=== PATIENT | male | born 1945 | race Caucasian/White ===

== ENCOUNTER 2019-11-09 08:42 | Outpatient (CLI) | payer MEDICARE, MEDICAID, SELFPAY ==
--- NOTE | ~2019-11-09 | CT_ITS ---
EXAMINATION: CT abdomen pelvis wo con EXAM DATE: 11/09/2019 09:45 INDICATION: Peritoneal cancer. TECHNIQUE: Spiral CT of the abdomen and pelvis was performed without contrast. Axial, coronal and s agittal images were reviewed. The dose-length product (DLP) for this examination was 1393.99 mGy-cm. The exposure was tailored according to patient size (auto mA exposure control), and iterative recon struction (ASIR) was used as additional dose reduction technique. Comparison is made to prior examina tion from 07/02/2019. FINDINGS: No mesenteric or retroperitoneal masses identified. The liver, spleen, adrenal glands and pancreas are unremarkable. Gallbladder is unremarkable. No biliary obstruction. There is no nephro lithiasis or hydronephrosis. There are bilateral renal cysts, largest in the left kidney measuring 7 cm. Small prostate versus prostatectomy. The bladder is unremarkable. There is no retroperitoneal or pelvic lymphadenopathy. There is moderate scattered arteriosclerotic disease. The appendix is normal. The stomach and small bowel are unremarkable. There is expected amount of c olonic stool. There is extensive scattered colonic diverticulosis. There is no adjacent inflammatory change to suggest diverticulitis. No free intraperitoneal gas. There is cardiomegaly. The main, c entral pulmonary arteries are dilated which can indicate elevated pulmonary arterial pressure, pulmon josh arterial hypertension. Pulmonary vascular congestion. Basilar lung parenchymal granulomas. Ther e are no osteoblastic or osteolytic lesions identified. IMPRESSION: 1. Stable exam. No evidence of metastatic disease. 2. Extensive colonic diverticulosis. 3. Cardiomegaly, dilated pulmonary arteries. Reviewed, dictated and finalized at location A. 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
== END 2019-11-09 08:43 | disposition home or self-care (01) ==
LOC: ANHIMG 08:43
PROVIDERS: PCP Internal Medicine; Visit Provider Internal Medicine Hematology & Oncology
DX: C48.2 Malignant neoplasm of peritoneum, unspecified (principal); K57.90 Diverticulosis of intestine, part unspecified, without perforation or abscess without bleeding; I51.7 Cardiomegaly
CPT/HCPCS: 74176

== ENCOUNTER 2020-02-08 09:07 | Outpatient (CLI) | payer MEDICARE, MEDICAID, SELFPAY ==
--- NOTE | ~2020-02-08 | MR_ITS ---
EXAMINATION: MR thoracic spine wo con DATE: 02/08/2020 10:22 INDICATION: Thoracic radiculopathy. TECHNIQUE: Magnetic resonance imaging (MRI) of the thoracic spine was performed without intravenous c ontrast. Sagittal localizer T1-weighted FSE of the cervical spine was obtained. Thoracic spine sequen viji included sagittal T2-weighted FSE, sagittal T1-weighted FSE, sagittal STIR FSE, and axial T2-weig hted FSE. COMPARISON: Lumbar spine MRI 10/09/2019, CT abdomen and pelvis 11/09/2019 FINDINGS: There is 7 degrees levocurvature of upper thoracic spine. There are Schmorl's nodes at many levels. There is moderately decreased disc height at C6-C7 and severely decreased disc height at C7- T1. At C6-C7 and C7-T1, the discs are bulging with mild central canal stenosis. At T7-T8, there is a central extrusion. At T8-T9, there is a central protrusion with mild central canal stenosis. At T9-T1 0, there is a right central extrusion with mild central canal stenosis. At T11-T12, the disc is bulgi ng. There is multilevel mild facet joint osteoarthritis bilaterally. There is mild right neural abdirashid inal stenosis at C6-C7, C7-T1, and T1-T2. There is mild left neural foraminal stenosis at C6-C7, T1-T 2, and T11-T12. There is moderate left neural foraminal stenosis at C7-T1 and T9-T10. The spinal cord signal intensity is normal. IMPRESSION: 1. Mild thoracic spondylosis and moderate cervical spondylosis. Reviewed, dictated and finalized at location E.
== END 2020-02-08 09:08 | disposition home or self-care (01) ==
PROVIDERS: PCP Internal Medicine; Visit Provider Nurse Practitioner Family
DX: M47.24 Other spondylosis with radiculopathy, thoracic region (principal); M47.892 Other spondylosis, cervical region
CPT/HCPCS: 72146

== ENCOUNTER 2020-04-19 15:33 | Emergency (ER) | payer MEDICARE, MEDICAID, SELFPAY ==
[2020-04-19] VITALS (14 sets, daily range): BP systolic 99–116; BP diastolic 41–70; PULSE 40–83; RESP 14–30; TEMP 37.4–38.8; O2SAT 74–98
--- NOTE | ~2020-04-19 | XR_ITS ---
EXAMINATION: XR chest 1V portable DATE: 04/19/2020 16:37 INDICATION: Fever. TECHNIQUE: A single frontal view of the chest was obtained. COMPARISON: Chest single view 07/04/2018 FINDINGS: There is chronic elevation of right hemidiaphragm. There is mild atelectasis in right lower lung zone. Calcified right lung nodules and calcified right hilar lymph nodes are consistent with ol d granulomatous disease. No pleural effusion or pneumothorax. Cardiomegaly is noted. There is a right internal jugular port with tip in superior vena cava. IMPRESSION: 1. Chronic elevation of right hemidiaphragm with mild atelectasis in right lower lung zone. 2. Cardiomegaly. Reviewed, dictated and finalized at location A. IMPRESSION: 1. Chronic elevation of right hemidiaphragm with mild atelectasis in right lowe r lung zone. 2. Cardiomegaly.
--- NOTE | ~2020-04-19 | XR_ITS ---
EXAMINATION: XR shoulder LT min 2V DATE: 04/19/2020 16:36 INDICATION: Left shoulder pain and swelling. TECHNIQUE: 4 views of left shoulder were obtained. COMPARISON: None. FINDINGS: There is superior subluxation of humeral head with respect to glenoid with narrowing of the subacromial space and remodeling of the acromion and superior humeral head, consistent with chronic rotator cuff tear with cuff arthropathy. No fracture. There is moderate osteoarthritis of glenohumera l joint and severe osteoarthritis of acromioclavicular joint. There is a catheter tip in superior mirna a cava. IMPRESSION: 1. Chronic left rotator cuff tear with cuff arthropathy. 2. Polyarticular osteoarthritis. Reviewed, dictated and finalized at location A.
--- NOTE | ~2020-04-19 | XR_ITS ---
EXAMINATION: XR wrist LT 2V DATE: 04/19/2020 16:36 INDICATION: Left wrist swelling and pain. Gout. TECHNIQUE: 3 views of left wrist were obtained. COMPARISON: Left wrist radiographs 02/08/2014 FINDINGS: There is chronic dorsal lunate dislocation. Scapholunate dissociation is noted. There is se monserrat osteoarthritis of radioscaphoid joint, mild osteoarthritis of triscaphe joint, and severe osteoa rthritis of first carpometacarpal joint. There are loose bodies in the radiocarpal compartment. IMPRESSION: 1. 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 2. Polyarticular osteoarthritis. 3. Loose bodies in the radiocarpal compartment. Reviewed, dictated and finalized at location A. IMPRESSION: 1. 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 2. Polyarticular osteoarthritis. 3. Loose bodies in the radiocarpal compartment.
--- NOTE | ~2020-04-19 | CT_ITS ---
EXAMINATION: CT chest abdomen pelvis w con DATE: 04/19/2020 17:30 CDT INDICATION: History of lymphoma failure. Fever. TECHNIQUE: Computed tomography (CT) of the chest, abdomen, and pelvis was performed with 100 cc Omnip aque 350 intravenous contrast. The dose-length product was 1576.49 mGy-cm. Automated exposure control and iterative reconstruction technique were employed. COMPARISON: CT dated 11/09/2019 FINDINGS: CHEST CT: There are calcified mediastinal lymph nodes, consistent with chronic granulomatous disease. Cardiomeg bradford. Enlarged pulmonary arteries consistent with pulmonary hypertension. There is evidence for chroni c granulomatous disease in the lung parenchyma. There is gynecomastia. No thoracic lymphadenopathy. N o significant pleural or pericardial effusion. Elevation of the right diaphragm. No focal airspace co nsolidation. No endobronchial lesions. No pneumothorax. ABDOMEN/PELVIS CT: There is a small amount of ascites of the abdomen and pelvis. Small subcentimeter hypodensities of th e liver are likely benign. The spleen, pancreas, adrenal glands are unremarkable. There are bilateral renal cysts. There is renal atrophy. No hydronephrosis. There is atherosclerosis of the aorta withou t aneurysm or dissection. No lymphadenopathy. The bladder wall is mildly prominent, although not well distended. Colonic diverticulosis without evidence for diverticulitis. There is generalized deminera lization. Moderate lumbar spondylosis. Moderate osteoarthritis of the hips. IMPRESSION: 1. No evidence for metastatic disease. 2: Mild bladder wall thickening which may be attributable to lack of distention or cystitis. Correlat e with urinalysis. 3: Dilated pulmonary arteries consistent with pulmonary arterial hypertension. Cardiomegaly. Reviewed, dictated and finalized at location A. IMPRESSION: 1. No evidence for metastatic disease. 2: Mild bladder wall thickening which may be attributable to lack of distention or cystitis. Correlate with urinalysis. 3: Dilated pulmonary arteries consistent with pulmonary arterial hypertension. Cardiomegaly.
--- NOTE | 2020-04-19 16:11 | ED.FEVER ---
HPI - Fever General Chief Complaint: Fever Stated Complaint: Fever and multiple complaints Time Seen by Provider: 04/19/20 16:02 History of Present Illness HPI Narrative: Patient presents with his caregiver of 3 years for fever. He is very evasive with his answers, and difficult to redirect. The caregiver said that he did not have a fever yesterday when she arrived today at 1030 he had fever. His left shoulder has been hurting him for 3 days without injury. His left wrist has been hurting him for 2 days without recent injury. He had a fracture on that left wrist in the past. His appetite is good. When asked if he had a cough, he coughed in my direction without a mask. When asked if he had a sore throat, he answered do you have a sore throat? Caregiver reports that he does not smoke cigarettes, drink alcohol, or do drugs. He has some memory problems, but manages his own money. He is retired. He has a history of lymphoma and is scheduled to have an abdomen CAT scan later this week. MD elicited complaint: fever Onset (ago): hour(s) Exacerbating factors: nothing Relieving factors: nothing Associated symptoms: chills and extremity pain Treatments prior to arrival fever: none Related Data Home Medications Medication Instructions Recorded Confirmed acetaminophen 650 mg PO Q4H PRN 07/14/19 04/14/20 cholecalciferol (vitamin D3) 1,000 unit PO DAILY 07/14/19 04/14/20 cyanocobalamin (vitamin B-12) 1,000 mcg PO DAILY 07/14/19 04/14/20 ferrous sulfate 325 mg (65 mg 325 mg PO DAILY tablet 08/03/19 04/14/20 iron) tablet furosemide 20 mg tablet 20 mg PO QID tablet 08/03/19 04/14/20 magnesium oxide 400 mg (241.3 mg 400 mg PO DAILY 08/03/19 04/14/20 magnesium) tablet spironolactone 25 mg tablet 12.5 mg PO HS tablet 10/30/19 04/14/20 allopurinol 100 mg PO DAILY 04/14/20 04/14/20 Allergies Allergy/AdvReac Type Severity Reaction Status Date / Time Penicillins Allergy Unknown Unknown Verified 04/19/20 15:45 Review of Systems Review of Systems: Narrative: Review of systems was difficult to obtain since he was not straightforward with his answers. All systems reviewed & are unremarkable except as noted in HPI and below PMFSH Past Medical History Medical History Angina pectoris, unspecified Anxiety Arthritis Atrial fibrillation CAD (coronary artery disease) Cellulitis CHF (congestive heart failure) CKD (chronic kidney disease) COPD (chronic obstructive pulmonary disease) Depression Diabetes Emphysema of lung Fluid retention 05/26/18 Hyperlipidemia Hypertension Hypoxia Obesity Olecranon bursitis of right elbow Peripheral sensory neuropathy Sleep apnea Tracheostomy care Surgical History Surgical History H/O hernia repair Social History Social History Smoking status: Former smoker Tobacco type: cigars Smoking end date: 09/23/99 Alcohol intake: current Substance use: never Exam Narrative: Exam Narrative: GENERAL: Well-appearing, well-nourished, and in no acute distress. He feels warm. Some audible wheezing after he tried to cough. Left shoulder with decreased range of motion and pain with motion. Left wrist swollen and painful with any motion. HEAD: Normocephalic, atraumatic. EYES: PERRLA and EOMI. ENT: Nares clear, no rhinorrhea or epistaxis. Mucous membranes moist. NECK: Supple. CHEST: Clear to auscultation. No respiratory distress. HEART: Regular rate and rhythm. No murmur heard. Normal peripheral pulses. ABDOMEN: Soft, nontender, nondistended, normal active bowel sounds. EXTREMITIES: Normal range of motion. No edema. SKIN: Warm, dry, no rash. NEURO: No focal deficits. Alert and oriented x3. PSYCH: Evasive with self satisfying humor. Course Reevaluation(s) Reevaluation #1: Went back into talk to the patient about all of his results. He
[2020-04-19 16:13] LABS: Hemoglobin 8.3 g/dL (14.0-18.0); Mean Corpuscular HGB Conc 31.9 g/dl (32-36); Mean Corpuscular Hemoglobin 27.3 pg (26-34); Mean Corpuscular Volume 85.5 fl (80-100); Mean Platelet Volume 12.5 fl (7.4-10.4); Platelet Count Result 146 k/mm3 (150-375); Red Blood Count 3.04 M/mm3 (4.6-6.20); Red Cell Distribution Width 18.2 % (11.5-14.5); White Blood Count 3.3 K/mm3 (4.5-10.0)
[2020-04-19 16:27] LABS: Lactic Acid Reflex 0.9 mmol/L (0.7-2.1)
[2020-04-19 16:30] LABS: Alanine Aminotransferase 14 U/L (4-50); Albumin Level 3.9 g/dL (3.5-5.1); Alkaline Phosphatase 239 U/L (38-126); Aspartate Amino Transferase 24 U/L (17-59); Bilirubin,Total 2.2 mg/dL (0.2-1.3); Blood Urea Nitrogen 76 mg/dL (9-20); Calcium 8.6 mg/dL (8.4-10.2); Carbon Dioxide 29 mmol/L (22-30); Chloride 90 mmol/L (98-107); Estimated CRCL calculation 37 ml/min; Estimated Glomerular Filt Rate 35; Glucose 126 mg/dL (75-110); Sodium 131 mmol/L (137-145)
[2020-04-19 16:33] LABS: Band Neutrophils Percent 1 % (0-6); Eosinophils Absolute Manual 0.06 K/mm3 (0.02-0.5); Eosinophils Percent Manual 2 % (0-4); Lymphocytes Absolute Manual 0.19 K/mm3 (1.1-4.5); Metamyelocytes Percent 6 %; Monocytes Absolute Manual 0.33 K/mm3 (0.1-0.90); Monocytes Percent Manual 10 % (3-9); Neutrophils Percent Manual 75 % (46-73); Platelet Estimate Adequate (Adequate); Total Cells Counted 100
[2020-04-19] MEDS: ACETAMINOPHEN 500 MG TABLET 1000 MG PO (16:33)
[2020-04-19 16:34] LABS: Acanthocytes 1+ (NORMAL); Crenated RBC 1+ (NORMAL); Ovalocytes 1+ (NORMAL); Tear Drop Cells 1+ (NORMAL)
[2020-04-19 16:35] LABS: Poikilocytosis 1+ (NORMAL)
[2020-04-19 16:40] LABS: Partial Thromboplastin Time > 200.0 SECONDS (22.3-36.8)
--- NOTE | 2020-04-19 16:42 | ECG_ITS ---
Measurements Intervals [place] Rate: 57 P: MI: 0 QRS: -12 QRSD: 120 T: 89 QT: 388 QTc: 379 Interpretive Statements ATRIAL FIBRILLATION VENTRICULAR BIGEMINY AND VENTRICULAR PREMATURE COMPLEX INTRAVENTRICULAR CONDUCTION DELAY NONSPECIFIC T-WAVE ABNORMALITY- HIGH LATERAL LEADS BASELINE ARTIFACT- AVR, AVL, AVF ABNORMAL ECG Electronically Signed On 04-19-2020 17:56:57 CDT by Jacob Manning D.O.
[2020-04-19 16:44] LABS: CRP 25.1 mg/dL (<1.0)
[2020-04-19 16:45] LABS: Ethanol < 10 mg/dL (<10)
[2020-04-19 17:05] LABS: Add Urine Microscopic? NO; Appearance Urine Clear (Clear); Bilirubin Urine Negative (Negative); Blood Urine Negative (Negative); Color Urine Yellow (Yellow); Glucose Urine UA Negative (Negative); Ketones Urine Negative (Negative); Leukocyte Esterase Ur Negative LEU/UL (Negative); Mucus Urine Rare /lpf; Nitrate Urine Negative (Negative); Protein Urine Negative (Negative); RBC Urine 0-2 /hpf (0-2); Specific Grav Ur 1.012 (1.001-1.035); Urobilinogen Urine Negative mg/dL (<2.0); WBC Urine 0-3 /hpf
[2020-04-20 14:40] LABS: SARS-CoV-2 RNA PCR Negative
== END 2020-04-19 18:54 | disposition home or self-care (01) ==
PROVIDERS: Emergency Provider Emergency Medicine; PCP Internal Medicine
DX: D61.818 Other pancytopenia (principal); N18.9 Chronic kidney disease, unspecified; R50.9 Fever, unspecified; Z20.828 Contact with and (suspected) exposure to other viral communicable diseases; E11.22 Type 2 diabetes mellitus with diabetic chronic kidney disease; I13.0 Hypertensive heart and chronic kidney disease with heart failure and stage 1 through stage 4 chronic kidney disease, or unspecified chronic kidney disease; I50.9 Heart failure, unspecified; F41.9 Anxiety disorder, unspecified; M19.90 Unspecified osteoarthritis, unspecified site; Z85.72 Personal history of non-Hodgkin lymphomas; I48.91 Unspecified atrial fibrillation; I25.10 Atherosclerotic heart disease of native coronary artery without angina pectoris; Z79.899 Other long term (current) drug therapy; Z87.891 Personal history of nicotine dependence; R00.8 Other abnormalities of heart beat; I49.3 Ventricular premature depolarization; I45.9 Conduction disorder, unspecified; M19.012 Primary osteoarthritis, left shoulder; M75.102 Unspecified rotator cuff tear or rupture of left shoulder, not specified as traumatic; M19.032 Primary osteoarthritis, left wrist; I51.7 Cardiomegaly; R93.41 Abnormal radiologic findings on diagnostic imaging of renal pelvis, ureter, or bladder; R91.8 Other nonspecific abnormal finding of lung field
CPT/HCPCS: 36415; 71045; 71260; 73030; 73100; 74177; 80053; 80307; 81003; 83605; 85025; 85610; 85730; 86140; 87040; 87635; 93005; 99284; A9270; C9803; Q9967; U0003

== ENCOUNTER 2020-04-20 12:33 | Inpatient (IN) | payer MEDICARE, MEDICAID, SELFPAY ==
[2020-04-20] VITALS (28 sets, daily range): BP systolic 94–117; BP diastolic 54–82; PULSE 57–88; RESP 15–24; TEMP 36.3–37.1; O2SAT 91–100; BMI 32.8
--- NOTE | ~2020-04-20 | US_ITS ---
EXAMINATION: US venous doppler UE LT DATE: 04/22/2020 15:03 INDICATION: Left upper limb swelling. TECHNIQUE: Grayscale ultrasound images without and with compression and Doppler ultrasound images of the left upper extremity veins were obtained. COMPARISON: None. FINDINGS: The visualized portions of the left internal jugular vein, subclavian vein, axillary vein, brachial v eins, basilic vein, cephalic vein, radial vein, and ulnar vein are patent. There is tenosynovitis of the dorsum of the hand. IMPRESSION: 1. No deep venous thrombosis. 2. Tenosynovitis of the dorsum of the hand. Reviewed, dictated and finalized at location A.
--- NOTE | 2020-04-20 12:41 | ECG_ITS ---
Measurements Intervals [place] Rate: 71 P: PA: 0 QRS: 5 QRSD: 126 T: 89 QT: 418 QTc: 457 Interpretive Statements ATRIAL FIBRILLATION VENTRICULAR COUPLET AND VENTRICULAR PREMATURE COMPLEXES INTRAVENTRICULAR CONDUCTION DELAY BORDERLINE T WAVE ABNORMALITY- HIGH LATERAL LEADS ABNORMAL ECG Electronically Signed On 04-20-2020 12:55:15 CDT by Jacob Manning D.O.
[2020-04-20 13:08] LABS: Hemoglobin 7.6 g/dL (14.0-18.0); Mean Corpuscular HGB Conc 31.7 g/dl (32-36); Mean Corpuscular Hemoglobin 27.2 pg (26-34); Mean Platelet Volume 11.7 fl (7.4-10.4); Platelet Count Result 141 k/mm3 (150-375); Red Blood Count 2.79 M/mm3 (4.6-6.20); Red Cell Distribution Width 18.3 % (11.5-14.5); White Blood Count 3.4 K/mm3 (4.5-10.0)
[2020-04-20 13:20] LABS: Alanine Aminotransferase 15 U/L (4-50); Albumin Level 3.5 g/dL (3.5-5.1); Alkaline Phosphatase 267 U/L (38-126); Aspartate Amino Transferase 29 U/L (17-59); Bilirubin,Total 2.2 mg/dL (0.2-1.3); Blood Urea Nitrogen 79 mg/dL (9-20); Calcium 8.4 mg/dL (8.4-10.2); Carbon Dioxide 27 mmol/L (22-30); Chloride 91 mmol/L (98-107); Estimated CRCL calculation 34 ml/min; Estimated Glomerular Filt Rate 31; Glucose 100 mg/dL (75-110); Sodium 131 mmol/L (137-145)
[2020-04-20 13:29] LABS: Lymphocytes Absolute Manual 0.23 K/mm3 (1.1-4.5); Monocytes Absolute Manual 0.54 K/mm3 (0.1-0.90); Monocytes Percent Manual 16 % (3-9); Neutrophils Percent Manual 77 % (46-73); Total Cells Counted 100
[2020-04-20 13:30] LABS: Anisocytosis 2+ (NORMAL); Hypochromasia 1+ (NORMAL); Ovalocytes 1+ (NORMAL); Schistocytes 1+ (NORMAL)
[2020-04-20 14:32] LABS: Alveolar/Arterial O2 Gradient 41.1 mmHg; Base Excess ABG 2.2 mEq/l (+/-2.0); Device ROOM AIR; Fractional Inspired Oxygen 21 %; Modified Allen's Test Pass; Oxygen Content ABG 11.4 %vol (16.0-22.0); Oxygen Saturation ABG 93.9 % (95.0-100.0); Oxyhemoglobin 90.3 % THb (90.0-100.0); PCO2 ABG 36.8 mmHg (35.0-45.0); PO2 ABG 64.6 mmHg (80.0-100.0); PO2 FiO2 Ratio Arterial Blood 3.08 %; Site Drawn RIGHT RADIAL; Total Hemoglobin 8.9 g/dL (12.0-18.0); pH ABG 7.467 (7.350-7.450)
--- NOTE | 2020-04-20 14:35 | ED.GENADULT ---
HPI - General Adult General Chief complaint: Weakness Stated complaint: WEAKNESS Source: patient and family History of Present Illness HPI narrative: 74 years old white male brought to the emergency by his daughter because of progressive weakness over the last few days. Patient was discharged yesterday from our emergency room with a diagnosis of pancytopenia and renal insufficiency. Patient declined to be admitted yesterday. The daughter told me that patient had fever up to 101 yesterday. COVID-19 was done, waiting for results. Patient denies any sore throat, coughing, shortness of breath, body aches, nasal congestion or diarrhea. Patient have a caregiver was taking care of him 4 hours a day. She reports that unable to take care of the patient because the general weakness and inability to stand up without at least 2 social media assistant. Related Data Home Medications Medication Instructions Recorded Confirmed acetaminophen 650 mg PO Q4H PRN 07/14/19 04/14/20 cholecalciferol (vitamin D3) 1,000 unit PO DAILY 07/14/19 04/14/20 cyanocobalamin (vitamin B-12) 1,000 mcg PO DAILY 07/14/19 04/14/20 ferrous sulfate 325 mg (65 mg 325 mg PO DAILY tablet 08/03/19 04/14/20 iron) tablet furosemide 20 mg tablet 20 mg PO QID tablet 08/03/19 04/14/20 magnesium oxide 400 mg (241.3 mg 400 mg PO DAILY 08/03/19 04/14/20 magnesium) tablet spironolactone 25 mg tablet 12.5 mg PO HS tablet 10/30/19 04/14/20 allopurinol 100 mg PO DAILY 04/14/20 04/14/20 Allergies Allergy/AdvReac Type Severity Reaction Status Date / Time Penicillins Allergy Unknown Unknown Verified 04/19/20 15:45 [facility] Past Medical History Medical History Angina pectoris, unspecified Anxiety Arthritis Atrial fibrillation CAD (coronary artery disease) Cellulitis CHF (congestive heart failure) CKD (chronic kidney disease) COPD (chronic obstructive pulmonary disease) Depression Diabetes Emphysema of lung Fluid retention 05/26/18 Hyperlipidemia Hypertension Hypoxia Obesity Olecranon bursitis of right elbow Peripheral sensory neuropathy Sleep apnea Tracheostomy care Surgical History Surgical History H/O hernia repair Family History Family History Father Family history of emphysema Family history of chronic obstructive pulmonary disease Sibling Family history of diabetes mellitus in first degree relative Family history of congestive heart failure Mother Family history of heart disease in male family member before age 55 Patient's mother is in good health Acute myocardial infarction Other Diabetes mellitus Hypertension Social History Social History Smoking status: Former smoker Tobacco type: cigars Smoking end date: 09/23/99 Alcohol intake: current Substance use: never Exam Narrative: Exam Narrative: General appearance: Well-developed, well-nourished Skin: Normal color Head: Normocephalic, nontraumatic Eyes: Clear conjunctiva ENT: Oropharynx normal, ears normal, nose normal Neck: Supple, nontender Chest and respiratory: Airway patent, no respiratory distress, no accessory muscle use Heart: Regular rate/rhythm Abdomen: Soft, nontender, no organomegaly, quiet bowel sounds. Rectal exam showed yellow stool, guaiac negative Vascular: Normal peripheral pulses, normal capillary refill. 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
[2020-04-20] MEDS: POTASSIUM CHLORIDE 20 MEQ TABLET 40 MEQ PO (15:29)
[2020-04-20] MEDS: LACTATED RINGERS 1,000 ML 125 ML IV CONT (15:37)
--- NOTE | 2020-04-20 17:57 | ADMGEN ---
This patient, Harvey Sorenson, was admitted to [facility] Surg Room 323-02 @ 1757. Patient/family oriented to hospital policies and general routines including ID bracelet, bed and alarms, visiting hours, pain management, procedures, bathroom and other care routines, personal items, smoking policy, room service/diet, and visiting hours. Valuables list has been completed. Information on how to activate the Rapid Response Team has been discussed. Patient/Family are encouraged to report perceived risks to care and to ask questions if they do not understand what they are told or what they should do.
[2020-04-20] MEDS: POTASSIUM CHLORIDE 20 MEQ TABLET.ER 40 MEQ PO (18:52)
[2020-04-21] VITALS (9 sets, daily range): BP systolic 102–122; BP diastolic 56–72; PULSE 64–88; RESP 18–20; TEMP 36.4–37.7; O2SAT 93–100
[2020-04-21] MEDS: LACTATED RINGERS 1,000 ML 125 ML IV CONT (00:11)
[2020-04-21 05:25] LABS: Basophils Percent Auto 0.3 % (0.2-1.2); Eosinophils Absolute Auto 0.1 K/mm3 (0-0.3); Eosinophils Percent Auto 2.3 % (0-4.4); Hematocrit 22.8 % (42.0-52.0); Hemoglobin 7.2 g/dL (14.0-18.0); Immature Granulocyte Absolute 0.46 K/mm3 (0.00-0.031); Immature Granulocyte Percent A 15.1 % (0-0.5); Lymphocytes Percent Auto 3.3 % (18.3-44.2); Mean Corpuscular HGB Conc 31.6 g/dl (32-36); Mean Corpuscular Hemoglobin 27.3 pg (26-34); Mean Corpuscular Volume 86.4 fl (80-100); Mean Platelet Volume 11.2 fl (7.4-10.4); Monocytes Absolute Auto 0.6 K/mm3 (0.1-0.6); Monocytes Percent Auto 20.7 % (2.6-8.5); Neutrophils Absolute Auto 1.8 K/mm3 (1.3-6.7); Neutrophils Percent Auto 58.3 % (45.5-73.1); Platelet Count Result 132 k/mm3 (150-375); Red Blood Count 2.64 M/mm3 (4.6-6.20); Red Cell Distribution Width 18.3 % (11.5-14.5); White Blood Count 3.1 K/mm3 (4.5-10.0)
[2020-04-21 05:39] LABS: Anion Gap 14.9 mmol/L (7-16); Blood Urea Nitrogen 76 mg/dL (9-20); Carbon Dioxide 25 mmol/L (22-30); Chloride 93 mmol/L (98-107); Estimated CRCL calculation 33 ml/min; Estimated Glomerular Filt Rate 31; Glucose 92 mg/dL (75-110); Potassium 3.9 mmol/L (3.4-5.0); Sodium 129 mmol/L (137-145)
[2020-04-21 06:18] LABS: Hypochromasia 1+ (NORMAL); Schistocytes 1+ (NORMAL)
[2020-04-21 06:19] LABS: Acanthocytes 1+ (NORMAL); Anisocytosis 1+ (NORMAL); Ovalocytes 1+ (NORMAL); Poikilocytosis 2+ (NORMAL)
--- NOTE | 2020-04-21 07:45 | PM.IMHP ---
H&P: HPI History of Present Illness Chief complaint: fever, body aches Narrative: Date and time of patient contact: 04/21/2020 at 6:30 a.m. Harvey Sorenson is a 74 year old male with a past medical history of gout, peripheral neuropathy, chronic back pain and non-Hodgkin's lymphoma who presented to the ER via private vehicle due to progressive weakness And body aches. The patient states that his symptoms 1st started about 5 days ago when he tried to open a pickle jar. since that time he has had difficulty moving his hand at all. He has severe pain with any motion of his wrist. He has noticed significant swelling in his wrist. If he moves his arm from the elbow causes radiating pain again down to his wrist. He has not noticed any rash or erythema of his hand or wrist. I did point out to him some erythema on his left index finger. He reports that this is the area that is been there for years but he has noticed a small amount of serous drainage from it for the last few days. He admits the area may be a little bit more red than usual. He initially presented to the ER on 04/19/2020 and had a fever of 101.9. he was tested for COVID-19 at that time and refused admission. The patient has been taking Tylenol at home somewhat frequently to try to treat the pain is arm. The pain in his arm is a 10/10 in intensity specially with movement. He denies any nausea or vomiting. He has not had any cough or congestion. He denies any chest pain or shortness of breath. He has noticed worsening of his neuropathic pain in his legs. He reports he has become so weak that he cannot get up and walk. The the patient has been going to the grocery store himself and doing his usual day-to-day activities. he denies any known exposures to individuals with COVID-19. He denies any dysuria or hematuria. he has not had any nausea, vomiting or diarrhea. He also complains of pain in his upper back and neck that is been worse than his usual. He has not had any upper respiratory symptoms is no or sore throat. Review of Systems Review of Systems: Narrative: 12 systems were reviewed with pertinent positives and negatives per HPI. Except as documented in the HPI, all other systems were reviewed and are negative. [facility] Past Medical History Medical History (Updated 04/21/20 @ 08:48 by Janessa Shoemaker DO) Angina pectoris, unspecified Anxiety Arthritis Atrial fibrillation CAD (coronary artery disease) CHF (congestive heart failure) CKD (chronic kidney disease) COPD (chronic obstructive pulmonary disease) Depression Diabetes Emphysema of lung Fluid retention 05/26/18 Hyperlipidemia Hypertension Hyponatremia chronic Hypoxia Non Hodgkin's lymphoma Obesity Obstructive sleep apnea Olecranon bursitis of right elbow Peripheral sensory neuropathy Pulmonary hypertension Respiratory failure January 2016 resulting in tracheostomy and subsequent closure Sleep apnea Surgical History Surgical History (Updated 04/21/20 @ 08:01 by Janessa Shoemaker DO) H/O hernia repair incarcerated ventral hernia November 2016 History of cardiac catheterization March 2008 demonstrating mild coronary artery disease History of carpal tunnel release History of nasal septoplasty Hx of tonsillectomy Status post cataract extraction of both eyes with insertion of intraocular lens Status post rotator cuff repair bilateral Family History Family History (Updated 04/21/20 @ 08:07 by Janessa Shoemaker DO) Father Patient's father is COPD with emphysema Sibling Patient's sister is CHF (congestive heart failure) Diabetes mellitus Mother Valvular heart disease Social History Social History (Updated 04/21/20 @ 08:10 by Janessa Shoemaker DO) Social History: Primary care physician: Dr. Armen Beasley code status: Full code Smoking status: Former smoker Tobacco type: cigars Smoking end date: 09/23/99 Alcohol intake: ne
[2020-04-21 07:59] LABS: Uric Acid 9.5 mg/dL (3.5-8.5)
[2020-04-21] MEDS: ISOSORBIDE MONONITRATE 60 MG TAB.ER.24H PO (10:18)
[2020-04-21] MEDS: POTASSIUM CHLORIDE 10 MEQ TABLET.ER 20 MEQ PO ×2 (10:18→17:16)
[2020-04-21] MEDS: rOPINIRole HCL 0.25 MG TABLET PO ×3 (10:18→17:15)
[2020-04-21] MEDS: ATORVASTATIN 40 MG TABLET PO (10:18)
[2020-04-21] MEDS: PANTOPRAZOLE 40 MG TABLET PO (10:18)
[2020-04-21] MEDS: FINASTERIDE 5 MG TABLET PO (10:19)
[2020-04-21] MEDS: APIXABAN 5 MG TABLET PO ×2 (10:19→17:16)
[2020-04-21] MEDS: predniSONE 20 MG TABLET PO (10:19)
[2020-04-21] MEDS: allopurinoL 100 MG TABLET PO (10:19)
[2020-04-21] MEDS: MAGNESIUM OXIDE 400 MG TABLET PO (10:19)
[2020-04-21] MEDS: CYANOCOBALAMIN 1,000 MCG TABLET 1000 MCG PO (10:20)
[2020-04-21] MEDS: FERROUS SULFATE 324 MG TABLET PO (10:20)
[2020-04-21] MEDS: CHOLECALCIFEROL 1,000 UNIT TABLET 1000 UNITS PO (10:20)
[2020-04-21] MEDS: PREGABALIN 75 MG CAPSULE PO ×3 (10:30→17:20)
[2020-04-21] MEDS: ACETAMINOPHEN 325 MG TABLET 650 MG PO (13:31)
--- NOTE | 2020-04-21 14:01 | PM.IMPN ---
Progress Note: A&P Assessment and Plan (1) Gouty tophi of hand: Code(s): M1A.9XX1 - Chronic gout, unspecified, with tophus (tophi) Status: Acute Assessment and Plan: Uric acid level elevated. Will continue prednisone therapy 20 mg daily for 5 days as given the tenderness the patient's hand this could in part be due to a gouty flare. Patient is not a candidate for colchicine as this can cause myelosuppression and pancytopenia. He has recently been taking colchicine over the last few months. 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 Ordered left wrist splint. Although these findings appear chronic it seems he may have injured it a few days ago - noted he had difficulty opening a jar at home and the pain/swelling started the following day. Ordered left wrist brace. He may benefit from following up with a pediatric speech therapist outpatient. (2) Cellulitis: Code(s): L03.90 - Cellulitis, unspecified Status: Acute Assessment and Plan: Possible cellulitis of the left index finger and hand. Will continue antibiotic therapy with IV ancef and monitor for clinical improvement. Blood cultures are pending. (3) Hypokalemia: Code(s): E87.6 - Hypokalemia Status: Resolved Assessment and Plan: Resolved after replacement in the ED. Will monitor. (4) Pancytopenia: Code(s): D61.818 - Other pancytopenia Status: Acute Assessment and Plan: The patient has mild pancytopenia, may be related to recent use of colchicine. The patient also has a history of non-Hodgkin's lymphoma, follows with Dr Davis. He could have developed some mild bone marrow suppression. The patient states that he is on ruxolitinib. Dr. Dvais has been consulted. (5) Anemia: Qualifiers: Anemia type: unspecified type Qualified Code(s): D64.9 - Anemia, unspecified Code(s): D64.9 - Anemia, unspecified Status: Chronic Assessment and Plan: Follows with Dr Davis and was recently seen in the office. Dr Davis has ordered Procit, appreciate his input. No evidence of acute bleeding. Monitor H&H. Subjective Date/time seen: 04/21/20 1300 Interval history: Mr. Sorenson is a pleasant 74yo M admitted due to left hand cellulitis and suspected gout flare. He is still in pretty significant pain with swelling to left hand, not able to move it much. He denies chest pain or shortness of breath. Tolerating some lunch at time of my encounter and denies nausea or vomiting. Review of Systems Review of Systems: Narrative: Twelve systems were reviewed with pertinent positives and negatives as per HPI. Exam Narrative: Exam Narrative: General: Male resting in bedside chair in no acute distress. HEENT: Normocephalic, EOMI, oral mucosa moist. Cardiovascular: Rate and rhythm are regular. Respiratory: Lungs clear to auscultation all obando. Non-labored breathing. Abdomen: Soft, non-tender, non-distended, bowel sounds present. Extremities: Peripheral pulses intact. Erythema and gouty tophi to DIP of left 1st finger; left wrist and hand are edematous, erythematous and warm to touch, range of motion at left wrist and left elbow are limited due to pain. Neuro: No focal neurological deficits. Speech is clear. Objective Data Vital Signs Vital Signs: Last Vital Signs Temp 97.7 F 04/21/20 14:00 Pulse 77 04/21/20 16:00 Resp 18 04/21/20 14:00 BP 106/62 04/21/20 14:00 Pulse Ox 100 04/21/20 14:00 Intake/Output Intake/Output: Intake & Output 04/18/20 04/19/20 04/20/20 04/21/20 23:59 23:59 23:59 23:59 Intake Total 1340 1670 Output Total 250 Balance 1340 1420 Meds/Results Medications: Active Medications
--- NOTE | 2020-04-21 17:56 | PDONCCN ---
HPI - Date of Consult Date/Time: 04/21/20 17:56 Requesting Physician: ANGI Perez Primary Care Provider: Armen Beasley, DO - Consult Narrative Reason for consult: Non-Hodgkin lymphoma and pancytopenia Narrative: Harvey Sorenson is a 74 year old male This is the 74-year-old obese male with history of non-Hodgkin lymphoma and currently on maintenance Rituxan treatment. He has been in remission for close to 2 years duration. He was seen in the office on April 14 and found to be anemic. Labs were done for anemia and CT scan were also ordered to check remission. He denies any new lung sounds are lymphadenopathy. He came into the hospital with generalized weakness as well as swelling in the left hand does level while he was trying to open the fecal GI are and applied excessive force on the wrist. He denies any other new complaint. He denies a hematochezia and melena. Denies diarrhea and constipation. No fevers and chills. Review of Systems - Review of Systems All systems reviewed & are unremarkable except as noted in HPI and [facility] Medical History: Medical History (Last Reviewed 04/21/20 @ 17:59 by Leandro Davis MD) Angina pectoris, unspecified Anxiety Arthritis Atrial fibrillation CAD (coronary artery disease) CHF (congestive heart failure) CKD (chronic kidney disease) COPD (chronic obstructive pulmonary disease) Depression Diabetes Emphysema of lung Fluid retention 05/26/18 Hyperlipidemia Hypertension Hyponatremia chronic Hypoxia Non Hodgkin's lymphoma Obesity Obstructive sleep apnea Olecranon bursitis of right elbow Peripheral sensory neuropathy Pulmonary hypertension Respiratory failure January 2016 resulting in tracheostomy and subsequent closure Sleep apnea Surgical History: Surgical History (Last Reviewed 04/21/20 @ 17:59 by Leandro Davis MD) H/O hernia repair incarcerated ventral hernia November 2016 History of cardiac catheterization March 2008 demonstrating mild coronary artery disease History of carpal tunnel release History of nasal septoplasty Hx of tonsillectomy Status post cataract extraction of both eyes with insertion of intraocular lens Status post rotator cuff repair bilateral Family History: Family History (Last Reviewed 04/21/20 @ 17:59 by Leandro Davis MD) Father Patient's father is COPD with emphysema Sibling Patient's sister is CHF (congestive heart failure) Diabetes mellitus Mother Valvular heart disease - Social History Social History: Social History (Last Reviewed 04/21/20 @ 17:59 by Leandro Davis MD) Gender Identity: Gender identity (if verbalized by the patient): Male Alcohol Use: Alcohol intake: never Substance Use: Substance use: never Others: Spiritual care concerns: No Smoking Status: Smoking status: Former smoker Tobacco type: cigars Smoking end date: 09/23/99 Meds Home Medications Medication Instructions Recorded Confirmed Type acetaminophen 650 mg PO Q4H PRN 07/14/19 04/20/20 History cholecalciferol (vitamin D3) 1,000 unit PO DAILY 07/14/19 04/20/20 History cyanocobalamin (vitamin B-12) 1,000 mcg PO DAILY 07/14/19 04/20/20 History ferrous sulfate 325 mg (65 mg 325 mg PO DAILY tablet 08/03/19 04/20/20 History iron) tablet furosemide 20 mg tablet 20 mg PO QID tablet 08/03/19 04/20/20 History magnesium oxide 400 mg (241.3 mg 400 mg PO DAILY 08/03/19 04/20/20 History magnesium) tablet apixaban 5 mg tablet 5 mg PO BID #180 tablet 09/14/19 04/20/20 Rx metolazone 5 mg tablet 5 mg PO DAILY #90 tablet 09/17/19 04/20/20 Rx spironolactone 25 mg tablet 12.5 mg PO HS tablet 10/30/19 04/20/20 History atorvastatin 40 mg tablet 40 mg PO DAILY #90 tablet 11/19/19 04/20/20 Rx ropinirole 0.5 mg tablet 0.25 mg PO TID #136 tablet 12/14/19 04/20/20 Rx omeprazole 20 mg capsule,delayed 20 mg PO DAILY #90 cap 12/24/19
[2020-04-21] MEDS: EPOETIN ALFA-EPBX 10,000 UNITS/ML VIAL 20000 UNITS SUB-Q (18:35)
[2020-04-21] MEDS: SPIRONOLACTONE 12.5 MG TABLET PO (20:59)
[2020-04-21] MEDS: TERAZOSIN HCL 1 MG CAPSULE PO (20:59)
[2020-04-22] VITALS (9 sets, daily range): BP systolic 98–110; BP diastolic 53–84; PULSE 52–73; RESP 18–20; TEMP 36.3–36.5; O2SAT 97–100
[2020-04-22 06:15] LABS: Hematocrit 22.5 % (42.0-52.0); Hemoglobin 7.1 g/dL (14.0-18.0); Mean Corpuscular HGB Conc 31.6 g/dl (32-36); Mean Corpuscular Hemoglobin 27.2 pg (26-34); Mean Corpuscular Volume 86.2 fl (80-100); Mean Platelet Volume 11.9 fl (7.4-10.4); Platelet Count Result 143 k/mm3 (150-375); Red Blood Count 2.61 M/mm3 (4.6-6.20); Red Cell Distribution Width 17.9 % (11.5-14.5); White Blood Count 2.5 K/mm3 (4.5-10.0)
[2020-04-22 06:37] LABS: Anion Gap 16.2 mmol/L (7-16); Blood Urea Nitrogen 88 mg/dL (9-20); Calcium 8.2 mg/dL (8.4-10.2); Carbon Dioxide 24 mmol/L (22-30); Chloride 92 mmol/L (98-107); Estimated CRCL calculation 28 ml/min; Estimated Glomerular Filt Rate 25; Glucose 125 mg/dL (75-110); Magnesium 2.1 mg/dL (1.6-2.3); Potassium 4.2 mmol/L (3.4-5.0); Sodium 128 mmol/L (137-145)
[2020-04-22 06:46] LABS: Acanthocytes 2+ (NORMAL); Basophils Absolute Manual 0.02 K/mm3 (0.0-0.1); Basophils Percent Manual 1 % (0-1); Eosinophils Absolute Manual 0.02 K/mm3 (0.02-0.5); Eosinophils Percent Manual 1 % (0-4); Large Platelets Present; Monocytes Absolute Manual 0.35 K/mm3 (0.1-0.90); Monocytes Percent Manual 14 % (3-9); Neutrophils Percent Manual 76 % (46-73); Ovalocytes 2+ (NORMAL); Total Cells Counted 100
[2020-04-22 06:47] LABS: Helmet Cells 2+ (NORMAL); Hypochromasia 3+ (NORMAL); Schistocytes 2+ (NORMAL)
[2020-04-22] MEDS: SODIUM CHLORIDE 0.9% IV 1,000 ML 80 ML IV CONT (08:49)
[2020-04-22] MEDS: rOPINIRole HCL 0.25 MG TABLET PO ×3 (08:49→17:52)
[2020-04-22] MEDS: ATORVASTATIN 40 MG TABLET PO (08:49)
[2020-04-22] MEDS: CYANOCOBALAMIN 1,000 MCG TABLET 1000 MCG PO (08:49)
[2020-04-22] MEDS: predniSONE 20 MG TABLET PO (08:50)
[2020-04-22] MEDS: FERROUS SULFATE 324 MG TABLET PO (08:50)
[2020-04-22] MEDS: ISOSORBIDE MONONITRATE 60 MG TAB.ER.24H PO (08:50)
[2020-04-22] MEDS: POTASSIUM CHLORIDE 10 MEQ TABLET.ER 20 MEQ PO ×2 (08:50→17:52)
[2020-04-22] MEDS: CHOLECALCIFEROL 1,000 UNIT TABLET 1000 UNITS PO (08:51)
[2020-04-22] MEDS: PANTOPRAZOLE 40 MG TABLET PO (08:51)
[2020-04-22] MEDS: allopurinoL 100 MG TABLET PO (08:51)
[2020-04-22] MEDS: FINASTERIDE 5 MG TABLET PO (08:51)
[2020-04-22] MEDS: MAGNESIUM OXIDE 400 MG TABLET PO (08:52)
[2020-04-22] MEDS: APIXABAN 5 MG TABLET PO ×2 (08:52→17:53)
[2020-04-22] MEDS: PREGABALIN 75 MG CAPSULE PO ×3 (08:53→17:56)
--- NOTE | 2020-04-22 13:08 | PM.IMPN ---
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 Ordered left wrist splint which nursing reports does not fit - will try ANANDA wrap instead to immobilize. Although these findings appear chronic it seems he may have injured it a few days ago - noted he had difficulty opening a jar at home and the pain/swelling started the following day. He may benefit from following up with a him director outpatient. Discussed case with ortho and agree with outpatient follow up. Immobilize and apply ice. US venous doppler shows no DVT in left upper extremity. (2) Gouty tophi of hand: Code(s): M1A.9XX1 - Chronic gout, unspecified, with tophus (tophi) Status: Acute Assessment and Plan: Uric acid level elevated. Will continue prednisone therapy 20 mg daily for 5 days as given the tenderness the patient's hand this could in part be due to a gouty flare. Patient is not a candidate for colchicine as this can cause myelosuppression and pancytopenia. He has recently been taking colchicine over the last few months. (3) Cellulitis: Qualifiers: Laterality: left Site of cellulitis: extremity Site of cellulitis of extremity: upper extremity Qualified Code(s): L03.114 - Cellulitis of left upper limb Code(s): L03.90 - Cellulitis, unspecified Status: Suspected Assessment and Plan: Possible cellulitis of the left index finger and hand. Will continue antibiotic therapy with IV ancef and monitor for clinical improvement. Blood cultures are pending with no growth to date. (4) Pancytopenia: Code(s): D61.818 - Other pancytopenia Status: Acute Assessment and Plan: The patient has mild pancytopenia, may be related to recent use of colchicine. The patient also has a history of non-Hodgkin's lymphoma, follows with Dr Davis. He could have developed some mild bone marrow suppression. The patient states that he is on ruxolitinib. Dr. Davis has been consulted. (5) Anemia: Qualifiers: Anemia type: unspecified type Qualified Code(s): D64.9 - Anemia, unspecified Code(s): D64.9 - Anemia, unspecified Status: Chronic Assessment and Plan: Follows with Dr Davis and was recently seen in the office. Dr Davis has ordered Procit, appreciate his input. No evidence of acute bleeding. Monitor H&H. Subjective Date/time seen: 04/22/20 1245 Interval history: Mr. Sorenson is a pleasant 74yo M admitted due to left hand pain and swelling, suspected gout flare and possible cellulitis. He is still in pretty significant pain with swelling to left hand, not able to move it much. Swelling is a bit improved compared to yesterday. He denies chest pain or shortness of breath. Tolerating some lunch at time of my encounter and denies nausea or vomiting. Review of Systems Review of Systems: Narrative: Twelve systems were reviewed with pertinent positives and negatives as per HPI. Exam Narrative: Exam Narrative: General: Male resting in bedside chair in no acute distress. HEENT: Normocephalic, EOMI, oral mucosa moist. Cardiovascular: Rate and rhythm are regular. Respiratory: Lungs clear to auscultation all obando. Non-labored breathing. Abdomen: Soft, non-tender, non-distended, bowel sounds present. Extremities: Peripheral pulses intact. Erythema and gouty tophi to DIP of left 1st finger; left wrist and hand are edematous but some skin wrinkling and improving edema, erythematous and warm to touch, range of motion at left wrist and left elbow are limit
[2020-04-22] MEDS: TERAZOSIN HCL 1 MG CAPSULE PO (21:06)
[2020-04-22] MEDS: SPIRONOLACTONE 12.5 MG TABLET PO (21:06)
[2020-04-22] MEDS: ACETAMINOPHEN 325 MG TABLET 650 MG PO (23:41)
[2020-04-23] VITALS (9 sets, daily range): BP systolic 103–124; BP diastolic 60–70; PULSE 48–72; RESP 16–18; TEMP 36.2–36.3; O2SAT 99–100
[2020-04-23 06:24] LABS: Basophils Percent Auto 0.5 % (0.2-1.2); Eosinophils Absolute Auto 0.1 K/mm3 (0-0.3); Eosinophils Percent Auto 3.7 % (0-4.4); Hematocrit 23.6 % (42.0-52.0); Hemoglobin 7.4 g/dL (14.0-18.0); Immature Granulocyte Absolute 0.16 K/mm3 (0.00-0.031); Immature Granulocyte Percent A 7.4 % (0-0.5); Lymphocytes Percent Auto 4.6 % (18.3-44.2); Mean Corpuscular HGB Conc 31.4 g/dl (32-36); Mean Corpuscular Hemoglobin 27.2 pg (26-34); Mean Corpuscular Volume 86.8 fl (80-100); Mean Platelet Volume 11.7 fl (7.4-10.4); Monocytes Absolute Auto 0.5 K/mm3 (0.1-0.6); Monocytes Percent Auto 20.7 % (2.6-8.5); Neutrophils Absolute Auto 1.4 K/mm3 (1.3-6.7); Neutrophils Percent Auto 63.1 % (45.5-73.1); Platelet Count Result 152 k/mm3 (150-375); Red Blood Count 2.72 M/mm3 (4.6-6.20); Red Cell Distribution Width 17.8 % (11.5-14.5); White Blood Count 2.2 K/mm3 (4.5-10.0)
[2020-04-23 06:38] LABS: Anion Gap 13.5 mmol/L (7-16); Blood Urea Nitrogen 90 mg/dL (9-20); Calcium 8.5 mg/dL (8.4-10.2); Carbon Dioxide 26 mmol/L (22-30); Chloride 91 mmol/L (98-107); Estimated CRCL calculation 33 ml/min; Estimated Glomerular Filt Rate 31; Glucose 115 mg/dL (75-110); Potassium 4.5 mmol/L (3.4-5.0); Sodium 126 mmol/L (137-145)
[2020-04-23 07:55] LABS: Platelet Estimate Adequate (Adequate)
[2020-04-23 07:56] LABS: Hypochromasia 1+ (NORMAL); Ovalocytes 2+ (NORMAL); Poikilocytosis 3+ (NORMAL)
[2020-04-23 07:57] LABS: Acanthocytes 3+ (NORMAL)
[2020-04-23] MEDS: POTASSIUM CHLORIDE 10 MEQ TABLET.ER 20 MEQ PO ×2 (09:06→16:02)
[2020-04-23] MEDS: ATORVASTATIN 40 MG TABLET PO (09:06)
[2020-04-23] MEDS: ISOSORBIDE MONONITRATE 60 MG TAB.ER.24H PO (09:06)
[2020-04-23] MEDS: FERROUS SULFATE 324 MG TABLET PO (09:06)
[2020-04-23] MEDS: CHOLECALCIFEROL 1,000 UNIT TABLET 1000 UNITS PO (09:06)
[2020-04-23] MEDS: APIXABAN 5 MG TABLET PO ×2 (09:06→16:02)
[2020-04-23] MEDS: allopurinoL 100 MG TABLET PO (09:06)
[2020-04-23] MEDS: CYANOCOBALAMIN 1,000 MCG TABLET 1000 MCG PO (09:06)
[2020-04-23] MEDS: predniSONE 20 MG TABLET PO (09:07)
[2020-04-23] MEDS: PANTOPRAZOLE 40 MG TABLET PO (09:07)
[2020-04-23] MEDS: FINASTERIDE 5 MG TABLET PO (09:07)
[2020-04-23] MEDS: MAGNESIUM OXIDE 400 MG TABLET PO (09:07)
[2020-04-23] MEDS: SODIUM CHLORIDE 0.9% IV 1,000 ML 80 ML IV CONT ×2 (09:14→20:38)
[2020-04-23] MEDS: PREGABALIN 75 MG CAPSULE PO ×3 (09:14→16:02)
[2020-04-23] MEDS: ACETAMINOPHEN 325 MG TABLET 650 MG PO (11:10)
--- NOTE | 2020-04-23 13:44 | PM.IMPN ---
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 Ordered left wrist splint which nursing reports does not fit - will try ANANDA wrap instead to immobilize. Although these findings appear chronic it seems he may have injured it a few days ago - noted he had difficulty opening a jar at home and the pain/swelling started the following day. He may benefit from following up with a prize fighter outpatient. Discussed case with ortho and agree with outpatient follow up. Immobilize and apply ice. Not a great candidate for NSAID therapy given his chronic anticoagulation and renal failure. US venous doppler shows no DVT in left upper extremity. Anticipate possible discharge home with home health tomorrow if sodium level improves. (2) Gouty tophi of hand: Code(s): M1A.9XX1 - Chronic gout, unspecified, with tophus (tophi) Status: Acute Assessment and Plan: Uric acid level elevated. Will continue prednisone therapy 20 mg daily for 5 days as given the tenderness the patient's hand this could in part be due to a gouty flare. Patient is not a candidate for colchicine as this can cause myelosuppression and pancytopenia. He has recently been taking colchicine over the last few months. (3) Cellulitis: Qualifiers: Laterality: left Site of cellulitis: extremity Site of cellulitis of extremity: upper extremity Qualified Code(s): L03.114 - Cellulitis of left upper limb Code(s): L03.90 - Cellulitis, unspecified Status: Suspected Assessment and Plan: Possible cellulitis of the left index finger and hand. Will continue antibiotic therapy with IV ancef for now and monitor for clinical improvement. Blood cultures are pending with no growth to date. (4) Pancytopenia: Code(s): D61.818 - Other pancytopenia Status: Acute Assessment and Plan: The patient has mild pancytopenia, may be related to recent use of colchicine. The patient also has a history of non-Hodgkin's lymphoma, follows with Dr Davis. He could have developed some mild bone marrow suppression. The patient states that he is on ruxolitinib. Dr. Davis has been consulted. (5) Anemia: Qualifiers: Anemia type: unspecified type Qualified Code(s): D64.9 - Anemia, unspecified Code(s): D64.9 - Anemia, unspecified Status: Chronic Assessment and Plan: Follows with Dr Davis and was recently seen in the office. Dr Davis has ordered Procit, appreciate his input. No evidence of acute bleeding. Monitor H&H. (6) Hyponatremia: Code(s): E87.1 - Hypo-osmolality and hyponatremia Status: Acute Assessment and Plan: Acute on chronic. Na down to 126 today. Will try holding his spironolactone and adding IV NS for today and recheck in AM. (7) Depression: Code(s): F32.9 - Major depressive disorder, single episode, unspecified Status: Chronic Assessment and Plan: Patient becomes tearful today describing his depression, states he used to be on Zoloft but not anymore. He wants to start back on Zoloft. Subjective Date/time seen: 04/23/20 13:00 Interval history: Mr. Sorenson is a pleasant 74yo M admitted due to left hand pain and swelling, suspected gout flare and possible cellulitis. His pain and swelling are slowly improving. Was able to keep his hand ANANDA wrapped last night. He denies chest pain or shortness of breath. No abdominal pain, nausea or vomiting. Discussed plan with his daug
--- NOTE | 2020-04-23 13:53 | PC.NURSE ---
Left arm wraped with ramu wrap from mid -fingers to mid -forearm. Good sensation , and pulse assessed. Left arm elevated on pillow on bedside table. Ice pack on forearm. Patient tolerated well.
[2020-04-23] MEDS: SERTRALINE HCL 50 MG TABLET 100 MG PO (16:02)
[2020-04-23 18:30] LABS: SARS-CoV-2 RNA PCR Negative
[2020-04-23] MEDS: TERAZOSIN HCL 1 MG CAPSULE PO (20:37)
[2020-04-24] VITALS (8 sets, daily range): BP systolic 106–111; BP diastolic 65–77; PULSE 46–92; RESP 18–20; TEMP 36.3–36.6; O2SAT 96–100
[2020-04-24] MEDS: ACETAMINOPHEN 325 MG TABLET 650 MG PO ×2 (01:33→10:18)
[2020-04-24 05:50] LABS: Eosinophils Percent Auto 1.3 % (0-4.4); Hemoglobin 7.9 g/dL (14.0-18.0); Immature Granulocyte Absolute 0.26 K/mm3 (0.00-0.031); Lymphocytes Absolute Auto 0.11 K/mm3 (0.9-3.2); Lymphocytes Percent Auto 4.6 % (18.3-44.2); Mean Corpuscular HGB Conc 31.6 g/dl (32-36); Mean Corpuscular Hemoglobin 27.3 pg (26-34); Mean Corpuscular Volume 86.5 fl (80-100); Mean Platelet Volume 11.3 fl (7.4-10.4); Monocytes Absolute Auto 0.5 K/mm3 (0.1-0.6); Monocytes Percent Auto 19.8 % (2.6-8.5); Neutrophils Absolute Auto 1.5 K/mm3 (1.3-6.7); Neutrophils Percent Auto 63.3 % (45.5-73.1); Platelet Count Result 158 k/mm3 (150-375); Red Blood Count 2.89 M/mm3 (4.6-6.20); Red Cell Distribution Width 17.4 % (11.5-14.5); White Blood Count 2.4 K/mm3 (4.5-10.0)
[2020-04-24 06:12] LABS: Anion Gap 13.2 mmol/L (7-16); Blood Urea Nitrogen 76 mg/dL (9-20); Calcium 8.4 mg/dL (8.4-10.2); Carbon Dioxide 24 mmol/L (22-30); Chloride 95 mmol/L (98-107); Estimated CRCL calculation 41 ml/min; Estimated Glomerular Filt Rate 40; Glucose 111 mg/dL (75-110); Magnesium 2.3 mg/dL (1.6-2.3); Potassium 4.2 mmol/L (3.4-5.0); Sodium 128 mmol/L (137-145)
[2020-04-24 06:55] LABS: Platelet Estimate Adequate (Adequate)
[2020-04-24 06:56] LABS: Acanthocytes 3+ (NORMAL); Hypochromasia 1+ (NORMAL); Ovalocytes 2+ (NORMAL); Poikilocytosis 3+ (NORMAL); Schistocytes 1+ (NORMAL)
[2020-04-24] MEDS: SERTRALINE HCL 50 MG TABLET 100 MG PO (08:26)
[2020-04-24] MEDS: CHOLECALCIFEROL 1,000 UNIT TABLET 1000 UNITS PO (08:26)
[2020-04-24] MEDS: MAGNESIUM OXIDE 400 MG TABLET PO (08:27)
[2020-04-24] MEDS: POTASSIUM CHLORIDE 10 MEQ TABLET.ER 20 MEQ PO (08:27)
[2020-04-24] MEDS: ISOSORBIDE MONONITRATE 60 MG TAB.ER.24H PO (08:27)
[2020-04-24] MEDS: FERROUS SULFATE 324 MG TABLET PO (08:27)
[2020-04-24] MEDS: FINASTERIDE 5 MG TABLET PO (08:27)
[2020-04-24] MEDS: PANTOPRAZOLE 40 MG TABLET PO (08:27)
[2020-04-24] MEDS: predniSONE 20 MG TABLET PO (08:27)
[2020-04-24] MEDS: ATORVASTATIN 40 MG TABLET PO (08:27)
[2020-04-24] MEDS: APIXABAN 5 MG TABLET PO (08:28)
[2020-04-24] MEDS: allopurinoL 100 MG TABLET PO (08:28)
[2020-04-24] MEDS: CYANOCOBALAMIN 1,000 MCG TABLET 1000 MCG PO (08:28)
[2020-04-24] MEDS: PREGABALIN 75 MG CAPSULE PO ×2 (08:30→13:55)
[2020-04-24] MEDS: SODIUM CHLORIDE 0.9% IV 1,000 ML 80 ML IV CONT (10:19)
--- NOTE | 2020-04-24 14:53 | PM.DS ---
DS: Admitting Diagnosis Admitting Diagnosis Admitting Diagnosis: Chronic gout, unspecified, with tophus (tophi) DS: Discharge Diagnosis Discharge Diagnosis (1) Tenosynovitis of left hand: Code(s): M65.9 - Synovitis and tenosynovitis, unspecified Status: Acute Assessment and Plan: Date of Service 04/24/20 Mr. Sorenson is a pleasant 74yo M with history of multiple comorbidities to include type 2 DM, atrial fibrillation, HTN, CKD, and gout who presented to the ED for evaluation of left hand pain, swelling, and redness. He noted symptoms began about 5 days prior to arrival after he had used force to try and open a pickle jar. He is also noted to have gouty tophi on DIP left 1st finger and PIP right first finger. It appeared he had been taking colchicine regularly over the last few months, so he was treated with a short burst of oral prednisone. XR demonstrated chronic changes of the small bones of left hand detailed below. Venous doppler left UE demonstrated tenosynovitis of left hand with no evidence of DVT. He was treated supportively with immobilization and ice. Swelling and pain did improve but still present. He recently saw Dr Zamora in the office for right olecranon bursitis, and we discussed he can follow with Dr Zamora's office regarding his left hand tenosynovitis if it does not heal with conservative therapy. He may also benefit from establishing with a logistics technician regarding his gout. Unfortunately he does have some compliance issues even here in the hospital keeping the ANANDA wrap on. Advised no NSAIDs given his chronic anticoagulation with Elquis and his renal failure. Initially it was questioned whether he had cellulitis to this left index finger but antibiotics were discontinued at discharge. Noted to have pancytopenia. Follows with Dr Davis and Dr Davis was able to see him here. He received a procrit injection and is advised to see Dr Davis in the office, procrit injections q 2 weeks. He becomes tearful describing feeling depressed and lonely at home. On review of old records, he has taken Zoloft in the past. He was interested in restarting Zoloft and I recommend he follow up with PCP SENG Torres. He was hemodynamically stable for discharge 04/24/20 home with home health, placement was unavailable due to his oral chemotherapy. 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 Ordered left wrist splint which nursing reports does not fit - will try ANANDA wrap instead to immobilize. Although these findings appear chronic it seems he may have injured it a few days ago - noted he had difficulty opening a jar at home and the pain/swelling started the following day. He may benefit from following up with a logistics technician outpatient. Discussed case with ortho and agree with outpatient follow up. Immobilize and apply ice. Not a great candidate for NSAID therapy given his chronic anticoagulation and renal failure. US venous doppler shows no DVT in left upper extremity, no soft tissues abscess or drainable pocket is identified on exam or imaging. (2) Gouty tophi of hand: Code(s): M1A.9XX1 - Chronic gout, unspecified, with tophus (tophi) Status: Acute Assessment and Plan: Uric acid level elevated. Will continue prednisone therapy 20 mg daily for 5 days as given the tenderness the patient's hand this could in part be due to a gouty flare. Patient is not a candidate for colchicine as this can cause myelosuppression and pancytopenia. He has recently been taking colchicine over the last few months. (3) Cellulitis: Qualifiers: Site of cellulitis: extremity Site of cellulitis of extremity: upper extremity Laterality: left Qualified Code(s): L03.114 - Cellulitis of left upper limb Code(s): L03.90 - Cellulitis, unspeci
[2020-04-24] MEDS: HEPARIN SOD FLUSH 500 UNITS/5 ML SYRINGE IV PUSH (16:00)
== END 2020-04-24 17:59 | disposition home health service (06) | DRG 558 ==
LOC: ANHED 15:33 → ANH3MEDSUR 16:13
PROVIDERS: Internal Medicine; Physician Assistant; Admitting Provider Internal Medicine; Emergency Provider Emergency Medicine; PCP Internal Medicine; Visit Provider Internal Medicine
DX: M65.842 Other synovitis and tenosynovitis, left hand (principal); E87.1 Hypo-osmolality and hyponatremia; N17.9 Acute kidney failure, unspecified; C85.90 Non-Hodgkin lymphoma, unspecified, unspecified site; I13.0 Hypertensive heart and chronic kidney disease with heart failure and stage 1 through stage 4 chronic kidney disease, or unspecified chronic kidney disease; D61.818 Other pancytopenia; G60.8 Other hereditary and idiopathic neuropathies; E11.22 Type 2 diabetes mellitus with diabetic chronic kidney disease; N18.9 Chronic kidney disease, unspecified; I50.9 Heart failure, unspecified; I27.20 Pulmonary hypertension, unspecified; I48.91 Unspecified atrial fibrillation; M1A.9XX1 Chronic gout, unspecified, with tophus (tophi); F32.9 Major depressive disorder, single episode, unspecified; Z11.59 Encounter for screening for other viral diseases; D64.9 Anemia, unspecified; E87.6 Hypokalemia; R53.1 Weakness; I25.10 Atherosclerotic heart disease of native coronary artery without angina pectoris; J43.9 Emphysema, unspecified; G47.33 Obstructive sleep apnea (adult) (pediatric); E66.9 Obesity, unspecified; Z68.32 Body mass index [BMI] 32.0-32.9, adult; Z98.42 Cataract extraction status, left eye; Z98.41 Cataract extraction status, right eye; Z96.1 Presence of intraocular lens; Z79.01 Long term (current) use of anticoagulants; Z79.899 Other long term (current) drug therapy; Z87.891 Personal history of nicotine dependence; Z88.0 Allergy status to penicillin
CPT/HCPCS: 36415; 36600; 80048; 80053; 82805; 83735; 84550; 85025; 87635; 93005; 93971; 96360; 96361; 97110; 97116; 97161; 97165; 99285; A9270; C9803; J0131; J0690; J0696; J7030; J7120; J7512; Q5106; U0003

== ENCOUNTER 2020-05-06 10:32 | Inpatient (IN) | payer MEDICARE, MEDICAID, SELFPAY ==
[2020-05-06] VITALS (12 sets, daily range): BP systolic 87–121; BP diastolic 37–75; PULSE 62–84; RESP 18–22; TEMP 36–37.5; O2SAT 93–100; BMI 33.7
--- NOTE | ~2020-05-06 | XR_ITS ---
EXAMINATION: XR wrist RT min 3V DATE: 05/06/2020 13:38 INDICATION: Right wrist pain and swelling. TECHNIQUE: Posteroanterior, oblique, and lateral views of the right wrist were obtained. COMPARISON: 02/08/2014 FINDINGS: No fracture. Chondrocalcinosis in the region of the triangular fibrocartilage complex. Chronic wideni ng of the scapholunate joint consistent with tear of the scapholunate ligament. Interval progression of slack wrist with now advanced osteoarthritis at the radial scaphoid articulation of the right wris t with remodeling of the distal articular surface of the radius. There is also been progression of os teoarthritis at the midcarpal joint with moderate joint space narrowing at the articulation of the sc aphoid and hamate. Unchanged moderate osteoarthritis at the first carpometacarpal joint. Mild osteoar thritis at the triscaphe and several of the metacarpophalangeal and interphalangeal joints. There are juxta articular erosions with overhanging edges about the radial and ulnar sides of the neck of the right second middle phalanx which is disproportionate to the mild nonuniform joint space narrowing an d suspicious for crystalline arthropathy such as gout or calcium pyrophosphate deposition (CPPD) dise ase. Prominent soft tissue swelling about the carpus and second proximal interphalangeal joint. IMPRESSION: 1. No acute osseous abnormality. 2. Chronic scapholunate ligament tear with widening of the scapholunate interval and interval progres demetria of now advanced scapholunate advanced collapse (SLAC) wrist. 3. Additional mild to moderate polyarticular osteoarthritis at the right hand and wrist. 4. Juxta articular erosions at the radial and ulnar sides of the neck of the right second middle phal anx with location and appearance suggesting a crystalline arthropathy such as gout or calcium pyropho sphate deposition (CPPD) disease. Reviewed, dictated and finalized at location A. IMPRESSION: 1. No acute osseous abnormality. 2. Chronic scapholunate ligament tear with widening of the scapholunate interva l and interval progression of now advanced scapholunate advanced collapse (SLAC ) wrist. 3. Additional mild to moderate polyarticular osteoarthritis at the right hand a nd wrist. 4. Juxta articular erosions at the radial and ulnar sides of the neck of the ri ght second middle phalanx with location and appearance suggesting a crystalline arthropathy such as gout or calcium pyrophosphate deposition (CPPD) disease.
--- NOTE | ~2020-05-06 | XR_ITS ---
EXAMINATION: XR md joint inject/asp w image DATE: 05/06/2020 18:19 INDICATION: Right wrist swelling. TECHNIQUE: The skin overlying the right radiocarpal joint was prepped and draped in usual sterile fas hion. Anesthetic was administered with 1% lidocaine subcutaneously. An 18 G needle was advanced und er fluoroscopic guidance into the joint. Fluid was aspirated. The needle was removed and the entry si te was cleaned and dressed. There were no immediate complications. Fluoroscopy exposure time was 0.1 minutes. The total number of images was 1. FINDINGS: Real-time fluoroscopy demonstrates the needle in the right radiocarpal joint. IMPRESSION: 1. Radiocarpal joint aspiration yielding 1 mL of bloody fluid. Reviewed, dictated and finalized at location E.
--- NOTE | ~2020-05-06 | XR_ITS ---
EXAMINATION: XR chest 2V DATE: 05/06/2020 12:38 INDICATION: Shortness of breath. TECHNIQUE: Frontal and lateral views of the chest were obtained. COMPARISON: Chest single view 04/19/2020, chest CT 04/19/2020 FINDINGS: There is chronic elevation of anterior right hemidiaphragm. Calcified right lung nodules an d calcified right hilar lymph nodes are consistent with old granulomatous disease. No pleural effusio n or pneumothorax. Cardiomegaly is noted. There is a right internal jugular port with tip in superior vena cava. IMPRESSION: 1. Chronic elevation of anterior right hemidiaphragm. 2. Cardiomegaly. Reviewed, dictated and finalized at location B.
--- NOTE | 2020-05-06 11:39 | ECG_ITS ---
Measurements Intervals [place] Rate: 66 P: GA: 0 QRS: -16 QRSD: 117 T: 92 QT: 435 QTc: 456 Interpretive Statements ATRIAL FIBRILLATION FREQUENT VENTRICULAR PREMATURE COMPLEXES INTRAVENTRICULAR CONDUCTION DELAY BORDERLINE T WAVE ABNORMALITY- HIGH LATERAL LEADS ABNORMAL ECG Electronically Signed On 05-06-2020 13:06:57 CDT by Jacob Manning D.O.
--- NOTE | 2020-05-06 12:02 | ED.GENADULT ---
HPI - General Adult General Chief complaint: Extremity Injury, Upper <Castillo Watson PA-C - Last Filed: 05/06/20 14:39> Stated complaint: Sent from [facility] <DILLON Mckinnon Last Filed: 05/06/20 14:39> Time Seen by Provider: 05/06/20 11:32 <Castillo Watson PA-C - Last Filed: 05/06/20 14:39> Source: patient and family <Castillo Watson PA-C - Last Filed: 05/06/20 14:39> Mode of arrival: ambulatory <DILLON Mckinnon Last Filed: 05/06/20 14:39> Limitations: no limitations <DILLON Mckinnon Last Filed: 05/06/20 14:39> History of Present Illness HPI narrative: Patient is a 74-year-old gentleman who presents with 2 days duration of generalized myalgias and arthralgias patient was seen by his heme-onc doctor today who he sees for non-Hodgkin's lymphoma was referred to the emergency department for his bilateral wrist pain pelvic pain and rib pain patient took hydrocodone with minimal improvement. Patient also notes he is felt more fatigued over the last 2 days. Patient denies injury or trauma. Patient does note history of rheumatoid arthritis as well. Patient on arrival to emergency department is in the bed no distress. Patient notes he was recently in the hospital. Patient saw his primary care doctor and his oncologist this week. Patient denies any fall or other illness or complaints <Castillo Watson PA-C - Last Filed: 05/06/20 14:39> Related Data Home medications: Home Medications Medication Instructions Recorded Confirmed acetaminophen 650 mg PO Q4H PRN 07/14/19 04/20/20 cholecalciferol (vitamin D3) 1,000 unit PO DAILY 07/14/19 04/20/20 cyanocobalamin (vitamin B-12) 1,000 mcg PO DAILY 07/14/19 04/20/20 ferrous sulfate 325 mg (65 mg 325 mg PO DAILY tablet 08/03/19 04/20/20 iron) tablet furosemide 20 mg tablet 20 mg PO QID tablet 08/03/19 04/20/20 magnesium oxide 400 mg (241.3 mg 400 mg PO DAILY 08/03/19 04/20/20 magnesium) tablet spironolactone 25 mg tablet 12.5 mg PO HS tablet 10/30/19 04/20/20 allopurinol 100 mg PO DAILY 04/14/20 04/20/20 clotrimazole-betamethasone 1 applic TOPICAL BID PRN 04/20/20 04/20/20 [Lotrisone] <Castillo Watson PA-C - Last Filed: 05/06/20 14:39> Allergies/adverse reactions: Allergies Allergy/AdvReac Type Severity Reaction Status Date / Time Penicillins Allergy Unknown Unknown Verified 04/19/20 15:45 <Castillo Watson PA-C - Last Filed: 05/06/20 14:39> Review of Systems Review of Systems: All systems reviewed & are unremarkable except as noted in HPI and below <Castillo Watson PA-C - Last Filed: 05/06/20 14:39> [facility] Past Medical History Medical History: Medical History Angina pectoris, unspecified Anxiety Arthritis Atrial fibrillation CAD (coronary artery disease) CHF (congestive heart failure) CKD (chronic kidney disease) COPD (chronic obstructive pulmonary disease) Depression Diabetes Emphysema of lung Fluid retention 05/26/18 Hyperlipidemia Hypertension Hyponatremia chronic Hypoxia Non Hodgkin's lymphoma Obesity Obstructive sleep apnea Olecranon bursitis of right elbow Peripheral sensory neuropathy Pulmonary hypertension Respiratory failure January 2016 resulting in tracheostomy and subsequent closure Sleep apnea <Castillo Watson PA-C - Last Filed: 05/06/20 14:39> Surgical History Surgical History: Surgical History H/O hernia repair incarcerated ventral hernia November 2016 History of cardiac catheterization March 2008 demonstrating mild coronary artery disease History of carpal tunnel release History of nasal septoplasty Hx of tonsillectomy Status post cataract extraction of both eyes with insertion of intraocular lens Status post rotator cuff repair bilateral <Castillo Watson PA-C - Last Filed: 05/06/20 14:39> Family Histo
[2020-05-06] MEDS: SODIUM CHLORIDE 0.9% IV 500 ML 999 ML IV CONT (12:05)
[2020-05-06] MEDS: MORPHINE SULFATE 2 MG/ML INJ IV PUSH (12:06)
[2020-05-06 12:18] LABS: Hematocrit 23.7 % (42.0-52.0); Hemoglobin 7.4 g/dL (14.0-18.0); Mean Corpuscular HGB Conc 31.2 g/dl (32-36); Mean Corpuscular Hemoglobin 27.1 pg (26-34); Mean Corpuscular Volume 86.8 fl (80-100); Mean Platelet Volume 11.4 fl (7.4-10.4); Platelet Count Result 164 k/mm3 (150-375); Red Blood Count 2.73 M/mm3 (4.6-6.20); Red Cell Distribution Width 19.2 % (11.5-14.5); White Blood Count 3.3 K/mm3 (4.5-10.0)
[2020-05-06 12:27] LABS: INR 2.5; Prothrombin Time 26.5 Seconds (11.1-14.7)
[2020-05-06 12:28] LABS: Partial Thromboplastin Time 60.5 SECONDS (22.3-36.8)
[2020-05-06 12:46] LABS: Anisocytosis 1+ (NORMAL); Band Neutrophils Percent 2 % (0-6); Eosinophils Absolute Manual 0.03 K/mm3 (0.02-0.5); Eosinophils Percent Manual 1 % (0-4); Lymphocytes Absolute Manual 0.66 K/mm3 (1.1-4.5); Monocytes Absolute Manual 0.69 K/mm3 (0.1-0.90); Monocytes Percent Manual 21 % (3-9); Neutrophils Absolute Manual 1.91 K/mm3 (1.3-6.7); Neutrophils Percent Manual 56 % (46-73); Platelet Estimate Adequate (Adequate); Total Cells Counted 100
[2020-05-06 12:47] LABS: Alanine Aminotransferase 12 U/L (4-50); Albumin Level 3.7 g/dL (3.5-5.1); Alkaline Phosphatase 281 U/L (38-126); Anion Gap 12 mmol/L (8-16); Aspartate Amino Transferase 25 U/L (17-59); Bilirubin,Total 2.3 mg/dL (0.2-1.3); Blood Urea Nitrogen 70 mg/dL (9-20); CRP > 27.0 mg/dL (<1.0); Calcium 8.7 mg/dL (8.4-10.2); Carbon Dioxide 29 mmol/L (22-30); Chloride 91 mmol/L (98-107); Estimated CRCL calculation 37 ml/min; Estimated Glomerular Filt Rate 35; Glucose 97 mg/dL (75-110); Hypochromasia 1+ (NORMAL); Lipase 49 U/L (23-300); Poikilocytosis 1+ (NORMAL); Potassium 3.7 mmol/L (3.4-5.0); Sodium 132 mmol/L (137-145)
[2020-05-06 12:50] LABS: Erythrocyte Sedimentation Rate > 140 mm/hr (0-20)
[2020-05-06 15:02] LABS: Add Urine Microscopic? NO; Appearance Urine Clear (Clear); Bilirubin Urine Negative (Negative); Blood Urine Negative (Negative); Color Urine Yellow (Yellow); Glucose Urine UA Negative (Negative); Ketones Urine Negative (Negative); Leukocyte Esterase Ur Negative LEU/UL (Negative); Nitrate Urine Negative (Negative); Protein Urine Negative (Negative); Specific Grav Ur 1.012 (1.001-1.035); Urobilinogen Urine Negative mg/dL (<2.0)
[2020-05-06] MEDS: oxyCODONE/ACETAMINOPHEN 5-325 MG TABLET 1 TABLET PO (15:09)
[2020-05-06] MEDS: SODIUM CHLORIDE 0.9% IV 1,000 ML 999 ML IV CONT (15:20)
--- NOTE | 2020-05-06 15:49 | PDONCCN ---
HPI - Date of Consult Date/Time: 05/06/20 15:49 Requesting Physician: Deepti Lancaster MD Primary Care Provider: Armen Beasley, DO - Consult Narrative Reason for consult: Possible sepsis with history of non-Hodgkin lymphoma Narrative: Harvey Sorenson is a 74 year old male This is a pleasant 74-year-old male who has a history of non-Hodgkin follicular lymphoma status post chemotherapy in the past and currently on maintenance Rituxan treatment. His last Rituxan treatment was in March and he is due to have another treatment next month. Patient came into the office for follow-up visit after being discharged from the hospital where he was previously treated for her right hand cellulitis and weakness. In my office today he was quite weak and having chills and shivers. He denies any fever. He denies any cough and shortness of breath. He is extremely weak. He was sent to the ER for further workup for sepsis and possible septic arthritis. Patient was also found to be anemic. He denies any bleeding including melena hematochezia. He has been eating poorly and lost some recent weight. Review of Systems - Review of Systems All systems reviewed & are unremarkable except as noted in HPI and [facility] Medical History: Medical History (Last Reviewed 05/06/20 @ 15:52 by Leandro Davis MD) Angina pectoris, unspecified Anxiety Arthritis Atrial fibrillation CAD (coronary artery disease) CHF (congestive heart failure) CKD (chronic kidney disease) COPD (chronic obstructive pulmonary disease) Depression Diabetes Emphysema of lung Fluid retention 05/26/18 Hyperlipidemia Hypertension Hyponatremia chronic Hypoxia Non Hodgkin's lymphoma Obesity Obstructive sleep apnea Olecranon bursitis of right elbow Peripheral sensory neuropathy Pulmonary hypertension Respiratory failure January 2016 resulting in tracheostomy and subsequent closure Sleep apnea Surgical History: Surgical History (Last Reviewed 05/06/20 @ 15:52 by Leandro Davis MD) H/O hernia repair incarcerated ventral hernia November 2016 History of cardiac catheterization March 2008 demonstrating mild coronary artery disease History of carpal tunnel release History of nasal septoplasty Hx of tonsillectomy Status post cataract extraction of both eyes with insertion of intraocular lens Status post rotator cuff repair bilateral Family History: Family History (Last Reviewed 05/06/20 @ 15:52 by Leandro Davis MD) Father Patient's father is COPD with emphysema Sibling Patient's sister is CHF (congestive heart failure) Diabetes mellitus Mother Valvular heart disease - Social History Social History: Social History (Last Reviewed 05/06/20 @ 15:52 by Leandro Davis MD) Gender Identity: Gender identity (if verbalized by the patient): Male Alcohol Use: Alcohol intake: never Substance Use: Substance use: never Others: Spiritual care concerns: No Smoking Status: Smoking status: Former smoker Tobacco type: cigars Smoking end date: 09/23/99 Meds Home Medications Medication Instructions Recorded Confirmed Type acetaminophen 650 mg PO Q4H PRN 07/14/19 04/20/20 History cholecalciferol (vitamin D3) 1,000 unit PO DAILY 07/14/19 04/20/20 History cyanocobalamin (vitamin B-12) 1,000 mcg PO DAILY 07/14/19 04/20/20 History ferrous sulfate 325 mg (65 mg 325 mg PO DAILY tablet 08/03/19 04/20/20 History iron) tablet furosemide 20 mg tablet 20 mg PO QID tablet 08/03/19 04/20/20 History magnesium oxide 400 mg (241.3 mg 400 mg PO DAILY 08/03/19 04/20/20 History magnesium) tablet apixaban 5 mg tablet 5 mg PO BID #180 tablet 09/14/19 04/20/20 Rx metolazone 5 mg tablet 5 mg PO DAILY #90 tablet 09/17/19 04/20/20 Rx spironolactone 25 mg tablet 12.5 mg PO HS tablet 10/30/19 04/20/20 History atorvastatin 40 mg tablet 40 mg PO DAILY #90 tablet 11/19/19
--- NOTE | 2020-05-06 16:00 | PC.NURSE ---
This patient, Harvey Sorenson, was admitted to IMU Room 209-. Patient/family oriented to hospital policies and general routines including ID bracelet, bed and alarms, visiting hours, pain management, procedures, bathroom and other care routines, personal items, smoking policy, room service/diet, and visiting hours. Valuables list has been completed. Information on how to activate the Rapid Response Team has been discussed. Patient/Family are encouraged to report perceived risks to care and to ask questions if they do not understand what they are told or what they should do.
[2020-05-06 16:23] LABS: Uric Acid 9.6 mg/dL (3.5-8.5)
--- NOTE | 2020-05-06 17:22 | PM.CNOR ---
History of Present Illness HPI Consult date: 05/06/20 Chief complaint: generalized weakness,hypotension,arthralgias,dehyd PMFSH Past Medical History Medical History Angina pectoris, unspecified Anxiety Arthritis Atrial fibrillation CAD (coronary artery disease) CHF (congestive heart failure) CKD (chronic kidney disease) COPD (chronic obstructive pulmonary disease) Depression Diabetes Emphysema of lung Fluid retention 05/26/18 Hyperlipidemia Hypertension Hyponatremia chronic Hypoxia Non Hodgkin's lymphoma Obesity Obstructive sleep apnea Olecranon bursitis of right elbow Peripheral sensory neuropathy Pulmonary hypertension Respiratory failure January 2016 resulting in tracheostomy and subsequent closure Sleep apnea Surgical History Surgical History H/O hernia repair incarcerated ventral hernia November 2016 History of cardiac catheterization March 2008 demonstrating mild coronary artery disease History of carpal tunnel release History of nasal septoplasty Hx of tonsillectomy Status post cataract extraction of both eyes with insertion of intraocular lens Status post rotator cuff repair bilateral Family History Family History Father Patient's father is COPD with emphysema Sibling Patient's sister is CHF (congestive heart failure) Diabetes mellitus Mother Valvular heart disease Social History Social History Social History: Primary care physician: Dr. Armen Beasley code status: Full code Smoking status: Former smoker Tobacco type: cigars Smoking end date: 09/23/99 Alcohol intake: never Substance use: never Additional living arrangements comments: The patient is and lives alone. he is independent in his activities of daily living. He has 3 daughters 1 of which lives locally. 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 Gender identity (if verbalized by the patient): Male Spiritual care concerns: No Meds Home Medications and Allergies Home Medications Medication Instructions Recorded Confirmed Type acetaminophen 650 mg PO Q4H PRN 07/14/19 04/20/20 History cholecalciferol (vitamin D3) 1,000 unit PO DAILY 07/14/19 04/20/20 History cyanocobalamin (vitamin B-12) 1,000 mcg PO DAILY 07/14/19 04/20/20 History ferrous sulfate 325 mg (65 mg 325 mg PO DAILY tablet 08/03/19 04/20/20 History iron) tablet furosemide 20 mg tablet 20 mg PO QID tablet 08/03/19 04/20/20 History magnesium oxide 400 mg (241.3 mg 400 mg PO DAILY 08/03/19 04/20/20 History magnesium) tablet apixaban 5 mg tablet 5 mg PO BID #180 tablet 09/14/19 04/20/20 Rx metolazone 5 mg tablet 5 mg PO DAILY #90 tablet 09/17/19 04/20/20 Rx spironolactone 25 mg tablet 12.5 mg PO HS tablet 10/30/19 04/20/20 History atorvastatin 40 mg tablet 40 mg PO DAILY #90 tablet 11/19/19 04/20/20 Rx ropinirole 0.5 mg tablet 0.25 mg PO TID #136 tablet 12/14/19 04/20/20 Rx omeprazole 20 mg capsule,delayed 20 mg PO DAILY #90 cap 12/24/19 04/20/20 Rx release isosorbide mononitrate 60 mg 60 mg PO DAILY #90 tablet 01/12/20 04/20/20 Rx tablet,extended release 24 hr terazosin 1 mg capsule 1 mg PO HS #90 cap 01/19/20 04/20/20 Rx pregabalin 75 mg capsule 75 mg PO TID #270 cap 02/05/20 04/20/20 Rx diltiazem HCl 120 mg 120 mg PO DAILY #90 cap 03/01/20 04/20/20 Rx capsule,extended release 24 hr allopurinol 100 mg PO DAILY 04/14/20 04/20/20 History clotrimazole-betamethasone 1 applic TOPICAL BID PRN 04/20/20 04/20/20 History [Lotrisone] acetaminophen 500 mg PO Q6H PRN #100 tablet 04/24/20 Rx potassium chloride 10 mEq 20 meq PO BID #60 tablet 04/26/20 Rx tablet,extended release hydrocodone 5 mg-acetaminophen
--- NOTE | 2020-05-06 17:25 | PM.CNOR ---
Assessment and Plan Additional Plan Patient is a 74-year-old gentleman who was admitted with possible septic arthritis right wrist. He had x-rays yesterday which demonstrated a chronic perilunate dislocation with the radiocarpal joint reduced but the lunate dislocated anteriorly into the carpal tunnel. He has had problems with this wrist for over 40 years from a football injury. He has undergone 2 prior carpal tunnel release surgeries without relief and he continues to have significant numbness in the median nerve distribution of his right hand. The reason he was admitted was because of development of severe pain in the right wrist that started 2 days ago and this has been associated with recurrent fevers and chills and swelling and tenderness and pain with movement of the right wrist. He does have a long history of gout. His uric acid is elevated at 9.6. He was in the hospital admitted April 21 and he apparently had a gout attack in the opposite left wrist at that time. The concern is that he may have a septic arthritis this time. He has had no recent known infections otherwise. His urinalysis was negative. His other laboratory studies showed a white count is low at 3.3 hemoglobin that is low at 7.4 sedimentation rate greater than 140 C reactive protein greater than 27. He has chronic renal failure creatinine 1.9 creatinine clearance 37. He is on Eliquis for atrial fibrillation. His INR was 2.5. He has a history of coronary artery disease and takes isosorbide. History of congestive heart failure COPD borderline diabetes. On exam today he is a very pleasant gentleman the is in no distress. He is obese BMI of 33.7. He has limited flexion extension of the right wrist. There is circumferential bulging swelling about the wrist which is soft. He has gouty tophi and multiple DIP joints in both hands as well as the right olecranon. He reported numbness to light touch testing in the thumb through ring fingers in the has better sensation in the pinky finger of the right hand this is chronic for him. He has a 2+ radial artery pulse palpable on the right. There is no significant erythema and no streaking going up the arm and there is no edema except the focal swelling at the wrist itself. He has a history of dryness of the nose as a teenager taking penicillin. Impression rule out septic arthritis right wrist. He was sent to Radiology and Dr. Rodrigues is going to attempt to aspirate the wrist under imaging guidance. We will send the fluid for cell count with differential crystals aerobic anaerobic and Gram stain. Following the aspiration we will place him on ceftriaxone 1 g Q 24 hours and vancomycin pharmacy to dose while we await for the aspiration and culture results. I am also going to start him on a Medrol Dosepak which should help the inflammation associated with his gout. I think it is extremely likely that he has gout in the right wrist the question will is whether he has a superimposed septic arthritis as well which is worrisome given his fevers that he is had for the last 24 hours the coincided with his onset of severe pain in the right wrist. History of Present Illness HPI Consult date: 05/06/20 Chief complaint: generalized weakness,hypotension,arthralgias,dehyd PMFSH Past Medical History Medical History Angina pectoris, unspecified Anxiety Arthritis Atrial fibrillation CAD (coronary artery disease) CHF (congestive heart failure) CKD (chronic kidney disease) COPD (chronic obstructive pulmonary disease) Depression Diabetes Emphysema of lung Fluid retention 05/26/18 Hyperlipidemia Hypertension Hyponatremia chronic Hypoxia Non Hodgkin's lymphoma Obesity Obstructive sleep apnea Olecranon bursitis of right elbow Peripheral sensory neuropathy Pulmonary hypertension Respiratory failure January 2016 resulting in tracheostomy and subsequent closure Sleep apnea Surgical History Surgical His
--- NOTE | 2020-05-06 18:58 | PM.IMHP ---
H&P: HPI History of Present Illness Date/Time: 05/06/20 18:58 Chief complaint: generalized weakness,hypotension,arthralgias,dehyd Narrative: Harvey Sorenson is a 74 year old male who was admitted here on 04/21/2020 he had gouty tophi of the hand he had some swelling of his left hand at that time. He was on the prednisone taper and his uric acid level was elevated at that time. Patient is not a candidate for colchicine he was recently taking Koul cyst seen over few months. He has chronic renal failure. 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 He had a left wrist splint. However the left hand has improved. Today he is having some swelling of his right wrist. He is no longer on any steroids or colchicine. Ortho has been consulted and has already seen the patient. No acute osseous abnormality. Chronic scapholunate ligament tear with widening of the scapholunate interval an interval progression of now advanced schedule an 8 advanced collapse wrist juxta articular erosion of the radial and ulnar sides of the neck of the right 2nd middle phalanx with location and appearance suggesting a crystalline arthropathy such as gout or calcium phosphate deposit disease. Patient is scheduled to have aspiration of that joint on the right side. Patient was started on antibiotics to cover for a possible septic joint. Chest x-ray was read as chronic elevation of anterior right hemo diaphragm. Cardiomegaly. The patient has a history of non-Hodgkin follicular lymphoma status post chemotherapy. The patient was not able to go to rehab upon discharge because of the chemotherapy. The patient denies any fever but he has been weak and having chills and shivers. He was seen by Dr. abraham in his office and was sent to the emergency room for further workup for sepsis and possible septic arthritis. Patient was found to be anemic. He denies any blood in his stool. He has been eating poorly . The patient has not had any recent falls. He has been receiving home health. His H&H is 7.4 and 23.7. Which appears to be his baseline. It looks like he was ordered to get a packed red blood cell 1 unit. I have spent approximately 1 hour with the patient. Date of service 05/06/2020 Review of Systems Review of Systems: All systems reviewed & are unremarkable except as noted in HPI and below Constitutional: Constitutional: Reports as per HPI and Reports no additional constitutional complaints Eyes: Eyes: Reports as per HPI and Reports no additional eye complaints ENT: Reports system reviewed and no additional complaints, except as documented and Reports Normal hearing present Cardiovascular: Cardiovascular: Reports no additional cardiovascular complaints Respiratory: Respiratory: Reports no additional respiratory complaints and Reports no additional respiratory complaints Gastrointestinal: Gastrointestinal: Reports as per HPI and Reports no additional gastrointestinal complaints Musculoskeletal: Musculoskeletal: Reports no additional musculoskeletal complaints Integumentary/Breasts: Skin/Breast: Reports system reviewed and no additional complaints, except as docu and Reports as per HPI Neurologic: Reports system reviewed and no additional complaints, except as documented, Reports as per HPI and Reports Normal hearing present Psychiatric: Psychiatric: Reports no additional psychiatric complaints and Reports as per HPI Endocrine: Endocrine: Reports no additional endocrine complaints Hematologic/Lymphatic: Hematologic/Lymphatic: Reports no additional hematologic/lymphatic complaints Allergic/Immunologic: Allergic/Immunologic: Reports no additional allergic/immunologic complaints [facility] Past Medical History Medical History (Updated 05/06/20 @ 19:27 by Cele Stark NP) Angina pectoris, unspecified previous cardiac catheterization with minima
[2020-05-06] MEDS: COLCHICINE 0.6 MG TABLET 1.2 MG PO (18:59)
[2020-05-06] MEDS: EPOETIN ALFA-EPBX 10,000 UNITS/ML VIAL 20000 UNITS SUB-Q (19:00)
[2020-05-06] MEDS: LACTATED RINGERS 1,000 ML 75 ML IV CONT (19:00)
[2020-05-06 21:46] LABS: Glucose Point of Care 127 (65-105)
[2020-05-06] MEDS: TERAZOSIN HCL 1 MG CAPSULE PO (23:03)
[2020-05-06] MEDS: FAMOTIDINE 20 MG/2 ML VIAL IV PUSH (23:03)
[2020-05-06] MEDS: FUROSEMIDE 20 MG TABLET PO (23:03)
[2020-05-07] VITALS (19 sets, daily range): BP systolic 94–150; BP diastolic 44–103; PULSE 62–87; RESP 18–24; TEMP 36.2–39.3; O2SAT 88–100
[2020-05-07] MEDS: SPIRONOLACTONE 12.5 MG TABLET PO ×2 (00:12→21:10)
--- NOTE | 2020-05-07 03:42 | PC.NURSE ---
Prior to transfusing PRBC, patient spiked a temp of 102.[address] Davila notified. Will give Ofirmev and follow temp. Will hold blood transfusion for now. PRBC returned to blood bank prior to 30 minutes from leaving the blood bank.
[2020-05-07 04:59] LABS: Hemoglobin 7.2 g/dL (14.0-18.0); Mean Corpuscular HGB Conc 31.3 g/dl (32-36); Mean Corpuscular Hemoglobin 27.2 pg (26-34); Mean Corpuscular Volume 86.8 fl (80-100); Mean Platelet Volume 11.4 fl (7.4-10.4); Platelet Count Result 147 k/mm3 (150-375); Red Blood Count 2.65 M/mm3 (4.6-6.20); Red Cell Distribution Width 19.1 % (11.5-14.5); White Blood Count 2.9 K/mm3 (4.5-10.0)
[2020-05-07 05:35] LABS: Alanine Aminotransferase 13 U/L (4-50); Albumin Level 3.3 g/dL (3.5-5.1); Alkaline Phosphatase 257 U/L (38-126); Anion Gap 12 mmol/L (8-16); Aspartate Amino Transferase 31 U/L (17-59); Blood Urea Nitrogen 68 mg/dL (9-20); Calcium 8.4 mg/dL (8.4-10.2); Carbon Dioxide 27 mmol/L (22-30); Chloride 92 mmol/L (98-107); Estimated CRCL calculation 36 ml/min; Estimated Glomerular Filt Rate 33; Glucose 98 mg/dL (75-110); Magnesium 2.1 mg/dL (1.6-2.3); Potassium 3.3 mmol/L (3.4-5.0); Sodium 131 mmol/L (137-145)
[2020-05-07 06:09] LABS: Basophils Absolute Manual 0.02 K/mm3 (0.0-0.1); Basophils Percent Manual 1 % (0-1); Eosinophils Absolute Manual 0.14 K/mm3 (0.02-0.5); Eosinophils Percent Manual 5 % (0-4); Lymphocytes Absolute Manual 0.08 K/mm3 (1.1-4.5); Monocytes Absolute Manual 0.78 K/mm3 (0.1-0.90); Monocytes Percent Manual 27 % (3-9); Neutrophils Percent Manual 64 % (46-73); Platelet Estimate Adequate (Adequate); Total Cells Counted 100
[2020-05-07 06:10] LABS: Large Platelets Present
[2020-05-07 06:12] LABS: Hypochromasia 1+ (NORMAL); Ovalocytes 2+ (NORMAL)
[2020-05-07] MEDS: methylPREDNISolone (MEDROL) DOSEPACK 4 MG TABLETS PO ×4 (06:13→21:10)
[2020-05-07 08:53] LABS: Glucose Point of Care 101 (65-105)
[2020-05-07] MEDS: CYANOCOBALAMIN 1,000 MCG TABLET 1000 MCG PO (09:08)
[2020-05-07] MEDS: ATORVASTATIN 40 MG TABLET PO (09:08)
[2020-05-07] MEDS: rOPINIRole HCL 0.25 MG TABLET PO ×3 (09:08→16:44)
[2020-05-07] MEDS: metOLazone 5 MG TABLET PO (09:08)
[2020-05-07] MEDS: allopurinoL 100 MG TABLET PO (09:08)
[2020-05-07] MEDS: MAGNESIUM OXIDE 400 MG TABLET PO (09:08)
[2020-05-07] MEDS: PANTOPRAZOLE 40 MG TABLET PO (09:09)
[2020-05-07] MEDS: FUROSEMIDE 20 MG TABLET PO ×4 (09:09→21:10)
[2020-05-07] MEDS: POTASSIUM CHLORIDE 10 MEQ TABLET.ER 20 MEQ PO ×2 (09:09→16:44)
[2020-05-07] MEDS: FERROUS SULFATE 324 MG TABLET PO (09:09)
[2020-05-07] MEDS: APIXABAN 5 MG TABLET PO ×2 (09:09→16:45)
[2020-05-07] MEDS: FINASTERIDE 5 MG TABLET PO (09:09)
[2020-05-07] MEDS: SERTRALINE HCL 50 MG TABLET 100 MG PO (09:10)
[2020-05-07] MEDS: FAMOTIDINE 20 MG/2 ML VIAL IV PUSH ×2 (09:10→21:11)
[2020-05-07] MEDS: CHOLECALCIFEROL 1,000 UNITS TABLET 1000 UNITS PO (09:10)
[2020-05-07] MEDS: PREGABALIN 75 MG CAPSULE PO ×3 (09:16→16:52)
[2020-05-07 12:12] LABS: Glucose Point of Care 125 (65-105)
--- NOTE | 2020-05-07 14:08 | PM.PNORT ---
Progress Note: A&P Additional Plan Right wrist asp.-1ml of bloody fluid sent for cx. pt states wrist is doing better,less pain-able to move easier. Strong likelihood this will be gout, pt is on prednisone which will help. Will cont to follow while here, should have initial cx report tomorrow <NIKUNJ Mittal - Last Filed: 05/07/20 14:11> Subjective Subjective Date/Time Seen: 05/07/20 14:08 <NIKUNJ Mittal - Last Filed: 05/07/20 14:11> Objective Data Vital Signs Vital Signs: Vital Signs - 24 hr 05/06/20 14:50 05/06/20 15:46 05/06/20 16:00 Temperature 36.6 C Pulse Rate 64 62 76 Respiratory Rate 18 18 22 H Blood Pressure 91/45 L 96/52 L 98/37 L Pulse Oximetry 97 96 100 05/06/20 18:00 05/06/20 18:10 05/06/20 19:52 Temperature 37.0 C 36.1 C L Pulse Rate 78 72 68 Respiratory Rate 20 18 Blood Pressure 119/71 108/75 Pulse Oximetry 100 98 05/06/20 20:00 05/06/20 22:00 05/06/20 23:45 Temperature 36.0 C L Pulse Rate 65 79 84 Respiratory Rate 20 Blood Pressure 121/70 Pulse Oximetry 98 05/07/20 00:00 05/07/20 01:26 05/07/20 01:35 Temperature 39.3 C H Pulse Rate 80 Respiratory Rate Blood Pressure Pulse Oximetry 88 L 05/07/20 01:56 05/07/20 02:00 05/07/20 02:11 Temperature 38.7 C H 38.7 C H Pulse Rate 87 87 Respiratory Rate 20 Blood Pressure 95/50 L Pulse Oximetry 95 05/07/20 03:00 05/07/20 04:00 05/07/20 06:00 Temperature 38.0 C H 36.2 C L Pulse Rate 82 77 77 Respiratory Rate 20 20 Blood Pressure 99/62 L 102/56 L Pulse Oximetry 96 99 05/07/20 06:35 05/07/20 06:54 05/07/20 07:54 Temperature 36.8 C 36.9 C 36.6 C Pulse Rate 77 72 73 Respiratory Rate 24 H 20 18 Blood Pressure 102/53 L 94/70 L 100/64 Pulse Oximetry 97 96 96 05/07/20 08:00 05/07/20 08:54 05/07/20 10:00 Temperature 36.8 C Pulse Rate 73 76 69 Respiratory Rate 18 Blood Pressure 150/103 H Pulse Oximetry 96 05/07/20 12:00 Temperature 36.9 C Pulse Rate 68 Respiratory Rate 20 Blood Pressure 95/59 L Pulse Oximetry 100 <NIKUNJ Mittal - Last Filed: 05/07/20 14:11> Intake/Output Intake/Output: Intake & Output 05/04/20 05/05/20 05/06/20 05/07/20 23:59 23:59 23:59 23:59 Intake Total 1670 1805 Output Total 1000 Balance 1670 805 <NIKUNJ Mittal - Last Filed: 05/07/20 14:11> Meds/Results Medications: Active Medications Generic Name Dose Route Start Last Admin Trade Name Freq PRN Reason Stop Dose Admin Hydrocodone Bitart/Acetaminophen 1 tab 05/06/20 19:21 05/07/20 09:06 Merriman 5-325 Mg PO 1 tab Q6H PRN Administration pain 4-6 Allopurinol 100 mg 05/07/20 09:00 05/07/20 09:08 Zyloprim PO 100 mg DAILY ATUL Administration Apixaban 5 mg 05/07/20 09:00 05/07/20 09:09 Eliquis PO 5 mg BID ATUL Administration Atorvastatin Calcium 40 mg 05/07/20 09:00 05/07/20 09:08 Lipitor PO 40 mg DAILY ATUL Administration Clotrimazole 1 applic 05/06/20 19:21 Lotrisone Cream TOPICAL BID PRN rash Cyanocobalamin 1,000 mcg 05/07/20 09:00 05/07/20 09:08 Vitamin B-12 Tab PO 1,000 mcg DAILY ATUL Administration Dextrose 12.5 gm 05/06/20 19:21 Dextrose 50% Syringe IV PUSH PRN PRN Hypoglycemia Protocol Diltiazem HCl 120 mg 05/07/20 09:00 05/07/20 09:09 Cardizem Cd PO 120 mg DAILY ATUL Administration Famotidine 20 mg 05/06/20 21:00 05/07/20 09:10 Pepcid Iv IV PUSH 20 mg Q12HR ATUL Administration Ferrous Sulfate 324 mg 05/07/20 09:00 05/07/20 09:09 Ferrous Sulfate PO 324 mg DAILY ATUL Administration Finasteride 5 mg 05/07/20 09:00 05/07/20 09:09 Proscar PO 5 mg DAILY ATUL Administration Furosemide 20 mg 05/06/20 21:00 05/07/20 12:32 Lasix Tablet PO 20 mg QID ATUL Administration Glucagon 1 mg 05/06/20 19:21 Glucagon For Inj IM PRN PRN Hypoglycemia Protocol Glucose
[2020-05-07] MEDS: POTASSIUM CHLORIDE 20 MEQ TABLET 40 MEQ PO (15:12)
[2020-05-07 15:29] LABS: Hematocrit 25.3 % (42.0-52.0); Hemoglobin 8.1 g/dL (14.0-18.0); Mean Corpuscular Hemoglobin 27.4 pg (26-34); Mean Corpuscular Volume 85.5 fl (80-100); Mean Platelet Volume 11.7 fl (7.4-10.4); Platelet Count Result 140 k/mm3 (150-375); Red Blood Count 2.96 M/mm3 (4.6-6.20); Red Cell Distribution Width 18.9 % (11.5-14.5); White Blood Count 2.7 K/mm3 (4.5-10.0)
--- NOTE | 2020-05-07 15:44 | PM.IMPN ---
Progress Note: A&P Assessment and Plan (1) Septic joint: Code(s): M00.9 - Pyogenic arthritis, unspecified Status: Acute Assessment and Plan: patient does have a history of gout which this could be gout. Ortho has seen the patient and the fluid was aspirated by Interventional Radiology with no WBC seen and culture pending The patient was started on antibiotics per Ortho. Rocephin and Vanco. Which can be renally dosed. Most likely this is gout. Patient will be referred to a hand specialist outpatient when he recovers from this episode. Patient is not able to go to rehab facility because of his chemotherapy for non-Hodgkin's.. 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 The patient was placed on a Medrol dose pack per Ortho. and is slight improvement today (3) Anemia: Qualifiers: Anemia type: unspecified type Qualified Code(s): D64.9 - Anemia, unspecified Code(s): D64.9 - Anemia, unspecified Status: Chronic Assessment and Plan: Patient appears to be at his baseline but was given a unit of packed red blood cells. and hemoglobin came up to 8 (4) CKD (chronic kidney disease): Qualifiers: Chronic kidney disease stage: unspecified stage Qualified Code(s): N18.9 - Chronic kidney disease, unspecified Code(s): N18.9 - Chronic kidney disease, unspecified Status: Acute Assessment and Plan: Patient appears to be at his baseline. creatinine 2.0 today (5) Diabetes: Qualifiers: Diabetes mellitus type: type 2 Diabetes mellitus terminal manager insulin use: without terminal manager use Diabetes mellitus complication status: with other specified complication Qualified Code(s): E11.69 - Type 2 diabetes mellitus with other specified complication Code(s): E11.9 - Type 2 diabetes mellitus without complications Status: Acute Assessment and Plan: Accu-Cheks AC and HS since the patient will be on steroids. He does not typically take any medicine for his diabetes. (6) Hypertension: Qualifiers: Hypertension type: essential hypertension Qualified Code(s): I10 - Essential (primary) hypertension Code(s): I10 - Essential (primary) hypertension Status: Acute Assessment and Plan: Patient's blood pressures been low and is chronically low. However he is at his baseline. He is on spironolactone, diltiazem, metolazone, Imdur and lasix (7) Depression: Code(s): F32.9 - Major depressive disorder, single episode, unspecified Status: Chronic Assessment and Plan: Continue with patient's Zoloft. (8) Atrial fibrillation: Code(s): I48.91 - Unspecified atrial fibrillation Status: Acute Assessment and Plan: He is chronically in AFib. Continue with the Eliquis and oral diltiazem. (9) BPH (benign prostatic hyperplasia): Code(s): N40.0 - Benign prostatic hyperplasia without lower urinary tract symptoms Status: Acute Assessment and Plan: Continue with finasteride.and terazosin (10) Hyponatremia: Code(s): E87.1 - Hypo-osmolality and hyponatremia Status: Acute Assessment and Plan: Chronically low. He is on spironolactone. He is at his baseline. He is also on Lasix. (11) Non Hodgkin's lymphoma: Code(s): C85.90 - Non-Hodgkin lymphoma, unspecified, unspecified site Status: Chronic Assessment and Plan: Dr. abraham saw the patient and ordered unit packed red blood cells. The patient has treatment with every 2 months of Rituxan. Next treatment is in May. He is in remission. According to the notes the patient will get a dose of Epogen while in the hospital. (12) Hyperlipidemia: Qualifiers: Hyperlipidemia type: unspecified Qualified Code(s): E78.5 - Hyperlip
[2020-05-07 16:23] LABS: Glucose Point of Care 180 (65-105)
--- NOTE | 2020-05-07 18:06 | PC.NURSE ---
Patient transferred to [facility], Report to Edelmira DANIELS. All belongings sent with patient
[2020-05-07] MEDS: TERAZOSIN HCL 1 MG CAPSULE PO (21:10)
[2020-05-07 21:46] LABS: Glucose Point of Care 148 (65-105)
[2020-05-08 00:46] VITALS: BP 116/69; PULSE 57; RESP 18; TEMP 36.7; O2SAT 96
[2020-05-08 04:00] VITALS: BP 111/52; PULSE 52; RESP 18; TEMP 36.4; O2SAT 97
[2020-05-08] MEDS: methylPREDNISolone (MEDROL) DOSEPACK 4 MG TABLETS PO ×4 (05:52→20:18)
[2020-05-08 06:06] LABS: Basophils Percent Auto 0.4 % (0.2-1.2); Eosinophils Percent Auto 0.4 % (0-4.4); Hematocrit 26.3 % (42.0-52.0); Hemoglobin 8.3 g/dL (14.0-18.0); Immature Granulocyte Absolute 0.16 K/mm3 (0.00-0.031); Immature Granulocyte Percent A 6.8 % (0-0.5); Lymphocytes Absolute Auto 0.14 K/mm3 (0.9-3.2); Mean Corpuscular HGB Conc 31.6 g/dl (32-36); Mean Corpuscular Volume 85.7 fl (80-100); Mean Platelet Volume 11.7 fl (7.4-10.4); Monocytes Absolute Auto 0.5 K/mm3 (0.1-0.6); Monocytes Percent Auto 20.9 % (2.6-8.5); Neutrophils Absolute Auto 1.5 K/mm3 (1.3-6.7); Neutrophils Percent Auto 65.5 % (45.5-73.1); Platelet Count Result 150 k/mm3 (150-375); Red Blood Count 3.07 M/mm3 (4.6-6.20); Red Cell Distribution Width 18.8 % (11.5-14.5); White Blood Count 2.4 K/mm3 (4.5-10.0)
[2020-05-08 06:18] LABS: Anion Gap 11 mmol/L (8-16); Blood Urea Nitrogen 70 mg/dL (9-20); Calcium 8.4 mg/dL (8.4-10.2); Carbon Dioxide 26 mmol/L (22-30); Chloride 90 mmol/L (98-107); Estimated CRCL calculation 39 ml/min; Estimated Glomerular Filt Rate 37; Glucose 134 mg/dL (75-110); Potassium 3.8 mmol/L (3.4-5.0); Sodium 127 mmol/L (137-145)
[2020-05-08 07:42] LABS: Acanthocytes 1+ (NORMAL); Ovalocytes 2+ (NORMAL); Platelet Estimate Adequate (Adequate)
[2020-05-08 07:56] LABS: Glucose Point of Care 188 (65-105)
[2020-05-08 08:00] VITALS: BP 115/62; PULSE 68; RESP 18; TEMP 36.8; O2SAT 97
[2020-05-08] MEDS: POTASSIUM CHLORIDE 10 MEQ TABLET.ER 20 MEQ PO ×2 (08:23→17:18)
[2020-05-08] MEDS: rOPINIRole HCL 0.25 MG TABLET PO ×3 (08:23→17:18)
[2020-05-08] MEDS: SERTRALINE HCL 50 MG TABLET 100 MG PO (08:24)
[2020-05-08] MEDS: MAGNESIUM OXIDE 400 MG TABLET PO (08:24)
[2020-05-08] MEDS: allopurinoL 100 MG TABLET PO (08:24)
[2020-05-08] MEDS: APIXABAN 5 MG TABLET PO ×2 (08:24→17:18)
[2020-05-08] MEDS: FUROSEMIDE 20 MG TABLET PO ×4 (08:24→20:20)
[2020-05-08] MEDS: PANTOPRAZOLE 40 MG TABLET PO (08:24)
[2020-05-08] MEDS: FINASTERIDE 5 MG TABLET PO (08:25)
[2020-05-08] MEDS: FERROUS SULFATE 324 MG TABLET PO (08:25)
[2020-05-08] MEDS: FAMOTIDINE 20 MG/2 ML VIAL IV PUSH ×2 (08:26→20:18)
[2020-05-08] MEDS: CYANOCOBALAMIN 1,000 MCG TABLET 1000 MCG PO (08:26)
[2020-05-08] MEDS: CHOLECALCIFEROL 1,000 UNITS TABLET 1000 UNITS PO (08:35)
[2020-05-08] MEDS: metOLazone 5 MG TABLET PO (08:36)
[2020-05-08] MEDS: PREGABALIN 75 MG CAPSULE PO ×3 (08:45→17:16)
[2020-05-08] MEDS: ATORVASTATIN 40 MG TABLET PO (09:04)
--- NOTE | 2020-05-08 10:17 | PM.PNORT ---
Progress Note: A&P Additional Plan Right wrist doing better . Still same swelling byt no sig tender. Asp right wrist NGSF. Impression - likely gouty flare right wrist. Rec stop Abx if cultures negative tomorrow., Subjective Subjective Date/Time Seen: 05/08/20 10:17 Objective Data Vital Signs Vital Signs: Vital Signs - 24 hr 05/07/20 12:00 05/07/20 14:00 05/07/20 15:35 Temperature 36.9 C 36.9 C Pulse Rate 68 62 66 Respiratory Rate 20 18 Blood Pressure 95/59 L 99/47 L Pulse Oximetry 100 98 05/07/20 21:23 05/08/20 00:46 05/08/20 04:00 Temperature 36.5 C 36.7 C 36.4 C L Pulse Rate 71 57 L 52 L Respiratory Rate 20 18 18 Blood Pressure 106/44 L 116/69 111/52 L Pulse Oximetry 95 96 97 05/08/20 08:00 Temperature 36.8 C Pulse Rate 68 Respiratory Rate 18 Blood Pressure 115/62 Pulse Oximetry 97 Intake/Output Intake/Output: Intake & Output 05/05/20 05/06/20 05/07/20 05/08/20 23:59 23:59 23:59 23:59 Intake Total 1670 4100 1770 Output Total 1400 1075 Balance 1670 2700 695 Meds/Results Medications: Active Medications Generic Name Dose Route Start Last Admin Trade Name Freq PRN Reason Stop Dose Admin Hydrocodone Bitart/Acetaminophen 1 tab 05/06/20 19:21 05/07/20 09:06 Mcandrews 5-325 Mg PO 1 tab Q6H PRN Administration pain 4-6 Allopurinol 100 mg 05/07/20 09:00 05/08/20 08:24 Zyloprim PO 100 mg DAILY ATUL Administration Apixaban 5 mg 05/07/20 09:00 05/08/20 08:24 Eliquis PO 5 mg BID ATUL Administration Atorvastatin Calcium 40 mg 05/07/20 09:00 05/08/20 09:04 Lipitor PO 40 mg DAILY ATUL Administration Clotrimazole 1 applic 05/06/20 19:21 Lotrisone Cream TOPICAL BID PRN rash Cyanocobalamin 1,000 mcg 05/07/20 09:00 05/08/20 08:26 Vitamin B-12 Tab PO 1,000 mcg DAILY ATUL Administration Dextrose 12.5 gm 05/06/20 19:21 Dextrose 50% Syringe IV PUSH PRN PRN Hypoglycemia Protocol Diltiazem HCl 120 mg 05/07/20 09:00 05/08/20 08:25 Cardizem Cd PO 120 mg DAILY ATUL Administration Famotidine 20 mg 05/06/20 21:00 05/08/20 08:26 Pepcid Iv IV PUSH 20 mg Q12HR ATUL Administration Ferrous Sulfate 324 mg 05/07/20 09:00 05/08/20 08:25 Ferrous Sulfate PO 324 mg DAILY ATUL Administration Finasteride 5 mg 05/07/20 09:00 05/08/20 08:25 Proscar PO 5 mg DAILY ATUL Administration Furosemide 20 mg 05/06/20 21:00 05/08/20 08:24 Lasix Tablet PO 20 mg QID ATUL Administration Glucagon 1 mg 05/06/20 19:21 Glucagon For Inj IM PRN PRN Hypoglycemia Protocol Glucose 15 gm 05/06/20 19:21 Glutose 15 PO PRN PRN Hypoglycemia Protocol Ceftriaxone Sodium/Dextrose 1 gm in 50 mls @ 100 mls/hr 05/06/20 20:00 05/07/20 19:00 Rocephin 1 Gm/D5w 50 Ml IVPB Infused QPM ATUL Infusion Vancomycin HCl 1,500 mg in 500 mls @ 333.333 mls/hr 05/06/20 18:00 05/08/20 05:59 Vancomycin 1,500 Mg/D5w 500 Ml IVPB 250 mls/hr Q36H ATUL Administration Dextrose 1,000 mls @ 100 mls/hr 05/06/20 19:21 Dextrose 5% 1,000 Ml IVPB PRN PRN Hypoglycemia Protocol Insulin Aspart 2 - 5 units 05/07/20 08:00 05/08/20 07:53 Novolog SUB-Q Not Given [facility] Protocol Magnesium Oxide 400 mg 05/07/20 09:00 05/08/20 08:24 Mag-Ox PO 400 mg DAILY ATUL Administration Methylprednisolone 4 mg 05/07/20 06:30 05/08/20 05:52 Medrol Dosepak PO 05/12/20 07:29 4 mg 0630,1200,1700 ATUL Administration Taper Metolazone 5 mg 05/07/20 09:00 05/08/20 08:36 Zaroxolyn PO 5 mg DAILY ATUL Administration Pantoprazole Sodium 40 mg 05/07/20 09:00 05/08/20 08:24 Protonix PO 06/06/20 09:01 40 mg DAILY ATUL Administration Potassium Chloride 20 meq 05/07/20 09:00 05/08/20 08:23 Kcl Tablet PO 20 meq BID ATUL Administration Pregabalin 75 mg 05/07/20 09:00 05/08/20 08:45 Lyrica PO 75 mg
[2020-05-08 12:06] LABS: Glucose Point of Care 136 (65-105)
--- NOTE | 2020-05-08 14:47 | PM.IMPN ---
Progress Note: A&P Assessment and Plan (1) Septic joint: Code(s): M00.9 - Pyogenic arthritis, unspecified Status: Acute Assessment and Plan: patient does have a history of gout which this is most likely gout. Ortho has seen the patient and the fluid was aspirated by Interventional Radiology with no WBC seen and culture so far neg. The patient was started on antibiotics per Ortho. Rocephin and Vanco. Patient will be referred to a hand specialist outpatient when he recovers from this episode. Patient is not able to go to rehab facility because of his chemotherapy for non-Hodgkin's.. 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 The patient was placed on a Medrol dose pack per Ortho. and improvement again today (3) Anemia: Qualifiers: Anemia type: unspecified type Qualified Code(s): D64.9 - Anemia, unspecified Code(s): D64.9 - Anemia, unspecified Status: Chronic Assessment and Plan: Patient appears to be at his baseline but was given a unit of packed red blood cells. and hemoglobin came up to 8 (4) CKD (chronic kidney disease): Qualifiers: Chronic kidney disease stage: unspecified stage Qualified Code(s): N18.9 - Chronic kidney disease, unspecified Code(s): N18.9 - Chronic kidney disease, unspecified Status: Acute Assessment and Plan: Patient appears to be at his baseline. creatinine 1.8 today (5) Diabetes: Qualifiers: Diabetes mellitus type: type 2 Diabetes mellitus intermediate manager insulin use: without alf use Diabetes mellitus complication status: with other specified complication Qualified Code(s): E11.69 - Type 2 diabetes mellitus with other specified complication Code(s): E11.9 - Type 2 diabetes mellitus without complications Status: Acute Assessment and Plan: Accu-Cheks AC and HS since the patient will be on steroids. He does not typically take any medicine for his diabetes. (6) Hypertension: Qualifiers: Hypertension type: essential hypertension Qualified Code(s): I10 - Essential (primary) hypertension Code(s): I10 - Essential (primary) hypertension Status: Acute Assessment and Plan: Patient's blood pressures been low and is chronically low. However he is at his baseline. He is on spironolactone, diltiazem, metolazone, Imdur and lasix (7) Depression: Code(s): F32.9 - Major depressive disorder, single episode, unspecified Status: Chronic Assessment and Plan: Continue with patient's Zoloft. (8) Atrial fibrillation: Code(s): I48.91 - Unspecified atrial fibrillation Status: Acute Assessment and Plan: He is chronically in AFib. Continue with the Eliquis and oral diltiazem. (9) BPH (benign prostatic hyperplasia): Code(s): N40.0 - Benign prostatic hyperplasia without lower urinary tract symptoms Status: Acute Assessment and Plan: Continue with finasteride.and terazosin (10) Hyponatremia: Code(s): E87.1 - Hypo-osmolality and hyponatremia Status: Acute Assessment and Plan: Chronically low. He is on spironolactone. He is at his baseline. He is also on Lasix. (11) Non Hodgkin's lymphoma: Code(s): C85.90 - Non-Hodgkin lymphoma, unspecified, unspecified site Status: Chronic Assessment and Plan: Dr. abraham saw the patient and ordered unit packed red blood cells. The patient has treatment with every 2 months of Rituxan. Next treatment is in May. He is in remission. According to the notes the patient will get a dose of Epogen while in the hospital. (12) Hyperlipidemia: Qualifiers: Hyperlipidemia type: unspecified Qualified Code(s): E78.5 - Hyperlipidemia, unspecified Code(s): E78.5 - Hype
[2020-05-08 16:00] VITALS: BP 124/58; PULSE 64; RESP 16; TEMP 36.2; O2SAT 98
[2020-05-08 16:18] LABS: Glucose Point of Care 154 (65-105)
[2020-05-08 20:01] LABS: Glucose Point of Care 238 (65-105)
[2020-05-08] MEDS: SPIRONOLACTONE 12.5 MG TABLET PO (20:18)
[2020-05-08] MEDS: TERAZOSIN HCL 1 MG CAPSULE PO (20:18)
[2020-05-08 21:07] VITALS: BP 108/81; PULSE 52; RESP 16; TEMP 36.4; O2SAT 97
[2020-05-08 22:17] LABS: Glucose Point of Care 224 (65-105)
[2020-05-09 05:48] VITALS: BP 122/82; PULSE 53; RESP 18; TEMP 36.4; O2SAT 99
[2020-05-09] MEDS: methylPREDNISolone (MEDROL) DOSEPACK 4 MG TABLETS PO ×4 (06:01→20:15)
[2020-05-09 06:09] LABS: Hemoglobin 8.3 g/dL (14.0-18.0); Immature Granulocyte Percent A 9.4 % (0-0.5); Lymphocytes Percent Auto 4.7 % (18.3-44.2); Mean Corpuscular HGB Conc 31.9 g/dl (32-36); Mean Corpuscular Volume 84.7 fl (80-100); Mean Platelet Volume 11.6 fl (7.4-10.4); Monocytes Absolute Auto 0.3 K/mm3 (0.1-0.6); Monocytes Percent Auto 13.2 % (2.6-8.5); Neutrophils Absolute Auto 1.5 K/mm3 (1.3-6.7); Neutrophils Percent Auto 72.7 % (45.5-73.1); Platelet Count Result 158 k/mm3 (150-375); Red Blood Count 3.07 M/mm3 (4.6-6.20); Red Cell Distribution Width 18.2 % (11.5-14.5); White Blood Count 2.1 K/mm3 (4.5-10.0)
[2020-05-09 06:22] LABS: Anion Gap 12 mmol/L (8-16); Blood Urea Nitrogen 77 mg/dL (9-20); Calcium 8.4 mg/dL (8.4-10.2); Carbon Dioxide 25 mmol/L (22-30); Chloride 89 mmol/L (98-107); Estimated CRCL calculation 43 ml/min; Estimated Glomerular Filt Rate 40; Glucose 185 mg/dL (75-110); Potassium 3.7 mmol/L (3.4-5.0); Sodium 126 mmol/L (137-145)
[2020-05-09 06:49] LABS: Acanthocytes 2+ (NORMAL); Ovalocytes 1+ (NORMAL); Schistocytes 1+ (NORMAL)
[2020-05-09] MEDS: FAMOTIDINE 20 MG/2 ML VIAL IV PUSH ×2 (08:38→20:15)
[2020-05-09] MEDS: CYANOCOBALAMIN 1,000 MCG TABLET 1000 MCG PO (08:39)
[2020-05-09] MEDS: ATORVASTATIN 40 MG TABLET PO (08:39)
[2020-05-09] MEDS: APIXABAN 5 MG TABLET PO ×2 (08:39→17:19)
[2020-05-09] MEDS: CHOLECALCIFEROL 1,000 UNITS TABLET 1000 UNITS PO (08:39)
[2020-05-09] MEDS: PANTOPRAZOLE 40 MG TABLET PO (08:40)
[2020-05-09] MEDS: FERROUS SULFATE 324 MG TABLET PO (08:40)
[2020-05-09] MEDS: rOPINIRole HCL 0.25 MG TABLET PO ×3 (08:40→17:19)
[2020-05-09] MEDS: FINASTERIDE 5 MG TABLET PO (08:40)
[2020-05-09] MEDS: metOLazone 5 MG TABLET PO (08:40)
[2020-05-09] MEDS: POTASSIUM CHLORIDE 10 MEQ TABLET.ER 20 MEQ PO ×2 (08:40→17:19)
[2020-05-09] MEDS: allopurinoL 100 MG TABLET PO (08:40)
[2020-05-09] MEDS: MAGNESIUM OXIDE 400 MG TABLET PO (08:40)
[2020-05-09] MEDS: FUROSEMIDE 20 MG TABLET PO ×4 (08:40→20:15)
[2020-05-09] MEDS: SERTRALINE HCL 50 MG TABLET 100 MG PO (08:41)
[2020-05-09] MEDS: PREGABALIN 75 MG CAPSULE PO ×3 (08:45→17:19)
[2020-05-09 09:27] LABS: Glucose Point of Care 169 (65-105)
--- NOTE | 2020-05-09 11:26 | PM.PNORT ---
Progress Note: A&P Additional Plan Cx's neg today will plan to stop abx. again most likely gout flare to wrist. pain over in better, no redness to wrist. Will sign off on pt ,if symptoms worsen will re-eval Subjective Subjective Date/Time Seen: 05/09/20 11:26 Objective Data Vital Signs Vital Signs: Vital Signs - 24 hr 05/08/20 16:00 05/08/20 21:07 05/09/20 05:48 Temperature 36.2 C L 36.4 C L 36.4 C L Pulse Rate 64 52 L 53 L Respiratory Rate 16 18 Blood Pressure 124/58 L 108/81 122/82 Pulse Oximetry 98 97 99 Intake/Output Intake/Output: Intake & Output 05/06/20 05/07/20 05/08/20 05/09/20 23:59 23:59 23:59 23:59 Intake Total 1670 4100 3040 1280 Output Total 1400 2425 1125 Balance 1670 2700 615 155 Meds/Results Medications: Active Medications Generic Name Dose Route Start Last Admin Trade Name Freq PRN Reason Stop Dose Admin Hydrocodone Bitart/Acetaminophen 1 tab 05/06/20 19:21 05/07/20 09:06 Shidler 5-325 Mg PO 1 tab Q6H PRN Administration pain 4-6 Allopurinol 100 mg 05/07/20 09:00 05/09/20 08:40 Zyloprim PO 100 mg DAILY ATUL Administration Apixaban 5 mg 05/07/20 09:00 05/09/20 08:39 Eliquis PO 5 mg BID ATUL Administration Atorvastatin Calcium 40 mg 05/07/20 09:00 05/09/20 08:39 Lipitor PO 40 mg DAILY ATUL Administration Clotrimazole 1 applic 05/06/20 19:21 Lotrisone Cream TOPICAL BID PRN rash Cyanocobalamin 1,000 mcg 05/07/20 09:00 05/09/20 08:39 Vitamin B-12 Tab PO 1,000 mcg DAILY ATUL Administration Dextrose 12.5 gm 05/06/20 19:21 Dextrose 50% Syringe IV PUSH PRN PRN Hypoglycemia Protocol Diltiazem HCl 120 mg 05/07/20 09:00 05/09/20 08:45 Cardizem Cd PO 120 mg DAILY ATUL Administration Famotidine 20 mg 05/06/20 21:00 05/09/20 08:38 Pepcid Iv IV PUSH 20 mg Q12HR ATUL Administration Ferrous Sulfate 324 mg 05/07/20 09:00 05/09/20 08:40 Ferrous Sulfate PO 324 mg DAILY ATUL Administration Finasteride 5 mg 05/07/20 09:00 05/09/20 08:40 Proscar PO 5 mg DAILY ATUL Administration Furosemide 20 mg 05/06/20 21:00 05/09/20 08:40 Lasix Tablet PO 20 mg QID ATUL Administration Glucagon 1 mg 05/06/20 19:21 Glucagon For Inj IM PRN PRN Hypoglycemia Protocol Glucose 15 gm 05/06/20 19:21 Glutose 15 PO PRN PRN Hypoglycemia Protocol Ceftriaxone Sodium/Dextrose 1 gm in 50 mls @ 100 mls/hr 05/06/20 20:00 05/08/20 18:09 Rocephin 1 Gm/D5w 50 Ml IVPB 100 mls/hr QPM ATUL Administration Vancomycin HCl 1,500 mg in 500 mls @ 333.333 mls/hr 05/06/20 18:00 05/08/20 05:59 Vancomycin 1,500 Mg/D5w 500 Ml IVPB 250 mls/hr Q36H ATUL Administration Dextrose 1,000 mls @ 100 mls/hr 05/06/20 19:21 Dextrose 5% 1,000 Ml IVPB PRN PRN Hypoglycemia Protocol Insulin Aspart 2 - 5 units 05/09/20 12:00 Novolog SUB-Q TIDWM ATUL Protocol Magnesium Oxide 400 mg 05/07/20 09:00 05/09/20 08:40 Mag-Ox PO 400 mg DAILY ATUL Administration Methylprednisolone 4 mg 05/07/20 06:30 05/09/20 06:01 Medrol Dosepak PO 05/12/20 07:29 4 mg 0630,1200,1700,2100 ATUL Administration Taper Metolazone 5 mg 05/07/20 09:00 05/09/20 08:40 Zaroxolyn PO 5 mg DAILY ATUL Administration Pantoprazole Sodium 40 mg 05/07/20 09:00 05/09/20 08:40 Protonix PO 06/06/20 09:01 40 mg DAILY ATUL Administration Potassium Chloride 20 meq 05/07/20 09:00 05/09/20 08:40 Kcl Tablet PO 20 meq BID ATUL Administration Pregabalin 75 mg 05/07/20 09:00 05/09/20 08:45 Lyrica PO 75 mg TID ATUL Administration Ropinirole HCl 0.25 mg 05/07/20 09:00 05/09/20 08:40 Requip PO 0.25 mg TID ATLU Administration Sertraline HCl 100 mg 05/07/20 09:00 05/09/20 08:41 Zoloft PO 100 mg DAILY ATUL Administration Spironolactone 12.5 mg 05/07/20 00:10 05/08/20 20:18
[2020-05-09 11:41] LABS: Glucose Point of Care 206 (65-105)
[2020-05-09] MEDS: INSULIN ASPART (*BKC) 100 UNITS/ML SUB-Q (12:17)
[2020-05-09 15:09] VITALS: BP 117/62; PULSE 69; RESP 18; TEMP 36.3; O2SAT 98
--- NOTE | 2020-05-09 15:42 | PM.IMPN ---
Progress Note: A&P Assessment and Plan (1) Septic joint: Code(s): M00.9 - Pyogenic arthritis, unspecified Status: Acute Assessment and Plan: patient does have a history of gout. Ortho has seen the patient and the fluid was aspirated by Interventional Radiology with no WBC seen and culture so far neg. The patient was started on antibiotics per Ortho. Rocephin and Vanco and d/cathleen today with continued neg cultures. Patient may need referred to a hand specialist outpatient when he recovers from this episode. Patient is not able to go to rehab facility because of his chemotherapy for non-Hodgkin's.. plan will be return home with 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 The patient was placed on a Medrol dose pack per Ortho. and improvement again today 3 days left of taper (3) Anemia: Qualifiers: Anemia type: unspecified type Qualified Code(s): D64.9 - Anemia, unspecified Code(s): D64.9 - Anemia, unspecified Status: Chronic Assessment and Plan: Patient appears to be at his baseline but was given a unit of packed red blood cells after admission . and hemoglobin came up to 8 and still 8.3 today (4) CKD (chronic kidney disease): Qualifiers: Chronic kidney disease stage: unspecified stage Qualified Code(s): N18.9 - Chronic kidney disease, unspecified Code(s): N18.9 - Chronic kidney disease, unspecified Status: Acute Assessment and Plan: Patient appears to be at his baseline. creatinine 1.7 today (5) Diabetes: Qualifiers: Diabetes mellitus type: type 2 Diabetes mellitus group home insulin use: without group home use Diabetes mellitus complication status: with other specified complication Qualified Code(s): E11.69 - Type 2 diabetes mellitus with other specified complication Code(s): E11.9 - Type 2 diabetes mellitus without complications Status: Acute Assessment and Plan: Accu-Cheks AC and HS with patient on steroids. He does not typically take any medicine for his diabetes. (6) Hypertension: Qualifiers: Hypertension type: essential hypertension Qualified Code(s): I10 - Essential (primary) hypertension Code(s): I10 - Essential (primary) hypertension Status: Acute Assessment and Plan: Patient's blood pressures been low and is chronically low. However he is at his baseline. He is on spironolactone, diltiazem, metolazone, Imdur and lasix (7) Depression: Code(s): F32.9 - Major depressive disorder, single episode, unspecified Status: Chronic Assessment and Plan: Continue with patient's Zoloft. (8) Atrial fibrillation: Code(s): I48.91 - Unspecified atrial fibrillation Status: Acute Assessment and Plan: He is chronically in AFib. Continue with the Eliquis and oral low dose diltiazem. (9) BPH (benign prostatic hyperplasia): Code(s): N40.0 - Benign prostatic hyperplasia without lower urinary tract symptoms Status: Acute Assessment and Plan: Continue with finasteride.and terazosin (10) Hyponatremia: Code(s): E87.1 - Hypo-osmolality and hyponatremia Status: Acute Assessment and Plan: Chronically low. He is on 3 diuretics, SSRI, and narcotic He is at his baseline. (11) Non Hodgkin's lymphoma: Code(s): C85.90 - Non-Hodgkin lymphoma, unspecified, unspecified site Status: Chronic Assessment and Plan: Dr. abraham saw the patient and ordered unit packed red blood cells. The patient has treatment with every 2 months of Rituxan. Next treatment is in May. He is in remission. (12) Hyperlipidemia: Qualifiers: Hyperlipidemia type: unspecified Qualified Code(s): E78.5 - H
[2020-05-09 16:40] LABS: Glucose Point of Care 139 (65-105)
--- NOTE | 2020-05-09 17:59 | WPDONCPN ---
Progress Note: A/P - Additional Plan Bilateral hand swelling and arthritis. Ortho input is noted. Fluid was aspirated but showed no infection. Patient was treated with antibiotics this has been discontinued. There is some clinical improvement. 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 He is on maintenance Rituxan treatment. Pancytopenia. Unclear etiology. Anemia. Secondary to anemia of chronic kidney disease. Patient has received Epogen treatment in the hospital that he will continue in our office on every 2 weeks basis. Labs stable. - Time Spent With Patient Total time spent is greater than 50% in coordination of care (as documented) at patient's floor/unit and/or counseling patient: 15 - 25 minutes Subjective Interval history: Non-Hodgkin lymphoma Gout arthritis involving bilateral hands Review of Systems - Review of Systems Patient looks much more comfortable today. He denies any more chills and shivering. No fevers and chills. Hand pain has improved with improvement in the swelling. - Neurologic Reports system reviewed and no additional complaints, except as documented, Reports hearing normal Exam Vital signs: Temp Pulse Resp BP Pulse Ox 36.3 C L 69 18 117/62 98 05/09/20 15:09 05/09/20 15:09 05/09/20 15:09 05/09/20 15:09 05/09/20 15:09 Lungs are clear to auscultation bilaterally Cardiovascular regular rate rhythm no murmurs Abdomen soft nontender nondistended bowel sounds are positive no other splenomegaly Extremities bilateral wrist swelling PN: Objective Data - Labs CBC & Chem 7: 05/09/20 05:55 05/09/20 05:55 Labs: Laboratory Results - last 24 hr 05/08/20 05/08/20 05/09/20 19:58 22:14 05:55 WBC 2.1 L RBC 3.07 L Hgb 8.3 L Hct 26.0 L MCV 84.7 MCH 27.0 MCHC 31.9 L RDW 18.2 H Plt Count 158 MPV 11.6 H Immature Gran % (Auto) 9.4 H Neut % (Auto) 72.7 Lymph % (Auto) 4.7 L Dixon % (Auto) 13.2 H Eos % (Auto) 0.0 Baso % (Auto) 0.0 L Lymph # (Auto) 0.10 L Dixon # (Auto) 0.3 Eos # (Auto) 0.0 Baso # (Auto) 0.0 Abs Immat Gran (auto) 0.20 H Absolute Neuts (auto) 1.5 Absolute Nucleated RBC 0.0 Nucleated RBC % 0.0 Platelet Estimate Slightly decreased Ovalocytes 1+ Acanthocytes (Spur) 2+ Schistocytes 1+ Sodium Potassium Chloride Carbon Dioxide Anion Gap BUN Creatinine Estim Creat Clear Calc Estimated GFR Glucose POC Capillary Glucose 238 H 224 H Calcium 05/09/20 05/09/20 05/09/20 05:55 08:38 11:30 WBC RBC Hgb Hct MCV MCH MCHC RDW Plt Count MPV Immature Gran % (Auto) Neut % (Auto) Lymph % (Auto) Dixon % (Auto) Eos % (Auto) Baso % (Auto) Lymph # (Auto) Dixon # (Auto) Eos # (Auto) Baso # (Auto) Abs Immat Gran (auto) Absolute Neuts (auto) Absolute Nucleated RBC Nucleated RBC % Platelet Estimate Ovalocytes Acanthocytes (Spur) Schistocytes Sodium 126 L Potassium 3.7 Chloride 89 L Carbon Dioxide 25 Anion Gap 12 BUN 77 H Creatinine 1.70 H Estim Creat Clear Calc 43 Estimated GFR 40 L Glucose 185 H POC Capillary Glucose 169 H 206 H Calcium 8.4 05/09/20 16:23 WBC RBC Hgb Hct MCV MCH MCHC RDW Plt Count MPV Immature Gran % (Auto) Neut % (Auto) Lymph % (Auto) Dixon % (Auto) Eos % (Auto) Baso % (Auto) Lymph # (Auto) Dixon # (Auto) Eos # (Auto) Baso # (Auto) Abs Immat Gran (auto) Absolute Neuts (auto) Absolute Nucleated RBC Nucleated RBC % Platelet Estimate Ovalocytes Acanthocytes (Spur) Schistocytes Sodium Potassium Chloride Carbon Dioxide Anion Gap BUN Creatinine Estim Creat Clear Calc Estimated GFR Glucose POC Capillary Glucose 139 H Calcium
[2020-05-09] MEDS: TERAZOSIN HCL 1 MG CAPSULE PO (20:15)
[2020-05-09] MEDS: SPIRONOLACTONE 12.5 MG TABLET PO (20:17)
[2020-05-09 22:07] VITALS: BP 142/64; PULSE 111; RESP 16; TEMP 36.4; O2SAT 98
[2020-05-09 22:13] LABS: Glucose Point of Care 154 (65-105)
[2020-05-10] MEDS: methylPREDNISolone (MEDROL) DOSEPACK 4 MG TABLETS PO ×2 (05:57→12:13)
[2020-05-10 06:07] LABS: Hematocrit 27.5 % (42.0-52.0); Hemoglobin 8.7 g/dL (14.0-18.0); Mean Corpuscular HGB Conc 31.6 g/dl (32-36); Mean Corpuscular Volume 85.4 fl (80-100); Mean Platelet Volume 12.3 fl (7.4-10.4); Platelet Count Result 164 k/mm3 (150-375); Red Blood Count 3.22 M/mm3 (4.6-6.20); Red Cell Distribution Width 18.1 % (11.5-14.5); White Blood Count 2.6 K/mm3 (4.5-10.0)
[2020-05-10 06:19] LABS: Anion Gap 9 mmol/L (8-16); Blood Urea Nitrogen 81 mg/dL (9-20); Calcium 8.7 mg/dL (8.4-10.2); Carbon Dioxide 28 mmol/L (22-30); Chloride 91 mmol/L (98-107); Estimated CRCL calculation 48 ml/min; Estimated Glomerular Filt Rate 46; Glucose 116 mg/dL (75-110); Potassium 4.1 mmol/L (3.4-5.0); Sodium 128 mmol/L (137-145)
[2020-05-10 07:08] LABS: Band Neutrophils Percent 3 % (0-6); Lymphocytes Absolute Manual 0.15 K/mm3 (1.1-4.5); Metamyelocytes Percent 5 %; Monocytes Absolute Manual 0.18 K/mm3 (0.1-0.90); Monocytes Percent Manual 7 % (3-9); Neutrophils Absolute Manual 2.13 K/mm3 (1.3-6.7); Neutrophils Percent Manual 79 % (46-73); Total Cells Counted 100
[2020-05-10 07:09] LABS: Acanthocytes 2+ (NORMAL)
[2020-05-10 07:10] LABS: Ovalocytes 2+ (NORMAL); Poikilocytosis 2+ (NORMAL)
[2020-05-10 07:11] LABS: Anisocytosis 1+ (NORMAL); Hypochromasia 1+ (NORMAL); Platelet Estimate Adequate (Adequate)
[2020-05-10 07:51] LABS: Glucose Point of Care 109 (65-105)
[2020-05-10 08:00] VITALS: BP 110/67; PULSE 70; RESP 18; TEMP 36.2; O2SAT 99
[2020-05-10] MEDS: APIXABAN 5 MG TABLET PO ×2 (08:18→16:30)
[2020-05-10] MEDS: ATORVASTATIN 40 MG TABLET PO (08:18)
[2020-05-10] MEDS: allopurinoL 100 MG TABLET PO (08:18)
[2020-05-10] MEDS: CHOLECALCIFEROL 1,000 UNITS TABLET 1000 UNITS PO (08:18)
[2020-05-10] MEDS: POTASSIUM CHLORIDE 10 MEQ TABLET.ER 20 MEQ PO ×2 (08:19→16:30)
[2020-05-10] MEDS: PREGABALIN 75 MG CAPSULE PO ×3 (08:19→16:42)
[2020-05-10] MEDS: FERROUS SULFATE 324 MG TABLET PO (08:19)
[2020-05-10] MEDS: PANTOPRAZOLE 40 MG TABLET PO (08:19)
[2020-05-10] MEDS: FINASTERIDE 5 MG TABLET PO (08:19)
[2020-05-10] MEDS: metOLazone 5 MG TABLET PO (08:19)
[2020-05-10] MEDS: rOPINIRole HCL 0.25 MG TABLET PO ×3 (08:19→16:30)
[2020-05-10] MEDS: MAGNESIUM OXIDE 400 MG TABLET PO (08:19)
[2020-05-10] MEDS: FUROSEMIDE 20 MG TABLET PO ×3 (08:19→16:30)
[2020-05-10] MEDS: SERTRALINE HCL 50 MG TABLET 100 MG PO (08:19)
[2020-05-10] MEDS: CYANOCOBALAMIN 1,000 MCG TABLET 1000 MCG PO (08:19)
[2020-05-10 11:36] LABS: Glucose Point of Care 173 (65-105)
--- NOTE | 2020-05-10 14:33 | PM.DS ---
DS: Admitting Diagnosis Admitting Diagnosis Admitting Diagnosis: generalized weakness,hypotension,arthralgias,dehyd DS: Discharge Diagnosis Discharge Diagnosis (1) Arthralgia: Code(s): M25.50 - Pain in unspecified joint Status: Acute Assessment and Plan: Patient does have a history of gout. Ortho has seen the patient and the fluid was aspirated from right wrist by Interventional Radiology. The patient was started on antibiotics per Ortho. No WBC seen and culture negative. Abx stopped. Patient is not able to go to rehab facility because of his chemotherapy for non-Hodgkin's. Patient is doing well with therapy. Continue current treatment plan. Home with [facility] today. (2) Septic joint: Code(s): M00.9 - Pyogenic arthritis, unspecified Status: Acute Assessment and Plan: Septic arthritis ruled out. (3) Gouty tophi of hand: Code(s): [id number] - Chronic gout, unspecified, with tophus (tophi) Status: Acute Assessment and Plan: Patient has been on allopurinol. The patient was placed on a Medrol dose pack per Ortho with improvement. Continue tapering steroids. (4) Anemia: Qualifiers: Anemia type: unspecified type Qualified Code(s): D64.9 - Anemia, unspecified Code(s): D64.9 - Anemia, unspecified Status: Chronic Assessment and Plan: Patient appears to be at his baseline. Heis Hgb droped to 7.2 and he was given a unit of packed red blood cells after admission and hemoglobin came up to 8 range and has remained stable (5) CKD (chronic kidney disease): Qualifiers: Chronic kidney disease stage: unspecified stage Qualified Code(s): N18.9 - Chronic kidney disease, unspecified Code(s): N18.9 - Chronic kidney disease, unspecified Status: Acute Assessment and Plan: Patient appears to be at his baseline. Cr 1.5 at discharge. 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 Glucose was reasonable despite the steroids. We continued Accu-Cheks AC and HS with sliding scale insulin. (7) Hypertension: Qualifiers: Hypertension type: essential hypertension Qualified Code(s): I10 - Essential (primary) hypertension Code(s): I10 - Essential (primary) hypertension Status: Acute Assessment and Plan: Patient's blood pressures was low at times but mostly remained stable. He is on spironolactone, diltiazem, metolazone, Imdur and lasix (8) Depression: Code(s): F32.9 - Major depressive disorder, single episode, unspecified Status: Chronic Assessment and Plan: Mood stbale. We continued with patient's Zoloft. (9) Atrial fibrillation: Code(s): I48.91 - Unspecified atrial fibrillation Status: Acute Assessment and Plan: He is chronically in AFib. We continued with the Eliquis and oral low dose diltiazem. (10) BPH (benign prostatic hyperplasia): Code(s): N40.0 - Benign prostatic hyperplasia without lower urinary tract symptoms Status: Acute Assessment and Plan: Styable. We continued with finasteride.and terazosin. (11) Hyponatremia: Code(s): E87.1 - Hypo-osmolality and hyponatremia Status: Acute Assessment and Plan: Chronically low. He is on 3 diuretics, SSRI, and narcotic He is at his baseline. Sodium 128 at discharge. (12) Non Hodgkin's lymphoma: Code(s): C85.90 - Non-Hodgkin lymphoma, unspecified, unspecified site Status: Chronic Asses
[2020-05-10 14:37] VITALS: BP 111/87; PULSE 68; RESP 18; TEMP 36.1; O2SAT 100
--- NOTE | 2020-05-25 06:41 | PC.NURSE ---
Right wrist cx is negative.
== END 2020-05-10 17:00 | disposition home health service (06) | DRG 554 ==
LOC: ANHED 14:38 → ANHIMU 14:59 → ANH3MED 05-08 16:45 → ANHIMU 05-11 14:31
PROVIDERS: Emergency Medicine Emergency Medical Services; Internal Medicine; Nurse Practitioner; Admitting Provider Family Medicine; Emergency Provider Emergency Medicine; PCP Internal Medicine; Visit Provider Internal Medicine
DX: M1A.9XX1 Chronic gout, unspecified, with tophus (tophi) (principal); I48.20 Chronic atrial fibrillation, unspecified; C85.90 Non-Hodgkin lymphoma, unspecified, unspecified site; E87.1 Hypo-osmolality and hyponatremia; D61.818 Other pancytopenia; M19.031 Primary osteoarthritis, right wrist; E11.22 Type 2 diabetes mellitus with diabetic chronic kidney disease; I12.9 Hypertensive chronic kidney disease with stage 1 through stage 4 chronic kidney disease, or unspecified chronic kidney disease; F32.9 Major depressive disorder, single episode, unspecified; E86.0 Dehydration; N40.0 Benign prostatic hyperplasia without lower urinary tract symptoms; N18.9 Chronic kidney disease, unspecified; I95.9 Hypotension, unspecified; E78.5 Hyperlipidemia, unspecified; M06.9 Rheumatoid arthritis, unspecified; D63.1 Anemia in chronic kidney disease; I25.10 Atherosclerotic heart disease of native coronary artery without angina pectoris; E66.9 Obesity, unspecified; Z68.35 Body mass index [BMI] 35.0-35.9, adult; G47.33 Obstructive sleep apnea (adult) (pediatric); E11.42 Type 2 diabetes mellitus with diabetic polyneuropathy; J43.9 Emphysema, unspecified; F41.9 Anxiety disorder, unspecified; Z98.42 Cataract extraction status, left eye; Z98.41 Cataract extraction status, right eye; Z87.891 Personal history of nicotine dependence
CPT/HCPCS: 20605; 36415; 36430; 71046; 73110; 77002; 80048; 80053; 81003; 83605; 83615; 83690; 83735; 84550; 85025; 85027; 85610; 85652; 85730; 86140; 86850; 86900; 86901; 86923; 87040; 87070; 87075; 87205; 93005; 96361; 96365; 96366; 96367; 96372; 96375; 96376; 97110; 97116; 97162; 97166; 97530; 97535; 99285; A9270; G0378; J0131; J0696; J1815; J2270; J3370; J7030; J7040; J7050; J7120; P9016; Q5106; Q9966

== ENCOUNTER 2020-05-22 04:57 | Observation (INO) | payer MEDICARE, MEDICAID, SELFPAY ==
--- NOTE | ~2020-05-22 | XR_ITS ---
EXAMINATION: XR knee LT min 4V DATE: 05/23/2020 16:53 INDICATION: Gouty arthritis with left knee swelling TECHNIQUE: Anteroposterior, 2 oblique and crosstable lateral views of the left knee were obtained COMPARISON: 03/11/2018 FINDINGS: Alignment is normal. No fracture. Tricompartmental osteoarthritis with marginal osteophytes in all 3 compartments, at least mild to moderate joint space narrowing in the medial compartment which could be underestimated on nonweightbearing imaging and with prominent subarticular cystic changes at the l ateral aspect of the patellofemoral compartment. Severe joint space narrowing was evident at the late ral side of the patellofemoral compartment on the prior sunrise projection. Moderate-sized left knee joint effusion without layering lipohemarthrosis. Soft tissue swelling with diffuse subcutaneous neri a about the left knee. IMPRESSION: 1. 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 Reviewed, dictated and finalized at location B. IMPRESSION: 1. Severe patellofemoral compartment predominant tricompartmental osteoarthriti s of the left knee with moderate-sized left knee joint effusion.
--- NOTE | ~2020-05-22 | XR_ITS ---
EXAMINATION: XR hand RT min 3V DATE: 05/22/2020 06:35 INDICATION: Right hand pain and swelling TECHNIQUE: Posteroanterior, oblique and lateral views of the right hand were obtained. COMPARISON: None. FINDINGS: No acute fracture. Again seen is advanced scapholunate advanced collapse (SLAC) wrist with widening o f the scapholunate interval, proximal migration of the capitate and advanced osteoarthritis at the ra diocarpal articulation with remodeling of the bones on both sides of the joint space. Chronic palmar subluxation of the lunate which is perched along the palmar/ulnar margin of the radius with secondary remodeling of the lunate. Prominent soft tissue swelling about the wrist. Loose osteochondral bodies versus calcific debris at the dorsal and volar recess of the wrist joint space. Additional prominent soft tissue swelling overlying the ECU groove suggesting tenosynovitis along the extensor carpi ulna ris tendon. Additional advanced osteoarthritis at the first carpometacarpal joint. Severe osteoarthri tis at the second and third distal interphalangeal joints. There are erosions at both the radial and ulnar margins of the necks of the second and third metacarpals, both with overhanging cortical margin s which can be seen in the setting of gout. Additional mild osteoarthritis at the remaining joints in the right hand and wrist. IMPRESSION: 1. No acute osseous abnormality. 2. 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 3. Chronic erosions at the necks of the second and third middle phalanges with overhanging cortical m argins suggestive of a crystalline arthropathy including gout or calcium pyrophosphate deposition (CP PD) disease. Reviewed, dictated and finalized at location A. IMPRESSION: 1. No acute osseous abnormality. 2. Chronic scapholunate ligament tear with secondary scapholunate advanced jessica apse (SLAC) wrist including advanced osteoarthritis at the radiocarpal articula tion and with chronic palmar subluxation of the lunate. 3. Chronic erosions at the necks of the second and third middle phalanges with overhanging cortical margins suggestive of a crystalline arthropathy including gout or calcium pyrophosphate deposition (CPPD) disease.
[2020-05-22 04:55] VITALS: BP 101/79; PULSE 103; RESP 17; TEMP 36.8; O2SAT 97
--- NOTE | 2020-05-22 05:51 | PC.NURSE ---
pt c/o of pain, asking for pain medication explained to the pt that the RN can not order pain medications, pt was asked to please be patient and that provider will be in to evaluate him shortly
[2020-05-22 06:28] LABS: Hematocrit 25.3 % (42.0-52.0); Hemoglobin 8.1 g/dL (14.0-18.0); Mean Corpuscular Hemoglobin 27.2 pg (26-34); Mean Corpuscular Volume 84.9 fl (80-100); Mean Platelet Volume 11.6 fl (7.4-10.4); Platelet Count Result 171 k/mm3 (150-375); Red Blood Count 2.98 M/mm3 (4.6-6.20); Red Cell Distribution Width 19.3 % (11.5-14.5)
[2020-05-22 06:36] LABS: Alanine Aminotransferase 20 U/L (4-50); Albumin Level 3.8 g/dL (3.5-5.1); Alkaline Phosphatase 281 U/L (38-126); Anion Gap 12 mmol/L (8-16); Aspartate Amino Transferase 33 U/L (17-59); Blood Urea Nitrogen 75 mg/dL (9-20); Calcium 8.9 mg/dL (8.4-10.2); Carbon Dioxide 27 mmol/L (22-30); Chloride 90 mmol/L (98-107); Estimated CRCL calculation 37 ml/min; Estimated Glomerular Filt Rate 35; Glucose 119 mg/dL (75-110); Potassium 4.3 mmol/L (3.4-5.0); Sodium 129 mmol/L (137-145)
[2020-05-22 06:38] LABS: Band Neutrophils Percent 1 % (0-6); Crenated RBC 2+ (NORMAL); Eosinophils Absolute Manual 0.09 K/mm3 (0.02-0.5); Eosinophils Percent Manual 3 % (0-4); Metamyelocytes Percent 1 %; Monocytes Percent Manual 20 % (3-9); Neutrophils Absolute Manual 1.98 K/mm3 (1.3-6.7); Neutrophils Percent Manual 65 % (46-73); Ovalocytes 3+ (NORMAL); Platelet Estimate Adequate (Adequate); Total Cells Counted 100
[2020-05-22 06:39] LABS: Tear Drop Cells 2+ (NORMAL)
[2020-05-22 06:40] LABS: Acanthocytes 3+ (NORMAL)
--- NOTE | 2020-05-22 06:40 | ED.GENADULT ---
HPI - General Adult General Chief complaint: Unspecified Stated complaint: leg and hand pain Time Seen by Provider: 05/22/20 05:24 Source: patient Mode of arrival: EMS Limitations: no limitations History of Present Illness HPI narrative: This patient is a 74 year old male with multiple medical problems who presents with complaint of pain to hands and legs due to gout. PAtient was hospitalized this morning with polyarthritis and he has an evaluation to rule out septic arthritis. He was told that he had gout. He was discharged home with pain medication and steroids. He states initially his pain improved but his pain has worsened again. He has hydrocodone at home but he has not taken in 12 hours. He states he could not walk to the kitchen to get his pain medication so he called 911. He denies fever, chills, nausea or vomiting. He has pain worse in bilateral knee and right hand. Related Data Home Medications Medication Instructions Recorded Confirmed acetaminophen 650 mg PO Q4H PRN 07/14/19 05/06/20 cholecalciferol (vitamin D3) 1,000 unit PO DAILY 07/14/19 05/06/20 cyanocobalamin (vitamin B-12) 1,000 mcg PO DAILY 07/14/19 05/06/20 ferrous sulfate 325 mg (65 mg 325 mg PO DAILY tablet 08/03/19 05/06/20 iron) tablet furosemide 20 mg tablet 20 mg PO QID tablet 08/03/19 05/06/20 magnesium oxide 400 mg (241.3 mg 400 mg PO DAILY 08/03/19 05/06/20 magnesium) tablet spironolactone 25 mg tablet 12.5 mg PO HS tablet 10/30/19 05/06/20 allopurinol 100 mg PO DAILY 04/14/20 05/06/20 clotrimazole-betamethasone 1 applic TOPICAL BID PRN 04/20/20 05/06/20 [Lotrisone] Allergies Allergy/AdvReac Type Severity Reaction Status Date / Time Penicillins AdvReac Unknown Unknown Verified 05/22/20 05:03 Review of Systems Review of Systems: All systems reviewed & are unremarkable except as noted in HPI and below PMFSH Past Medical History Medical History Angina pectoris, unspecified previous cardiac catheterization with minimal blockage no intervention Anxiety Arthritis Atrial fibrillation BPH (benign prostatic hyperplasia) CAD (coronary artery disease) CHF (congestive heart failure) CKD (chronic kidney disease) COPD (chronic obstructive pulmonary disease) Depression Diabetes Emphysema of lung Fluid retention 05/26/18 History of gastrostomy tube placement Hyperlipidemia Hypertension Hyponatremia chronic Hypoxia Non Hodgkin's lymphoma Obesity Obstructive sleep apnea Olecranon bursitis of right elbow Peripheral sensory neuropathy Pulmonary hypertension Respiratory failure January 2016 resulting in tracheostomy and subsequent closure Sleep apnea Surgical History Surgical History H/O hernia repair incarcerated ventral hernia November 2016 H/O uvulectomy History of cardiac catheterization March 2008 demonstrating mild coronary artery disease History of carpal tunnel release History of colostomy History of nasal septoplasty Hx of tonsillectomy Status post cataract extraction of both eyes with insertion of intraocular lens Status post rotator cuff repair bilateral Silvis teeth extracted Social History Social History (Updated 05/06/20 @ 19:17 by Cele Stark NP) Social History: 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 He also played sports in the past. He is . Patient desires to be a full code. Primary care physician: Dr. Armen Beasley code status: Full code Smoking status: Never smoker Tobacco type: cigars Smoking end date: 09/23/99 Alcohol intake: never Substance use: never Additional living arrangements comments: The patient is and lives alone. he is independent in his activities of daily living. He has 3 daughters 1 of which lives locally. 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
[2020-05-22 06:42] LABS: Anisocytosis 2+ (NORMAL)
[2020-05-22 06:43] LABS: Poikilocytosis 2+ (NORMAL); Polychromasia 2+ (NORMAL)
[2020-05-22 07:00] VITALS: BP 101/79; PULSE 69; RESP 18; O2SAT 99
[2020-05-22] MEDS: predniSONE 20 MG TABLET 60 MG PO (07:02)
[2020-05-22 08:50] VITALS: BP 121/61; PULSE 70; RESP 18; O2SAT 99
[2020-05-22 10:05] VITALS: BP 104/67; PULSE 101; RESP 15; O2SAT 95
[2020-05-22 10:20] VITALS: BP 109/53; PULSE 82; RESP 18; TEMP 36.4; O2SAT 94
--- NOTE | 2020-05-22 10:22 | PC.NURSE ---
This patient, Harvey Sorenson, was admitted to [facility] Surg Room 327-01. Patient/family oriented to hospital policies and general routines including ID bracelet, bed and alarms, visiting hours, pain management, procedures, bathroom and other care routines, personal items, smoking policy, room service/diet, and visiting hours. Valuables list has been completed. Information on how to activate the Rapid Response Team has been discussed. Patient/Family are encouraged to report perceived risks to care and to ask questions if they do not understand what they are told or what they should do.
[2020-05-22 10:28] VITALS: BMI 33.5
--- NOTE | 2020-05-22 13:14 | PM.IMHP ---
H&P: HPI History of Present Illness Date/Time: 05/22/20 13:14 Chief complaint: polyarthralgia, difficulty walking Narrative: Harvey Sorenson is a 74 year old male Who has been admitted multiple times for gout exacerbation. His last admission [facility] saw the patient he had fluids aspirated from his wrist to rule out septic arthritis. The patient had been on antibiotics but was stopped because it was felt that this was due to gout. The patient had been sent home on [place] at prednisone. The patient has chronic renal failure as well. Each time the patient is discharged is recommended that the patient go to a rehab facility however that they were unable to find a rehab facility that will pay for his chemotherapy for his non-Hodgkin's. The patient has home health for 4 hours a day 5 days a week. The patient has been taking his [place] at home and it is no longer helping him. He came in today to complain of his right finger hurting in his knees due to gout. Patient called 911 and was brought to the hospital. Patient stated that he could not walk to the kitchen to get his pain medication that is why he called 911. the patient was given [place] here in oral prednisone. Date of service is 05/22/20 Review of Systems Review of Systems: All systems reviewed & are unremarkable except as noted in HPI and below Constitutional: Constitutional: Reports as per HPI and Reports no additional constitutional complaints Eyes: Eyes: Reports as per HPI and Reports no additional eye complaints ENT: Reports system reviewed and no additional complaints, except as documented and Reports Normal hearing present Cardiovascular: Cardiovascular: Reports no additional cardiovascular complaints Respiratory: Respiratory: Reports no additional respiratory complaints and Reports no additional respiratory complaints Gastrointestinal: Gastrointestinal: Reports as per HPI and Reports no additional gastrointestinal complaints Musculoskeletal: Musculoskeletal: Reports no additional musculoskeletal complaints Integumentary/Breasts: Skin/Breast: Reports system reviewed and no additional complaints, except as docu and Reports as per HPI Neurologic: Reports system reviewed and no additional complaints, except as documented, Reports as per HPI and Reports Normal hearing present Psychiatric: Psychiatric: Reports no additional psychiatric complaints and Reports as per HPI Endocrine: Endocrine: Reports no additional endocrine complaints Hematologic/Lymphatic: Hematologic/Lymphatic: Reports no additional hematologic/lymphatic complaints Allergic/Immunologic: Allergic/Immunologic: Reports no additional allergic/immunologic complaints [facility] Past Medical History Medical History (Updated 05/22/20 @ 13:51 by Cele Stark NP) Angina pectoris, unspecified previous cardiac catheterization with minimal blockage no intervention Anxiety Arthritis Atrial fibrillation BPH (benign prostatic hyperplasia) CAD (coronary artery disease) CHF (congestive heart failure) CKD (chronic kidney disease) COPD (chronic obstructive pulmonary disease) Depression Diabetes Emphysema of lung Fluid retention 05/26/18 Gout History of gastrostomy tube placement Hyperlipidemia Hypertension Hyponatremia chronic Hypoxia Non Hodgkin's lymphoma Obesity Obstructive sleep apnea Olecranon bursitis of right elbow Peripheral sensory neuropathy Pulmonary hypertension Respiratory failure January 2016 resulting in tracheostomy and subsequent closure Sleep apnea Surgical History Surgical History H/O hernia repair incarcerated ventral hernia November 2016 H/O uvulectomy History of cardiac catheterization March 2008 demonstrating mild coronary artery disease History of carpal tunnel release History of colostomy History of nasal septoplasty Hx of tonsillectomy Status post cataract extraction of both eyes with insertion of intraocular lens Stat
--- NOTE | 2020-05-22 14:50 | PC.NURSE ---
Patient was angry and verbally abusive multiple occasions to both me, the nurse, and the nurse's aid. Upon trying to reason with patient, patient only responded with aggressive yelling and profanity.
[2020-05-22 17:31] LABS: Glucose Point of Care 285 (65-105)
[2020-05-22] MEDS: COLCHICINE 0.6 MG TABLET PO (17:31)
[2020-05-22] MEDS: APIXABAN 5 MG TABLET PO (17:31)
[2020-05-22] MEDS: POTASSIUM CHLORIDE 10 MEQ TABLET.ER 20 MEQ PO (17:32)
[2020-05-22] MEDS: INSULIN ASPART (*BKC) 100 UNITS/ML SUB-Q (17:33)
[2020-05-22] MEDS: rOPINIRole HCL 0.25 MG TABLET PO (17:35)
[2020-05-22] MEDS: PREGABALIN 75 MG CAPSULE PO (17:35)
[2020-05-22 18:39] VITALS: BP 103/60; PULSE 51; RESP 16; TEMP 36.4; O2SAT 100
[2020-05-22] MEDS: TERAZOSIN HCL 1 MG CAPSULE PO (20:52)
[2020-05-22 21:15] LABS: Glucose Point of Care 189 (65-105)
[2020-05-23] VITALS: BP 100/56; PULSE 51; RESP 16; TEMP 36.5; O2SAT 100
[2020-05-23 04:00] VITALS: BP 110/66; PULSE 64; RESP 18; TEMP 36.5; O2SAT 100
[2020-05-23 05:25] LABS: Hematocrit 24.8 % (42.0-52.0); Hemoglobin 7.9 g/dL (14.0-18.0); Immature Granulocyte Absolute 0.09 K/mm3 (0.00-0.031); Immature Granulocyte Percent A 4.2 % (0-0.5); Lymphocytes Absolute Auto 0.14 K/mm3 (0.9-3.2); Lymphocytes Percent Auto 6.5 % (18.3-44.2); Mean Corpuscular HGB Conc 31.9 g/dl (32-36); Mean Corpuscular Hemoglobin 26.7 pg (26-34); Mean Corpuscular Volume 83.8 fl (80-100); Mean Platelet Volume 10.5 fl (7.4-10.4); Monocytes Absolute Auto 0.5 K/mm3 (0.1-0.6); Monocytes Percent Auto 24.8 % (2.6-8.5); Neutrophils Absolute Auto 1.4 K/mm3 (1.3-6.7); Neutrophils Percent Auto 64.5 % (45.5-73.1); Platelet Count Result 144 k/mm3 (150-375); Red Blood Count 2.96 M/mm3 (4.6-6.20); Red Cell Distribution Width 18.8 % (11.5-14.5); White Blood Count 2.1 K/mm3 (4.5-10.0)
[2020-05-23 05:38] LABS: Alanine Aminotransferase 30 U/L (4-50); Albumin Level 3.7 g/dL (3.5-5.1); Alkaline Phosphatase 290 U/L (38-126); Anion Gap 11 mmol/L (8-16); Aspartate Amino Transferase 50 U/L (17-59); Bilirubin,Total 1.2 mg/dL (0.2-1.3); Blood Urea Nitrogen 78 mg/dL (9-20); Carbon Dioxide 25 mmol/L (22-30); Chloride 89 mmol/L (98-107); Estimated CRCL calculation 47 ml/min; Estimated Glomerular Filt Rate 46; Glucose 151 mg/dL (75-110); Magnesium 2.5 mg/dL (1.6-2.3); Phosphorus 4.4 mg/dL (2.5-4.5); Potassium 3.8 mmol/L (3.4-5.0); Sodium 125 mmol/L (137-145)
[2020-05-23 06:31] LABS: Thyroid Stimulating Hormone Reflex 0.925 uIU/mL (0.465-4.68)
[2020-05-23 06:35] LABS: Platelet Estimate Adequate (Adequate)
[2020-05-23 06:36] LABS: Anisocytosis 1+ (NORMAL); Hypochromasia 1+ (NORMAL); Ovalocytes 3+ (NORMAL); Poikilocytosis 3+ (NORMAL)
[2020-05-23 06:37] LABS: Acanthocytes 3+ (NORMAL); Crenated RBC 1+ (NORMAL)
[2020-05-23 08:00] VITALS: BP 101/73; PULSE 52; RESP 20; TEMP 36.4; O2SAT 100; O2SAT 92
[2020-05-23] MEDS: SERTRALINE HCL 50 MG TABLET PO (08:52)
[2020-05-23] MEDS: CHOLECALCIFEROL 1,000 UNITS TABLET 1000 UNITS PO (08:52)
[2020-05-23] MEDS: FINASTERIDE 5 MG TABLET PO (08:52)
[2020-05-23] MEDS: ISOSORBIDE MONONITRATE 30 MG TAB.ER.24H PO (08:52)
[2020-05-23] MEDS: predniSONE 20 MG TABLET 60 MG PO (08:52)
[2020-05-23] MEDS: PANTOPRAZOLE 40 MG TABLET PO (08:52)
[2020-05-23] MEDS: FERROUS SULFATE 324 MG TABLET PO (08:53)
[2020-05-23] MEDS: POTASSIUM CHLORIDE 10 MEQ TABLET.ER 20 MEQ PO ×2 (08:53→16:47)
[2020-05-23] MEDS: MAGNESIUM OXIDE 400 MG TABLET PO (08:53)
[2020-05-23] MEDS: allopurinoL 100 MG TABLET PO (08:53)
[2020-05-23] MEDS: ATORVASTATIN 40 MG TABLET PO (08:53)
[2020-05-23] MEDS: CYANOCOBALAMIN 1,000 MCG TABLET 1000 MCG PO (08:53)
[2020-05-23] MEDS: APIXABAN 5 MG TABLET PO ×2 (08:53→16:47)
[2020-05-23] MEDS: rOPINIRole HCL 0.25 MG TABLET PO ×3 (08:53→16:47)
[2020-05-23] MEDS: PREGABALIN 75 MG CAPSULE PO ×3 (08:58→16:47)
[2020-05-23 09:56] LABS: Glucose Point of Care 121 (65-105)
[2020-05-23 13:07] LABS: SARS-CoV-2 RNA PCR Negative
[2020-05-23 13:50] LABS: Glucose Point of Care 143 (65-105)
--- NOTE | 2020-05-23 15:38 | PC.NURSE ---
Transfered to [id number] from [facility], a/o x3 resp even and unlabored. denies acute pain, swelling noted to both knees and index, middle finger right hand. states unable to bend fingers on right hand. pain to both knees when ambulating.
[2020-05-23 16:00] VITALS: BP 96/65; PULSE 69; RESP 18; TEMP 36.2; O2SAT 99
[2020-05-23] MEDS: FUROSEMIDE 40 MG TABLET PO (17:39)
[2020-05-23 17:42] LABS: Glucose Point of Care 176 (65-105)
[2020-05-23 19:56] LABS: Sodium Urine Random 6 meq/L
[2020-05-23] MEDS: SPIRONOLACTONE 25 MG TABLET PO (21:08)
[2020-05-23] MEDS: TERAZOSIN HCL 1 MG CAPSULE PO (21:08)
[2020-05-23 22:00] VITALS: BP 110/62; PULSE 56; RESP 18; TEMP 36.2; O2SAT 100
[2020-05-23 22:10] LABS: Glucose Point of Care 157 (65-105)
[2020-05-24 05:54] VITALS: BP 112/66; PULSE 53; RESP 18; TEMP 36.1; O2SAT 100
--- NOTE | 2020-05-24 06:23 | PM.IMPN ---
Progress Note: A&P Assessment and Plan (1) Gout: Code(s): M10.9 - Gout, unspecified Status: Chronic Assessment and Plan: Patient was seen by Ortho last admission and the joint was aspirated which was negative for septic joint.. 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 The right index is warm to touch and tender. The patient is also complaining of having difficulty walking. He is already on allopurinol. He is on prednisone at this time increased to 50 mg qd.. . The patient stated he does not drink alcohol. Will continue with his [place]. will xray knee and if worsens or persists can inject . (2) CKD (chronic kidney disease): Qualifiers: Chronic kidney disease stage: unspecified stage Qualified Code(s): N18.9 - Chronic kidney disease, unspecified Code(s): N18.9 - Chronic kidney disease, unspecified Status: Acute Assessment and Plan: Patient's creatinine is 1.9 today. His baseline is some are between 1.5 and 2.5. . (3) Hypertension: Qualifiers: Hypertension type: essential hypertension Qualified Code(s): I10 - Essential (primary) hypertension Code(s): I10 - Essential (primary) hypertension Status: Acute Assessment and Plan: Continue with isosorbide and Cardizem.and diuretics (4) Diabetes: Qualifiers: Diabetes mellitus type: type 2 Diabetes mellitus senior care insulin use: without senior care use Diabetes mellitus complication status: with other specified complication Qualified Code(s): E11.69 - Type 2 diabetes mellitus with other specified complication Code(s): E11.9 - Type 2 diabetes mellitus without complications Status: Acute Assessment and Plan: Accu-Cheks AC and HS. (5) Bursitis: Qualifiers: Bursitis location: elbow Elbow bursitis location: unspecified Laterality: right Qualified Code(s): M70.31 - Other bursitis of elbow, right elbow Code(s): M71.9 - Bursopathy, unspecified Status: Acute Assessment and Plan: Patient had fluid drained off of his right elbow in the past and that is doing well but now he has fluid on his left elbow but very small (6) Anemia: Qualifiers: Anemia type: unspecified type Qualified Code(s): D64.9 - Anemia, unspecified Code(s): D64.9 - Anemia, unspecified Status: Chronic Assessment and Plan: patient is at his baseline. Could be related to his chronic renal failure and lyphoma. (7) Depression: Code(s): F32.9 - Major depressive disorder, single episode, unspecified Status: Chronic Assessment and Plan: hold zoloft with his hyponatremia. (8) Difficulty in walking: Code(s): R26.2 - Difficulty in walking, not elsewhere classified Status: Acute Assessment and Plan: PT and OT evaluation. (9) Non Hodgkin's lymphoma: Code(s): C85.90 - Non-Hodgkin lymphoma, unspecified, unspecified site Status: Chronic Assessment and Plan: The patient typically sees Dr. abraham to. Occasionally has blood transfusions. The patient is been treated every 2 months with rituxin. the patient is unable to go to rehab it because not unable to find a rehab facility that would pay for his chemotherapy. Patient is in remission. Patient also occasionally gets Epogen as per Dr. abraham. (10) Atrial fibrillation: Code(s): I48.91 - Unspecified atrial fibrillation Status: Acute Assessment and Plan: Continue with diltiazem and Eliquis. chronic (11) BPH (benign prostatic hyperplasia): Code(s): N40.0 - Benign prostatic hyperplasia without lower urinary tract symptoms Status: Chronic Assessment and Plan: Continue with terazosin. Subjective Date/time seen: 05/24/20 06:23 Interval history: 74-year-old hypertensive male with chronic renal failure stage 3 and severe tophaceous gout presented to emergency
[2020-05-24 06:40] LABS: Anion Gap 11 mmol/L (8-16); Blood Urea Nitrogen 78 mg/dL (9-20); Calcium 8.8 mg/dL (8.4-10.2); Carbon Dioxide 27 mmol/L (22-30); Chloride 89 mmol/L (98-107); Estimated CRCL calculation 50 ml/min; Estimated Glomerular Filt Rate 50; Glucose 131 mg/dL (75-110); Potassium 3.9 mmol/L (3.4-5.0); Sodium 127 mmol/L (137-145)
[2020-05-24 07:55] LABS: Thyroid Stimulating Hormone Reflex 0.929 uIU/mL (0.465-4.68)
[2020-05-24] MEDS: FINASTERIDE 5 MG TABLET PO (08:07)
[2020-05-24] MEDS: rOPINIRole HCL 0.25 MG TABLET PO ×3 (08:07→16:58)
[2020-05-24] MEDS: POTASSIUM CHLORIDE 10 MEQ TABLET.ER 20 MEQ PO ×2 (08:08→16:58)
[2020-05-24] MEDS: CHOLECALCIFEROL 1,000 UNITS TABLET 1000 UNITS PO (08:08)
[2020-05-24] MEDS: metOLazone 5 MG TABLET PO (08:08)
[2020-05-24] MEDS: MAGNESIUM OXIDE 400 MG TABLET PO (08:09)
[2020-05-24] MEDS: ISOSORBIDE MONONITRATE 30 MG TAB.ER.24H PO (08:09)
[2020-05-24] MEDS: FERROUS SULFATE 324 MG TABLET PO (08:09)
[2020-05-24] MEDS: ATORVASTATIN 40 MG TABLET PO (08:09)
[2020-05-24] MEDS: predniSONE 20 MG TABLET 60 MG PO (08:09)
[2020-05-24] MEDS: BETAMETHASONE/CLOTRIMAZOLE CR 15 GM TUBE 1 APPLIC TOPICAL (08:10)
[2020-05-24] MEDS: APIXABAN 5 MG TABLET PO ×2 (08:10→16:58)
[2020-05-24] MEDS: PANTOPRAZOLE 40 MG TABLET PO (08:10)
[2020-05-24] MEDS: FUROSEMIDE 40 MG TABLET PO ×2 (08:10→16:58)
[2020-05-24] MEDS: allopurinoL 100 MG TABLET PO (08:10)
[2020-05-24] MEDS: CYANOCOBALAMIN 1,000 MCG TABLET 1000 MCG PO (08:10)
[2020-05-24] MEDS: PREGABALIN 75 MG CAPSULE PO ×3 (08:18→17:00)
[2020-05-24 09:23] LABS: Glucose Point of Care 126 (65-105)
[2020-05-24 12:17] LABS: Glucose Point of Care 176 (65-105)
[2020-05-24 14:00] VITALS: BP 105/53; PULSE 78; RESP 18; TEMP 36.7; O2SAT 96
[2020-05-24 17:00] LABS: Glucose Point of Care 147 (65-105)
--- NOTE | 2020-05-24 17:23 | PM.IMPN ---
Progress Note: A&P Assessment and Plan (1) Gout: Code(s): M10.9 - Gout, unspecified Status: Chronic Assessment and Plan: Patient was seen by Ortho last admission and the joint was aspirated which was negative for septic joint. 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 The patient is also complaining of having difficulty walking. He is already on allopurinol. He is on prednisone at this time increased to 50 mg qd. His symptoms appear to be better but he was uninterested in being discharged today to the SNF location that was arranged. He will talk it over with his dtr. Will need repeat COVID test now. Continue steroids. Uric acid 9.6 in April. Will need allupurinol to be advanced once he is out of this acute flare. (2) CKD (chronic kidney disease): Qualifiers: Chronic kidney disease stage: unspecified stage Qualified Code(s): N18.9 - Chronic kidney disease, unspecified Code(s): N18.9 - Chronic kidney disease, unspecified Status: Acute Assessment and Plan: Patient's creatinine is back down to 1.4 today. His baseline is some are between 1.5 and 2.5. Continue t o follow. (3) Hypertension: Qualifiers: Hypertension type: essential hypertension Qualified Code(s): I10 - Essential (primary) hypertension Code(s): I10 - Essential (primary) hypertension Status: Acute Assessment and Plan: Patient's blood pressure was reviewed on 05/24 Blood pressure remains well controlled. Will continue current medications. Continue with isosorbide and Cardizem and diuretics (4) Diabetes: Qualifiers: Diabetes mellitus complication status: with other specified complication Diabetes mellitus halfway insulin use: without buttermaker continuous churn use Diabetes mellitus type: type 2 Qualified Code(s): E11.69 - Type 2 diabetes mellitus with other specified complication Code(s): E11.9 - Type 2 diabetes mellitus without complications Status: Acute Assessment and Plan: The patient's blood glucose was reviewed on 05/24 Glucose remains well controlled. Continue AccuCheks covering with sliding scale. Hypoglycemia protocol available as needed. Continue current medications. (5) Bursitis: Qualifiers: Bursitis location: elbow Elbow bursitis location: unspecified Laterality: right Qualified Code(s): M70.31 - Other bursitis of elbow, right elbow Code(s): M71.9 - Bursopathy, unspecified Status: Acute Assessment and Plan: Patient had fluid drained off of his right elbow in the past and that is doing well but now he has fluid on his left elbow but very small. Folow clinically. (6) Anemia: Qualifiers: Anemia type: unspecified type Qualified Code(s): D64.9 - Anemia, unspecified Code(s): D64.9 - Anemia, unspecified Status: Chronic Assessment and Plan: Hgb stable in the 7-8 range. Patient is at his baseline. hgb not checked today. Could be related to his chronic renal failure and lyphoma. (7) Depression: Code(s): F32.9 - Major depressive disorder, single episode, unspecified Status: Chronic Assessment and Plan: Zoloft on hold with his hyponatremia. (8) Difficulty in walking: Code(s): R26.2 - Difficulty in walking, not elsewhere classified Status: Acute Assessment and Plan: Related to above. Continue PT and OT evaluation. (9) Non Hodgkin's lymphoma: Code(s): C85.90 - Non-Hodgkin lymphoma, unspecified, unspecified site Status: Chronic Assessment and Plan: The patient typically sees Dr. Davis. Occasionally has blood transfusions. The patient is been treated every 2 months with rituxin. the patient is unable to go to rehab because not unable to find a rehab facility that would pay for his chemotherapy. Patient is in remission. Patient also occasionally gets Epogen
[2020-05-24] MEDS: SPIRONOLACTONE 25 MG TABLET PO (19:54)
[2020-05-24] MEDS: TERAZOSIN HCL 1 MG CAPSULE PO (19:54)
[2020-05-24 21:52] VITALS: BP 115/59; PULSE 61; RESP 18; TEMP 36.2; O2SAT 99
[2020-05-25 05:44] LABS: Glucose Point of Care 256 (65-105)
[2020-05-25 06:00] VITALS: BP 123/67; PULSE 96; RESP 18; TEMP 36.4; O2SAT 100
[2020-05-25 07:34] LABS: Potassium 4.1 mmol/L (3.4-5.0)
[2020-05-25] MEDS: predniSONE 20 MG TABLET 60 MG PO (08:06)
[2020-05-25] MEDS: FERROUS SULFATE 324 MG TABLET PO (08:06)
[2020-05-25] MEDS: rOPINIRole HCL 0.25 MG TABLET PO ×3 (08:06→17:37)
[2020-05-25] MEDS: POTASSIUM CHLORIDE 10 MEQ TABLET.ER 20 MEQ PO ×2 (08:06→17:36)
[2020-05-25] MEDS: ISOSORBIDE MONONITRATE 30 MG TAB.ER.24H PO (08:07)
[2020-05-25] MEDS: BETAMETHASONE/CLOTRIMAZOLE CR 15 GM TUBE 1 APPLIC TOPICAL (08:07)
[2020-05-25] MEDS: CYANOCOBALAMIN 1,000 MCG TABLET 1000 MCG PO (08:07)
[2020-05-25] MEDS: PREGABALIN 75 MG CAPSULE PO ×3 (08:07→17:37)
[2020-05-25] MEDS: FINASTERIDE 5 MG TABLET PO (08:07)
[2020-05-25] MEDS: PANTOPRAZOLE 40 MG TABLET PO (08:07)
[2020-05-25] MEDS: FUROSEMIDE 40 MG TABLET PO ×2 (08:07→17:37)
[2020-05-25] MEDS: APIXABAN 5 MG TABLET PO ×2 (08:07→17:37)
[2020-05-25] MEDS: ATORVASTATIN 40 MG TABLET PO (08:07)
[2020-05-25] MEDS: allopurinoL 100 MG TABLET PO (08:08)
[2020-05-25] MEDS: MAGNESIUM OXIDE 400 MG TABLET PO (08:08)
[2020-05-25] MEDS: CHOLECALCIFEROL 1,000 UNITS TABLET 1000 UNITS PO (08:08)
[2020-05-25] MEDS: metOLazone 5 MG TABLET PO (08:08)
[2020-05-25 08:18] LABS: Glucose Point of Care 119 (65-105)
[2020-05-25 12:28] LABS: Glucose Point of Care 110 (65-105)
[2020-05-25 13:13] LABS: SARS-CoV-2 RNA PCR Negative
[2020-05-25 14:00] VITALS: BP 119/68; PULSE 57; RESP 16; TEMP 36.3; O2SAT 100
--- NOTE | 2020-05-25 14:30 | PM.DS ---
DS: Admitting Diagnosis Admitting Diagnosis Admitting Diagnosis: polyarthralgia, difficulty walking DS: Discharge Diagnosis Discharge Diagnosis (1) Gout: Code(s): M10.9 - Gout, unspecified Status: Chronic Assessment and Plan: Patient was seen by Ortho last admission and the wrist joint was aspirated which was negative for septic joint. 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 The patient is also complaining of having difficulty walking. He is already on allopurinol. He was placed on prednisone. His symptoms improved. he was able to be discharged to SNF today. COVID test negative. Uric acid 9.6 in April. Will need allopurinol to be advanced once he is out of this acute flare. (2) CKD (chronic kidney disease): Qualifiers: Chronic kidney disease stage: unspecified stage Qualified Code(s): N18.9 - Chronic kidney disease, unspecified Code(s): N18.9 - Chronic kidney disease, unspecified Status: Acute Assessment and Plan: Patient's creatinine is back down to 1.4. His baseline is some are between 1.5 and 2.5. (3) Hypertension: Qualifiers: Hypertension type: essential hypertension Qualified Code(s): I10 - Essential (primary) hypertension Code(s): I10 - Essential (primary) hypertension Status: Acute Assessment and Plan: Patient's blood pressure was monitored closely Blood pressure remains well controlled. We continued isosorbide,Cardizem and diuretics (4) Diabetes: Qualifiers: Diabetes mellitus complication status: with other specified complication Diabetes mellitus termite treater insulin use: without termite treater use Diabetes mellitus type: type 2 Qualified Code(s): E11.69 - Type 2 diabetes mellitus with other specified complication Code(s): E11.9 - Type 2 diabetes mellitus without complications Status: Acute Assessment and Plan: The patient's blood glucose was monitored closely Glucose remained mostly well controlled. Continue AccuCheks covering with sliding scale. Hypoglycemia protocol available as needed. (5) Bursitis: Qualifiers: Bursitis location: elbow Elbow bursitis location: unspecified Laterality: right Qualified Code(s): M70.31 - Other bursitis of elbow, right elbow Code(s): M71.9 - Bursopathy, unspecified Status: Acute Assessment and Plan: Patient had fluid drained off of his right elbow in the past and that is doing well but now he has fluid on his left elbow but very small. (6) Anemia: Qualifiers: Anemia type: unspecified type Qualified Code(s): D64.9 - Anemia, unspecified Code(s): D64.9 - Anemia, unspecified Status: Chronic Assessment and Plan: Hgb stable in the 7-8 range. Patient is at his baseline. Could be related to his chronic renal failure and lymphoma. (7) Depression: Code(s): F32.9 - Major depressive disorder, single episode, unspecified Status: Chronic Assessment and Plan: Zoloft on hold due to his hyponatremia. (8) Difficulty in walking: Code(s): R26.2 - Difficulty in walking, not elsewhere classified Status: Acute Assessment and Plan: Related to above. Treated with PT and OT. (9) Non Hodgkin's lymphoma: Code(s): C85.90 - Non-Hodgkin lymphoma, unspecified, unspecified site Status: Chronic Assessment and Plan: The patient typically sees Dr. Davis. Occasionally has blood transfusions. The patient is been treated every 2 months with Rituxin. the patient is unable to go to rehab because not unable to find a rehab facility that would pay for his chemotherapy. Patient is in remission. Patient also occasionally gets Epogen as per Dr. Davis. (10) Atrial fibrillation: Code(s): I48.91 - Unspecified atrial fibrillation Status: Acute Assessment and Plan: Patient wit
[2020-05-25 17:14] LABS: Glucose Point of Care 141 (65-105)
[2020-05-27 06:26] LABS: Osmolality, Urine 316 mOsm/kg (50-1200)
== END 2020-05-25 18:30 ==
LOC: ANHED 08:18 → ANH3MEDSUR 16:36
PROVIDERS: Internal Medicine; Nurse Practitioner; Admitting Provider Family Medicine; Emergency Provider General Practice; PCP Internal Medicine; Visit Provider Internal Medicine
DX: M1A.9XX1 Chronic gout, unspecified, with tophus (tophi) (principal); Z20.828 Contact with and (suspected) exposure to other viral communicable diseases; I13.0 Hypertensive heart and chronic kidney disease with heart failure and stage 1 through stage 4 chronic kidney disease, or unspecified chronic kidney disease; R26.2 Difficulty in walking, not elsewhere classified; C85.90 Non-Hodgkin lymphoma, unspecified, unspecified site; D64.9 Anemia, unspecified; E11.22 Type 2 diabetes mellitus with diabetic chronic kidney disease; F32.9 Major depressive disorder, single episode, unspecified; I48.91 Unspecified atrial fibrillation; I50.9 Heart failure, unspecified; M70.31 Other bursitis of elbow, right elbow; N40.0 Benign prostatic hyperplasia without lower urinary tract symptoms; N18.9 Chronic kidney disease, unspecified; Z79.4 Long term (current) use of insulin
CPT/HCPCS: 36415; 73130; 73564; 80048; 80053; 80069; 83735; 83935; 84100; 84132; 84300; 84443; 85025; 87635; 97110; 97116; 97161; 97165; 97530; 97535; 99285; A9270; C9803; G0378; J1815; J7512; U0003

== ENCOUNTER 2020-06-06 11:30 | Inpatient (IN) | payer MEDICARE, MEDICAID, SELFPAY ==
--- NOTE | ~2020-06-06 | CT_ITS ---
EXAMINATION: CT cervical spine wo con DATE: 06/09/2020 17:51 INDICATION: Neck pain. TECHNIQUE: Computed tomography (CT) of the cervical spine was performed without intravenous contrast. Automated exposure control and iterative reconstruction technique were employed. The dose-length pro duct was 435.87 mGy-cm. COMPARISON: Cervical spine CT 01/01/2011 FINDINGS: There is mild kyphosis of cervical spine. Vertebral body heights are normal. There is sever ban decreased disc height at C2-C3 and C3-C4, mildly decreased disc height at C4-C5, and severely dec reased disc height from C5-C6 through C7-T1. The following disc levels are specifically discussed: C2-C3: There is severe bilateral uncovertebral joint osteoarthritis. There is mild bilateral facet rahul int osteoarthritis. There is mild bilateral neural foraminal stenosis. There is mild central canal st enosis. C3-C4: There is severe bilateral uncovertebral joint osteoarthritis. There is mild right and moderate left facet joint osteoarthritis. There is mild bilateral neural foraminal stenosis. There is mild ce ntral canal stenosis. C4-C5: There is mild right and severe left uncovertebral joint osteoarthritis. There is moderate righ t and mild left facet joint osteoarthritis. There is mild right and moderate left neural foraminal st enosis. There is mild central canal stenosis. C5-C6: There is severe right and moderate left uncovertebral joint osteoarthritis. There is mild bila teral facet joint osteoarthritis. There is moderate right and mild left neural foraminal stenosis. Th ere is mild central canal stenosis. C6-C7: There is severe bilateral uncovertebral joint osteoarthritis. There is mild bilateral facet rahul int osteoarthritis. There is mild bilateral neural foraminal stenosis. There is mild central canal st enosis. C7-T1: There is severe bilateral uncovertebral joint osteoarthritis. There is moderate bilateral face t joint osteoarthritis. There is mild bilateral neural foraminal stenosis. There is mild central sean l stenosis. IMPRESSION: 1. Severe cervical spondylosis, worsened from 01/01/2011. Reviewed, dictated and finalized at location A.
--- NOTE | ~2020-06-06 | CT_ITS ---
EXAMINATION: CT brain wo con EXAM DATE: 06/06/2020 12:41 INDICATION: Generalized headache for 2 days. TECHNIQUE: Spiral CT of the head was performed without contrast. Axial, coronal and sagittal images were reviewed. The dose-length product (DLP) for this examination was 605.33 mGy-cm. The exposure w as tailored according to patient size, and iterative reconstruction (ASIR) was used as additional dos e reduction technique. Comparison is made to prior examination from 01/01/2011. FINDINGS: There is no acute intraparenchymal hemorrhage. No evidence of intraparenchymal brain mass lesion. No evidence of acute infarction. Please note that initial head CT has limited sensitivity f or small or acute infarctions. There is mild periventricular and subcortical hypodensity, nonspecific but probably related to small vessel ischemic disease. There is mild prominence of the sulci and v entricles related to cerebral atrophy. There is intracranial carotid arteriosclerosis. There are n o extra-axial collections. There is no mass effect or midline shift. Patient has had bilateral ocul ar lens surgery. Soft tissue is unremarkable. Mild sinus mucoperiosteal thickening. IMPRESSION: 1. No acute intracranial findings. 2. Chronic age related findings. Reviewed, dictated and finalized at location A.
--- NOTE | ~2020-06-06 | XR_ITS ---
XR tibia fibula LT 2V 06/06/2020 12:52 Indication: Left leg pain Procedure: 2 views left tibia/fibula Comparison: Comparison to multiple prior studies sequentially, with oldest reviewed study dated 10/10. Findings: Osteopenia. There is severe osteoarthritis of the left knee. Moderate joint effusion. No fr acture or traumatic malalignment. No radiopaque foreign bodies. No erosive changes. Osteopenia. There is diffuse soft tissue swelling. Impression: 1: No acute bone or joint abnormality. 2: Severe osteoarthritis of the left knee. 3: Moderate joint effusion. Reviewed, dictated and finalized at location B. Impression: 1: No acute bone or joint abnormality. 2: Severe osteoarthritis of the left knee. 3: Moderate joint effusion.
--- NOTE | ~2020-06-06 | BM_ITS ---
EXAMINATION: CCL bone marrow asp w bx diag ORDER COMPLETED DATE: 06/08/2020 11:31 INDICATION: Anemia TECHNIQUE: A time-out was performed to verify the patient's name, date of , and procedure to b e performed. The procedure including the risks and benefits was discussed with the patient. Risks dis cussed included bleeding, infection, nerve injury and allergic reaction. The patient understood the r isks and agreed to proceed. The skin overlying the right posterior iliac spine was prepped and draped in usual sterile fashion. Anesthetic was administered with 1% lidocaine subcutaneously. Moderate co nscious sedation was achieved with 50 mcg fentanyl IV and 1 mg of Versed IV. An 11 gauge needle was i nserted into the ilium with fluoroscopic guidance. Bone marrow was aspirated. An 8 gauge needle was t hen inserted into the ilium with fluoroscopic guidance. A core bone marrow biopsy was obtained. The n eedle was removed and the entry site was cleaned and dressed. There were no immediate complications. A total of 9 fluoroscopic images were recorded. Fluoroscopy exposure time was 0.1 minutes. FINDINGS: Real-time fluoroscopy demonstrates the biopsy needle tip overlying the right posterior sharath c spine. IMPRESSION: 1. Successful fluoroscopic guided bone marrow aspiration. 2. Successful fluoroscopic guided bone marrow biopsy. Reviewed, dictated and finalized at location A.
[2020-06-06 11:47] VITALS: BP 147/76; PULSE 77; RESP 21; TEMP 36.9; O2SAT 95
[2020-06-06] MEDS: MORPHINE SULFATE 2 MG/ML INJ IV PUSH (12:59)
[2020-06-06 13:18] LABS: Basophils Percent Auto 0.4 % (0.2-1.2); Eosinophils Absolute Auto 0.1 K/mm3 (0-0.3); Eosinophils Percent Auto 2.4 % (0-4.4); Hematocrit 24.6 % (42.0-52.0); Hemoglobin 7.6 g/dL (14.0-18.0); Immature Granulocyte Absolute 0.22 K/mm3 (0.00-0.031); Immature Granulocyte Percent A 8.8 % (0-0.5); Mean Corpuscular HGB Conc 30.9 g/dl (32-36); Mean Corpuscular Hemoglobin 26.9 pg (26-34); Mean Corpuscular Volume 86.9 fl (80-100); Mean Platelet Volume 10.8 fl (7.4-10.4); Monocytes Absolute Auto 0.8 K/mm3 (0.1-0.6); Monocytes Percent Auto 30.9 % (2.6-8.5); Neutrophils Absolute Auto 1.3 K/mm3 (1.3-6.7); Neutrophils Percent Auto 53.5 % (45.5-73.1); Platelet Count Result 166 k/mm3 (150-375); Red Blood Count 2.83 M/mm3 (4.6-6.20); Red Cell Distribution Width 20.3 % (11.5-14.5); White Blood Count 2.5 K/mm3 (4.5-10.0)
[2020-06-06 13:30] LABS: Alanine Aminotransferase 15 U/L (4-50); Albumin Level 3.5 g/dL (3.5-5.1); Alkaline Phosphatase 269 U/L (38-126); Anion Gap 15 mmol/L (8-16); Aspartate Amino Transferase 29 U/L (17-59); Bilirubin,Total 1.9 mg/dL (0.2-1.3); Blood Urea Nitrogen 71 mg/dL (9-20); Calcium 8.8 mg/dL (8.4-10.2); Carbon Dioxide 24 mmol/L (22-30); Chloride 95 mmol/L (98-107); Estimated CRCL calculation 46 ml/min; Estimated Glomerular Filt Rate 46; Glucose 74 mg/dL (75-110); Potassium 3.3 mmol/L (3.4-5.0); Sodium 134 mmol/L (137-145)
--- NOTE | 2020-06-06 13:35 | ED.GENADULT ---
HPI - General Adult General Chief complaint: Extremity Injury, Lower Stated complaint: left leg pain, [place] Time Seen by Provider: 06/06/20 12:09 Source: patient History of Present Illness HPI narrative: Patient is a 74 y/o male complaining of left lower leg pain for 2 days. He describes his pain as burning and rates it as 9/10. Pain is worse with movement. He is not able to ambulate due pain. He also complains of severe, generalized headache and neck pain for last 2 days. He rates his headache as 8/10. Light aggravates his headache. He has no nausea, vomiting or fever. Related Data Home Medications Medication Instructions Recorded Confirmed acetaminophen 650 mg PO PRN PRN 07/14/19 06/06/20 cholecalciferol (vitamin D3) 1,000 unit PO DAILY 07/14/19 06/06/20 cyanocobalamin (vitamin B-12) 1,000 mcg PO DAILY 07/14/19 06/06/20 ferrous sulfate 325 mg (65 mg 325 mg PO DAILY tablet 08/03/19 06/06/20 iron) tablet magnesium oxide 400 mg (241.3 mg 400 mg PO DAILY 08/03/19 05/31/20 magnesium) tablet clotrimazole-betamethasone 1 applic TOPICAL BID PRN 04/20/20 06/06/20 [Lotrisone] furosemide 20 mg PO BID 06/06/20 06/06/20 Allergies Allergy/AdvReac Type Severity Reaction Status Date / Time Penicillins AdvReac Unknown Unknown Verified 06/06/20 18:18 Review of Systems Constitutional: Constitutional: Denies chills, Denies fever(s), Reports headache(s) and Denies weakness Eyes: Eyes: Denies blurry vision ENT: Denies headache(s) and Denies neck pain Cardiovascular: Cardiovascular: Denies chest pain and Denies dyspnea Respiratory: Respiratory: Denies cough and Denies dyspnea Gastrointestinal: Gastrointestinal: Denies abdominal pain, Denies diarrhea, Denies nausea and Denies vomiting Genitourinary: Genitourinary: Denies hematuria and Denies dysuria Musculoskeletal: Musculoskeletal: Denies back pain, Reports neck pain and Reports other (+left lower leg pain) Neurologic: Denies headache(s) and Denies weakness [facility] Past Medical History Medical History (Updated 06/06/20 @ 17:59 by Marlee Motley MD) Angina pectoris, unspecified previous cardiac catheterization with minimal blockage no intervention Anxiety Arthritis Atrial fibrillation BPH (benign prostatic hyperplasia) CAD (coronary artery disease) CHF (congestive heart failure) CKD (chronic kidney disease) COPD (chronic obstructive pulmonary disease) Depression Diabetes Emphysema of lung Fluid retention 05/26/18 Gout History of gastrostomy tube placement Hyperlipidemia Hypertension Hyponatremia chronic Hypoxia Non Hodgkin's lymphoma Still on chemotherapy Obesity Obstructive sleep apnea Olecranon bursitis of right elbow Peripheral sensory neuropathy Pulmonary hypertension Respiratory failure January 2016 resulting in tracheostomy and subsequent closure Sleep apnea Surgical History Surgical History H/O hernia repair incarcerated ventral hernia November 2016 H/O uvulectomy History of cardiac catheterization March 2008 demonstrating mild coronary artery disease History of carpal tunnel release History of colostomy History of nasal septoplasty Hx of tonsillectomy Status post cataract extraction of both eyes with insertion of intraocular lens Status post rotator cuff repair bilateral Elkins teeth extracted Family History Family History Father Patient's father is COPD with emphysema Sibling Patient's sister is CHF (congestive heart failure) Diabetes mellitus Mother Valvular heart disease Social History Social History Social History: 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 He also played sports in the past. He is . Patient desires to be a full code. he lives home alone and has home health coming 5 days a w
[2020-06-06 14:19] VITALS: BP 116/58; PULSE 72; RESP 20; O2SAT 99
[2020-06-06 16:22] LABS: Erythrocyte Sedimentation Rate 123 mm/hr (0-20)
[2020-06-06 16:31] LABS: CRP 25.8 mg/dL (<1.0)
[2020-06-06] MEDS: COLCHICINE 0.6 MG TABLET 1.2 MG PO (16:36)
--- NOTE | 2020-06-06 17:15 | PM.IMHP ---
H&P: HPI History of Present Illness Date/Time: 06/06/20 17:15 Chief complaint: left leg pain, Headache Narrative: Harvey Sorenson is a 74 year old male Who is well-known to me. The patient has had multiple admissions. The patient was last admitted on May 22, 2020 due to poly arthralgia and difficulty walking. Patient has been here multiple times for this. At 1 point it was thought that the patient had septic arthritis however aspirated joint fluid offered up the diagnosis of gout. The patient has chronic renal failure and is unable to take colchicine. The patient has been on prednisone many times. The patient had been unable to be discharged to her rehab facility because he is still on chemotherapy for non-Hodgkin's. He was having home health 4 hours a day for 5 days a week. The joint aspiration was negative for any septic joint. Patient has multiple gouty tophi on his hands. Patient was discharged on 05/24/2020 he was sent to rehab facility. His creatinine was down to 1.4 on the day of discharge. His baseline is somewhere between 1.5 and 2.5. He is also diabetic and his blood sugars remain controlled. The patient followed up with his primary care doctor Dr. Beasley this was after the patient had signed out against medical advice in rehab. He left there without any doctor's orders. Patient did not have a prescription for anymore prednisone when he left the rehab nor did he have any more pain medication. His medications were reviewed at that visit. Patient does have chronic hyponatremia and chronic renal failure although his GFR has improved to 50. The patient came in today because he has been complaining of left lower knee pain for 2 days. He says that is swollen and hot. He described the pain is burning in rated it 9/10. He is not able to ambulate to the discomfort. The patient does not have a wheelchair at home. He lives in his own home. He also complains of having a headache and neck pain for 2 days. No fever or chills. No cough. The patient was checked for COVID-19 on 04/19, 04/23, 05/22 and 05/25 of this year and all were found to be negative. The patient had fluid aspirated from that left knee today. i had a very long discussion with the ER provider and explained to him that the patient has chronically been coming in here due to his inability ambulate. The patient does not have a wheelchair at home and is unwilling to stay in rehab. I spoke with 2 of my collaborative see stated the patient did not need to come into the hospital and that needed to be referred to rehab. Is very difficult to get the patient into rehab due to his chemotherapy. The patient had been in rehab and signed out against medical advice. I spoke with the patient in the emergency room and explained to him that he is unable to stay at home and care for himself any longer. I would recommend that the patient be placed and field research assistant living or long-term. The patient stated that he would like to go to field research assistant living. He would also need a motorized scooter as well. The patient stated that his home is not equipped for a motorized scooter. The patient is being admitted for inability to ambulate due to acute on chronic pain the patient was given morphine in the emergency room as well as colchicine x1. The patient had a CT of his head because of his complaints of a headache and it was read as no acute intracranial findings. Chronic age-related findings. Left leg x-ray was read as no acute bony or joint abnormality. Severe osteoarthritis of the left knee. Moderate joint effusion. Date of service 06/06/2020. Patient has a history of atrial fibrillation and his rate is controlled on the monitor. Review of Systems Review of Systems: All systems reviewed & are unremarkable except as noted in HPI and below Constitutional: Constitutional: Reports as per HPI and Reports no additional constitutional complaints Eyes: Eyes: Reports as per HPI and Reports no ad
[2020-06-06 17:16] VITALS: BP 104/70; PULSE 74; RESP 16; O2SAT 98
--- NOTE | 2020-06-06 18:03 | PC.NURSE ---
Report given to Thuy DANIELS, daughter in room states not going up to room until she speaks w/ Dr Motley. EDP at bedside at this time discussing POC w/ pt and daughter.
[2020-06-06 18:08] VITALS: BP 101/59; PULSE 82; RESP 16; O2SAT 98
--- NOTE | 2020-06-06 18:11 | ADMGEN ---
This patient, Harvey Sorenson, was admitted to Medical Room 246-. Patient/family oriented to hospital policies and general routines including ID bracelet, bed and alarms, visiting hours, pain management, procedures, bathroom and other care routines, personal items, smoking policy, room service/diet, and visiting hours. Valuables list has been completed. Information on how to activate the Rapid Response Team has been discussed. Patient/Family are encouraged to report perceived risks to care and to ask questions if they do not understand what they are told or what they should do.
[2020-06-06 18:15] VITALS: BP 117/67; PULSE 110; RESP 16; TEMP 36.9; O2SAT 99
[2020-06-06 18:15] LABS: Appearance Synovial Fluid Hazy (Clear); Color Synovial Fluid Yellow (Colorless); Lymphocytes Synovial Fluid 5 %; Neutrophils Synovial Fluid 88 % (0-25); Nucleated Cell Synovial Fluid 14519 /uL (0-200); RBC Synovial Fluid 7197 /uL (0-0); Source Synovial Fluid Synovial fluid
[2020-06-06 18:16] LABS: Monocytes Synovial Fluid 7 %
[2020-06-06 18:18] LABS: Crystals Synovial Fluid Few Msu (None Seen)
[2020-06-06 18:35] LABS: Hemoglobin A1C 5.8 % (<5.7)
[2020-06-06 19:14] VITALS: BMI 30.3
--- NOTE | 2020-06-06 19:15 | PC.NURSE ---
Obtained patients medications from [facility] in [place]. [facility] in [place] stated patient had just transferred to their pharmacy from [facility] in [place]. [facility] recently closed so all of their information on the patient has been transferred to [facility] in [place]. Therefore, I also spoke to [facility] in [place] to obtain patients medication list. Patients daughter is at bedside and stated patients primary physician is Dr. Beasley. He had recently seen Dr. Beasley last week. Passed onto night RN to have day nurse tomorrow obtain med list from PCP.
[2020-06-06 20:00] LABS: Glucose Point of Care 93 (65-105)
[2020-06-06 20:17] VITALS: BP 141/80; PULSE 70; RESP 14; TEMP 36.7; O2SAT 99
[2020-06-06] MEDS: FUROSEMIDE 20 MG TABLET PO (20:21)
[2020-06-06] MEDS: SPIRONOLACTONE 25 MG TABLET PO (20:21)
[2020-06-06] MEDS: TERAZOSIN HCL 1 MG CAPSULE PO (20:21)
[2020-06-07 02:40] VITALS: BP 156/74; PULSE 72; RESP 14; TEMP 36.8; O2SAT 96
[2020-06-07 05:27] LABS: Hematocrit 22.9 % (42.0-52.0); Hemoglobin 7.2 g/dL (14.0-18.0); Immature Granulocyte Absolute 0.09 K/mm3 (0.00-0.031); Immature Granulocyte Percent A 7.4 % (0-0.5); Lymphocytes Absolute Auto 0.09 K/mm3 (0.9-3.2); Lymphocytes Percent Auto 7.4 % (18.3-44.2); Mean Corpuscular HGB Conc 31.4 g/dl (32-36); Mean Corpuscular Hemoglobin 26.9 pg (26-34); Mean Corpuscular Volume 85.4 fl (80-100); Mean Platelet Volume 10.6 fl (7.4-10.4); Monocytes Absolute Auto 0.2 K/mm3 (0.1-0.6); Monocytes Percent Auto 13.2 % (2.6-8.5); Neutrophils Absolute Auto 0.9 K/mm3 (1.3-6.7); Platelet Count Result 159 k/mm3 (150-375); Red Blood Count 2.68 M/mm3 (4.6-6.20)
[2020-06-07 05:40] LABS: Alanine Aminotransferase 17 U/L (4-50); Albumin Level 3.2 g/dL (3.5-5.1); Alkaline Phosphatase 273 U/L (38-126); Anion Gap 14 mmol/L (8-16); Aspartate Amino Transferase 32 U/L (17-59); Bilirubin,Total 1.7 mg/dL (0.2-1.3); Blood Urea Nitrogen 67 mg/dL (9-20); Calcium 8.9 mg/dL (8.4-10.2); Carbon Dioxide 24 mmol/L (22-30); Chloride 95 mmol/L (98-107); Estimated CRCL calculation 53 ml/min; Estimated Glomerular Filt Rate 54; Glucose 101 mg/dL (75-110); Magnesium 2.2 mg/dL (1.6-2.3); Potassium 3.6 mmol/L (3.4-5.0); Sodium 133 mmol/L (137-145)
[2020-06-07 05:50] LABS: White Blood Count 1.2 K/mm3 (4.5-10.0)
[2020-06-07 06:02] LABS: Platelet Estimate Adequate (Adequate)
[2020-06-07 06:03] LABS: Microcytosis 2+ (NORMAL); Ovalocytes 1+ (NORMAL)
[2020-06-07 06:39] LABS: Thyroid Stimulating Hormone Reflex 0.494 uIU/mL (0.465-4.68)
[2020-06-07 07:53] LABS: Glucose Point of Care 94 (65-105)
[2020-06-07] MEDS: allopurinoL 100 MG TABLET 200 MG PO (08:22)
[2020-06-07] MEDS: PANTOPRAZOLE 40 MG TABLET PO (08:23)
[2020-06-07] MEDS: FERROUS SULFATE 324 MG TABLET PO (08:23)
[2020-06-07] MEDS: rOPINIRole HCL 0.25 MG TABLET PO ×3 (08:23→17:59)
[2020-06-07] MEDS: ATORVASTATIN 40 MG TABLET PO (08:23)
[2020-06-07] MEDS: CHOLECALCIFEROL 1,000 UNITS TABLET 1000 UNITS PO (08:23)
[2020-06-07] MEDS: FINASTERIDE 5 MG TABLET PO (08:23)
[2020-06-07] MEDS: FUROSEMIDE 20 MG TABLET PO ×3 (08:23→17:59)
[2020-06-07] MEDS: CYANOCOBALAMIN 1,000 MCG TABLET 1000 MCG PO (08:24)
[2020-06-07] MEDS: predniSONE 10 MG TABLET 40 MG PO (08:24)
[2020-06-07] MEDS: metOLazone 5 MG TABLET PO (08:24)
[2020-06-07] MEDS: PREGABALIN 75 MG CAPSULE PO ×3 (08:34→17:59)
[2020-06-07] MEDS: POTASSIUM CHLORIDE 20 MEQ TABLET PO ×2 (08:34→17:59)
[2020-06-07 10:00] VITALS: BP 100/60; PULSE 60; RESP 16; TEMP 36.5; O2SAT 97
[2020-06-07] MEDS: MAGNESIUM OXIDE 400 MG TABLET PO (10:51)
--- NOTE | 2020-06-07 11:39 | PM.IMPN ---
Progress Note: A&P Assessment and Plan (1) Generalized weakness: Code(s): R53.1 - Weakness Status: Acute Assessment and Plan: This has been ongoing for several months with several recent hospital admissions. Etiology is unclear but I suspect that he has been progressively declining and deconditioning is playing a large role. He was recently admitted to SNF but left against medical advice because he did not like it there. I have discussed his case with his daughter and his primary care provider, as well as care coordination. All parties believe that patient would benefit from swing bed for SNF placement. Care coordination is following for possible placement. Check B12, folate, and TSH (2) Difficulty in walking: Code(s): R26.2 - Difficulty in walking, not elsewhere classified Status: Acute Assessment and Plan: Patiently repeatedly states that he cannot walk. He would like a motorized scooter. PT and OT; recommendations appreciated. (3) Gout: Qualifiers: Chronicity: chronic Gout etiology: unspecified cause Gout site: wrist Laterality: unspecified laterality Qualified Code(s): M1A.0390 - Idiopathic chronic gout, unspecified wrist, without tophus (tophi) Code(s): M10.9 - Gout, unspecified Status: Chronic Assessment and Plan: He has tophi on bilateral fingers and complains of polyarthralgias. This seems to be an ongoing issue. He has been treated for acute gout flare at 2 prior hospitalizations. ESR is quite elevated. Synovial fluid was aspirated from knee showing inflammatory process with elevated nucleated cells and few monosodium urate crystals; consistent with gout. Continue allopurinol and prednisone taper Check uric acid level. Will also check CK level. analgesics as needed for pain Patient will benefit from outpatient evaluation by materials planner/production planner. (4) Anemia of chronic renal failure, stage 4 (severe): Code(s): N18.4 - Chronic kidney disease, stage 4 (severe); D63.1 - Anemia in chronic kidney disease Status: Acute Assessment and Plan: H&H is stable but with steady decline over past several months. No evidence of bleeding and vital signs are stable. Patient gets Procrit injections with Dr. Davis. evaluate iron panel Dr. Davis has been consulted and his recommendations are appreciated. Continue oral iron and B12 (5) Non Hodgkin's lymphoma: Qualifiers: Lymphoma site: unspecified region Non-Hodgkin lymphoma type: other specified type Qualified Code(s): C85.80 - Other specified types of non-Hodgkin lymphoma, unspecified site Code(s): C85.90 - Non-Hodgkin lymphoma, unspecified, unspecified site Status: Chronic Assessment and Plan: Patient has a history lymphoma and is current with Dr. Davis. Patient has leukopenia that has progressively declined. I discussed this case with Dr. Davis. He would like to proceed with a bone marrow biopsy. (6) BPH (benign prostatic hyperplasia): Code(s): N40.0 - Benign prostatic hyperplasia without lower urinary tract symptoms Status: Chronic Assessment and Plan: Urine output is good. Continue finasteride and terazosin (7) Hyponatremia: Code(s): E87.1 - Hypo-osmolality and hyponatremia Status: Acute Assessment and Plan: Chronic and improved from last admission. possibly secondary to diuretic use. Sodium is 133 today. Monitor sodium levels daily (8) Diabetes: Qualifiers: Diabetes mellitus complication status: with other specified complication Diabetes mellitus skilled nursing insulin use: without commercial drone pilot use Diabetes mellitus type: type 2 Qualified Code(s): E11.69 - Type 2 diabetes mellitus with other specified complication Code(s): E11.9 - Type 2 diabetes mellitus without complications Status: Acute Assessment and Plan: Most recent A1c i
[2020-06-07 12:32] LABS: Glucose Point of Care 176 (65-105)
[2020-06-07 14:00] VITALS: BP 96/67; PULSE 66; RESP 14; TEMP 36.6; O2SAT 98
[2020-06-07 14:31] LABS: Hematocrit 24.2 % (42.0-52.0); Hemoglobin 7.8 g/dL (14.0-18.0)
[2020-06-07 14:52] LABS: Creatine Kinase 27 U/L (55-170); Uric Acid 8.9 mg/dL (3.5-8.5)
--- NOTE | 2020-06-07 14:53 | PCDIET ---
Nutrition MST screen and request for edu complete: Pt current nutrition is renal & compact BID. Nutrition recommendation: agree Last recorded weight is 96 kg. Labs Reviewed: Uric acid 9.0, A1c 5.8, WBC 1.2, GFR 54 Meds Noted: Chemo (Rituxan) Additional Notes: Seeing pt for MST score of 2 for mild wt loss 2-13lbs and reduced appetite. Appetite good today with PO intake of 100% on an appropriate diet. Pt with increased levels of uric acid. Edu provided on foods that help reduce uric acid levels. Pt on allopurinol and may need increased dosage. Increased levels could also be due to medications (chemo) and lack of clearance from kidneys as GFR was lower. Pt states he does not drink ETOH or eat a lot of sugar. Handouts and contact provided. We will continue to monitor every seven days for adequate intake.
[2020-06-07 15:39] LABS: Iron 26 ug/dL (49-181)
[2020-06-07 15:48] LABS: Percent Iron Saturation 12 % (20-50)
[2020-06-07 15:53] LABS: Folic Acid 11.4 ng/mL (2.76->20); Vitamin B12 > 1000.0 pg/mL (239-931)
[2020-06-07 16:25] LABS: Glucose Point of Care 245 (65-105)
[2020-06-07] MEDS: INSULIN ASPART (*BKC) 100 UNITS/ML SUB-Q (17:00)
[2020-06-07 18:00] VITALS: BP 107/60; PULSE 62; RESP 16; TEMP 36.4; O2SAT 100
[2020-06-07 22:23] VITALS: BP 102/63; PULSE 64; RESP 16; TEMP 36.4; O2SAT 99
[2020-06-08] VITALS (10 sets, daily range): BP systolic 101–115; BP diastolic 57–77; PULSE 55–76; RESP 15–22; TEMP 36.3–36.7; O2SAT 93–100
[2020-06-08 05:09] LABS: Glucose Point of Care 244 (65-105)
[2020-06-08 05:37] LABS: Hematocrit 22.8 % (42.0-52.0); Hemoglobin 7.3 g/dL (14.0-18.0); Mean Corpuscular Hemoglobin 27.1 pg (26-34); Mean Corpuscular Volume 84.8 fl (80-100); Mean Platelet Volume 11.3 fl (7.4-10.4); Platelet Count Result 153 k/mm3 (150-375); Red Blood Count 2.69 M/mm3 (4.6-6.20); Red Cell Distribution Width 19.8 % (11.5-14.5)
[2020-06-08 05:55] LABS: Alanine Aminotransferase 37 U/L (4-50); Albumin Level 3.2 g/dL (3.5-5.1); Alkaline Phosphatase 315 U/L (38-126); Anion Gap 8 mmol/L (8-16); Aspartate Amino Transferase 72 U/L (17-59); Bilirubin,Total 0.9 mg/dL (0.2-1.3); Blood Urea Nitrogen 95 mg/dL (9-20); Calcium 8.8 mg/dL (8.4-10.2); Carbon Dioxide 27 mmol/L (22-30); Chloride 94 mmol/L (98-107); Estimated CRCL calculation 46 ml/min; Estimated Glomerular Filt Rate 46; Glucose 162 mg/dL (75-110); Potassium 3.8 mmol/L (3.4-5.0); Sodium 129 mmol/L (137-145)
[2020-06-08 06:26] LABS: White Blood Count 1.8 K/mm3 (4.5-10.0)
[2020-06-08 06:28] LABS: Band Neutrophils Percent 8 % (0-6); Eosinophils Absolute Manual 0.01 K/mm3 (0.02-0.5); Eosinophils Percent Manual 1 % (0-4); Lymphocytes Absolute Manual 0.28 K/mm3 (1.1-4.5); Lymphocytes Percent Manual 16 % (18-44); Total Cells Counted 100
[2020-06-08 06:29] LABS: Hypochromasia 1+ (NORMAL); Platelet Estimate Adequate (Adequate)
[2020-06-08 06:31] LABS: CRP 19.3 mg/dL (<1.0)
[2020-06-08 06:38] LABS: Neutrophils Percent Manual 60 % (46-73)
[2020-06-08 06:39] LABS: Monocytes Absolute Manual 0.28 K/mm3 (0.1-0.90); Monocytes Percent Manual 16 % (3-9); Neutrophils Absolute Manual 1.22 K/mm3 (1.3-6.7); Poikilocytosis 1+ (NORMAL)
[2020-06-08 06:40] LABS: Acanthocytes 2+ (NORMAL); Ovalocytes 1+ (NORMAL)
[2020-06-08 08:14] LABS: Glucose Point of Care 153 (65-105)
[2020-06-08] MEDS: predniSONE 10 MG TABLET 40 MG PO (09:00)
[2020-06-08] MEDS: CYANOCOBALAMIN 1,000 MCG TABLET 1000 MCG PO (09:01)
[2020-06-08] MEDS: CHOLECALCIFEROL 1,000 UNITS TABLET 1000 UNITS PO (09:01)
[2020-06-08] MEDS: SERTRALINE HCL 50 MG TABLET PO (09:01)
[2020-06-08] MEDS: FUROSEMIDE 20 MG TABLET PO ×4 (09:01→20:42)
[2020-06-08] MEDS: rOPINIRole HCL 0.25 MG TABLET PO ×3 (09:01→16:45)
[2020-06-08] MEDS: ATORVASTATIN 40 MG TABLET PO (09:02)
[2020-06-08] MEDS: allopurinoL 100 MG TABLET 200 MG PO (09:03)
[2020-06-08] MEDS: FINASTERIDE 5 MG TABLET PO (09:03)
[2020-06-08] MEDS: PANTOPRAZOLE 40 MG TABLET PO (09:03)
[2020-06-08] MEDS: FERROUS SULFATE 324 MG TABLET PO (09:03)
[2020-06-08] MEDS: MAGNESIUM OXIDE 400 MG TABLET PO (09:03)
[2020-06-08] MEDS: POTASSIUM CHLORIDE 20 MEQ TABLET PO ×2 (09:09→16:45)
[2020-06-08] MEDS: PREGABALIN 75 MG CAPSULE PO ×3 (09:09→16:45)
--- NOTE | 2020-06-08 10:45 | SUR.PHASEII ---
RETURNS TO GRIEF COUNSELLOR 4 VIA STRETCHER S/P R. POSTERIOR HIP BONE MARROW BX W/ ASPIRATION PER DR. ERNST. AWAKE AND ALERT, DENIES PAIN OR SOB. VSS. MONITOR AFIB W/ PVC'S. FLAT ON BACK ON STRETCHER. GUAZE AND TAPE DRESSING TO SITE. SITE NONTENDER, NO BLEEDING OR HEMATOMA NOTED TO SITE. ARAMBULA. EXPLAINED CARE. WILL CONTINUE TO MONITOR.
--- NOTE | 2020-06-08 11:39 | SUR.PHASEII ---
RETURNS TO [address] [place] [address] VIA STRETCHER. NO NEW CHANGES NOTED. R. POSTERIOR HIP SITE WITHOUT CHANGE. REPORT HAS BEEN CALLED TO YAMIL DANIELS AT [id number].
[2020-06-08 12:46] LABS: Basophils Percent Auto 0.5 % (0.2-1.2); Hematocrit 22.8 % (42.0-52.0); Hemoglobin 7.3 g/dL (14.0-18.0); Immature Granulocyte Absolute 0.13 K/mm3 (0.00-0.031); Lymphocytes Absolute Auto 0.08 K/mm3 (0.9-3.2); Lymphocytes Percent Auto 4.3 % (18.3-44.2); Mean Corpuscular Hemoglobin 27.2 pg (26-34); Mean Corpuscular Volume 85.1 fl (80-100); Mean Platelet Volume 10.9 fl (7.4-10.4); Monocytes Absolute Auto 0.4 K/mm3 (0.1-0.6); Neutrophils Absolute Auto 1.2 K/mm3 (1.3-6.7); Neutrophils Percent Auto 66.2 % (45.5-73.1); Platelet Count Result 159 k/mm3 (150-375); Red Blood Count 2.68 M/mm3 (4.6-6.20); Red Cell Distribution Width 19.8 % (11.5-14.5)
[2020-06-08 12:57] LABS: INR 1.4; Prothrombin Time 16.5 Seconds (11.1-14.7)
[2020-06-08 13:03] LABS: Glucose Point of Care 193 (65-105)
[2020-06-08 13:11] LABS: White Blood Count 1.9 K/mm3 (4.5-10.0)
--- NOTE | 2020-06-08 13:34 | PM.IMPN ---
Progress Note: A&P Assessment and Plan (1) Generalized weakness: Code(s): R53.1 - Weakness Status: Acute Assessment and Plan: This has been ongoing for several months with several recent hospital admissions. Etiology is unclear but I suspect that he has been progressively declining and deconditioning is playing a large role. TSH, B12, and folate are wnl. He was recently admitted to SNF but left against medical advice because he did not like it there. I have discussed his case with his daughter and his primary care provider, as well as care coordination. All parties believe that patient would benefit from swing bed for SNF placement. Care coordination is following for possible placement. He was not approved for swing bed. Awaiting daughter to select facility. Continue PT and OT. (2) Gout: Qualifiers: Chronicity: chronic Gout etiology: unspecified cause Gout site: wrist Laterality: unspecified laterality Qualified Code(s): M1A.0390 - Idiopathic chronic gout, unspecified wrist, without tophus (tophi) Code(s): M10.9 - Gout, unspecified Status: Chronic Assessment and Plan: He has tophi on bilateral fingers and complains of polyarthralgias. This seems to be an ongoing issue. He has been treated for acute gout flare at 2 prior hospitalizations. ESR is quite elevated. Synovial fluid was aspirated from knee on 06/06 showing inflammatory process with elevated nucleated cells and few monosodium urate crystals; consistent with gout. Uric acid is mildy elevated. Polymyalgia rheumatica is considered given elevated ESR/CRP and proximal joint pain, but seems less likely given diffuse joint pain and lack of stiffness/swelling in joints. No symptoms of GCA including headache, jaw claudication, visual changes. Continue allopurinol and prednisone taper Analgesics as needed for pain Patient will benefit from outpatient evaluation by mrb engineer; discussed with patient and daughter (3) Anemia of chronic renal failure, stage 4 (severe): Code(s): N18.4 - Chronic kidney disease, stage 4 (severe); D63.1 - Anemia in chronic kidney disease Status: Acute Assessment and Plan: H&H is stable but with steady decline over past several months. No evidence of bleeding and vital signs are stable. Patient gets Procrit injections with Dr. Davis. Iron panel is consistent with anemia of chronic disease. Dr. Davis has been consulted and his recommendations are appreciated. Bone marrow biopsy completed today. Continue oral iron and B12 Monitor H&H Q6h (4) Non Hodgkin's lymphoma: Qualifiers: Lymphoma site: unspecified region Non-Hodgkin lymphoma type: other specified type Qualified Code(s): C85.80 - Other specified types of non-Hodgkin lymphoma, unspecified site Code(s): C85.90 - Non-Hodgkin lymphoma, unspecified, unspecified site Status: Chronic Assessment and Plan: Patient has a history lymphoma and is current with Dr. Davis. Patient has leukopenia that has progressively declined. White count increased from 1.2 to 1.9 today. He had a bone marrow biopsy performed this morning. Dr. Davis has been consulted and recommendations are appreciated. Await results of bone marrow biopsy. (5) Hyponatremia: Code(s): E87.1 - Hypo-osmolality and hyponatremia Status: Acute Assessment and Plan: Chronic. Baseline appears to be 128-130. Possibly secondary to diuretic use. Sodium is 129 today. Hold metolazone, lasix, and spironolactone. Monitor sodium levels daily (6) BPH (benign prostatic hyperplasia): Qualifiers: Lower urinary tract symptom presence: symptoms absent Qualified Code(s): N40.0 - Benign prostatic hyperplasia without lower urinary tract symptoms Code(s): N40.0 - Benign prostatic hyperplasia without lower urinary tract symptoms Status: Chronic Assessment and Plan: Urine outp
[2020-06-08] MEDS: ACETAMINOPHEN 325 MG TABLET 650 MG PO (14:30)
[2020-06-08 16:35] LABS: Hematocrit 23.3 % (42.0-52.0); Hemoglobin 7.4 g/dL (14.0-18.0)
--- NOTE | 2020-06-08 17:28 | PDONCCN ---
HPI - Date of Consult Date/Time: 06/08/20 17:28 Requesting Physician: Faiza Banegas PA-C Primary Care Provider: Armen Beasley, DO - Consult Narrative Reason for consult: History of non-Hodgkin lymphoma Narrative: Harvey Sorenson is a 74 year old male This is a pleasant 74-year-old male who has a history of non-Hodgkin follicular lymphoma status post chemotherapy in the past and currently on maintenance Rituxan treatment. His last Rituxan treatment was in March and he is due to have another treatment next month. Patient now came into the hospital with complaint of bilateral lower extremity pain headache as well as generalized pain. He was recently diagnosed with gout and was treated with anti inflammatory medication. CT scan of the head was performed that came back unremarkable for intracranial pathology. Labs also showed bicytopenia with WBC count of 1.8, hemoglobin of 7.3. He denies any bleeding. He denies any fevers and chills. Review of Systems - Neurologic Reports system reviewed and no additional complaints, except as documented, Reports hearing normal, Denies headache(s), Denies weakness PMFSH Medical History: Medical History (Last Updated 06/06/20 @ 17:28 by Cele Stark NP) Angina pectoris, unspecified previous cardiac catheterization with minimal blockage no intervention Anxiety Arthritis Atrial fibrillation BPH (benign prostatic hyperplasia) CAD (coronary artery disease) CHF (congestive heart failure) CKD (chronic kidney disease) COPD (chronic obstructive pulmonary disease) Depression Diabetes Emphysema of lung Fluid retention 05/26/18 Gout History of gastrostomy tube placement Hyperlipidemia Hypertension Hyponatremia chronic Hypoxia Non Hodgkin's lymphoma Still on chemotherapy Obesity Obstructive sleep apnea Olecranon bursitis of right elbow Peripheral sensory neuropathy Pulmonary hypertension Respiratory failure January 2016 resulting in tracheostomy and subsequent closure Sleep apnea Surgical History: Surgical History (Last Reviewed 06/06/20 @ 17:29 by Cele Stark NP) H/O hernia repair incarcerated ventral hernia November 2016 H/O uvulectomy History of cardiac catheterization March 2008 demonstrating mild coronary artery disease History of carpal tunnel release History of colostomy History of nasal septoplasty Hx of tonsillectomy Status post cataract extraction of both eyes with insertion of intraocular lens Status post rotator cuff repair bilateral [place] teeth extracted Family History: Family History (Last Reviewed 06/06/20 @ 18:26 by Tammy Marquez RN) Father Patient's father is COPD with emphysema Sibling Patient's sister is CHF (congestive heart failure) Diabetes mellitus Mother Valvular heart disease - Social History Social History: Social History (Last Reviewed 06/06/20 @ 17:29 by Cele Stark NP) Gender Identity: Gender identity (if verbalized by the patient): Male Alcohol Use: Alcohol intake: never Substance Use: Substance use: never Others: Spiritual care concerns: No Smoking Status: Smoking status: Never smoker Tobacco type: cigars Smoking end date: 09/23/99 Meds Home Medications Medication Instructions Recorded Confirmed Type acetaminophen 650 mg PO PRN PRN 07/14/19 06/06/20 History cholecalciferol (vitamin D3) 1,000 unit PO DAILY 07/14/19 06/06/20 History cyanocobalamin (vitamin B-12) 1,000 mcg PO DAILY 07/14/19 06/06/20 History ferrous sulfate 325 mg (65 mg 325 mg PO DAILY tablet 08/03/19 06/06/20 History iron) tablet magnesium oxide 400 mg (241.3 mg 400 mg PO DAILY 08/03/19 06/06/20 History magnesium) tablet apixaban 5 mg tablet 5 mg PO BID #180 tablet 09/14/19 06/06/20 Rx metolazone 5 mg tablet 5 mg PO DAILY #90 tablet 09/17/19 06/06/20 Rx atorvastatin 40 mg tablet 40 mg PO DAILY #90 tabl
[2020-06-08 18:02] LABS: Glucose Point of Care 177 (65-105)
[2020-06-08] MEDS: TERAZOSIN HCL 1 MG CAPSULE PO (20:42)
[2020-06-08] MEDS: BETAMETHASONE/CLOTRIMAZOLE CR 15 GM TUBE 1 APPLIC TOPICAL (20:46)
[2020-06-08 21:32] LABS: Hemoglobin 7.3 g/dL (14.0-18.0)
[2020-06-08 23:25] LABS: Glucose Point of Care 302 (65-105)
[2020-06-09] VITALS (10 sets, daily range): BP systolic 103–115; BP diastolic 53–74; PULSE 55–73; RESP 16–20; TEMP 36.2–36.8; O2SAT 93–100
[2020-06-09 00:30] LABS: Hematocrit 22.3 % (42.0-52.0); Hemoglobin 7.1 g/dL (14.0-18.0)
[2020-06-09 05:57] LABS: Anion Gap 8 mmol/L (8-16); Blood Urea Nitrogen 99 mg/dL (9-20); CRP 8.8 mg/dL (<1.0); Calcium 8.8 mg/dL (8.4-10.2); Carbon Dioxide 27 mmol/L (22-30); Chloride 94 mmol/L (98-107); Estimated CRCL calculation 49 ml/min; Estimated Glomerular Filt Rate 50; Glucose 138 mg/dL (75-110); Potassium 3.4 mmol/L (3.4-5.0); Sodium 129 mmol/L (137-145)
[2020-06-09 06:07] LABS: Immature Granulocyte Absolute 0.19 K/mm3 (0.00-0.031); Immature Granulocyte Percent A 11.9 % (0-0.5); Lymphocytes Percent Auto 6.3 % (18.3-44.2); Mean Corpuscular HGB Conc 31.8 g/dl (32-36); Mean Corpuscular Volume 84.9 fl (80-100); Mean Platelet Volume 11.1 fl (7.4-10.4); Monocytes Absolute Auto 0.4 K/mm3 (0.1-0.6); Monocytes Percent Auto 23.3 % (2.6-8.5); Neutrophils Absolute Auto 0.9 K/mm3 (1.3-6.7); Neutrophils Percent Auto 58.5 % (45.5-73.1); Platelet Count Result 156 k/mm3 (150-375); Red Blood Count 2.59 M/mm3 (4.6-6.20); Red Cell Distribution Width 19.4 % (11.5-14.5)
[2020-06-09 06:46] LABS: White Blood Count 1.6 K/mm3 (4.5-10.0)
[2020-06-09 07:54] LABS: Glucose Point of Care 131 (65-105)
--- NOTE | 2020-06-09 07:56 | PC.NURSE ---
1U blood transfusion ordered for patient today. Attempted to have patient sign consent for transfusion and he is refusing at this time. Night RN, Gabriele, talked with patients sister over the phone and he is still refusing transfusion. Called to hospitalist, Alexandra, to notify. Left voicemail and request for her to return phone call.
[2020-06-09] MEDS: CHOLECALCIFEROL 1,000 UNITS TABLET 1000 UNITS PO (08:59)
[2020-06-09] MEDS: SODIUM CHLORIDE 0.9% IV 250 ML 30 ML IV CONT (08:59)
[2020-06-09] MEDS: SERTRALINE HCL 50 MG TABLET PO (08:59)
[2020-06-09] MEDS: CYANOCOBALAMIN 1,000 MCG TABLET 1000 MCG PO (09:00)
[2020-06-09] MEDS: PANTOPRAZOLE 40 MG TABLET PO (09:00)
[2020-06-09] MEDS: allopurinoL 100 MG TABLET 200 MG PO (09:00)
[2020-06-09] MEDS: FUROSEMIDE 20 MG TABLET PO ×4 (09:01→21:12)
[2020-06-09] MEDS: predniSONE 10 MG TABLET 40 MG PO (09:01)
[2020-06-09] MEDS: FERROUS SULFATE 324 MG TABLET PO (09:01)
[2020-06-09] MEDS: MAGNESIUM OXIDE 400 MG TABLET PO (09:01)
[2020-06-09] MEDS: FINASTERIDE 5 MG TABLET PO (09:02)
[2020-06-09] MEDS: rOPINIRole HCL 0.25 MG TABLET PO ×3 (09:02→16:38)
[2020-06-09] MEDS: ATORVASTATIN 40 MG TABLET PO (09:02)
[2020-06-09] MEDS: POTASSIUM CHLORIDE 20 MEQ TABLET PO ×2 (09:11→16:40)
[2020-06-09] MEDS: PREGABALIN 75 MG CAPSULE PO ×3 (09:11→16:40)
[2020-06-09 11:27] LABS: Glucose Point of Care 240 (65-105)
[2020-06-09] MEDS: INSULIN ASPART (*BKC) 100 UNITS/ML SUB-Q (11:30)
[2020-06-09 12:25] LABS: SARS-CoV-2 RNA PCR Negative
[2020-06-09] MEDS: ACETAMINOPHEN 325 MG TABLET 650 MG PO (12:40)
[2020-06-09 13:15] LABS: Hematocrit 27.1 % (42.0-52.0); Hemoglobin 8.6 g/dL (14.0-18.0)
--- NOTE | 2020-06-09 14:28 | PM.IMPN ---
Progress Note: A&P Assessment and Plan (1) Generalized weakness: Code(s): R53.1 - Weakness Status: Acute Assessment and Plan: This has been ongoing for several months with several recent hospital admissions. Etiology is unclear but I suspect that he has been progressively declining and deconditioning is playing a large role. TSH, B12, and folate are wnl. He was recently admitted to SNF but left against medical advice because he did not like it there. I have discussed his case with his daughter and his primary care provider, as well as care coordination. All parties believe that patient would benefit from swing bed for SNF placement. Care coordination is following for SNF placement. He was not approved for swing bed. Continue PT and OT. (2) Gout: Qualifiers: Gout site: wrist Gout etiology: unspecified cause Chronicity: chronic Laterality: unspecified laterality Qualified Code(s): M1A.0390 - Idiopathic chronic gout, unspecified wrist, without tophus (tophi) Code(s): M10.9 - Gout, unspecified Status: Chronic Assessment and Plan: He has tophi on bilateral fingers and complains of polyarthralgias. This seems to be an ongoing issue. He has been treated for acute gout flare at 2 prior hospitalizations. ESR is quite elevated. Synovial fluid was aspirated from knee on 06/06 showing inflammatory process with elevated nucleated cells and few monosodium urate crystals; consistent with gout. Uric acid is mildy elevated. Polymyalgia rheumatica is considered given elevated ESR/CRP and proximal joint pain, but seems less likely given diffuse joint pain in proximal and distal joints and lack of stiffness/swelling in joints. No symptoms of GCA including headache, jaw claudication, visual changes. Continue allopurinol and prednisone taper Analgesics as needed for pain Patient will benefit from outpatient evaluation by core extruder; discussed with patient and daughter (3) Anemia of chronic renal failure, stage 4 (severe): Code(s): N18.4 - Chronic kidney disease, stage 4 (severe); D63.1 - Anemia in chronic kidney disease Status: Acute Assessment and Plan: H&H with steady decline over past several months. Iron panel is consistent with anemia of chronic disease. S/p transfusion 1 unit PRBC this morning given hgb decline to 7.0. repeat this afternoon is 8.6. Dr. Davis has been consulted and his recommendations are appreciated. Bone marrow biopsy completed 06/08 Continue oral iron and B12 Monitor H&H closely and transfuse as needed. (4) Non Hodgkin's lymphoma: Qualifiers: Lymphoma site: unspecified region Non-Hodgkin lymphoma type: other specified type Qualified Code(s): C85.80 - Other specified types of non-Hodgkin lymphoma, unspecified site Code(s): C85.90 - Non-Hodgkin lymphoma, unspecified, unspecified site Status: Chronic Assessment and Plan: Patient has a history lymphoma and is current with Dr. Davis. Patient has leukopenia that has progressively declined. White count increased from 1.6 today. He had a bone marrow biopsy performed on 06/08. Dr. Davis has been consulted and recommendations are appreciated. Await results of bone marrow biopsy. (5) Hyponatremia: Code(s): E87.1 - Hypo-osmolality and hyponatremia Status: Acute Assessment and Plan: Chronic. Baseline appears to be 128-130. Possibly secondary to diuretic use. Sodium is 129 today. Hold metolazone, lasix, and spironolactone. Monitor sodium levels daily (6) BPH (benign prostatic hyperplasia): Qualifiers: Lower urinary tract symptom presence: symptoms absent Qualified Code(s): N40.0 - Benign prostatic hyperplasia without lower urinary tract symptoms Code(s): N40.0 - Benign prostatic hyperplasia without lower urinary tract symptoms Status: Chronic Assessment and Plan: Urine output is good.
[2020-06-09 16:59] LABS: Glucose Point of Care 165 (65-105)
--- NOTE | 2020-06-09 17:07 | WPDONCPN ---
Progress Note: A/P - Additional Plan 1. Anemia and thrombocytopenia. BM Bx pending. s/p 1U PRBC today for Hgb j carlos 7.0, up to 8.6 post-transfusion. B12 elevated. Also has anemia of chronic kidney disease. Platelets normal/preserved. 2. Follicular lymphoma. s/p Rituxan-Bendamustine x cycles completed in November 2018, currently on maintenance Rituxan q months since December 2018, due currently pending BM Bx. CT scan in March showed no progression or splenomegaly. No palpable peripheral CAMPBELL on exam, inguinal regions deferred (seated in chair). - Time Spent With Patient Total time spent is greater than 50% in coordination of care (as documented) at patient's floor/unit and/or counseling patient: 15 - 25 minutes Subjective Interval history: 74 yo WM admitted 06/06 with bilateral LE pain, mary Lt knee and headaches. On admission, he was found to be leukopenic (WBC 2.5 with ANC 1.3, j carlos to date WBC 1.2) and anemic (Hgb 7.6 with j carlos 7.0 today --> s/p 1U PRBC, Hgb improved to 8.6 post-transfusion). Iron studies revealed iron 26, iron sat 12% and ferritin 656 (could be r/t current inflammation given ESR 123), soluble transferrin receptor pending; B12 > 1000. BM Bx done yesterday, pending. Head CT showed no acute pathology or etiology for headaches. Subsequent CT cervical spine showed worsening severe spondylosis. His headaches are relieved with Tylenol. He underwent Lt knee joint fluid aspiration which revealed no aerobes and preliminary neg. for anaerobes. His uric acid on admission was 9.0, currently on steroid taper. He is well known to Dr. Davis, currently on maintenance Rituxan for follicular lymphoma. He denies B symptoms or new lymphadenopathy. COVID negative on 06/09. His appetite is good. Review of Systems - Review of Systems All systems reviewed & are unremarkable except as noted in HPI and bel - Neurologic Reports system reviewed and no additional complaints, except as documented, Reports hearing normal, Denies headache(s), Denies weakness Exam Vital signs: Temp Pulse Resp BP Pulse Ox 36.4 C 55 L 19 103/53 L 98 06/09/20 14:00 06/09/20 14:06/09/20 14:00 06/09/20 14:00 06/09/20 14:00 - Constitutional no acute distress - Routine HEENT Exam Head: Present: normal inspection, normocephalic Eye: Present: EOMI, normal appearance - Routine Neck Exam Present: normal inspection. Absent: lymphadenopathy - Routine Chest/Breast/Axilla Exam Axillae: Absent: lymphadenopathy - Routine Respiratory Exam Present: CTAB - Routine Cardiovascular Exam Cardiovascular: Present: RRR - Routine Abdominal Exam Present: normal bowel sounds, soft. Absent: tenderness - Routine Extremities Exam Present: pulses intact. Absent: calf tenderness, pedal edema Comments: Taut bilateral LE w/o redness or pain, ?venous stasis changes. - Routine Neurological Exam Present: alert, oriented X3, moving all extremities PN: Objective Data - Labs CBC & Chem 7: 06/10/20 04:48 06/10/20 04:48 Labs: Laboratory Results - last 24 hr 06/08/20 06/08/20 06/08/20 17:59 20:50 21:27 WBC RBC Hgb 7.3 L Hct 23.0 L MCV MCH MCHC RDW Plt Count MPV Immature Gran % (Auto) Neut % (Auto) Lymph % (Auto) [place] % (Auto) Eos % (Auto) Baso % (Auto) Lymph # (Auto) [place] # (Auto) Eos # (Auto) Baso # (Auto) Abs Immat Gran (auto) Absolute Neuts (auto) Absolute Nucleated RBC Nucleated RBC % Sodium Potassium Chloride Carbon Dioxide Anion Gap BUN Creatinine Estim Creat Clear Calc Estimated GFR Glucose POC Capillary Glucose 177 H 302 H Calcium C-Reactive Protein SARS-CoV-2 RNA (RT-PCR) Blood Type Antibody Screen Crossmatch 06/09/20 06/09/20 06/09/20 00:23 01:05 05:16 WBC 1.6 L* RBC 2.59 L Hgb 7.1 L 7.0 L Hct 22.3 L 22.0 L MCV 84.9 MCH 27.0 MCHC 31.8 L RDW 19.4 H
[2020-06-09] MEDS: TERAZOSIN HCL 1 MG CAPSULE PO (21:11)
[2020-06-09 21:30] LABS: Hematocrit 25.6 % (42.0-52.0); Hemoglobin 8.2 g/dL (14.0-18.0)
[2020-06-09 22:06] LABS: Glucose Point of Care 236 (65-105)
[2020-06-10] VITALS: BP 107/70; PULSE 63; RESP 18; TEMP 36.1; O2SAT 100
[2020-06-10 04:00] VITALS: BP 113/80; PULSE 62; RESP 20; TEMP 36.2; O2SAT 100
[2020-06-10 05:35] LABS: Eosinophils Percent Auto 0.5 % (0-4.4); Hematocrit 25.5 % (42.0-52.0); Hemoglobin 8.2 g/dL (14.0-18.0); Immature Granulocyte Absolute 0.15 K/mm3 (0.00-0.031); Immature Granulocyte Percent A 8.2 % (0-0.5); Lymphocytes Absolute Auto 0.12 K/mm3 (0.9-3.2); Lymphocytes Percent Auto 6.5 % (18.3-44.2); Mean Corpuscular HGB Conc 32.2 g/dl (32-36); Mean Corpuscular Hemoglobin 27.1 pg (26-34); Mean Corpuscular Volume 84.2 fl (80-100); Mean Platelet Volume 10.8 fl (7.4-10.4); Monocytes Absolute Auto 0.5 K/mm3 (0.1-0.6); Monocytes Percent Auto 24.5 % (2.6-8.5); Neutrophils Absolute Auto 1.1 K/mm3 (1.3-6.7); Neutrophils Percent Auto 60.3 % (45.5-73.1); Platelet Count Result 151 k/mm3 (150-375); Red Blood Count 3.03 M/mm3 (4.6-6.20)
[2020-06-10 05:45] LABS: White Blood Count 1.8 K/mm3 (4.5-10.0)
[2020-06-10 05:51] LABS: Anion Gap 9 mmol/L (8-16); Blood Urea Nitrogen 96 mg/dL (9-20); Carbon Dioxide 29 mmol/L (22-30); Chloride 90 mmol/L (98-107); Estimated CRCL calculation 49 ml/min; Estimated Glomerular Filt Rate 50; Glucose 123 mg/dL (75-110); Potassium 3.6 mmol/L (3.4-5.0); Sodium 128 mmol/L (137-145)
[2020-06-10 05:52] LABS: Microcytosis 1+ (NORMAL); Platelet Estimate Adequate (Adequate)
[2020-06-10 05:53] LABS: Ovalocytes 1+ (NORMAL)
[2020-06-10] MEDS: ACETAMINOPHEN 325 MG TABLET 650 MG PO (06:09)
[2020-06-10 08:01] LABS: Glucose Point of Care 122 (65-105)
[2020-06-10] MEDS: predniSONE 10 MG TABLET 40 MG PO (08:14)
[2020-06-10] MEDS: ATORVASTATIN 40 MG TABLET PO (08:15)
[2020-06-10] MEDS: allopurinoL 100 MG TABLET 200 MG PO (08:15)
[2020-06-10] MEDS: PREGABALIN 75 MG CAPSULE PO ×2 (08:15→13:35)
[2020-06-10] MEDS: FINASTERIDE 5 MG TABLET PO (08:15)
[2020-06-10] MEDS: FUROSEMIDE 20 MG TABLET PO ×2 (08:15→13:35)
[2020-06-10] MEDS: rOPINIRole HCL 0.25 MG TABLET PO ×2 (08:15→13:35)
[2020-06-10] MEDS: MAGNESIUM OXIDE 400 MG TABLET PO (08:15)
[2020-06-10] MEDS: CHOLECALCIFEROL 1,000 UNITS TABLET 1000 UNITS PO (08:16)
[2020-06-10] MEDS: SERTRALINE HCL 50 MG TABLET PO (08:16)
[2020-06-10] MEDS: FERROUS SULFATE 324 MG TABLET PO (08:16)
[2020-06-10] MEDS: CYANOCOBALAMIN 1,000 MCG TABLET 1000 MCG PO (08:16)
[2020-06-10] MEDS: PANTOPRAZOLE 40 MG TABLET PO (08:16)
[2020-06-10] MEDS: POTASSIUM CHLORIDE 20 MEQ TABLET PO (08:20)
[2020-06-10 10:00] VITALS: BP 118/69; PULSE 74; RESP 18; TEMP 36.1; O2SAT 99
[2020-06-10 10:49] LABS: Sodium Urine Random 62 meq/L
[2020-06-10] MEDS: FUROSEMIDE INJ 40 MG/4 ML VIAL 20 MG IV PUSH (11:23)
[2020-06-10 11:31] LABS: Glucose Point of Care 155 (65-105)
[2020-06-10 12:00] LABS: Hematocrit 27.6 % (42.0-52.0); Hemoglobin 8.7 g/dL (14.0-18.0)
[2020-06-10 12:08] LABS: Sodium 129 mmol/L (137-145)
[2020-06-10 14:00] VITALS: BP 113/67; PULSE 57; RESP 18; TEMP 36.2; O2SAT 100
--- NOTE | 2020-06-10 14:54 | PM.DS ---
DS: Admitting Diagnosis Admitting Diagnosis Admitting Diagnosis: left leg pain, Headache DS: Discharge Diagnosis Discharge Diagnosis (1) Generalized weakness: Code(s): R53.1 - Weakness Status: Acute Assessment and Plan: This has been ongoing for several months with several recent hospital admissions. I suspect that he has been progressively declining and deconditioning is playing a large role. TSH, B12, and folate are wnl. He was recently admitted to SNF (05/25/20) but left against medical advice because he did not like it there. He was evaluated by PT and OT. I have discussed his case with his daughter and his primary care provider, as well as care coordination. All parties believe that patient would benefit from SNF placement and he will continue rehab at [facility]. (2) Gout: Qualifiers: Gout site: wrist Gout etiology: unspecified cause Chronicity: chronic Laterality: unspecified laterality Qualified Code(s): M1A.0390 - Idiopathic chronic gout, unspecified wrist, without tophus (tophi) Code(s): M10.9 - Gout, unspecified Status: Chronic Assessment and Plan: He has tophi on bilateral DIP and PIP and complains of polyarthralgias, which is an ongoing issue. He had been treated for acute gout flare at 2 prior hospitalizations. ESR was quite elevated. Synovial fluid was aspirated from knee on 06/06 showing inflammatory process with elevated nucleated cells and few monosodium urate crystals; consistent with gout. Uric acid was mildy elevated. Polymyalgia rheumatica was considered given elevated ESR/CRP and proximal joint pain, but seems less likely given diffuse joint pain in proximal and distal joints and lack of stiffness/swelling in joints. No symptoms of GCA including headache, jaw claudication, visual changes. Continue allopurinol and prednisone taper. He will benefit from rheumatology evaluation. Medication compliance was stressed as it seems that patient had not been consistent with his gout medications. (3) Anemia of chronic renal failure, stage 4 (severe): Code(s): N18.4 - Chronic kidney disease, stage 4 (severe); D63.1 - Anemia in chronic kidney disease Status: Acute Assessment and Plan: H&H with steady decline over past several months. Iron panel is consistent with anemia of chronic disease. He underwent transfusion 1 unit PRBC on 06/09 given hgb decline to 7.0. H&H improved and remained stable following transfusion. He was seen in consultation by Dr. Davis and underwent bone marrow biopsy on 06/08. He will follow up with Dr. Davis in 1-2 weeks with repeat labs at that time. Continue oral iron and B12. (4) Non Hodgkin's lymphoma: Qualifiers: Lymphoma site: unspecified region Non-Hodgkin lymphoma type: other specified type Qualified Code(s): C85.80 - Other specified types of non-Hodgkin lymphoma, unspecified site Code(s): C85.90 - Non-Hodgkin lymphoma, unspecified, unspecified site Status: Chronic Assessment and Plan: Patient has a history of lymphoma and is current with Dr. Davis. Patient has leukopenia that has progressively declined. White count as low as 1.2 during admission. WBC 1.8 at discharge. He had a bone marrow biopsy performed on 06/08 to evaluate for malignant etiology of leukopenia. Results pending at time of discharge and patient will follow up with Dr. Davis in 1 week for results and repeat labs. (5) Hyponatremia: Code(s): E87.1 - Hypo-osmolality and hyponatremia Status: Acute Assessment and Plan: Chronic. Baseline appears to be 128-130. Possibly secondary to diuretic use. Sodium remained at baseline. Repeat BMP in 1 week (6) BPH (benign prostatic hyperplasia): Qualifiers: Lower urinary tract symptom presence: symptoms absent Qualified Code(s): N40.0 - Benign prostatic hyperplasia without lower urinary tract symptoms Code(s): N40.0 - Benign prostati
[2020-06-14 17:06] LABS: Soluble Transferrin Receptor 1.64 mg/L (0.76-1.76)
== END 2020-06-10 15:40 | DRG 554 ==
LOC: ANHED 12:20 → ANH2MED 15:35
PROVIDERS: Family Medicine; Nurse Practitioner; Physician Assistant; Radiology Diagnostic Radiology; Admitting Provider Family Medicine; Emergency Provider Emergency Medicine; PCP Internal Medicine; Referring Provider Internal Medicine Hematology & Oncology; Visit Provider Internal Medicine
PROC: 07DR3ZX Extraction of Iliac Bone Marrow, Percutaneous Approach, Diagnostic (ICD-10-PCS; principal; 2020-06-08 11:30)
DX: M10.9 Gout, unspecified (principal); C82.90 Follicular lymphoma, unspecified, unspecified site; I13.0 Hypertensive heart and chronic kidney disease with heart failure and stage 1 through stage 4 chronic kidney disease, or unspecified chronic kidney disease; E87.1 Hypo-osmolality and hyponatremia; I48.20 Chronic atrial fibrillation, unspecified; N18.4 Chronic kidney disease, stage 4 (severe); Z20.828 Contact with and (suspected) exposure to other viral communicable diseases; D63.1 Anemia in chronic kidney disease; D69.6 Thrombocytopenia, unspecified; F41.8 Other specified anxiety disorders; M19.90 Unspecified osteoarthritis, unspecified site; N40.0 Benign prostatic hyperplasia without lower urinary tract symptoms; I25.10 Atherosclerotic heart disease of native coronary artery without angina pectoris; E11.22 Type 2 diabetes mellitus with diabetic chronic kidney disease; J43.9 Emphysema, unspecified; R51 Headache; E78.5 Hyperlipidemia, unspecified; G47.33 Obstructive sleep apnea (adult) (pediatric); E11.42 Type 2 diabetes mellitus with diabetic polyneuropathy; Z98.42 Cataract extraction status, left eye; Z98.41 Cataract extraction status, right eye; Z87.891 Personal history of nicotine dependence
CPT/HCPCS: 20610; 36415; 36430; 38222; 70450; 72125; 73590; 80048; 80053; 82550; 82570; 82607; 82728; 82746; 83036; 83540; 83550; 83735; 84238; 84295; 84300; 84443; 84550; 85014; 85018; 85025; 85610; 85652; 86140; 86850; 86900; 86901; 86923; 87070; 87075; 87205; 87635; 88108; 88184; 88185; 88305; 88311; 88313; 88342; 88360; 89051; 89060; 96361; 96374; 97110; 97116; 97161; 97165; 97530; 99285; A9270; C9803; G0378; J1815; J1940; J2250; J2270; J3010; J7040; J7050; J7512; P9016; U0003

== ENCOUNTER 2020-08-01 12:11 | Inpatient (IN) | payer MEDICARE, MEDICAID, SELFPAY ==
[2020-08-01] VITALS (11 sets, daily range): BP systolic 94–118; BP diastolic 50–67; PULSE 59–76; RESP 14–18; TEMP 36.2–36.6; O2SAT 94–99; BMI 32.8
--- NOTE | ~2020-08-01 | CT_ITS ---
EXAMINATION: CT chest abdomen pelvis w con DATE: 08/03/2020 09:43 INDICATION: Lymphoma. TECHNIQUE: Computed tomography (CT) of the chest, abdomen, and pelvis was performed with 100 mL Omnip aque 350 intravenous contrast. Automated exposure control and iterative reconstruction technique were employed. The dose-length product was 1946 mGy-cm. COMPARISON: CT 04/19/2020, 11/09/2019, PET/CT 12/23/18 FINDINGS: CHEST CT: The lungs demonstrate mild atelectasis. There is chronic eventration of anterior right hemidiaphragm. Calcified right lung nodules and calcified right hilar and mediastinal lymph nodes are consistent wi th old adenomatous disease. There are small pleural effusions. Cardiomegaly is noted. There are calci fications of the aortic valve. There are coronary artery calcifications. No pericardial effusion. The re is bilateral gynecomastia. There is a right internal jugular port with tip in superior vena cava. There is moderate thoracic spondylosis. ABDOMEN/PELVIS CT: There is a 7 mm cyst in the liver. Calcifications in the liver and spleen are consistent with old rad ial metaphysis disease. The gallbladder, pancreas, and adrenal glands are normal. There are cysts in the kidneys measuring up to 7.7 cm on the left. There are hemorrhagic cysts in the kidneys measuring up to 1.4 cm on the left. There is diverticulosis of the colon without evidence of diverticulitis. Th ere are no dilated loops of bowel. The appendix is not visualized. There is a moderate volume of asci julius. There is confluent mesenteric lymphadenopathy measuring up to 4.2 x 2.9 cm, stable from 12/23/18 w hen there was no increased activity on PET, consistent with scarring from treated lymphoma. There is a left inguinal hernia containing fat. There are chronic areas of necrosis in the gluteus joana mus cles bilaterally. There is severe lumbar spondylosis. IMPRESSION: 1. Chronic mesenteric lymphadenopathy without increased activity on prior PET, consistent with scarri ng from treated lymphoma. 2. Moderate volume of ascites, worsened from 04/19/2020. 3. Small pleural effusions. Reviewed, dictated and finalized at location B. INE MANAGER IMPRESSION: 1. Chronic mesenteric lymphadenopathy without increased activity on prior PET, consistent with scarring from treated lymphoma. 2. Moderate volume of ascites, worsened from 04/19/2020. 3. Small pleural effusions.
--- NOTE | ~2020-08-01 | XR_ITS ---
EXAMINATION: XR foot RT min 3V EXAM DATE: 08/01/2020 13:44 INDICATION: No known recent injury provided at this time. Pain of the right foot. TECHNIQUE: Right foot dorsoplantar, lateral and oblique projections obtained and reviewed. There is no prior study for comparison. FINDINGS: Right metatarsal bones unremarkable. There are no acute fractures or dislocations identifi ed. There is no subcutaneous gas. The soft tissue is unremarkable. There are no radiopaque foreig n bodies. There is mild to moderate 1st MTP, otherwise mild scattered primary osteoarthritis. IMPRESSION: No acute right foot findings. Mild to moderate 1st MTP osteoarthritis. Reviewed, dictated and finalized at location A. KET WASHER IMPRESSION: No acute right foot findings. Mild to moderate 1st MTP osteoarthrit is.
[2020-08-01 12:58] LABS: Hematocrit 22.5 % (42.0-52.0); Hemoglobin 7.1 g/dL (14.0-18.0); Mean Corpuscular HGB Conc 31.6 g/dl (32-36); Mean Corpuscular Hemoglobin 28.1 pg (26-34); Mean Corpuscular Volume 88.9 fl (80-100); Mean Platelet Volume 11.2 fl (7.4-10.4); Platelet Count Result 248 k/mm3 (150-375); Red Blood Count 2.53 M/mm3 (4.6-6.20); Red Cell Distribution Width 21.4 % (11.5-14.5); White Blood Count 2.2 K/mm3 (4.5-10.0)
[2020-08-01] MEDS: SODIUM CHLORIDE 0.9% IV 1,000 ML 999 ML IV CONT (13:01)
[2020-08-01 13:06] LABS: Anisocytosis 2+ (NORMAL); Platelet Estimate Adequate (Adequate)
[2020-08-01 13:07] LABS: Acanthocytes 1+ (NORMAL); Ovalocytes 1+ (NORMAL)
[2020-08-01 13:09] LABS: Anion Gap 9 mmol/L (8-16); Blood Urea Nitrogen 70 mg/dL (9-20); Calcium 8.4 mg/dL (8.4-10.2); Carbon Dioxide 30 mmol/L (22-30); Chloride 90 mmol/L (98-107); Estimated CRCL calculation 43 ml/min; Estimated Glomerular Filt Rate 42; Glucose 170 mg/dL (75-110); Potassium 3.2 mmol/L (3.4-5.0); Sodium 129 mmol/L (137-145); Uric Acid 9.4 mg/dL (3.5-8.5)
[2020-08-01] MEDS: SODIUM CHLORIDE 0.9% IV 500 ML 999 ML IV CONT (13:10)
[2020-08-01] MEDS: COLCHICINE 0.6 MG TABLET 1.2 MG PO (13:14)
[2020-08-01 13:16] LABS: INR 2.7; Prothrombin Time 29.3 Seconds (11.1-14.7)
--- NOTE | 2020-08-01 13:30 | ED.GENADULT ---
HPI - General Adult General Source: patient, EMS and old records reviewed <Castillo Watson PA-C - Last Filed: 08/01/20 15:51> Mode of arrival: EMS <Castillo Watson PA-C - Last Filed: 08/01/20 15:51> Limitations: no limitations <Castillo Watson PA-C - Last Filed: 08/01/20 15:51> History of Present Illness HPI narrative: Patient 75-year-old male who presents to emergency department for evaluation of gouty flare in the right foot and right hand has had numerous similar occurrences in the past takes allopurinol and other medication which she is not aware of patient notes that it began over the weekend to the point where he is having difficulty ambulating secondary to the pain. Patient denies injury trauma fever chills and on arrival is in the room in no distress presents from home where he lives alone per EMS. <DILLON Mckinnon Last Filed: 08/01/20 15:51> Related Data Home medications: Home Medications Medication Instructions Recorded Confirmed acetaminophen 650 mg PO PRN PRN 07/14/19 07/28/20 cholecalciferol (vitamin D3) 1,000 unit PO DAILY 07/14/19 07/28/20 cyanocobalamin (vitamin B-12) 1,000 mcg PO DAILY 07/14/19 07/28/20 ferrous sulfate 325 mg (65 mg 325 mg PO DAILY tablet 08/03/19 07/28/20 iron) tablet magnesium oxide 400 mg (241.3 mg 400 mg PO DAILY 08/03/19 07/28/20 magnesium) tablet clotrimazole-betamethasone 1 applic TOPICAL BID PRN 04/20/20 07/28/20 [Lotrisone] furosemide 20 mg PO BID 06/06/20 07/28/20 silver sulfadiazine 1 % topical 1 applic TOPICAL DAILY 06/28/20 07/28/20 cream <DILLON Mckinnon Last Filed: 08/01/20 15:51> Allergies/adverse reactions: Allergies Allergy/AdvReac Type Severity Reaction Status Date / Time Penicillins AdvReac Unknown Unknown Verified 08/01/20 12:17 <DILLON Mckinnon Last Filed: 08/01/20 15:51> Review of Systems Review of Systems: All systems reviewed & are unremarkable except as noted in HPI and below <Castillo Watson PA-C - Last Filed: 08/01/20 15:51> [facility] Past Medical History Medical History: Medical History Angina pectoris, unspecified previous cardiac catheterization with minimal blockage no intervention Anxiety Arthritis 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istory of gastrostomy tube placement Hyperlipidemia Hypertension Hyponatremia chronic Hypoxia Non Hodgkin's lymphoma Still on chemotherapy Obesity Obstructive sleep apnea Olecranon bursitis of right elbow Osteoarthritis involving multiple joints on both sides of body Peripheral sensory neuropathy Pulmonary hypertension Respiratory failure January 2016 resulting in tracheostomy and subsequent closure Sleep apnea <Castillo Watson PA-C - Last Filed: 08/01/20 15:51> Surgical History Surgical History: Surgical History H/O hernia repair incarcerated ventral hernia November 2016 H/O uvulectomy History of cardiac catheterization March 2008 demonstrating mild coronary artery disease History of carpal tunnel release History of colostomy History of nasal septoplasty Hx of tonsillectomy Status post cataract extraction of both eyes with insertion of intraocular lens Status post rotator cuff repair bilateral [place] teeth extracted <Castillo Watson PA-C - Last Filed: 08/01/20 15:51> Family History Family History: Family History Father Patient's father is COPD with emphysema Sibling Patient's sister is CHF (conges
[2020-08-01 13:33] LABS: CRP 23.1 mg/dL (<1.0)
--- NOTE | 2020-08-01 16:54 | PCCCNOTE ---
SNF list provided to patient. He wants to discuss options with family
--- NOTE | 2020-08-01 17:57 | PM.IMHP ---
H&P: HPI History of Present Illness Date/Time: 08/01/20 17:57 Chief complaint: Anemia/Gout/Dehydration Narrative: Harvey Sorenson is a 75 year old male who has been to the hospital on multiple occasion for gouty arthritis. The patient has been seen by orthopedic physicians in the past and has had fluid aspirated from his rest that determined that the patient does have gouty arthritis. The patient was unable to go to a longterm because he had been receiving Rituxan for non-Hodgkin follicular lymphoma. He is on maintenance Rituxan which is preventing the patient from going to a longterm. The patient had gone to rehab at 1 time but signed himself AMA. His Rituxan was soon March and then again in June. The patient believes he is due for another [address] abraham was notified and Dr. abraham did explain to the ER doctor that the patient is no longer on that treatment. On 06/10/2020 the patient was discharged from the hospital. He had been having generalized weakness for months. The patient lives home alone and cannot live home alone any further. The patient has gouty arthritis and has such severe pain that he cannot function at home. The patient was admitted to a snf unit on 05/25/2020 where he left against medical advice. It looks like the patient left to be placed in a sniff placement at rehab at [facility]. I explained to the patient that the best treatment for him would be to go to a skilled facility longterm. The patient has had numerous admissions to the hospital for this gouty pain. The patient can no longer take care of himself at home. Patient has chronic renal failure stage 4 he has been on a steady decline. His anemia has gotten worse. His hemoglobin is somewhere around 7. He is seen by Dr. abraham. He is to be on iron and B12. Also the patient has leukopenia which has progressively declined. He had a bone marrow biopsy on 06/08 2 evaluate malignant etiology. The patient is not able to walk at this point. He is complaining of right knee pain. His right hand is swollen again from gout. White count is 2.24 days ago it was 1.9. Patient's hemoglobin is 7.1 today 4 days ago was 7.0. Which to me there is no change in the last [address] abraham was notified and an order was placed for unit of packed red blood cells to be transfused. The patient is not having any symptoms but is having some generalized weakness which is chronic. He is not short of breath or having any chest pain. Right foot findings. Mild to moderate 1st MTP osteoarthritis. IV Tylenol, colchicine and a unit of blood was ordered for the patient. business process coordinator has been consulted. Admitted observation for anemia exacerbation of gout and leukopenia. Date of service 08/01/2020. Review of Systems Review of Systems: All systems reviewed & are unremarkable except as noted in HPI and below Constitutional: Constitutional: Reports as per HPI and Reports no additional constitutional complaints Eyes: Eyes: Reports as per HPI and Reports no additional eye complaints ENT: Reports system reviewed and no additional complaints, except as documented and Reports Normal hearing present Cardiovascular: Cardiovascular: Reports no additional cardiovascular complaints Respiratory: Respiratory: Reports no additional respiratory complaints and Reports no additional respiratory complaints Gastrointestinal: Gastrointestinal: Reports as per HPI and Reports no additional gastrointestinal complaints Musculoskeletal: Musculoskeletal: Reports no additional musculoskeletal complaints Integumentary/Breasts: Skin/Breast: Reports system reviewed and no additional complaints, except as docu and Reports as per HPI Neurologic: Reports system reviewed and no additional complaints, except as documented, Reports as per HPI and Reports Normal hearing present Psychiatric: Psychiatric: Reports no additional psychiatric complaints and Reports as per HPI Endocr
--- NOTE | 2020-08-01 18:55 | ADMGEN ---
This patient, Harvey Sorenson, was admitted to 2 Medical Room 251-. Patient/family oriented to hospital policies and general routines including ID bracelet, bed and alarms, visiting hours, pain management, procedures, bathroom and other care routines, personal items, smoking policy, room service/diet, and visiting hours. Information on how to activate the Rapid Response Team has been discussed. Patient/Family are encouraged to report perceived risks to care and to ask questions if they do not understand what they are told or what they should do.
[2020-08-01] MEDS: SODIUM CHLORIDE 0.9% IV 250 ML 30 ML IV CONT (19:01)
--- NOTE | 2020-08-01 19:02 | PC.NURSE ---
Patient received from ED with blood transfusing.
[2020-08-01 19:26] LABS: Anion Gap 8 mmol/L (8-16); Blood Urea Nitrogen 69 mg/dL (9-20); Calcium 8.2 mg/dL (8.4-10.2); Carbon Dioxide 30 mmol/L (22-30); Chloride 92 mmol/L (98-107); Estimated CRCL calculation 49 ml/min; Estimated Glomerular Filt Rate 50; Glucose 117 mg/dL (75-110); Potassium 3.1 mmol/L (3.4-5.0); Sodium 130 mmol/L (137-145)
[2020-08-01 19:26] LABS: Magnesium 1.8 mg/dL (1.6-2.3)
[2020-08-01] MEDS: LACTATED RINGERS 1,000 ML 75 ML IV CONT (21:17)
[2020-08-01] MEDS: TERAZOSIN HCL 1 MG CAPSULE PO ×2 (21:18→21:47)
[2020-08-01] MEDS: POTASSIUM CHLORIDE 10 MEQ TABLET.ER 20 MEQ PO (21:18)
[2020-08-01] MEDS: rOPINIRole HCL 0.25 MG TABLET PO (21:18)
[2020-08-01] MEDS: FAMOTIDINE 20 MG/2 ML VIAL IV PUSH (21:19)
[2020-08-01] MEDS: APIXABAN 5 MG TABLET PO (21:20)
[2020-08-01] MEDS: PREGABALIN (*CRX) 75 MG CAPSULE PO (21:22)
[2020-08-01 22:11] LABS: Glucose Point of Care 155 (65-105)
[2020-08-02 02:04] LABS: Sodium Urine Random 28 meq/L
[2020-08-02 05:23] VITALS: BP 117/65; PULSE 80; RESP 18; TEMP 37.1; O2SAT 92
[2020-08-02 05:50] LABS: Basophils Percent Auto 1.1 % (0.2-1.2); Eosinophils Absolute Auto 0.2 K/mm3 (0-0.3); Eosinophils Percent Auto 9.3 % (0-4.4); Hematocrit 23.5 % (42.0-52.0); Hemoglobin 7.6 g/dL (14.0-18.0); Immature Granulocyte Absolute 0.03 K/mm3 (0.00-0.031); Immature Granulocyte Percent A 1.6 % (0-0.5); Lymphocytes Absolute Auto 0.18 K/mm3 (0.9-3.2); Lymphocytes Percent Auto 9.8 % (18.3-44.2); Mean Corpuscular HGB Conc 32.3 g/dl (32-36); Mean Corpuscular Hemoglobin 28.3 pg (26-34); Mean Corpuscular Volume 87.4 fl (80-100); Mean Platelet Volume 11.5 fl (7.4-10.4); Monocytes Absolute Auto 0.8 K/mm3 (0.1-0.6); Monocytes Percent Auto 44.3 % (2.6-8.5); Neutrophils Absolute Auto 0.6 K/mm3 (1.3-6.7); Neutrophils Percent Auto 33.9 % (45.5-73.1); Platelet Count Result 254 k/mm3 (150-375); Red Blood Count 2.69 M/mm3 (4.6-6.20); Red Cell Distribution Width 20.6 % (11.5-14.5)
[2020-08-02] MEDS: PREGABALIN (*CRX) 75 MG CAPSULE PO ×3 (06:03→21:10)
[2020-08-02 06:10] LABS: Anion Gap 8 mmol/L (8-16); Blood Urea Nitrogen 68 mg/dL (9-20); Calcium 8.4 mg/dL (8.4-10.2); Carbon Dioxide 29 mmol/L (22-30); Chloride 93 mmol/L (98-107); Estimated CRCL calculation 49 ml/min; Estimated Glomerular Filt Rate 50; Glucose 97 mg/dL (75-110); Potassium 3.3 mmol/L (3.4-5.0); Sodium 130 mmol/L (137-145)
[2020-08-02 06:57] LABS: Glucose Point of Care 107 (65-105)
[2020-08-02] MEDS: allopurinoL 100 MG TABLET 200 MG PO (08:45)
[2020-08-02] MEDS: FINASTERIDE 5 MG TABLET PO (08:45)
[2020-08-02] MEDS: POTASSIUM CHLORIDE 10 MEQ TABLET.ER 20 MEQ PO ×2 (08:45→17:26)
[2020-08-02] MEDS: APIXABAN 5 MG TABLET PO ×2 (08:45→21:07)
[2020-08-02] MEDS: rOPINIRole HCL 0.25 MG TABLET PO ×3 (08:46→17:26)
[2020-08-02] MEDS: PANTOPRAZOLE 40 MG TABLET PO (08:46)
[2020-08-02] MEDS: ISOSORBIDE MONONITRATE 30 MG TAB.ER.24H PO (08:46)
[2020-08-02] MEDS: FERROUS SULFATE 324 MG TABLET PO (08:46)
[2020-08-02] MEDS: SERTRALINE HCL 50 MG TABLET PO (08:46)
[2020-08-02] MEDS: MAGNESIUM OXIDE 400 MG TABLET PO (08:46)
[2020-08-02] MEDS: CHOLECALCIFEROL 1,000 UNITS TABLET 1000 UNITS PO (08:46)
[2020-08-02] MEDS: CYANOCOBALAMIN 1,000 MCG TABLET 1000 MCG PO (08:46)
[2020-08-02] MEDS: HYDROcodone/acetaminophen (*CRX) 5-325 MG TABLET 1 TAB PO (08:46)
[2020-08-02] MEDS: FAMOTIDINE 20 MG/2 ML VIAL IV PUSH ×2 (08:47→21:07)
[2020-08-02] MEDS: predniSONE 20 MG TABLET 40 MG PO (08:47)
[2020-08-02 08:59] LABS: White Blood Count 1.8 K/mm3 (4.5-10.0)
[2020-08-02 11:41] LABS: Glucose Point of Care 139 (65-105)
[2020-08-02 12:51] VITALS: BMI 32.8
--- NOTE | 2020-08-02 13:58 | PM.IMPN ---
Progress Note: A&P Assessment and Plan (1) Non-Hodgkin lymphoma in remission: Code(s): C85.90 - Non-Hodgkin lymphoma, unspecified, unspecified site Status: Acute Assessment and Plan: Has completed Rituxan, follows Dr. Davis oncology. (2) Acute gouty arthritis: Code(s): M10.9 - Gout, unspecified Status: Acute Assessment and Plan: -Continue prednisone 40mg daily for acute flare (3) Anemia: Qualifiers: Anemia type: unspecified type Qualified Code(s): D64.9 - Anemia, unspecified Code(s): D64.9 - Anemia, unspecified Status: Acute Assessment and Plan: status post 1 unit packed red blood cells 08/01/2020, stable. patient has chronic anemia and occasionally needs blood transfusions. (4) At high risk for falls: Code(s): Z91.81 - History of falling Status: Acute Assessment and Plan: continue PT/OT (5) Neutropenia: Qualifiers: Neutropenia type: secondary to cancer chemotherapy Qualified Code(s): D70.1 - Agranulocytosis secondary to cancer chemotherapy; T45.1X5A - Adverse effect of antineoplastic and immunosuppressive drugs, initial encounter Code(s): D70.9 - Neutropenia, unspecified Status: Acute Assessment and Plan: WBC is down to 1.8, absolute neutrophils. ANC 610. if ANC drops below 500 will initiate neutropenic precautions, will trend (6) Atrial fibrillation: Qualifiers: Atrial fibrillation type: unspecified chronic Qualified Code(s): I48.20 - Chronic atrial fibrillation, unspecified Code(s): I48.91 - Unspecified atrial fibrillation Status: Chronic Assessment and Plan: continue Eliquis, anemia is chronic and no sign of acute bleeding Additional Plan Diet: heart healthy fluid restricted DVT prophylaxis: On Eliquis Code status: Full code Disposition: inpatient, will need group home placement, continue physical therapy while inpatient Subjective Date/time seen: 08/02/20 13:58. patient exam visit. He is struggling to get up because of his gout flares/ rheumatoid arthritis. Patient has been started on prednisone. He follows Dr. Davis for Heme-Onc for his non-Hodgkin lymphoma status post Rituxan. He is status post 1 unit packed red blood cells yesterday. patient now needs group home placement which should be possible know that he does not need Rituxan. Patient denies fever, chills, nausea, vomiting, diarrhea. He does endorse significant weakness and could not participate with physical therapy today. His main limiting her is his joint pain from his gout flare. Review of Systems Review of Systems: All systems reviewed & are unremarkable except as noted in HPI and below Exam Narrative: Exam Narrative: - GENERAL: thin male in no acute distress - EYES: EOMI. Anicteric. - HENT: Moist mucous membranes. No scleral icterus. - LUNGS: minimal scattered wheezing, nonlabored respirations. - CARDIOVASCULAR: Regular rate and rhythm. No murmur. No JVD. - ABDOMEN: Soft, non-tender and non-distended. No palpable masses. - EXTREMITIES:Peripheral pulses 2+. Diffuse tenderness in joints right wrist greatest, rheumatoid nodules elbow, rheumatoid changes hand. Bilateral knee tenderness /warmth. - NEUROLOGIC: No focal neurological deficits. CN II-XII grossly intact. - PSYCHIATRIC: Awake, Alert and oriented x 3. Appropriate mood and affect. - SKIN: No rashes or lesions. Warm. Objective Data Vital Signs Vital Signs: Vital Signs - 24 hr 08/01/20 14:38 08/01/20 16:15 08/01/20 17:43 Temperature 36.6 C Pulse Rate 68 70 73 Respiratory Rate 15 14 16 Blood Pressure 101/50 L 118/62 96/67 L Pulse Oximetry 97 97 97 08/01/20 18:10 08/01/20 18:12 08/01/20 18:20 Temperature 36.2 C L Pulse Rate 73 75 72 Respiratory Rate 17 18 17 Blood Pressure 103/64 94/51 L 99/59 L Pulse Oximetry 96 94 94 08/01/20 18:28 08/01/20 19:28 08/01/20 20:28 Temperature 36.2 C L 36.2 C L
[2020-08-02 14:00] VITALS: BP 97/56; PULSE 77; RESP 18; TEMP 36.7; O2SAT 94
--- NOTE | 2020-08-02 17:27 | PDONCCN ---
HPI - Date of Consult Date/Time: 08/02/20 17:27 Requesting Physician: Nery Kearns MD Primary Care Provider: Armen Beasley, DO - Consult Narrative Reason for consult: Pancytopenia Narrative: Harvey Sorenson is a 75 year old male This is a pleasant 75-year-old obese male with history of non-Hodgkin follicular lymphoma status post chemotherapy and maintenance treatment with Rituxan. His last maintenance Rituxan was in March of 2020. Further treatment was discontinued due to patient poor tolerance. She was recently diagnosed with gouty arthritis with bilateral forearm involvement. He now came back into the hospital with generalized weakness as well as bilateral lower extremity swelling and arthritis pain involving bilateral ankles. His labs showed WBC of 1.8 with hemoglobin of 7.6 and platelet of [id number]. Patient had bone marrow aspiration and biopsy done in May of 2020 that showed no evidence of lymphoma but there was some non specific blast cells. His last CT scan were and March of 2020 that showed no evidence of lymphoma. He denies any bleeding and bruising. His weight and appetite stable. He denies any other new lung consult lymphadenopathy. Review of Systems - Review of Systems All systems reviewed & are unremarkable except as noted in HPI and bel - Neurologic Reports system reviewed and no additional complaints, except as documented, Reports hearing normal [facility] Medical History: Medical History (Last Updated 08/01/20 @ 18:41 by Cele Stark NP) Angina pectoris, unspecified previous cardiac catheterization with minimal blockage no intervention Anxiety Arthritis 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istory of gastrostomy tube placement Hyperlipidemia Hypertension Hyponatremia chronic Hypoxia Non Hodgkin's lymphoma Still on chemotherapy Obesity Obstructive sleep apnea Olecranon bursitis of right elbow Osteoarthritis involving multiple joints on both sides of body Peripheral sensory neuropathy Pulmonary hypertension Respiratory failure January 2016 resulting in tracheostomy and subsequent closure Sleep apnea Surgical History: Surgical History (Last Reviewed 08/01/20 @ 18:12 by Cele Stark NP) H/O hernia repair incarcerated ventral hernia November 2016 H/O uvulectomy History of cardiac catheterization March 2008 demonstrating mild coronary artery disease History of carpal tunnel release History of colostomy History of nasal septoplasty Hx of tonsillectomy Status post cataract extraction of both eyes with insertion of intraocular lens Status post rotator cuff repair bilateral Smoot teeth extracted Family History: Family History (Last Reviewed 08/01/20 @ 19:15 by Raúl Vázquez RN) Father Patient's father is COPD with emphysema Sibling Patient's sister is CHF (congestive heart failure) Diabetes mellitus Mother Valvular heart disease - Social History Social History: Social History (Last Reviewed 08/01/20 @ 18:20 by Cele Stark NP) Alcohol Use: Alcohol intake: never Substance Use: Substance use: never Substance use type: does not use Others: Spiritual care concerns: No Smoking Status: Smoking status: Former smoker Tobacco type: cigars Smoking end date: 09/23/99 Meds Home Medications Medication Instructions Recorded Confirmed Type acetaminophen 650 mg PO PRN PRN 07/14/19 08/01/20 History cholecalciferol (vitamin D3) 1,000 unit PO DAILY 07/14/19 08/01/20 History cyanocobalamin (vitamin B-12) 1,000 mcg PO DAILY 07/14/19 08/01/20 History tiki
[2020-08-02 18:56] LABS: Glucose Point of Care 154 (65-105)
[2020-08-02] MEDS: LACTATED RINGERS 1,000 ML 75 ML IV CONT (19:16)
[2020-08-02 20:48] LABS: Glucose Point of Care 189 (65-105)
[2020-08-02] MEDS: TERAZOSIN HCL 1 MG CAPSULE PO (21:07)
[2020-08-02 22:00] VITALS: BP 95/46; PULSE 72; RESP 20; TEMP 36.8; O2SAT 99
[2020-08-03 05:11] LABS: IFOB Positive Control Positive; Immunochemical Fecal Occult Bl Negative (N)
[2020-08-03 05:29] LABS: Eosinophils Percent Auto 0.7 % (0-4.4); Hematocrit 23.7 % (42.0-52.0); Hemoglobin 7.4 g/dL (14.0-18.0); Immature Granulocyte Absolute 0.02 K/mm3 (0.00-0.031); Immature Granulocyte Percent A 1.3 % (0-0.5); Lymphocytes Absolute Auto 0.14 K/mm3 (0.9-3.2); Lymphocytes Percent Auto 9.2 % (18.3-44.2); Mean Corpuscular HGB Conc 31.2 g/dl (32-36); Mean Corpuscular Hemoglobin 28.1 pg (26-34); Mean Corpuscular Volume 90.1 fl (80-100); Mean Platelet Volume 11.1 fl (7.4-10.4); Monocytes Absolute Auto 0.8 K/mm3 (0.1-0.6); Monocytes Percent Auto 52.6 % (2.6-8.5); Neutrophils Absolute Auto 0.6 K/mm3 (1.3-6.7); Neutrophils Percent Auto 36.2 % (45.5-73.1); Platelet Count Result 243 k/mm3 (150-375); Red Blood Count 2.63 M/mm3 (4.6-6.20); Red Cell Distribution Width 20.7 % (11.5-14.5)
[2020-08-03 05:47] LABS: Anion Gap 8 mmol/L (8-16); Blood Urea Nitrogen 72 mg/dL (9-20); Calcium 8.7 mg/dL (8.4-10.2); Carbon Dioxide 30 mmol/L (22-30); Chloride 96 mmol/L (98-107); Estimated CRCL calculation 43 ml/min; Estimated Glomerular Filt Rate 42; Glucose 141 mg/dL (75-110); Potassium 3.7 mmol/L (3.4-5.0); Sodium 134 mmol/L (137-145)
[2020-08-03 06:00] VITALS: BP 100/62; PULSE 55; RESP 20; TEMP 36.6; O2SAT 96
[2020-08-03 06:26] LABS: White Blood Count 1.5 K/mm3 (4.5-10.0)
[2020-08-03 06:27] LABS: Large Platelets Present; Ovalocytes 2+ (NORMAL); Platelet Estimate Adequate (Adequate)
[2020-08-03 06:28] LABS: Acanthocytes 1+ (NORMAL)
[2020-08-03 07:28] LABS: Glucose Point of Care 147 (65-105)
--- NOTE | 2020-08-03 08:52 | PM.IMPN ---
Progress Note: A&P Assessment and Plan (1) Non-Hodgkin lymphoma in remission: Code(s): C85.90 - Non-Hodgkin lymphoma, unspecified, unspecified site Status: Acute Assessment and Plan: - was on Rituxan , stopped for poor tolerance, follows Dr. Davis oncology. - CT chest abdomen pelvis 08/03/2020: Chronic mesenteric lymphadenopathy, consistent with scarring from treated lymphoma, moderate worsening of ascites , small pleural effusions. Based on the radiology read it appears to be a stable study with no gross relapse. - Last bone marrow biopsy was in May 2020. (2) Acute gouty arthritis: Code(s): M10.9 - Gout, unspecified Status: Acute Assessment and Plan: -Continue prednisone 40mg daily for acute flare (3) Anemia: Qualifiers: Anemia type: unspecified type Qualified Code(s): D64.9 - Anemia, unspecified Code(s): D64.9 - Anemia, unspecified Status: Acute Assessment and Plan: -status post 1 unit packed red blood cells 08/01/2020, stable. patient has chronic anemia and occasionally needs blood transfusions. (4) At high risk for falls: Code(s): Z91.81 - History of falling Status: Acute Assessment and Plan: continue PT/OT (5) Neutropenia: Qualifiers: Neutropenia type: secondary to cancer chemotherapy Qualified Code(s): D70.1 - Agranulocytosis secondary to cancer chemotherapy; T45.1X5A - Adverse effect of antineoplastic and immunosuppressive drugs, initial encounter Code(s): D70.9 - Neutropenia, unspecified Status: Acute Assessment and Plan: - WBC is down to 1.5, absolute neutrophils. ANC 540. if ANC drops below 500 will initiate neutropenic precautions, will continue to trend. (6) Atrial fibrillation: Qualifiers: Atrial fibrillation type: unspecified chronic Qualified Code(s): I48.20 - Chronic atrial fibrillation, unspecified Code(s): I48.91 - Unspecified atrial fibrillation Status: Chronic Assessment and Plan: continue Eliquis, anemia is chronic and no sign of acute bleeding Additional Plan Diet: heart healthy fluid restricted DVT prophylaxis: On Eliquis Code status: Full code Disposition: inpatient, will need care home placement, continue PT/OT while inpatient Subjective Date/time seen: 08/03/20 08:52 Patient examined bedside. He has no new complaints today. His gout is doing better, his main complaint was pain in his ankles which is improving. will continue prednisone. Oncology saw him last night and ordered a CT abdomen pelvis for concern for relapse of non-Hodgkin lymphoma. Patient to continue physical therapy while inpatient. WBC count has come down to 1.5k, neutrophil 540. patient denies fever, chills, night sweats, nausea, vomiting, diarrhea. Review of Systems Review of Systems: All systems reviewed & are unremarkable except as noted in HPI and below Exam Narrative: Exam Narrative: - GENERAL: thin male in no acute distress - EYES: EOMI. Anicteric. - HENT: Moist mucous membranes. No scleral icterus. - LUNGS: Clear to auscultation no wheezing or rhonchi, nonlabored respiratory. - CARDIOVASCULAR: Regular rate and rhythm. No murmur. No JVD. - ABDOMEN: Soft, non-tender and non-distended. No palpable masses. - EXTREMITIES: Peripheral pulses 2+. pedal edema. Diffuse tenderness right wrist swelling, Bilateral ankle warmth and edema left greater than right., rheumatoid nodules elbow, rheumatoid changes in hands. Bilateral knee tenderness /warmth. - NEUROLOGIC: No focal neurological deficits. CN II-XII grossly intact. - PSYCHIATRIC: Awake, Alert and oriented x 3. Appropriate mood and affect. - SKIN: warm, dry. Objective Data Vital Signs Vital Signs: Vital Signs - 24 hr 08/02/20 14:00 08/02/20 22:00 08/03/20 06:00 Temperature 36.7 C 36.8 C 36.6 C Pulse Rate 77 72 55 L Respiratory Rate 18 20 20 Blood Pressure 97/56 L 95/46 L 100/62 Pulse Oxime
[2020-08-03] MEDS: MAGNESIUM OXIDE 400 MG TABLET PO (10:21)
[2020-08-03] MEDS: CHOLECALCIFEROL 1,000 UNITS TABLET 1000 UNITS PO (10:21)
[2020-08-03] MEDS: SERTRALINE HCL 50 MG TABLET PO (10:21)
[2020-08-03] MEDS: ISOSORBIDE MONONITRATE 30 MG TAB.ER.24H PO (10:21)
[2020-08-03] MEDS: predniSONE 20 MG TABLET 40 MG PO (10:22)
[2020-08-03] MEDS: CYANOCOBALAMIN 1,000 MCG TABLET 1000 MCG PO (10:22)
[2020-08-03] MEDS: POTASSIUM CHLORIDE 10 MEQ TABLET.ER 20 MEQ PO ×2 (10:22→16:33)
[2020-08-03] MEDS: rOPINIRole HCL 0.25 MG TABLET PO ×3 (10:22→20:32)
[2020-08-03] MEDS: APIXABAN 5 MG TABLET PO ×2 (10:22→20:32)
[2020-08-03] MEDS: PANTOPRAZOLE 40 MG TABLET PO (10:22)
[2020-08-03] MEDS: allopurinoL 100 MG TABLET 200 MG PO (10:22)
[2020-08-03] MEDS: FINASTERIDE 5 MG TABLET PO (10:22)
[2020-08-03] MEDS: PREGABALIN (*CRX) 75 MG CAPSULE PO ×3 (10:23→20:32)
[2020-08-03] MEDS: FERROUS SULFATE 324 MG TABLET PO (10:23)
[2020-08-03] MEDS: HYDROcodone/acetaminophen (*CRX) 5-325 MG TABLET 1 TAB PO (10:23)
[2020-08-03] MEDS: FAMOTIDINE 20 MG/2 ML VIAL IV PUSH ×2 (10:24→20:32)
[2020-08-03] MEDS: LACTATED RINGERS 1,000 ML 75 ML IV CONT ×2 (10:24→23:45)
[2020-08-03 11:58] LABS: Glucose Point of Care 122 (65-105)
[2020-08-03 13:41] VITALS: BP 100/64; PULSE 60; RESP 18; TEMP 36.4; O2SAT 96
--- NOTE | 2020-08-03 14:57 | WPDONCPN ---
Progress Note: A/P - Additional Plan Normocytic anemia and leukopenia. CT scan of chest abdomen pelvis showed no evidence of relapse of lymphoma. WBC count has declined further. I will proceed with bone marrow aspiration and biopsy. History of follicular lymphoma. CT scan showed chronic stable mesenteric lymphadenopathy without any evidence of of active disease. There is a moderate ascites. Gouty arthritis. Pain is under better control. - Time Spent With Patient Total time spent is greater than 50% in coordination of care (as documented) at patient's floor/unit and/or counseling patient: 15 - 25 minutes Subjective Interval history: Non-Hodgkin lymphoma Leukopenia and anemia Gouty arthritis Review of Systems - Review of Systems Patient remains tired and fatigued. He denies any fevers and chills. Denies any bleeding. Arthritis pain is under better control. - Neurologic Reports system reviewed and no additional complaints, except as documented, Reports hearing normal Exam Vital signs: Temp Pulse Resp BP Pulse Ox 36.4 C 60 18 100/64 96 08/03/20 13:41 08/03/20 13:41 08/03/20 13:41 08/03/20 13:41 08/03/20 13:41 Narrative: Lungs are clear to auscultation bilaterally Cardiovascular regular rate rhythm no murmurs Abdomen soft nontender nondistended bowel sounds are positive Extremities mild bilateral lower extremity edema PN: Objective Data - Labs CBC & Chem 7: 08/03/20 05:06 08/03/20 05:06 Labs: Laboratory Results - last 24 hr 08/02/20 08/02/20 08/02/20 18:53 20:42 22:59 WBC RBC Hgb Hct MCV MCH MCHC RDW Plt Count MPV Immature Gran % (Auto) Neut % (Auto) Lymph % (Auto) [place] % (Auto) Eos % (Auto) Baso % (Auto) Lymph # (Auto) [place] # (Auto) Eos # (Auto) Baso # (Auto) Abs Immat Gran (auto) Absolute Neuts (auto) Absolute Nucleated RBC Nucleated RBC % Platelet Estimate Large Platelets Ovalocytes Acanthocytes (Spur) Sodium Potassium Chloride Carbon Dioxide Anion Gap BUN Creatinine Estim Creat Clear Calc Estimated GFR Glucose POC Capillary Glucose 154 H 189 H Calcium Stl Occult Blood (IFOB) Negative 08/03/20 08/03/20 08/03/20 05:06 05:06 07:18 WBC 1.5 L* RBC 2.63 L Hgb 7.4 L Hct 23.7 L MCV 90.1 MCH 28.1 MCHC 31.2 L RDW 20.7 H Plt Count 243 MPV 11.1 H Immature Gran % (Auto) 1.3 H Neut % (Auto) 36.2 L Lymph % (Auto) 9.2 L [place] % (Auto) 52.6 H Eos % (Auto) 0.7 Baso % (Auto) 0.0 L Lymph # (Auto) 0.14 L [place] # (Auto) 0.8 H Eos # (Auto) 0.0 Baso # (Auto) 0.0 Abs Immat Gran (auto) 0.02 Absolute Neuts (auto) 0.6 L Absolute Nucleated RBC 0.0 Nucleated RBC % 0.0 Platelet Estimate Adequate Large Platelets Present Ovalocytes 2+ Acanthocytes (Spur) 1+ Sodium 134 L Potassium 3.7 Chloride 96 L Carbon Dioxide 30 Anion Gap 8 BUN 72 H Creatinine 1.60 H Estim Creat Clear Calc 43 Estimated GFR 42 L Glucose 141 H POC Capillary Glucose 147 H Calcium 8.7 Stl Occult Blood (IFOB) 08/03/20 11:42 WBC RBC Hgb Hct MCV MCH MCHC RDW Plt Count MPV Immature Gran % (Auto) Neut % (Auto) Lymph % (Auto) [place] % (Auto) Eos % (Auto) Baso % (Auto) Lymph # (Auto) [place] # (Auto) Eos # (Auto) Baso # (Auto) Abs Immat Gran (auto) Absolute Neuts (auto) Absolute Nucleated RBC Nucleated RBC % Platelet Estimate Large Platelets Ovalocytes Acanthocytes (Spur) Sodium Potassium Chloride Carbon Dioxide Anion Gap BUN Creatinine Estim Creat Clear Calc Estimated GFR Glucose POC Capillary Glucose 122 H Calcium Stl Occult Blood (IFOB)
[2020-08-03 16:46] LABS: Glucose Point of Care 171 (65-105)
[2020-08-03 20:00] VITALS: PULSE 60; RESP 18; O2SAT 96
[2020-08-03] MEDS: TERAZOSIN HCL 1 MG CAPSULE PO (20:32)
[2020-08-03 20:53] LABS: Glucose Point of Care 176 (65-105)
[2020-08-03 22:00] VITALS: BP 105/62; PULSE 58; RESP 20; TEMP 36.1; O2SAT 98
[2020-08-04 05:31] LABS: Hemoglobin 7.6 g/dL (14.0-18.0); Mean Corpuscular HGB Conc 30.4 g/dl (32-36); Mean Corpuscular Volume 92.3 fl (80-100); Mean Platelet Volume 11.4 fl (7.4-10.4); Platelet Count Result 270 k/mm3 (150-375); Red Blood Count 2.71 M/mm3 (4.6-6.20); Red Cell Distribution Width 20.9 % (11.5-14.5)
[2020-08-04 05:37] LABS: White Blood Count 1.5 K/mm3 (4.5-10.0)
[2020-08-04 05:51] LABS: Anion Gap 8 mmol/L (8-16); Blood Urea Nitrogen 78 mg/dL (9-20); Calcium 8.7 mg/dL (8.4-10.2); Carbon Dioxide 30 mmol/L (22-30); Chloride 97 mmol/L (98-107); Estimated CRCL calculation 46 ml/min; Estimated Glomerular Filt Rate 46; Glucose 126 mg/dL (75-110); Potassium 4.2 mmol/L (3.4-5.0); Sodium 135 mmol/L (137-145)
[2020-08-04 06:00] VITALS: BP 104/70; PULSE 99; RESP 18; TEMP 36.1; O2SAT 97
[2020-08-04] MEDS: LACTATED RINGERS 1,000 ML 75 ML IV CONT (06:06)
[2020-08-04 08:00] LABS: Glucose Point of Care 131 (65-105)
--- NOTE | 2020-08-04 08:30 | PC.NURSE ---
Spoke with Krupa RN in [facility] with regards to bone marrow biopsy scheduled for today and 0900 medications. Per Krupa, administer Cardizem and patient may have pain pill. Also notified her that patient has been on Eliquis Q12HR and last dose received was last night.
[2020-08-04] MEDS: HYDROcodone/acetaminophen (*CRX) 5-325 MG TABLET 1 TAB PO (08:33)
--- NOTE | 2020-08-04 08:47 | PC.NURSE ---
Per Kurpa RN in [facility], she has spoken to Dr. Antonio and they are cancelling bone marrow biopsy today d/t patient receiving eliquis last night and it not being held for [address] Davis to notify, left voicemail to return phonecall.
--- NOTE | 2020-08-04 09:46 | PC.NURSE ---
Spoke with Dr. Davis's office in regards to Eliquis and bone marrow biospy. Per Dr. Davis, hold Eliquis for 48 hours so patient can have biopsy. However, if hospitalist is wanting to discharge patient, patient can do biospy as outpatient procedure. Called to Dr. Padilla to update. If Eliquis was held after last dose, biospy would tentatively be done on Saturday. However, due to being the weekend biopsy would have to wait until Saturday. Per Dr. Padilla, we are still looking for [facility] placement for patient. Hold Eliquis after morning dose tomorrow (08/05/2020) for biospy tentatively scheduled for Saturday08/08/2020 as patient will likely be here until then. Placed orders in to hold Eliquis and rescheduled biopsy for Saturday08/08/2020.
[2020-08-04 10:50] VITALS: BP 104/64; PULSE 65
[2020-08-04] MEDS: rOPINIRole HCL 0.25 MG TABLET PO ×3 (10:52→16:38)
[2020-08-04] MEDS: POTASSIUM CHLORIDE 10 MEQ TABLET.ER 20 MEQ PO ×2 (10:52→16:38)
[2020-08-04] MEDS: MAGNESIUM OXIDE 400 MG TABLET PO (10:52)
[2020-08-04] MEDS: CHOLECALCIFEROL 1,000 UNITS TABLET 1000 UNITS PO (10:53)
[2020-08-04] MEDS: ISOSORBIDE MONONITRATE 30 MG TAB.ER.24H PO (10:53)
[2020-08-04] MEDS: APIXABAN 5 MG TABLET PO (10:53)
[2020-08-04] MEDS: FAMOTIDINE 20 MG/2 ML VIAL IV PUSH (10:53)
[2020-08-04] MEDS: CYANOCOBALAMIN 1,000 MCG TABLET 1000 MCG PO (10:53)
[2020-08-04] MEDS: allopurinoL 100 MG TABLET 200 MG PO (10:53)
[2020-08-04] MEDS: FINASTERIDE 5 MG TABLET PO (10:53)
[2020-08-04] MEDS: FERROUS SULFATE 324 MG TABLET PO (10:53)
[2020-08-04] MEDS: SERTRALINE HCL 50 MG TABLET PO (10:53)
[2020-08-04] MEDS: PANTOPRAZOLE 40 MG TABLET PO (10:53)
[2020-08-04] MEDS: predniSONE 20 MG TABLET 40 MG PO (10:53)
[2020-08-04 11:30] LABS: Glucose Point of Care 137 (65-105)
--- NOTE | 2020-08-04 11:43 | PM.DS ---
DS: Admitting Diagnosis Admitting Diagnosis Admitting Diagnosis: Anemia/Gout/Dehydration DS: Discharge Diagnosis Discharge Diagnosis (1) Non-Hodgkin lymphoma in remission: Code(s): C85.90 - Non-Hodgkin lymphoma, unspecified, unspecified site Status: Acute Assessment and Plan: - was on Rituxan , stopped for poor tolerance, follows Dr. Davis oncology. - CT chest abdomen pelvis 08/03/2020: Chronic mesenteric lymphadenopathy, consistent with scarring from treated lymphoma, moderate worsening of ascites , small pleural effusions. Based on the radiology read it appears to be a stable study with no gross relapse. - Last bone marrow biopsy was in May 2020. Will plan for outpatient bone marrow biopsy, will need to hold Eliquis 48 hours prior. (2) Acute gouty arthritis: Code(s): M10.9 - Gout, unspecified Status: Acute Assessment and Plan: -Continue taper prednisone 40mg for 3 days then 20mg for 6 days for acute flare (3) Anemia: Qualifiers: Anemia type: unspecified type Qualified Code(s): D64.9 - Anemia, unspecified Code(s): D64.9 - Anemia, unspecified Status: Acute Assessment and Plan: -status post 1 unit packed red blood cells 08/01/2020, stable. patient has chronic anemia and occasionally needs blood transfusions. (4) At high risk for falls: Code(s): Z91.81 - History of falling Status: Acute Assessment and Plan: continue PT/OT (5) Neutropenia: Qualifiers: Neutropenia type: secondary to cancer chemotherapy Qualified Code(s): D70.1 - Agranulocytosis secondary to cancer chemotherapy; T45.1X5A - Adverse effect of antineoplastic and immunosuppressive drugs, initial encounter Code(s): D70.9 - Neutropenia, unspecified Status: Acute Assessment and Plan: - WBC is down to 1.5, absolute neutrophils around 500, patient to follow up with oncology. (6) Atrial fibrillation: Qualifiers: Atrial fibrillation type: unspecified chronic Qualified Code(s): I48.20 - Chronic atrial fibrillation, unspecified Code(s): I48.91 - Unspecified atrial fibrillation Status: Chronic Assessment and Plan: continue Eliquis, anemia is chronic and no sign of acute bleeding, will need to hold for bone marrow biopsy DS: Summary Hospital Course Reason for hospitalization: Anemia/gout /dehydration Hospital Course: Patient is a 75-year-old male past medical history non-Hodgkin lymphoma followed by Dr. Davis, recurrent gout presents to the ED with complaints of generalized weakness. He was given 1 unit of blood for the anemia, likely secondary to his bone marrow suppression, stable at hgb 7.6. He has leukopenia with white blood cells around [address] Davis was concern for relapse of lymphoma, CT chest and pelvis did not show any signs of relapse. Plan will be for outpatient bone marrow biopsy, patient will need a have Eliquis held for 48 hours prior to procedure. for the gout flare he was given 40 mg prednisone daily with great improvement of his polyarticular gout Which was affecting his knees and wrist. by treating the gout he was able to ambulate with walker and came back to baseline. Patient is not interested in placement to snf at this time as he is clinically much better. He understands if he decompensates that snf may be his future. I talked with and discussed plan with daughter Tessie. For his kidney injury he was thought to be dehydrated, diuretics have been held and creatinine slowly improving. Patient will be discharged home with prednisone taper for his gout flare, holding diuretics for him to follow-up with primary care provider to restart, plan for outpatient bone marrow biopsy. Patient follow-up with his primary care doctor in a week and oncologist the next 2 weeks. Patient understands and agrees with plan. Patient's vitals stable, labs stable, patient is stabl
[2020-08-04] MEDS: PREGABALIN (*CRX) 75 MG CAPSULE PO (13:31)
--- NOTE | 2020-08-04 16:17 | PC.NURSE ---
Patient refused flu vaccine. Patient states he would rather follow up with his PCP and discuss flu vaccine w/having decreased WBC.
[2020-08-04 16:29] LABS: Glucose Point of Care 144 (65-105)
== END 2020-08-04 17:05 | disposition home health service (06) | DRG 554 ==
LOC: ANHED 15:51 → ANH2MED 17:23
PROVIDERS: Emergency Medicine Emergency Medical Services; Nurse Practitioner; Admitting Provider Family Medicine; Emergency Provider Emergency Medicine; PCP Internal Medicine; Referring Provider Internal Medicine Hematology & Oncology; Visit Provider Student in an Organized Health Care Education/Training Program
DX: M10.062 Idiopathic gout, left knee (principal); I48.20 Chronic atrial fibrillation, unspecified; C85.90 Non-Hodgkin lymphoma, unspecified, unspecified site; I13.0 Hypertensive heart and chronic kidney disease with heart failure and stage 1 through stage 4 chronic kidney disease, or unspecified chronic kidney disease; N18.4 Chronic kidney disease, stage 4 (severe); E11.42 Type 2 diabetes mellitus with diabetic polyneuropathy; E11.22 Type 2 diabetes mellitus with diabetic chronic kidney disease; M10.061 Idiopathic gout, right knee; M10.039 Idiopathic gout, unspecified wrist; I50.9 Heart failure, unspecified; D70.1 Agranulocytosis secondary to cancer chemotherapy; T45.1X5A Adverse effect of antineoplastic and immunosuppressive drugs, initial encounter; I25.10 Atherosclerotic heart disease of native coronary artery without angina pectoris; D64.9 Anemia, unspecified; F41.8 Other specified anxiety disorders; E78.5 Hyperlipidemia, unspecified; E86.0 Dehydration; N40.0 Benign prostatic hyperplasia without lower urinary tract symptoms; J43.9 Emphysema, unspecified; M06.9 Rheumatoid arthritis, unspecified; M70.31 Other bursitis of elbow, right elbow; Z91.81 History of falling; Z98.42 Cataract extraction status, left eye; Z98.41 Cataract extraction status, right eye
CPT/HCPCS: 36415; 36430; 71260; 73630; 74177; 80048; 82274; 83735; 84300; 84550; 85025; 85027; 85610; 86140; 86850; 86900; 86901; 86923; 87040; 88305; 88311; 88313; 96361; 96365; 96366; 96375; 96376; 97110; 97116; 97161; 97165; 97530; 97535; 99285; A9270; G0378; J0131; J7030; J7040; J7050; J7120; J7512; P9016; Q9967

== ENCOUNTER 2020-08-05 14:34 | Inpatient (IN) | payer MEDICARE, MEDICAID, SELFPAY ==
--- NOTE | ~2020-08-05 | XR_ITS ---
EXAMINATION: XR chest 1V portable DATE: 08/05/2020 16:47 INDICATION: PUI COVID. Shortness of breath TECHNIQUE: frontal view of the chest was obtained. COMPARISON: Chest radiograph dated 05/06/2020 FINDINGS: Chronic eventration of the right hemidiaphragm. There are patchy and linear airspace opacities throug hout the right lung and in the perihilar and lower left lung consistent with pneumonia. No pleural ef fusion or pneumothorax. Cardiomegaly. Enlargement of the central pulmonary arteries consistent with p ulmonary arterial hypertension. Right internal jugular central venous port catheter with distal tip i n the mid superior vena cava. IMPRESSION: 1. Bilateral patchy airspace opacities consistent with multifocal pneumonia. Reviewed, dictated and finalized at location . R HELPER
--- NOTE | ~2020-08-05 | XR_ITS ---
EXAMINATION: XR chest 1V portable DATE: 08/10/2020 11:24 INDICATION: Shortness of breath. TECHNIQUE: A single frontal view of the chest was obtained. COMPARISON: Chest single view 08/08/2020, chest CT 08/03/2020 FINDINGS: There is chronic elevation of right hemidiaphragm. There is mild at right lung base. There are mild airspace opacities in the perihilar regions. No pleural effusion or pneumothorax. Cardiomega ly is noted. The nasoenteric tube tip is in the proximal stomach. There is a right internal jugular p ort with tip in superior vena cava. IMPRESSION: 1. Mild airspace opacities in the perihilar regions, consistent with pneumonia versus mild pulmonary edema. 2. Chronic elevation of right hemidiaphragm with mild atelectasis at right lung base. 3. Cardiomegaly. 4. Nasoenteric tube tip in the proximal stomach. The tube may have been retracted since its placement . Advancement is recommended. Reviewed, dictated and finalized at location A. CH ENGINE OPTIMIZER IMPRESSION: 1. Mild airspace opacities in the perihilar regions, consistent with pneumonia versus mild pulmonary edema. 2. Chronic elevation of right hemidiaphragm with mild atelectasis at right lung base. 3. Cardiomegaly. 4. Nasoenteric tube tip in the proximal stomach. The tube may have been retract ed since its placement. Advancement is recommended.
--- NOTE | ~2020-08-05 | XR_ITS ---
MODIFIED ESOPHAGRAM HISTORY: Impaired swallowing TECHNIQUE: Modified barium esophagram was performed by speech pathologist under radiologist fluorosco pic guidance. This was recorded on tape. The exam was reviewed on 08/16/2020 10:26 SITE FOREMAN. The DAP fo r this procedure was 4 Gycm2. Fluoroscopy time is 2.6 minutes. Single image. FINDINGS: Lateral projection of the cervical spine demonstrates normal alignment. There is normal o ral stage of swallowing. During pharyngeal stage there is reduced laryngeal elevation, laryngeal redu ction and tongue base retraction. There is vallecular and piriform sinus residue with laryngeal penet ration. No evidence for aspiration.. IMPRESSION: 1: Trace laryngeal penetration without aspiration. 2: Please refer to speech pathologist report for additional detail. Reviewed, dictated and finalized at location A. FOREMAN
--- NOTE | ~2020-08-05 | XR_ITS ---
XR chest 1V portable 08/25/2020 13:11 Indication: Shortness of breath Procedure: AP portable chest Comparison: Comparison to multiple prior studies sequentially, with oldest reviewed study dated 08/05 Findings: Portacatheter tip in the SVC. Cardiomegaly with diffuse bilateral airspace disease. No pleu ral effusion or pneumothorax. There is atherosclerosis. There are degenerative changes of the shoulde rs. Impression: 1: Diffuse bilateral airspace disease which may represent edema or pneumonia. Reviewed, dictated and finalized at location B. ORATION GEOLOGIST Impression: 1: Diffuse bilateral airspace disease which may represent edema or pneumonia.
--- NOTE | ~2020-08-05 | XR_ITS ---
EXAMINATION: XR fl Dobhoff insert/rad w img DATE: 08/18/2020 19:29 INDICATION: Dysphagia. TECHNIQUE: I placed a nasoenteric tube under fluoroscopic guidance. Fluoroscopy exposure time was 3.5 minutes. The number of images was 1. COMPARISON: None. FINDINGS: The image demonstrates the nasoenteric tube tip in the stomach. IMPRESSION: 1. Fluoroscopy guided nasoenteric tube placement with tip in the stomach. Reviewed, dictated and finalized at location A. CS INSTRUCTOR
--- NOTE | ~2020-08-05 | XR_ITS ---
EXAMINATION: XR chest 1V portable DATE: 08/08/2020 07:31 INDICATION: Dyspnea. TECHNIQUE: A single frontal view of the chest was obtained. COMPARISON: Chest single view 08/05/2020, chest CT 08/03/2020 FINDINGS: There is elevation of right hemidiaphragm. There is mild atelectasis in right lower lung zo ne. There are mild airspace opacities in left mid and lower lung zones. No pleural effusion or pneumo thorax. Cardiomegaly is noted. There is a right internal jugular port with tip in superior vena cava. IMPRESSION: 1. Chronic elevation of right hemidiaphragm with mild atelectasis in right lower lung zone. 2. Mild airspace opacities in left mid and lower lung zones, consistent with atelectasis versus pneum onia. 3. Cardiomegaly. Reviewed, dictated and finalized at location A. NICAL BUSINESS ANALYST IMPRESSION: 1. Chronic elevation of right hemidiaphragm with mild atelectasis in right lowe r lung zone. 2. Mild airspace opacities in left mid and lower lung zones, consistent with at electasis versus pneumonia. 3. Cardiomegaly.
--- NOTE | ~2020-08-05 | XR_ITS ---
EXAMINATION: XR chest 1V portable DATE: 08/15/2020 14:36 INDICATION: Acute encephalopathy. TECHNIQUE: A single frontal view of the chest was obtained. COMPARISON: Chest single view 08/10/2020, chest CT 08/03/2020 FINDINGS: Again seen is elevation of right hemidiaphragm. There are airspace opacities in the lower l eli zones. No pleural effusion or pneumothorax. Cardiomegaly is noted. There is a right internal jugu lar port with tip in superior vena cava. The nasoenteric tube tip is in the stomach. IMPRESSION: 1. Stable airspace opacities in the lower lung zones, consistent with atelectasis versus pneumonia. 2. Cardiomegaly. Reviewed, dictated and finalized at location A. EAR MEDICINE MEDICAL DIRECTOR IMPRESSION: 1. Stable airspace opacities in the lower lung zones, consistent with atelectas is versus pneumonia. 2. Cardiomegaly.
--- NOTE | ~2020-08-05 | XR_ITS ---
XR chest 1V portable 09/09/2020 12:00 Indication: Increased respirations. Procedure: AP portable chest Comparison: Comparison to multiple prior studies sequentially, with oldest reviewed study dated 07/24. Findings: Cardiomegaly with mild interstitial edema. There is atelectasis of the right midlung zone. Portacatheter tip in the SVC. No significant effusion or pneumothorax. No acute osseous abnormality. Impression: 1: Cardiomegaly with interstitial edema. 2: Atelectasis right midlung zone. Reviewed, dictated and finalized at location A. EDGE STITCHER HAND Impression: 1: Cardiomegaly with interstitial edema. 2: Atelectasis right midlung zone.
--- NOTE | ~2020-08-05 | XR_ITS ---
EXAMINATION: XR chest 1V portable EXAM DATE: 09/07/2020 19:37 INDICATION: Hypoxia. TECHNIQUE: Portable AP frontal chest x-ray was obtained. Comparison is made to prior examination from 08/25/2020. FINDINGS: There is a right-sided portacatheter. There is cardiomegaly and pulmonary vascular congesti on. Ill-defined moderate amount of bilateral airspace disease, could be edema or infection. There is no pneumothorax suspected. There are no pleural effusions. There is aortic arteriosclerosis. There ar e bony degenerative changes. There is no significant interval change. IMPRESSION: 1. Cardiomegaly, congestive changes. 2. Bilateral ill-defined edema or infection unchanged. Reviewed, dictated and finalized at location A. ITY CONTROL CHECKER
--- NOTE | ~2020-08-05 | BM_ITS ---
EXAMINATION: CCL bone marrow asp w bx diag ORDER COMPLETED DATE: 08/29/2020 11:41 INDICATION: Anemia. Failure to thrive. TECHNIQUE: A time-out was performed to verify the patient's name, date of , and procedure to b e performed. The procedure including the risks and benefits was discussed with the patient. Risks dis cussed included bleeding, infection, nerve injury and allergic reaction. The patient understood the r isks and agreed to proceed. The skin overlying the left posterior iliac spine was prepped and draped in usual sterile fashion. Anesthetic was administered with 1% lidocaine subcutaneously. An 11 gauge needle was inserted into the ilium with fluoroscopic guidance. Bone marrow was aspirated. An 8 gauge needle was then inserted into the ilium with fluoroscopic guidance. A core bone marrow biopsy was obt ained. The needle was removed and the entry site was cleaned and dressed. There were no immediate co mplications. A total of 19 fluoroscopic images were recorded. Fluoroscopy exposure time was 0.1 minut es. FINDINGS: Real-time fluoroscopy demonstrates the biopsy needle tip overlying the left posterior iliac spine. IMPRESSION: 1. Successful fluoroscopic guided bone marrow aspiration. 2. Successful fluoroscopic guided bone marrow biopsy. Reviewed, dictated and finalized at location A. H SCALER AND MIXER
--- NOTE | ~2020-08-05 | XR_ITS ---
EXAMINATION: XR abdomen/kub 1V DATE: 09/09/2020 12:00 INDICATION: Tachypnea. TECHNIQUE: A supine view of the abdomen on 2 radiographs was obtained. COMPARISON: CT abdomen and pelvis 08/03/2020 FINDINGS: There is a large volume of stool in the colon with distention of the rectum. The small mazin l is normal in caliber. A gastrostomy tube overlies the upper abdomen. IMPRESSION: 1. Large volume of colonic stool with distention of the rectum. Reviewed, dictated and finalized at location A. RACT TECHNICIAN
--- NOTE | ~2020-08-05 | XR_ITS ---
EXAMINATION: XR fl Dobhoff insert/rad w img DATE: 08/10/2020 10:02 INDICATION: Encephalopathy. TECHNIQUE: I placed a nasoenteric tube under fluoroscopic guidance. Fluoroscopy exposure time was 0.6 minutes. The number of images was 1. COMPARISON: None. FINDINGS: The nasoenteric tube tip is in the stomach. IMPRESSION: 1. Nasoenteric tube tip in the stomach. Reviewed, dictated and finalized at location A. ER
--- NOTE | ~2020-08-05 | MR_ITS ---
EXAMINATION: MR brain/brain stem wo con EXAM DATE: 08/07/2020 09:49 INDICATION: Acute encephalopathy. TECHNIQUE: Magnetic resonance imaging (MRI) of the brain/brain stem obtained without contrast. Sagitt al T1, axial diffusion, gradient echo (T2*), T1, T2, FLAIR sequences obtained. Correlation is made t o head CT from yesterday. FINDINGS: There are no areas of restricted diffusion to suggest acute infarction. There is no acute hemorrhage seen on the T2*, a hemosiderin sensitive sequence. No intraparenchymal brain mass lesion. There is mild periventricular and subcortical T2/FLAIR signal hyperintensity, nonspecific but probab ly related to small vessel ischemic disease (microangiopathy). There is mild prominence of the sulc i and ventricles related to cerebral atrophy. There are no extra-axial collections. Flow voids are seen in the cerebral arteries on the T2-weighted sequences consistent with their expected patency. Patient has had bilateral ocular lens surgery. Soft tissue is unremarkable. Mild mucoperiosteal thi ckening right maxillary, bilateral ethmoid sinuses. IMPRESSION: 1. No acute intracranial findings. 2. Chronic age related findings. Reviewed, dictated and finalized at location A. FILER
--- NOTE | ~2020-08-05 | XR_ITS ---
EXAMINATION: XR abdomen NG/feed tube rechec EXAM DATE: 08/12/2020 15:57 INDICATION: Dobhoff Placement Reverification TECHNIQUE: Frontal projection(s) of the abdomen for interpretation. Comparison is made to prior exami nation from yesterday. FINDINGS: Dobhoff tube identified with small amount of redundancy in the gastric cardia, with tip al so in this location. There is a right-sided Port-A-Cath. Nonspecific upper abdominal bowel gas patter n. IMPRESSION: Feeding tube tip in in stomach, gastric cardial region. Reviewed, dictated and finalized at location A. CERTIFIED CONCIERGE
[2020-08-05 16:15] VITALS: RESP 46; O2SAT 97
[2020-08-05 16:27] VITALS: BP 138/95; PULSE 91; RESP 40; TEMP 36.5; O2SAT 99
--- NOTE | 2020-08-05 16:27 | PM.IMHP ---
H&P: HPI History of Present Illness Date/Time: 08/05/20 16:27 Chief complaint: Altered Mental Status Narrative: Patient is a 75-year-old male past medical history congestive heart failure, COPD, AFib, gout,non-Hodgkin lymphoma followed by Dr. Davis, recurrent gout who presented to [facility] ED for altered mental status. He was recently admitted for generalized weakness 08/02-08/04, was given 1 unit of blood for anemia with improvement of hemoglobin stable at 7.6. he was leukopenic a blood cells 1500. Dr. Davis was concern for relapse of lymphoma, CT chest and pelvis did not show any signs of relapse. Plan was for outpatient bone marrow biopsy, patient will need a have Eliquis held for 48 hours prior to procedure. For the gout flare he was given 40 mg prednisone daily with great improvement of his polyarticular gout. After he got home he has a helper at but takes care from and in the evening last saw him sitting in a chair. By the next morning he was still sitting in the same chair and was unresponsive. He went to [facility] and had workup. WBC 2500, hemoglobin 9.3, creatinine was 2.05, blood alcohol negative, UA negative for infection, UDS positive for opiates only, CT head negative, chest x-ray showed mild nonspecific central bronchovascular markings patient is unable to have a brain MRI and was transferred to [facility]. When he came to [facility] he developed fever, tachypneic, tachycardic. He appeared to be septic and unresponsive. Chest x-ray showed bilateral infiltrates, COVID test pending, lab work stable. Patient getting IV fluids 1 L bolus will need to be careful with heart failure. Antibiotics cefepime started for broad coverage. patient has known AFib Review of Systems Review of Systems: ROS unobtainable: Yes unobtainable due to medical condition [facility] Past Medical History Medical History Angina pectoris, unspecified previous cardiac catheterization with minimal blockage no intervention Anxiety Arthritis 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istory of gastrostomy tube placement Hyperlipidemia Hypertension Hyponatremia chronic Hypoxia Non Hodgkin's lymphoma Still on chemotherapy Obesity Obstructive sleep apnea Olecranon bursitis of right elbow Osteoarthritis involving multiple joints on both sides of body Peripheral sensory neuropathy Pulmonary hypertension Respiratory failure January 2016 resulting in tracheostomy and subsequent closure Sleep apnea Surgical History Surgical History H/O hernia repair incarcerated ventral hernia November 2016 H/O uvulectomy History of cardiac catheterization March 2008 demonstrating mild coronary artery disease History of carpal tunnel release History of colostomy History of nasal septoplasty Hx of tonsillectomy Status post cataract extraction of both eyes with insertion of intraocular lens Status post rotator cuff repair bilateral [place] teeth extracted Family History Family History Father Patient's father is COPD with emphysema Sibling Patient's sister is CHF (congestive heart failure) Diabetes mellitus Mother Valvular heart disease Social History Social History Social History: 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 He also played sports in the past. He is . Patient desires to be a full code. he lives h
[2020-08-05 16:43] LABS: Hematocrit 28.6 % (42.0-52.0); Hemoglobin 8.7 g/dL (14.0-18.0); Mean Corpuscular HGB Conc 30.4 g/dl (32-36); Mean Corpuscular Hemoglobin 28.2 pg (26-34); Mean Corpuscular Volume 92.6 fl (80-100); Mean Platelet Volume 10.9 fl (7.4-10.4); Platelet Count Result 314 k/mm3 (150-375); Red Blood Count 3.09 M/mm3 (4.6-6.20); Red Cell Distribution Width 21.3 % (11.5-14.5); White Blood Count 3.2 K/mm3 (4.5-10.0)
[2020-08-05 16:56] VITALS: PULSE 93; RESP 21; O2SAT 99
[2020-08-05 16:56] LABS: Anion Gap 9 mmol/L (8-16); Blood Urea Nitrogen 87 mg/dL (9-20); Calcium 8.6 mg/dL (8.4-10.2); Carbon Dioxide 25 mmol/L (22-30); Chloride 103 mmol/L (98-107); Estimated Glomerular Filt Rate 28; Glucose 100 mg/dL (75-110); Potassium 4.4 mmol/L (3.4-5.0); Sodium 137 mmol/L (137-145)
[2020-08-05 17:04] LABS: NT Pro B Type Natriuretic Pept > 35000 PG/ML (5-100)
--- NOTE | 2020-08-05 17:58 | PC.NURSE ---
Addendum entered by Buck Gunter RN 08/05/20 17:58: When I informed pt has hx of writing a suicide note within the last 60 days, does not feel he needs to be on SI precautions at this time. Will continue to monitor as patients mental status improves. Original Note: does not want pt on SI precautions.
[2020-08-05 20:00] VITALS: PULSE 97; RESP 42; O2SAT 96
--- NOTE | 2020-08-05 20:30 | ADMGEN ---
This patient, Harvey Sorenson, was admitted to [facility] Room 333-01. Patient/family oriented to hospital policies and general routines including ID bracelet, bed and alarms, visiting hours, pain management, procedures, bathroom and other care routines, personal items, smoking policy, room service/diet, and visiting hours. Direct admit from [place] [facility]. Pt in respiratory distress, contacted Valerie upon pt arrival. Discussed admission questions with daughter. Information on how to activate the Rapid Response Team has been discussed. Patient/Family are encouraged to report perceived risks to care and to ask questions if they do not understand what they are told or what they should do.
--- NOTE | 2020-08-05 21:44 | PC.NURSE ---
Mar indicates Cefepime and 1 liter NS bolus due. Previous shift RN indicated in report that these had already been given but not charted yet.
[2020-08-05 21:45] VITALS: TEMP 38.2
[2020-08-05] MEDS: ACETAMINOPHEN 650 MG SUPPOSITORY RECTAL (21:45)
[2020-08-05 22:00] VITALS: BP 102/64; PULSE 93; RESP 46; TEMP 38.8; O2SAT 100
[2020-08-06] VITALS (13 sets, daily range): BP systolic 93–108; BP diastolic 49–75; PULSE 92–115; RESP 22–40; TEMP 37–38.6; O2SAT 95–99
[2020-08-06] MEDS: ACETAMINOPHEN 650 MG SUPPOSITORY RECTAL ×2 (05:37→15:30)
[2020-08-06 06:37] LABS: Basophils Percent Auto 0.4 % (0.2-1.2); Hematocrit 26.5 % (42.0-52.0); Hemoglobin 8.2 g/dL (14.0-18.0); Immature Granulocyte Absolute 0.41 K/mm3 (0.00-0.031); Immature Granulocyte Percent A 16.1 % (0-0.5); Lymphocytes Percent Auto 3.9 % (18.3-44.2); Mean Corpuscular HGB Conc 30.9 g/dl (32-36); Mean Corpuscular Hemoglobin 28.4 pg (26-34); Mean Corpuscular Volume 91.7 fl (80-100); Mean Platelet Volume 11.1 fl (7.4-10.4); Monocytes Absolute Auto 0.9 K/mm3 (0.1-0.6); Monocytes Percent Auto 34.9 % (2.6-8.5); Neutrophils Absolute Auto 1.1 K/mm3 (1.3-6.7); Neutrophils Percent Auto 44.7 % (45.5-73.1); Platelet Count Result 232 k/mm3 (150-375); Red Blood Count 2.89 M/mm3 (4.6-6.20); Red Cell Distribution Width 21.2 % (11.5-14.5); White Blood Count 2.6 K/mm3 (4.5-10.0)
[2020-08-06 07:10] LABS: Platelet Estimate Adequate (Adequate)
[2020-08-06 07:11] LABS: Acanthocytes 1+ (NORMAL); Anisocytosis 1+ (NORMAL); Hypochromasia 1+ (NORMAL); Ovalocytes 1+ (NORMAL); Poikilocytosis 1+ (NORMAL)
[2020-08-06] MEDS: ALBUTEROL SULFATE (*SP) AEROSOL 1 PUFF 2 PUFF INHALATION ×4 (08:58→22:27)
--- NOTE | 2020-08-06 09:20 | ECG_ITS ---
Measurements Intervals [place] Rate: 103 P: ME: 0 QRS: -10 QRSD: 125 T: 81 QT: 333 QTc: 436 Interpretive Statements ATRIAL FIBRILLATION WITH RAPID VENTRICULAR RESPONSE FREQUENT VENTRICULAR PREMATURE COMPLEXES RIGHT BUNDLE BRANCH BLOCK BASELINE ARTIFACT- AVR, AVL, AVF, V1-V6 ABNORMAL ECG Electronically Signed On 08-06-2020 12:38:06 [address] PACKER OPERATOR by Jacob Manning D.O.
--- NOTE | 2020-08-06 09:31 | PM.IMPN ---
Progress Note: A&P Assessment and Plan (1) Neutropenia: Qualifiers: Neutropenia type: secondary to cancer chemotherapy Qualified Code(s): D70.1 - Agranulocytosis secondary to cancer chemotherapy; T45.1X5A - Adverse effect of antineoplastic and immunosuppressive drugs, initial encounter Code(s): D70.9 - Neutropenia, unspecified Status: Acute (2) Non-Hodgkin lymphoma in remission: Code(s): C85.90 - Non-Hodgkin lymphoma, unspecified, unspecified site Status: Acute Assessment and Plan: Dr. Davis his oncologist. CT chest abdomen pelvis did not show relapse, plan was for outpatient bone marrow biopsy. (3) Acute gouty arthritis: Code(s): M10.9 - Gout, unspecified Status: Acute Assessment and Plan: On prednisone taper 40 mg daily. will give IV Solu-Medrol (4) Anemia: Qualifiers: Anemia type: unspecified type Qualified Code(s): D64.9 - Anemia, unspecified Code(s): D64.9 - Anemia, unspecified Status: Acute Assessment and Plan: Stable after 1 unit transfusion couple days ago. (5) Acute encephalopathy: Code(s): G93.40 - Encephalopathy, unspecified Status: Acute Assessment and Plan: - CVA versus infectious encephalopathy. Will consult neurology. - ordering brain MRI for today - treating infection broad-spectrum antibiotics, holding home meds - patient kept NPO. (6) Pneumonia: Code(s): J18.9 - Pneumonia, unspecified organism Status: Acute Assessment and Plan: - broad-spectrum antibiotics with vanc and cefepime, penicillin allergy - IV fluids 1 L bolus given, will do maintenance IVF 75 cc, will need to be careful with heart failure - rectal Tylenol for fever (7) Sepsis: Code(s): A41.9 - Sepsis, unspecified organism Status: Acute Assessment and Plan: -maybe Pulmonary, chest x-ray showed bilateral infiltrates. UA negative. See above treatment. blood cultures pending from our hospital, blood cultures from [facility] positive for gram-positive cocci. (8) Bacteremia: Code(s): R78.81 - Bacteremia Status: Acute Assessment and Plan: blood cultures from [facility] positive for gram-positive cocci aerobic and anaerobic, patient is on vancomycin which will cover for MRSA. Subjective Date/time seen: 08/06/20 09:31 Patient examined. Clinically he is doing better than yesterday, respiration rate came down, pulse normalized, temperature is coming down 100.22. he is more responsive than yesterday to painful stimuli and auditory stimuli. He is still not communicating. Chest x-ray showed bilateral patchy airspace opacities consistent with multifocal pneumonia. Patient will be treated with broad-spectrum antibiotics vanc/cefepime. IV fluids at 75 cc an hour, will continue to watch blood pressure on softer side. continue to hold p.o. medications. obtaining brain MRI. Consulting Neurology. I called and discussed with Katey Sorenson [id number] who is listed as person to notify. I updated daughter Tessie Sorenson, daughter [phone]. Family request to transfer to [facility]. transfer number [phone] for [facility]. Review of Systems Review of Systems: ROS unobtainable: Yes unobtainable due to medical condition Exam Narrative: Exam Narrative: - GENERAL: ill-appearing male unresponsive, opens eyes to painful stimuli - EYES: Anicteric. - HENT: dry oral mucosa - LUNGS: diminished lung sounds, tachypnic - CARDIOVASCULAR: tachycardic s1-s2 - ABDOMEN: Soft,non-distended. No palpable masses. - EXTREMITIES: rheumatoid nodules elbow, rheumatoid changes in hands - NEUROLOGIC: unable to evaluate due to medical condition - PSYCHIATRIC: unresponsive. Opens eyes to painful stimuli - SKIN: No rashes or lesions. Warm. - LYMPH: No cervical lymphadenopathy. Objective Data Vital Signs Vital Signs: Vital Signs - 24 hr 08/05/20 16:15 08/05/20 16:27 08/05/20 16:56 Temperature
[2020-08-06] MEDS: SODIUM CHLORIDE 0.9% IV 1,000 ML 75 ML IV CONT (10:30)
[2020-08-06 10:47] LABS: Lactate Dehydrogenase 436 U/L (313-618)
[2020-08-06 12:20] LABS: CRP 24.4 mg/dL (<1.0)
[2020-08-06 13:19] LABS: SARS-CoV-2 RNA PCR Negative
--- NOTE | 2020-08-06 13:31 | WPDNEURCNPN ---
Assessment and Plan Assessment and plan (1) Sepsis: Code(s): A41.9 - Sepsis, unspecified organism Status: Acute (2) Non-Hodgkin lymphoma in remission: Code(s): C85.90 - Non-Hodgkin lymphoma, unspecified, unspecified site Status: Acute Additional Plan will obtain the CT scan of the head in addition EEG Consult date: 08/07/20 Time Seen: 13:31 HPI: Harvey Sorenson is a 75 year old male admitted to the hospital 4th change in the mental status in addition to ongoing history of 1. Congestive heart failure 2. COPD 3. AFib 4. Gout 5. Non Hodgkin's lymphoma. Has recently received blood transfusion for anemia patient been treated by Dr. Brett Melendez to CT of the chest and pelvis did not show any signs of relapse he received prednisone for the gout flare-up he was found to be unresponsive in his chair initial is seen at [facility] where CT of the head was negative and was transferred to [facility] where he was notedly febrile Review of Systems Review of Systems: All systems reviewed & are unremarkable except as noted in HPI and below PMFSH Past Medical History Medical History Angina pectoris, unspecified previous cardiac catheterization with minimal blockage no intervention Anxiety Arthritis 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istory of gastrostomy tube placement Hyperlipidemia Hypertension Hyponatremia chronic Hypoxia Non Hodgkin's lymphoma Still on chemotherapy Obesity Obstructive sleep apnea Olecranon bursitis of right elbow Osteoarthritis involving multiple joints on both sides of body Peripheral sensory neuropathy Pulmonary hypertension Respiratory failure January 2016 resulting in tracheostomy and subsequent closure Sleep apnea Surgical History Surgical History H/O hernia repair incarcerated ventral hernia November 2016 H/O uvulectomy History of cardiac catheterization March 2008 demonstrating mild coronary artery disease History of carpal tunnel release History of colostomy History of nasal septoplasty Hx of tonsillectomy Status post cataract extraction of both eyes with insertion of intraocular lens Status post rotator cuff repair bilateral [place] teeth extracted Family History Family History Father Patient's father is COPD with emphysema Sibling Patient's sister is CHF (congestive heart failure) Diabetes mellitus Mother Valvular heart disease Social History Social History Social History: 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 He also played sports in the past. He is . Patient desires to be a full code. he lives home alone and has home health coming 5 days a week for 4 hours each day. He has 3 daughters. Primary care physician: Dr. Armen Beasley code status: Full code Smoking status: Never smoker Tobacco type: cigars Smoking end date: 09/23/99 Alcohol intake: former Substance use: never Substance use type: does not use Additional living arrangements comments: The patient is and lives alone. he is independent in his activities of daily living. He has 3 daughters 1 of which lives locally. 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 Gender identity (if verbalized by the patient): Male Spiritual care concerns: No Meds Home Medications and Allergies Home Medications Med
[2020-08-06] MEDS: methylPREDNISolone SOD SUCC 40 MG VIAL IV PUSH ×2 (15:37→21:48)
[2020-08-07] VITALS (9 sets, daily range): BP systolic 93–118; BP diastolic 58–84; PULSE 85–110; RESP 20–32; TEMP 36.3–36.8; O2SAT 95–99
[2020-08-07] MEDS: SODIUM CHLORIDE 0.9% IV 1,000 ML 75 ML IV CONT ×2 (02:01→19:52)
[2020-08-07] MEDS: methylPREDNISolone SOD SUCC 40 MG VIAL IV PUSH ×2 (05:37→19:57)
[2020-08-07 08:10] LABS: Alanine Aminotransferase 19 U/L (4-50); Albumin Level 2.9 g/dL (3.5-5.1); Alkaline Phosphatase 141 U/L (38-126); Anion Gap 10 mmol/L (8-16); Aspartate Amino Transferase 34 U/L (17-59); Bilirubin,Total 2.3 mg/dL (0.2-1.3); Blood Urea Nitrogen 88 mg/dL (9-20); Calcium 8.5 mg/dL (8.4-10.2); Carbon Dioxide 24 mmol/L (22-30); Chloride 111 mmol/L (98-107); Estimated CRCL calculation 30 ml/min; Estimated Glomerular Filt Rate 28; Glucose 132 mg/dL (75-110); Magnesium 2.4 mg/dL (1.6-2.3); Potassium 4.4 mmol/L (3.4-5.0); Sodium 145 mmol/L (137-145)
[2020-08-07] MEDS: ALBUTEROL SULFATE (*SP) AEROSOL 1 PUFF 2 PUFF INHALATION ×4 (08:52→23:09)
[2020-08-07 09:04] LABS: Hemoglobin 8.4 g/dL (14.0-18.0); Immature Granulocyte Absolute 0.19 K/mm3 (0.00-0.031); Immature Granulocyte Percent A 19.2 % (0-0.5); Lymphocytes Absolute Auto 0.07 K/mm3 (0.9-3.2); Lymphocytes Percent Auto 7.1 % (18.3-44.2); Mean Corpuscular HGB Conc 31.1 g/dl (32-36); Mean Corpuscular Hemoglobin 28.8 pg (26-34); Mean Corpuscular Volume 92.5 fl (80-100); Mean Platelet Volume 11.6 fl (7.4-10.4); Monocytes Absolute Auto 0.2 K/mm3 (0.1-0.6); Monocytes Percent Auto 24.2 % (2.6-8.5); Neutrophils Absolute Auto 0.5 K/mm3 (1.3-6.7); Neutrophils Percent Auto 49.5 % (45.5-73.1); Platelet Count Result 177 k/mm3 (150-375); Red Blood Count 2.92 M/mm3 (4.6-6.20); Red Cell Distribution Width 21.3 % (11.5-14.5)
[2020-08-07 09:12] LABS: Platelet Estimate Adequate (Adequate)
[2020-08-07 09:14] LABS: Acanthocytes 2+ (NORMAL); Anisocytosis 1+ (NORMAL); Hypochromasia 1+ (NORMAL); Ovalocytes 2+ (NORMAL); Poikilocytosis 2+ (NORMAL)
--- NOTE | 2020-08-07 13:34 | PM.IMPN ---
Progress Note: A&P Assessment and Plan (1) Neutropenia: Qualifiers: Neutropenia type: secondary to cancer chemotherapy Qualified Code(s): D70.1 - Agranulocytosis secondary to cancer chemotherapy; T45.1X5A - Adverse effect of antineoplastic and immunosuppressive drugs, initial encounter Code(s): D70.9 - Neutropenia, unspecified Status: Acute (2) Non-Hodgkin lymphoma in remission: Code(s): C85.90 - Non-Hodgkin lymphoma, unspecified, unspecified site Status: Acute Assessment and Plan: - Dr. Davis his oncologist - was on Rituxan , stopped for poor tolerance - CT chest abdomen pelvis 08/03/2020: Chronic mesenteric lymphadenopathy, consistent with scarring from treated lymphoma, moderate worsening of ascites , small pleural effusions. Based on the radiology read it appears to be a stable study with no gross relapse. - Last bone marrow biopsy was in May 2020, plan for repeat bone marrow biopsy (3) Acute gouty arthritis: Code(s): M10.9 - Gout, unspecified Status: Acute Assessment and Plan: On prednisone taper 40 mg daily. will give IV Solu-Medrol (4) Anemia: Qualifiers: Anemia type: unspecified type Qualified Code(s): D64.9 - Anemia, unspecified Code(s): D64.9 - Anemia, unspecified Status: Acute Assessment and Plan: Stable after 1 unit transfusion couple days ago. (5) Acute encephalopathy: Code(s): G93.40 - Encephalopathy, unspecified Status: Acute Assessment and Plan: - CVA versus infectious encephalopathy. Will consult neurology. - ordering brain MRI for today - treating infection broad-spectrum antibiotics, holding home meds - patient kept NPO. (6) Pneumonia: Qualifiers: Pneumonia type: due to unspecified organism Laterality: bilateral Lung location: unspecified part of lung Qualified Code(s): J18.9 - Pneumonia, unspecified organism Code(s): J18.9 - Pneumonia, unspecified organism Status: Acute Assessment and Plan: - broad-spectrum antibiotics with vanc and cefepime, penicillin allergy - IV fluids 1 L bolus given, will do maintenance IVF 75 cc, will need to be careful with heart failure - rectal Tylenol for fever (7) Sepsis: Qualifiers: Sepsis type: methicillin resistant Staphylococcus aureus Sepsis acute organ dysfunction status: with acute organ dysfunction Severe sepsis acute organ dysfunction type: encephalopathy Severe sepsis shock status: without septic shock Qualified Code(s): A41.02 - Sepsis due to Methicillin resistant Staphylococcus aureus; R65.20 - Severe sepsis without septic shock; G93.41 - Metabolic encephalopathy Code(s): A41.9 - Sepsis, unspecified organism Status: Acute Assessment and Plan: -maybe Pulmonary, chest x-ray showed bilateral infiltrates. UA negative. See above treatment. blood cultures pending from our hospital, blood cultures from [facility] positive for gram-positive cocci. (8) Bacteremia: Code(s): R78.81 - Bacteremia Status: Acute Assessment and Plan: blood cultures from [facility] positive for gram-positive cocci aerobic and anaerobic, patient is on vancomycin which will cover for MRSA. Additional Plan # MRSA bacteremia # bilateral pneumonia # Acute encephalopathy likely secondary to infectious # sepsis secondary to bacteremia with end-organ damage encephalopathy -awaiting sensitivities, continue vancomycin and cefepime -Tylenol for fever -neutropenic from Hodgkin's lymphoma as well as sepsis, tachypneic -awaiting EEG results, neurology consulted -MRI ordered await results -[facility] head was [facility] at [facility] -IV fluids normal saline 75 cc/hour while NPO -consulting Infectious Disease: MRSA bacteremia and pneumonia # gout flare -home allopurinol -on methylprednisone for gout flare # other chronic conditions-holding home meds well altered -Atrial fibrillation: On Eliquibis baird
[2020-08-08] VITALS (12 sets, daily range): BP systolic 103–135; BP diastolic 69–82; PULSE 62–110; RESP 18–22; TEMP 36.9–37.2; O2SAT 96–99
[2020-08-08 06:02] LABS: Alanine Aminotransferase 20 U/L (4-50); Alkaline Phosphatase 140 U/L (38-126); Anion Gap 10 mmol/L (8-16); Aspartate Amino Transferase 29 U/L (17-59); Bilirubin,Total 2.3 mg/dL (0.2-1.3); Blood Urea Nitrogen 87 mg/dL (9-20); Calcium 8.8 mg/dL (8.4-10.2); Carbon Dioxide 25 mmol/L (22-30); Chloride 113 mmol/L (98-107); Estimated CRCL calculation 36 ml/min; Estimated Glomerular Filt Rate 35; Glucose 148 mg/dL (75-110); Magnesium 2.7 mg/dL (1.6-2.3); Potassium 4.5 mmol/L (3.4-5.0); Sodium 148 mmol/L (137-145)
[2020-08-08 06:25] LABS: Basophils Percent Auto 0.8 % (0.2-1.2); Hematocrit 29.3 % (42.0-52.0); Hemoglobin 8.8 g/dL (14.0-18.0); Immature Granulocyte Absolute 0.35 K/mm3 (0.00-0.031); Immature Granulocyte Percent A 27.1 % (0-0.5); Lymphocytes Absolute Auto 0.08 K/mm3 (0.9-3.2); Lymphocytes Percent Auto 6.2 % (18.3-44.2); Mean Corpuscular Hemoglobin 28.1 pg (26-34); Mean Corpuscular Volume 93.6 fl (80-100); Monocytes Absolute Auto 0.3 K/mm3 (0.1-0.6); Monocytes Percent Auto 20.9 % (2.6-8.5); Neutrophils Absolute Auto 0.6 K/mm3 (1.3-6.7); Nucleated Red Blood Cells Perc 1.6 % (0.0-0.2); Platelet Count Result 176 k/mm3 (150-375); Red Blood Count 3.13 M/mm3 (4.6-6.20); Red Cell Distribution Width 21.6 % (11.5-14.5)
[2020-08-08 06:26] LABS: White Blood Count 1.3 K/mm3 (4.5-10.0)
[2020-08-08 06:27] LABS: Ovalocytes 3+ (NORMAL); Platelet Estimate Adequate (Adequate)
[2020-08-08 06:28] LABS: Acanthocytes 2+ (NORMAL); Crenated RBC 2+ (NORMAL); Tear Drop Cells 2+ (NORMAL)
[2020-08-08 06:35] LABS: CRP 30.3 mg/dL (<1.0)
[2020-08-08] MEDS: SODIUM CHLORIDE 0.9% IV 1,000 ML 75 ML IV CONT (08:27)
[2020-08-08] MEDS: methylPREDNISolone SOD SUCC 40 MG VIAL IV PUSH (08:29)
[2020-08-08] MEDS: ALBUTEROL SULFATE (*SP) AEROSOL 1 PUFF 2 PUFF INHALATION (09:31)
[2020-08-08] MEDS: DEXTROSE 5%/0.45% SOD CHL 1,000 ML 100 ML IV CONT ×2 (13:54→23:20)
[2020-08-08 14:07] LABS: Procalcitonin 11.03 ng/mL (<0.10)
--- NOTE | 2020-08-08 14:37 | PC.NURSE ---
Addendum entered by Mahsa Yee RN 08/08/20 14:39: Note to be timed for 09 this morning. Original Note: Suicide risk discussed with Dr. Padilla. He does not feel like patient is at risk for suicide at this time. patient moans and grunts, but very weak. oral care provided. will continue to monitor.
--- NOTE | 2020-08-08 15:10 | WPDINFPN2 ---
Progress Note: A&P Assessment and Plan (1) Bacteremia: Code(s): R78.81 - Bacteremia Status: Acute Assessment and Plan: MRSA bacteremia with infection. Recent gout. Lymphoma/neutropenia. Encephalopathy, multifactorial including his bacteremia. REC Vanc #4, target trough 15-20. Stop cefepime. Taper steroids as rapidly as possible. Guarded prognosis. Subjective Date/time seen: 08/08/20 15:10 Objective Data Vital Signs Vital Signs: Vital Signs - 24 hr 08/07/20 16:00 08/07/20 20:00 08/07/20 22:00 Temperature 36.8 C Pulse Rate 106 H 103 H 110 H Respiratory Rate 20 Blood Pressure 118/84 Pulse Oximetry 95 08/08/20 00:00 08/08/20 04:00 08/08/20 05:44 Temperature 36.9 C Pulse Rate 102 H 101 H 95 Respiratory Rate 20 Blood Pressure 103/79 Pulse Oximetry 96 08/08/20 08:00 08/08/20 09:31 08/08/20 12:00 Temperature Pulse Rate 110 H 100 Respiratory Rate Blood Pressure Pulse Oximetry 97 97 08/08/20 14:00 Temperature 37.2 C Pulse Rate 98 Respiratory Rate 20 Blood Pressure 135/82 Pulse Oximetry 99 Intake/Output Intake/Output: Intake & Output 08/05/20 08/06/20 08/07/20 08/08/20 23:59 23:59 23:59 23:59 Intake Total 0 1600 1150 1850 Output Total 125 1000 2550 1000 Balance -125 600 -1400 850 Meds/Results Medications: Active Medications Generic Name Dose Route Start Last Admin Trade Name Freq PRN Reason Stop Dose Admin Acetaminophen 650 mg 08/05/20 20:35 08/06/20 15:30 Acetaminophen 650 Mg Suppository RECTAL 650 mg Q6H PRN Administration Mild Pain (1-3) or Fever Albuterol 2 puff 08/05/20 20:35 Albuterol Sulfate (*Sp) Aerosol 1 Puff INHALATION QIDRT PRN Shortness Of Breath Albuterol 5 mg 08/08/20 20:00 Albuterol Sulfate Neb 2.5 Mg/0.5 Ml Inh INHALATION Q6HRT [facility] Vancomycin HCl 1,500 mg in 500 mls @ 333.333 mls/hr 08/06/20 10:00 11/16/20 00:30 Vancomycin 1,500 Mg/D5w 500 Ml IVPB Infused Q36H ATUL Infusion Dextrose/Sodium Chloride 1,000 mls @ 100 mls/hr 08/08/20 13:50 08/08/20 13:54 Dextrose 5% Sodium Chloride 0.45% IV CONT 100 mls/hr .Q10H ATUL Administration Methylprednisolone Sodium Succinate 40 mg 08/07/20 21:00 08/08/20 08:29 Methylprednisolone Sod Succ 40 Mg Vial IV PUSH 40 mg Q12HR ATUL Administration Radiology Results: ITS Impressions Brain MRI 08/07/20 14:29 IMPRESSION: 1. No acute intracranial findings. 2. Chronic age related findings. Chest X-Ray 08/08/20 07:40 IMPRESSION: 1. Chronic elevation of right hemidiaphragm with mild atelectasis in right lower lung zone. 2. Mild airspace opacities in left mid and lower lung zones, consistent with atelectasis versus pneumonia. 3. Cardiomegaly. Labs Labs: Laboratory Results - last 24 hr 08/05/20 08/08/20 08/08/20 17:43 05:27 05:27 WBC 1.3 L* RBC 3.13 L Hgb 8.8 L Hct 29.3 L MCV 93.6 MCH 28.1 MCHC 30.0 L RDW 21.6 H Plt Count 176 MPV 12.0 H Immature Gran % (Auto) 27.1 H Neut % (Auto) 45.0 L Lymph % (Auto) 6.2 L [place] % (Auto) 20.9 H Eos % (Auto) 0.0 Baso % (Auto) 0.8 Lymph # (Auto) 0.08 L [place] # (Auto) 0.3 Eos # (Auto) 0.0 Baso # (Auto) 0.0 Abs Immat Gran (auto) 0.35 H Absolute Neuts (auto) 0.6 L Absolute Nucleated RBC 0.0 Nucleated RBC % 1.6 H Platelet Estimate Adequate Tear Drop Cells 2+ Ovalocytes 3+ Crenated Cell 2+ Acanthocytes (Spur) 2+ Sodium 148 H Potassium 4.5 Chloride 113 H Carbon Dioxide 25 Anion Gap 10 BUN 87 H Creatinine 1.90 H Estim Creat Clear Calc 36 Estimated GFR 35 L Glucose 148 H Calcium 8.8 Magnesium 2.7 H Total Bilirubin 2.3 H AST 29 ALT 20 Alkaline Phosphatase 140 H C-Reactive Protein Total Protein 6.0 L Albumin 3.0 L Procalcitonin 11.03 H 08/08/20 05:27 WBC RBC Hgb Hct MCV MCH MCH
--- NOTE | 2020-08-08 16:28 | PM.IMPN ---
Progress Note: A&P Assessment and Plan (1) Neutropenia: Qualifiers: Neutropenia type: secondary to cancer chemotherapy Qualified Code(s): D70.1 - Agranulocytosis secondary to cancer chemotherapy; T45.1X5A - Adverse effect of antineoplastic and immunosuppressive drugs, initial encounter Code(s): D70.9 - Neutropenia, unspecified Status: Acute (2) Non-Hodgkin lymphoma in remission: Code(s): C85.90 - Non-Hodgkin lymphoma, unspecified, unspecified site Status: Acute Assessment and Plan: - Dr. Davis his oncologist - was on Rituxan , stopped for poor tolerance - CT chest abdomen pelvis 08/03/2020: Chronic mesenteric lymphadenopathy, consistent with scarring from treated lymphoma, moderate worsening of ascites , small pleural effusions. Based on the radiology read it appears to be a stable study with no gross relapse. - Last bone marrow biopsy was in May 2020, plan for repeat bone marrow biopsy (3) Acute gouty arthritis: Code(s): M10.9 - Gout, unspecified Status: Acute Assessment and Plan: On prednisone taper 40 mg daily. will give IV Solu-Medrol (4) Anemia: Qualifiers: Anemia type: unspecified type Qualified Code(s): D64.9 - Anemia, unspecified Code(s): D64.9 - Anemia, unspecified Status: Acute Assessment and Plan: Stable after 1 unit transfusion couple days ago. (5) Acute encephalopathy: Code(s): G93.40 - Encephalopathy, unspecified Status: Acute Assessment and Plan: - CVA versus infectious encephalopathy. Will consult neurology. - ordering brain MRI for today - treating infection broad-spectrum antibiotics, holding home meds - patient kept NPO. (6) Pneumonia: Qualifiers: Pneumonia type: due to unspecified organism Laterality: bilateral Lung location: unspecified part of lung Qualified Code(s): J18.9 - Pneumonia, unspecified organism Code(s): J18.9 - Pneumonia, unspecified organism Status: Acute Assessment and Plan: - broad-spectrum antibiotics with vanc and cefepime, penicillin allergy - IV fluids 1 L bolus given, will do maintenance IVF 75 cc, will need to be careful with heart failure - rectal Tylenol for fever (7) Sepsis: Qualifiers: Sepsis type: methicillin resistant Staphylococcus aureus Sepsis acute organ dysfunction status: with acute organ dysfunction Severe sepsis acute organ dysfunction type: encephalopathy Severe sepsis shock status: without septic shock Qualified Code(s): A41.02 - Sepsis due to Methicillin resistant Staphylococcus aureus; R65.20 - Severe sepsis without septic shock; G93.41 - Metabolic encephalopathy Code(s): A41.9 - Sepsis, unspecified organism Status: Acute Assessment and Plan: -maybe Pulmonary, chest x-ray showed bilateral infiltrates. UA negative. See above treatment. blood cultures pending from our hospital, blood cultures from [facility] positive for gram-positive cocci. (8) Bacteremia: Code(s): R78.81 - Bacteremia Status: Acute Assessment and Plan: blood cultures from [facility] positive for gram-positive cocci aerobic and anaerobic, patient is on vancomycin which will cover for MRSA. Additional Plan # MRSA bacteremia # bilateral pneumonia # Acute encephalopathy likely secondary to infectious # sepsis secondary to bacteremia with end-organ damage encephalopathy -awaiting sensitivities, continue vancomycin and stopped cefepime, consulted Infectious Disease who recommended to continue vancomycin monotherapy and wean steroids -Tylenol for fever -neutropenic from Hodgkin's lymphoma as well as sepsis, tachypneic - ordered EEG, neurology consulted -MRI brain: no acute findings, chronic age related findings -CT head was negative at [facility] -IV fluids D5 1/2NS 75 cc/hour while NPO - clinically improving however prognosis still guarded # gout flare -home allopurinol -on methylprednison
--- NOTE | 2020-08-08 19:49 | CONS_ITS ---
DATE OF CONSULTATION: 08/08/2020 REASON FOR CONSULTATION: Fever and bacteremia. HISTORY OF PRESENT ILLNESS: A 75-year-old male, who cannot provide any history. He was here for 2 days, 1 day prior to the present admission, for an acute gout attack and was given steroids while here as well as discharged with same. He apparently was discharged home, but was found by a family friend sitting in a chair where he had been all night long, decreased level of consciousness. The patient was brought to the emergency room at [place] and then transferred here and admitted on the . He has been on vancomycin, cefepime, consultation requested today. He remains with encephalopathy. His hospital course otherwise been complicated by anemia. He has had intermittent confusion as well. ALLERGIES: PENICILLIN, UNKNOWN REACTION. HE HAS TOLERATED THE CEPHALOSPORIN. HABITS: Ex alcohol. No tobacco. Formerly smokes cigars. PRESENT MEDICATIONS: Methylprednisolone every 12 hours. No other immunosuppressants. On chemotherapy for his lymphoma. PAST MEDICAL HISTORY: Non-Hodgkin's lymphoma, angina, anxiety disorder, gouty arthritis, AF, BPH, CAD with CHF, stage 3 chronic renal insufficiency, COPD, diabetes mellitus, emphysema, previous G-tube, hyperlipidemia, hypertension, morbid obesity, DANIKA, olecranon bursitis on the right, peripheral neuropathy, uvulectomy, hernia repair, carpal tunnel syndrome, prior colostomy, cataract extractions, rotator cuff repair, and dental surgery. FAMILY HISTORY: COPD, emphysema, and diabetes. 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 Lives at home alone with home health assistance. No family at the bedside currently. REVIEW OF SYSTEMS: 14-point review otherwise negative per record, not obtainable from the patient due to his confusion, attempted. PHYSICAL EXAMINATION: GENERAL: This is an of elderly male, appears in no respiratory distress, his actual age. VITAL SIGNS: He is afebrile during his last admission. On readmission, he sohail up to 38.8 on the evening of since afebrile yesterday and today, pulse 90, respirations 20, 135/82, and 99% sat. SKIN: Multiple ecchymoses. He has a cord over the right antecubital fossa, but no erythema nor tenderness. No evidence of phlebitis elsewhere. NODES: No axillary or cervical adenopathy. EENT: Dry mucous membranes. He will not cooperate for full exam, but brief inspection is normal. His conjunctivae are suffused. No petechiae. Pupils equal, round, reactive. No paranasal sinus erythema, edema, or tenderness. NECK: Without meningismus, mass, abnormal contour. LUNGS: On tidal respirations, clear to auscultation, percussion. CHEST: Port-A-Cath, right upper chest, not accessed, which courses into the right IJ by palpation and inspection. CARDIAC: Regular rate and rhythm. No murmur or gallop. Pulses are 2+. ABDOMEN: Morbidly obese. No tenderness, mass, distention. No organomegaly. : Lee catheter draining clear yellow urine. EXTREMITIES: 1+ pedal edema. LABORATORY DATA: Blood cultures from the , final no growth. From the left knee 06/06/2020, culture final no growth. Here blood cultures from the , 2/2 sets MRSA, vancomycin HANSEL less than equal to 0.5. His white count is 1.3, was 3.2 on readmission, hemoglobin 8.8, platelets are 176. ANC was 600. Markedly abnormal differential, reviewed the report. He has hypernatremia. BUN 87, creatinine 1.9 down from 2.3, glucose 148. Hemoglobin A1c 06/06/2020 was 5.8%. Alkaline phosphatase 140. CRP 30.3, albumin 3.0. His urinalysis not redone. BNP is high. RADIOLOGY: Chest x-ray 08/05/2020, patchy airspace opacities consistent with multifocal pneumonia. Repeat today, mild airspace opacities,
[2020-08-08] MEDS: ALBUTEROL SULFATE NEB 2.5 MG/0.5 ML INH 5 MG INHALATION (20:28)
[2020-08-09] VITALS (11 sets, daily range): BP systolic 105–127; BP diastolic 60–70; PULSE 59–117; RESP 18–24; TEMP 36.9–37.5; O2SAT 92–98; BMI 37.5
[2020-08-09] MEDS: ALBUTEROL SULFATE NEB 2.5 MG/0.5 ML INH 5 MG INHALATION ×3 (01:35→15:03)
[2020-08-09] MEDS: ACETAMINOPHEN 650 MG SUPPOSITORY RECTAL ×3 (02:29→18:01)
[2020-08-09] MEDS: methylPREDNISolone SOD SUCC 40 MG VIAL IV PUSH (09:04)
[2020-08-09] MEDS: DEXTROSE 5%/0.45% SOD CHL 1,000 ML 100 ML IV CONT (09:06)
[2020-08-09 09:08] LABS: Basophils Percent Auto 0.6 % (0.2-1.2); Hematocrit 29.3 % (42.0-52.0); Hemoglobin 8.7 g/dL (14.0-18.0); Immature Granulocyte Absolute 0.33 K/mm3 (0.00-0.031); Immature Granulocyte Percent A 20.1 % (0-0.5); Immature Platelet Fraction Pct 5.8 % (0.9-11.2); Lymphocytes Absolute Auto 0.09 K/mm3 (0.9-3.2); Lymphocytes Percent Auto 5.5 % (18.3-44.2); Mean Corpuscular HGB Conc 29.7 g/dl (32-36); Mean Corpuscular Volume 94.2 fl (80-100); Mean Platelet Volume 12.2 fl (7.4-10.4); Monocytes Absolute Auto 0.5 K/mm3 (0.1-0.6); Monocytes Percent Auto 29.3 % (2.6-8.5); Neutrophils Absolute Auto 0.7 K/mm3 (1.3-6.7); Neutrophils Percent Auto 44.5 % (45.5-73.1); Nucleated Red Blood Cells Perc 1.2 % (0.0-0.2); Platelet Count Result 107 k/mm3 (150-375); Red Blood Count 3.11 M/mm3 (4.6-6.20); Red Cell Distribution Width 21.9 % (11.5-14.5)
[2020-08-09 09:17] LABS: White Blood Count 1.6 K/mm3 (4.5-10.0)
[2020-08-09 09:18] LABS: Anion Gap 10 mmol/L (8-16); Blood Urea Nitrogen 85 mg/dL (9-20); Calcium 8.8 mg/dL (8.4-10.2); Carbon Dioxide 24 mmol/L (22-30); Chloride 119 mmol/L (98-107); Estimated CRCL calculation 41 ml/min; Estimated Glomerular Filt Rate 40; Glucose 149 mg/dL (75-110); Magnesium 2.9 mg/dL (1.6-2.3); Potassium 3.8 mmol/L (3.4-5.0); Sodium 153 mmol/L (137-145)
[2020-08-09 09:19] LABS: Hypochromasia 2+ (NORMAL); Platelet Estimate Adequate (Adequate); Poikilocytosis 2+ (NORMAL)
[2020-08-09 09:20] LABS: Ovalocytes 1+ (NORMAL)
[2020-08-09 09:21] LABS: Acanthocytes 1+ (NORMAL)
[2020-08-09 09:22] LABS: Burr Cells 1+ (NORMAL)
[2020-08-09 09:46] LABS: Vancomycin Trough 9.7 ug/mL (10.0-20.0)
[2020-08-09] MEDS: DEXTROSE 5% 1,000 ML 1,000 ML 75 ML IV CONT (11:44)
[2020-08-09] MEDS: MORPHINE SULFATE (*CRX) 2 MG/ML INJ 1 MG IV PUSH (14:42)
--- NOTE | 2020-08-09 15:03 | PCDIET ---
Nutrition Follow-Up Complete: Inadequate oral intake related to altered mental status as evidence by 0% intake over the last five days Total intake will meet estimated nutrition needs Goal: new goal started Pt current nutrition is NPO Nutrition recommendation: Recommend nutrition initiation; see below Last recorded weight is 108.9 kg Additional Notes: If family agreeable and pt cannot resume oral diet in the next 24hrs, recommend enteral nutrition via NG tube of Jevity 1.2 at 10ml/hr, advancing 10ml q 4hrs to goal of 40ml/hr day one and then 75ml/hr day two if electrolytes remain stable. Pt at risk for refeeding due to prolonged NPO. If tube feeding not accepted by family/patient, recommend PPN at 80ml/hr to meet 50% of pt needs giving 1153kcals, 82g protein, and 2170ml of free water temporarily while pt is not alert enough for PO intake Monitoring nutrition initiation via diet or alternative nutrition source (PPN/EN), weight, labs daily
--- NOTE | 2020-08-09 15:13 | PCDIET ---
MD order for Jevity 1.2 starting at 10ml/hr with goal of 40ml/hr day one after NG placed. If tolerated we will advance to goal of 75m/hr day two after enteral nutrition starts. RD following daily. I
[2020-08-09] MEDS: MORPHINE SULFATE (*CRX) 2 MG/ML INJ IV PUSH (15:28)
[2020-08-09] MEDS: LIDOCAINE 5% PATCH 2 PATCH TOPICAL (18:01)
--- NOTE | 2020-08-09 18:50 | PM.IMPN ---
Progress Note: A&P Assessment and Plan (1) Bacteremia: Code(s): R78.81 - Bacteremia Status: Acute (2) Sepsis: Qualifiers: Sepsis type: methicillin resistant Staphylococcus aureus Sepsis acute organ dysfunction status: with acute organ dysfunction Severe sepsis acute organ dysfunction type: encephalopathy Severe sepsis shock status: without septic shock Qualified Code(s): A41.02 - Sepsis due to Methicillin resistant Staphylococcus aureus; R65.20 - Severe sepsis without septic shock; G93.41 - Metabolic encephalopathy Code(s): A41.9 - Sepsis, unspecified organism Status: Acute Assessment and Plan: Currently on Vanc Repeat blood cx today Appreciate ID note. (3) Acute encephalopathy: Code(s): G93.40 - Encephalopathy, unspecified Status: Acute Assessment and Plan: Unchanged Likely secondary to sepsis MRI was obtained, results noted EEG done Neurology consulted. Daughter at bedside wanted patient to be transferred out to [facility] called and discussed over the phone they won't be taking the patient as they have nothing else to offer and no beds available. Will try other hospitals in am. (4) Neutropenia: Qualifiers: Neutropenia type: secondary to cancer chemotherapy Qualified Code(s): D70.1 - Agranulocytosis secondary to cancer chemotherapy; T45.1X5A - Adverse effect of antineoplastic and immunosuppressive drugs, initial encounter Code(s): D70.9 - Neutropenia, unspecified Status: Acute Assessment and Plan: Neutrophil count stable Reverse isolation precautions in place. (5) Non-Hodgkin lymphoma in remission: Code(s): C85.90 - Non-Hodgkin lymphoma, unspecified, unspecified site Status: Acute Assessment and Plan: On remission. Follow up in the outpatient setting. (6) Acute gouty arthritis: Code(s): M10.9 - Gout, unspecified Status: Acute Assessment and Plan: Solumedrol 40 iv daily. (7) Osteoarthritis involving multiple joints on both sides of body: Code(s): M15.9 - Polyosteoarthritis, unspecified Status: Acute Assessment and Plan: Re started home pain meds cautiously. (8) Chronic kidney disease, stage III (moderate): Qualifiers: Chronic kidney disease stage 3 subtype: stage 3a (GFR 45-59) Qualified Code(s): N18.31 - Chronic kidney disease, stage 3a Code(s): N18.30 - Chronic kidney disease, stage 3 unspecified Status: Acute Assessment and Plan: Continue to monitor Daily BMP. (9) Pneumonia: Qualifiers: Pneumonia type: due to unspecified organism Laterality: bilateral Lung location: unspecified part of lung Qualified Code(s): J18.9 - Pneumonia, unspecified organism Code(s): J18.9 - Pneumonia, unspecified organism Status: Acute Assessment and Plan: On Vancomycin MRSA present in sputum. Supportive care. Subjective Date/time seen: 08/09/20 18:50 Patient is moaning, AMS, stuporous. Review of Systems Review of Systems: Narrative: Unable to obtain due to AMS, stuporous, moaning and groaning. Exam Narrative: Exam Narrative: Patient is stuporous, moaning and groaning. Const: General: ill appearing Nutritional Appearance: average body habitus Limitations: behavioral limitations Other: Stuporous. HENMT: Head: normal to inspection and normocephalic Ears: hearing grossly normal bilaterally General nose exam: Normal external nose present Eyes: General: appearance normal, both eyes and all related structures Pupils: Equal, round and reactive pupils present EOM: EOMs intact bilaterally Neck: Neck: normal visual inspection, no lymphadenopathy and no JVD Resp: Effort & Inspection: normal respiratory effort Auscultation: clear to auscultation bilaterally Cardio: Jugular venous distension: no JVD Rate: regular rate Rhythm: regular rhythm GI: Inspection: normal to inspection GI Palp: Yes Soft to
[2020-08-09] MEDS: Acetaminophen/HYDROcodone ELIXIR (*CRX) 7.5 MG/15 ML UDC 5 MG PO (22:58)
[2020-08-10] VITALS (23 sets, daily range): BP systolic 87–150; BP diastolic 55–105; PULSE 70–136; RESP 20–44; TEMP 35.6–38.9; O2SAT 94–100
[2020-08-10] MEDS: DEXTROSE 5% 1,000 ML 1,000 ML 75 ML IV CONT ×2 (00:28→15:01)
[2020-08-10] MEDS: ALBUTEROL SULFATE NEB 2.5 MG/0.5 ML INH 5 MG INHALATION ×4 (03:39→22:05)
--- NOTE | 2020-08-10 03:44 | PC.NURSE ---
08/10/20 at 0045--patient transferred to room 258-1, report given to Raúl Vázquez RN
[2020-08-10] MEDS: LIDOCAINE 5% PATCH 2 PATCH TOPICAL (06:37)
--- NOTE | 2020-08-10 08:00 | PC.NURSE ---
On arrival to room, patient moaning and restless in bed. Pulling at O2 tubing and crying out at intervals. Unable to answer questions but will make eye contact at intervals. FLACC 9. Unable to determine orientation. Patient with po Lortab elixir ordered. Attempted to give to patient but patient with decreased LOC and unable to safely take po medications. Will call MD for pain medication.
[2020-08-10] MEDS: methylPREDNISolone SOD SUCC 40 MG VIAL IV PUSH (08:24)
[2020-08-10 08:25] LABS: Anion Gap 8 mmol/L (8-16); Blood Urea Nitrogen 86 mg/dL (9-20); Calcium 8.9 mg/dL (8.4-10.2); Carbon Dioxide 28 mmol/L (22-30); Chloride 118 mmol/L (98-107); Estimated CRCL calculation 41 ml/min; Estimated Glomerular Filt Rate 40; Glucose 134 mg/dL (75-110); Potassium 4.3 mmol/L (3.4-5.0); Sodium 154 mmol/L (137-145)
[2020-08-10 08:31] LABS: Basophils Percent Auto 0.4 % (0.2-1.2); Hematocrit 32.7 % (42.0-52.0); Hemoglobin 9.7 g/dL (14.0-18.0); Immature Granulocyte Absolute 0.16 K/mm3 (0.00-0.031); Immature Granulocyte Percent A 6.5 % (0-0.5); Immature Platelet Fraction Pct 7.9 % (0.9-11.2); Lymphocytes Absolute Auto 0.22 K/mm3 (0.9-3.2); Lymphocytes Percent Auto 8.9 % (18.3-44.2); Mean Corpuscular HGB Conc 29.7 g/dl (32-36); Mean Corpuscular Hemoglobin 27.7 pg (26-34); Mean Corpuscular Volume 93.4 fl (80-100); Monocytes Absolute Auto 0.7 K/mm3 (0.1-0.6); Monocytes Percent Auto 26.8 % (2.6-8.5); Neutrophils Absolute Auto 1.4 K/mm3 (1.3-6.7); Neutrophils Percent Auto 57.4 % (45.5-73.1); Nucleated Red Blood Cells Perc 0.8 % (0.0-0.2); Platelet Count Result 93 k/mm3 (150-375); Red Cell Distribution Width 21.6 % (11.5-14.5); White Blood Count 2.5 K/mm3 (4.5-10.0)
[2020-08-10 08:43] LABS: Hypochromasia 1+ (NORMAL); Platelet Estimate Adequate (Adequate); Poikilocytosis 1+ (NORMAL)
[2020-08-10 08:44] LABS: Acanthocytes 1+ (NORMAL); Burr Cells 1+ (NORMAL); Ovalocytes 1+ (NORMAL)
--- NOTE | 2020-08-10 08:45 | PC.NURSE ---
Dr. Babcock here to see patient. One time order for MS IVP. Pain medication given to patient as ordered with slight relief of symptoms. Radiology to insert dobhoff today. dental patient coordinator here and will touch base with family regarding patient status.
[2020-08-10] MEDS: MORPHINE SULFATE (*CRX) 2 MG/ML INJ IV PUSH (08:49)
--- NOTE | 2020-08-10 09:30 | PC.NURSE ---
Patient to radiology for feeding tube placement via bed with radiology staff.
--- NOTE | 2020-08-10 09:50 | WPDNEUROLOGY ---
Neurology EEG Report General Information Date of Study: 08/09/20 TEST EEG DIAGNOSIS acute encephalopathy CONDITION OF RECORDING lethargic constantly moaning and moving head EEG NUMBER [id number] CLINICAL HISTORY acute encephalopathy EEG DESCRIPTION whole record consists of medium to high-voltage 3 to 4 hertzper second delta activity admixed with low to medium voltage 5 to 7 hertz per second theta activity, bilateral sleep activity seen with poorly developed sleep spindles. every now and then decrement of the voltage is seen with suppression of the activity lasting anywhere from 2 to 4 seconds IMPRESSION abnormal record due to the presence of bihemispheric theta and delta activity with intermittent voltage suppression suggestive of underlying significant cerebral insult clinical correlation recommended these findings are suggestive of organic or metabolic encephalopathy though there is no evidence of any seizure activity
--- NOTE | 2020-08-10 09:55 | WPDNEUROLOGY ---
Neurology EEG Report General Information Date of Study: 08/09/20 TEST eeg DIAGNOSIS acute encephalopathy CONDITION OF RECORDING lethargic constantly moving and moaning EEG NUMBER [id number] CLINICAL HISTORY lethargic constantly moaning and moving EEG DESCRIPTION poor record, consists of medium to high-voltage 3 to 4 hertz per second delta activity admixed with 5 to 7 hertz per second medium voltage theta activity. Bilaterally poorly developed sleep spindles are seen intermittently. decrement in activity seen lasting for 2 to 4 seconds. Non paroxysmal. nonfocal .nonlateralizing IMPRESSION abnormal record due to the presence of bihemispheric theta and delta activity with intermittent voltage suppression suggestive of organic or metabolic encephalopathy though there is no evidence of any seizure-like activity throughout the tracing
--- NOTE | 2020-08-10 10:00 | PC.NURSE ---
Patient returned from radiology with dobhoff in place to right nare. Patient continuously trying to pull tube out of nose. Also continuously pulling off O2. Very restless. Sitter at bedside to prevent patient from pulling tubes out/off.
--- NOTE | 2020-08-10 10:30 | PC.NURSE ---
Spoke with Dr Wright in regards to Daughter request to speak with him. He is aware and will call her after he sees patient today.
--- NOTE | 2020-08-10 10:39 | PC.NURSE ---
Patient with more frequent PVCs on heart monitor. Temp 102, HR 130s at times, RR 24-30, B/P 80s/60s. O2 sat remains 95% on 3 liters per nasal cannula. Patient restless and moaning at intervals. Updates given to daughter via telephone. Dr. Babcock called with update also.
[2020-08-10] MEDS: ACETAMINOPHEN 650 MG SUPPOSITORY RECTAL (10:50)
[2020-08-10] MEDS: SODIUM CHLORIDE 0.9% IV 1,000 ML 999 ML IV CONT (11:04)
--- NOTE | 2020-08-10 11:05 | PC.NURSE ---
ICU doctor at bedside assessing patient.
[2020-08-10 11:06] LABS: Lactic Acid Reflex 1.3 mmol/L (0.7-2.1)
--- NOTE | 2020-08-10 11:12 | PC.NURSE ---
Called and updated daughter Tessie on current condition and plans to transfer to IMU.
[2020-08-10 11:18] LABS: Alveolar/Arterial O2 Gradient 81.8 mmHg; Base Excess ABG -1.4 mEq/l (+/-2.0); Device NASAL CANNULA; Fractional Inspired Oxygen 28 %; HCO3 ABG 23.9 mEq/l (22.0-26.0); Modified Allen's Test Pass; Oxygen Content ABG 13.1 %vol (16.0-22.0); Oxygen Saturation ABG 92.9 % (95.0-100.0); Oxyhemoglobin 90.2 % THb (90.0-100.0); PCO2 ABG 42.7 mmHg (35.0-45.0); PO2 ABG 67.5 mmHg (80.0-100.0); PO2 FiO2 Ratio Arterial Blood 2.41 %; Site Drawn LEFT RADIAL; Total Hemoglobin 10.3 g/dL (12.0-18.0); pH ABG 7.366 (7.350-7.450)
[2020-08-10 11:33] LABS: Hematocrit 32.3 % (42.0-52.0); Hemoglobin 9.5 g/dL (14.0-18.0); Immature Platelet Fraction Pct 7.8 % (0.9-11.2); Mean Corpuscular HGB Conc 29.4 g/dl (32-36); Mean Corpuscular Volume 95.3 fl (80-100); Platelet Count Result 106 k/mm3 (150-375); Red Blood Count 3.39 M/mm3 (4.6-6.20); Red Cell Distribution Width 21.7 % (11.5-14.5); White Blood Count 2.8 K/mm3 (4.5-10.0)
--- NOTE | 2020-08-10 11:41 | PM.IMPN ---
Progress Note: A&P Assessment and Plan (1) Bacteremia: Code(s): R78.81 - Bacteremia Status: Acute Assessment and Plan: On vancomycin Repeated blood cx Spiked fever today. (2) Sepsis: Qualifiers: Sepsis type: methicillin resistant Staphylococcus aureus Sepsis acute organ dysfunction status: with acute organ dysfunction Severe sepsis acute organ dysfunction type: encephalopathy Severe sepsis shock status: without septic shock Qualified Code(s): A41.02 - Sepsis due to Methicillin resistant Staphylococcus aureus; R65.20 - Severe sepsis without septic shock; G93.41 - Metabolic encephalopathy Code(s): A41.9 - Sepsis, unspecified organism Status: Acute Assessment and Plan: On Vancomycin Early goal directed therapy ongoing Continue to monitor Strict I/O's daily (3) Pneumonia: Qualifiers: Pneumonia type: due to unspecified organism Laterality: bilateral Lung location: unspecified part of lung Qualified Code(s): J18.9 - Pneumonia, unspecified organism Code(s): J18.9 - Pneumonia, unspecified organism Status: Acute Assessment and Plan: MRSA on sputum On vancomycin (4) Acute encephalopathy: Code(s): G93.40 - Encephalopathy, unspecified Status: Acute Assessment and Plan: Worsened Avoid sedatives (5) Neutropenia: Qualifiers: Neutropenia type: secondary to cancer chemotherapy Qualified Code(s): D70.1 - Agranulocytosis secondary to cancer chemotherapy; T45.1X5A - Adverse effect of antineoplastic and immunosuppressive drugs, initial encounter Code(s): D70.9 - Neutropenia, unspecified Status: Acute Assessment and Plan: Continue to monitor (6) Non-Hodgkin lymphoma in remission: Code(s): C85.90 - Non-Hodgkin lymphoma, unspecified, unspecified site Status: Acute Assessment and Plan: On remission. (7) Acute gouty arthritis: Code(s): M10.9 - Gout, unspecified Status: Acute Assessment and Plan: Continue Solumedrol (8) Osteoarthritis involving multiple joints on both sides of body: Code(s): M15.9 - Polyosteoarthritis, unspecified Status: Acute Assessment and Plan: Continue Lidoderm patch (9) Chronic kidney disease, stage III (moderate): Qualifiers: Chronic kidney disease stage 3 subtype: stage 3a (GFR 45-59) Qualified Code(s): N18.31 - Chronic kidney disease, stage 3a Code(s): N18.30 - Chronic kidney disease, stage 3 unspecified Status: Acute Assessment and Plan: Continue to monitor Bun/Cr. (10) Sepsis with acute hypoxic respiratory failure: Code(s): A41.9 - Sepsis, unspecified organism; R65.20 - Severe sepsis without septic shock; J96.01 - Acute respiratory failure with hypoxia Status: Acute Assessment and Plan: Continuous BiPAP. (11) Arrhythmia, ventricular: Code(s): I49.9 - Cardiac arrhythmia, unspecified Status: Acute Assessment and Plan: On Telemetry Continue to monitor Cardiology consult. Subjective Date/time seen: 08/10/20 11:41 Moaning and groaning. Obtunded. Review of Systems Review of Systems: Narrative: Unable to obtain due to AMS. Exam Narrative: Exam Narrative: Patient is mild respiratory distress after coming back from [facility]. Patient is stuporous. Const: General: ill appearing Nutritional Appearance: average body habitus Orientation/consciousness: Other orientation findings (Stuporous) HENMT: Head: normal to inspection and normocephalic Eyes: General: appearance normal, both eyes and all related structures Pupils: Equal, round and reactive pupils present EOM: EOMs intact bilaterally Neck: Neck: normal visual inspection, full ROM, no lymphadenopathy and no JVD Resp: Effort & Inspection: abnormal respiratory pattern Auscultation: diminished lung sounds Cardio: Jugular venous distension: no JVD Rate: tachycardic GI
[2020-08-10 11:43] LABS: Anion Gap 10 mmol/L (8-16); Blood Urea Nitrogen 84 mg/dL (9-20); Calcium 8.7 mg/dL (8.4-10.2); Carbon Dioxide 23 mmol/L (22-30); Chloride 119 mmol/L (98-107); Estimated CRCL calculation 43 ml/min; Estimated Glomerular Filt Rate 42; Glucose 159 mg/dL (75-110); Potassium 4.1 mmol/L (3.4-5.0); Sodium 152 mmol/L (137-145)
--- NOTE | 2020-08-10 11:49 | PC.NURSE ---
Addendum entered by Valerie Mccall RN 08/11/20 07:33: Aligning Checker utilized as sitter and at patient beside after dobhoff placed to keep from pulling. Sitter at bedside during transfer holding hand to ensure that tube not pulled. Remained at bedside with patient in IMU. NO restraints were placed on patient at time of transfer. Original Note: Report given to Danii DANIELS in IMU. Patient transferred to IMU 204 for further care.
--- NOTE | 2020-08-10 11:56 | PCNFU ---
Nutrition Follow-Up Complete: Inadequate oral intake related to altered mental status as evidence by 0% intake over the last five days Goal: Total intake will meet estimated nutrition needs Progressing towards goal. We will continue current goal. Pt current nutrition is Jevity 1.2 . Nutrition recommendation: Agree Last recorded weight is 108.9 kg. No new weight. Bowel Motility: +BM reported 08/09 Labs Reviewed: Na 154,BUN 86,Cr 1.7,Glu 134 Meds Noted:Vanc,Dextrose 5% 1000 ml @ 75 ml/hr Additional Notes: Transfer to IMU. Patient had NGT placed. MD order for Jevity 1.2 starting at 10ml/hr with goal of 40ml/hr day one. If tolerated we will advance to goal of 75ml/hr day two after enteral nutrition starts. Monitoring: Tube feeding tolerance, weight, labs daily.
--- NOTE | 2020-08-10 13:55 | WPDINFPN2 ---
Progress Note: A&P Assessment and Plan (1) Bacteremia: Code(s): R78.81 - Bacteremia Status: Acute Assessment and Plan: 1. MRSA bacteremia with infection, lung vs skin source. Repeat BCs ng after 1 day incubation 2. Fever due to #1 3. Encephalopathy, due to # 1 and due to hypernatremia 4. Recent gout. 5. Lymphoma/neutropenia, with incomplete recovery in PMNs REC Vanc #6, target trough 15-20. Off cefepime. Very guarded prognosis. He will need minimum 22 days more IV Vanc. Subjective Date/time seen: 08/10/20 13:55 Interval history: moans, no meaningful verbal response Exam Narrative: Exam Narrative: t max 38.9. Hypotensive earlier Const: Other: appears ill, no respiratory distress Resp: Effort & Inspection: normal respiratory effort Auscultation: clear to auscultation bilaterally and diminished lung sounds Cardio: Rate: tachycardic Heart sounds: no murmurs GI: Inspection: distended GI Palp: Yes Firmness to palpation present (GI), Yes Tenderness to palpation present (GI) and No Guarding due to palpation present (GI) Percussion: Yes tympanic to percussion Auscultation: abnormal bowel sounds Urinary Catheter: Urinary Catheter: patent and draining and urine clear Skin: General skin exam: normal color and no rashes or lesions noted Objective Data Vital Signs Vital Signs: Vital Signs - 24 hr 08/09/20 14:36 08/09/20 15:06 08/09/20 16:00 Temperature 36.9 C Pulse Rate 106 H 88 105 H Respiratory Rate 18 20 Blood Pressure 127/70 Pulse Oximetry 96 08/09/20 20:00 08/09/20 22:00 08/10/20 00:00 Temperature 37.2 C 37.2 C Pulse Rate 117 H 66 117 H Respiratory Rate 24 H 22 H 24 H Blood Pressure 105/60 150/88 H Pulse Oximetry 95 92 95 08/10/20 03:39 08/10/20 03:46 08/10/20 04:00 Temperature Pulse Rate 94 102 H 100 Respiratory Rate 24 H 24 H Blood Pressure Pulse Oximetry 08/10/20 06:00 08/10/20 07:57 08/10/20 08:00 Temperature 37.2 C Pulse Rate 100 70 103 H Respiratory Rate 24 H 20 Blood Pressure 144/64 H Pulse Oximetry 96 97 08/10/20 10:41 08/10/20 10:50 08/10/20 12:10 Temperature 38.8 C H 38.9 C H 35.6 C L Pulse Rate 136 H 105 H Respiratory Rate 44 H 28 H Blood Pressure 88/61 L 87/55 L Pulse Oximetry 95 94 08/10/20 12:30 Temperature Pulse Rate 100 Respiratory Rate 22 H Blood Pressure 138/105 H Pulse Oximetry 94 Intake/Output Intake/Output: Intake & Output 08/07/20 08/08/20 08/09/20 08/10/20 23:59 23:59 23:59 23:59 Intake Total 1150 2850 1557 1500 Output Total 2550 2300 2300 300 Balance -1400 550 -743 1200 Meds/Results Medications: Active Medications Generic Name Dose Route Start Last Admin Trade Name Freq PRN Reason Stop Dose Admin Acetaminophen 650 mg 08/05/20 20:35 08/10/20 10:50 Acetaminophen 650 Mg Suppository RECTAL 650 mg Q6H PRN Administration Mild Pain (1-3) or Fever Hydrocodone Bitart/Acetaminophen 5 mg 08/09/20 18:47 08/09/20 22:58 Acetaminophen/Hydrocodone Elixir (*Crx) 7.5 Mg/15 Ml Udc PO 5 mg Q6H PRN Administration Pain Rated 4-6 Albuterol 2 puff 08/05/20 20:35 Albuterol Sulfate (*Sp) Aerosol 1 Puff INHALATION QIDRT PRN Shortness Of Breath Albuterol 5 mg 08/08/20 20:00 08/10/20 07:57 Albuterol Sulfate Neb 2.5 Mg/0.5 Ml Inh INHALATION 5 mg Q6HRT ATUL Administration Vancomycin HCl 1,500 mg in 500 mls @ 333.333 mls/hr 08/10/20 09:00 08/10/20 09:55 Vancomycin 1,500 Mg/D5w 500 Ml IVPB Infused Q24H ATUL Infusion Dextrose 1,000 mls @ 75 mls/hr 08/09/20 11:30 08/10/20 00:28 Dextrose 5% 1,000 Ml IV CONT 75 mls/hr .[id number] ATUL Administration Diltiazem HCl 100 mg in 100 mls @ 5 mls/hr 08/10/20 11:20 Cardizem 100 Mg/D5w 100 Ml IV CONT .Q20H ATUL 5 MG/HR Lidocaine 2 patch 08/09/20 16:23 08/10/20 06:37 Lidocaine 5% Patch TOPICAL 2 patch QAM PRN Administration Pain Methylprednisolone Sodium Succinate 40
--- NOTE | 2020-08-10 14:38 | PC.NURSE ---
Addendum entered by Clara Bojorquez RN 08/11/20 09:20: 1240-Wrist restaints Removed--sitter at bedside- Original Note: 1230- Received pt from [address] [place] [address]- @ 1210-pt resp @ 40 shallow- O2 on 2l/nc- spO2 95%; monitor on atrial fib with freq muti focal PVC S- Dr. Man updated cardiac rhythm and respirations- - new orders received. pt opens eyes briefly at times- to name/light touch- but does not follow commands- non-verbal but moans aloud when repositioned . Sitter at bedside- received pt from [address] [place] [address] with wrist restaints;
--- NOTE | 2020-08-10 19:44 | PM.CNCAR ---
Assessment and Plan Assessment and plan (1) Arrhythmia, ventricular: Code(s): I49.9 - Cardiac arrhythmia, unspecified Status: Acute Assessment and Plan: PVCs and ventricular ectopy with up to 5-6 beats of nonsustained ventricular tachycardia noted recently. K+ and Mg+ were normal, cont to check periodically No QT prolongation noted on admission EKG, will repeat Not on any meds known to aggravate arrhythmias or cause QT prolongatioin O2 sat OK EF 2018 was 40%, will need it to be repeated. PVCs may be related to multiple metabolic abnormalities and general physiologic stressors If BP stabilized, can add a low-dose BB to tx PVCs, cardiomyopathy and a fib (but SBP in 80's earlier today) Cont Telemetry (2) Sepsis with acute hypoxic respiratory failure: Code(s): A41.9 - Sepsis, unspecified organism; R65.20 - Severe sepsis without septic shock; J96.01 - Acute respiratory failure with hypoxia Status: Acute Assessment and Plan: Getting vanco and supportive care (3) Atrial fibrillation: Qualifiers: Atrial fibrillation type: unspecified chronic Qualified Code(s): I48.20 - Chronic atrial fibrillation, unspecified Code(s): I48.91 - Unspecified atrial fibrillation Status: Chronic Assessment and Plan: H/O persistent? a fib, currrently off his usual Eliquis and diltiazem, rate reasonably controlled. (4) Cardiomyopathy: Code(s): I42.9 - Cardiomyopathy, unspecified Status: Acute Assessment and Plan: EF was 45% in 2018. ProBNP quite high on admission and the chest x-ray shows possible CHF versus pneumonia. However, there is no edema and I do not think the patient is in CHF. History of Present Illness History of Present Illness Consult date/time: 08/10/20 19:44 Reason For Visit: Altered Mental Status Narrative: Date of service: 08/10/2020 Mr. Harvey Sterling is a very unfortunate and medically complicated 75-year-old male who were asked to see at the request of the hospitalist for his frequent PVCs and nonsustained ventricular tachycardia. He is currently being treated for MRSA staph bacteremia, pneumonia, sepsis, encephalopathy, acute kidney injury, and neutropenia. He has been followed by Dr. Virk because of his persistent atrial fibrillation and mild cardiomyopathy with EF of 45% in 2018. He also has non-Hodgkin's lymphoma (Dr. Ruiz, His last maintenance Rituxan was in March of 2020), chronic kidney disease. The patient was noted to have frequent PVCs, couplets and runs of up to 5-6 beats of nonsustained ventricular tachycardia in the last couple of days. No apparent chest pain although the patient is encephalopathic. He is unable to provide any history 2nd to encephalopathy, and the history is obtained from EMR, nursing personnel cetera COVID negative Review of Systems Constitutional: Constitutional: Reports weakness ENT: Denies epistaxis Cardiovascular: Cardiovascular: Denies chest pain, Denies pedal edema and Denies palpitations Respiratory: Respiratory: Denies dyspnea Comments: Uses CPAP at night Gastrointestinal: Gastrointestinal: Denies abdominal pain and Denies hematemesis Genitourinary: Genitourinary: Denies hematuria Musculoskeletal: Musculoskeletal: Reports no additional musculoskeletal complaints Integumentary/Breasts: Skin/Breast: Denies rash Neurologic: Reports Abnormal speech present and Reports confusion Psychiatric: Psychiatric: Reports behavioral changes and Reports confusion [facility] Past Medical History Medical History Angina pectoris, unspecified previous cardiac catheterization with minimal blockage no intervention Anxiety Arthritis 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
--- NOTE | 2020-08-10 20:35 | PC.NURSE ---
dobhoff clamped no orders for feeding / flushes
[2020-08-10 23:51] LABS: Glucose Point of Care 148 (65-105)
[2020-08-11] VITALS (19 sets, daily range): BP systolic 105–133; BP diastolic 61–77; PULSE 75–109; RESP 15–28; TEMP 35.9–37.3; O2SAT 93–100
--- NOTE | 2020-08-11 | ECHO_ITS ---
Patient Info Name: Harvey Sorenson Age: 75 years : 1945 Gender: Male Ht: 67 in Wt: 240 lbs BSA: 2.32 m2 HR: 88 bpm BP: 119 / 61 mmHg Heart Rhythm: Atrial Fibrillation Technical Quality: Good Exam Date: 08/11/2020 10:01 AM Exam Location: [facility] Pulmonary Patient Status: Inpatient Admit Date: 08/05/2020 Staff Ordering Physician: Cinthia Arroyo MD [employer] Information Architect: Niko Ortiz, ALYSIA, RT Attending Provider: Saray Padilla DO Referring Physician: Dina REY; Exam Type: CA echo doppler color flow Study Info Indications I49.8 - Other specified cardiac arrhythmias Complete two-dimensional, color flow and Doppler transthoracic echocardiogram is performed. Strain analysis performed. Summary 1. Complete two-dimensional, color flow and Doppler transthoracic echocardiogram is performed. 2. Left ventricular systolic function is moderately reduced, estimated at 30-35%. 3. Left ventricular chamber dimension is moderately enlarged. 4. Severe biatrial dilation. 5. Moderate mitral and tricuspid valve regurgitation. 6. Aortic valve stenosis which on visual inspection is at least mild to moderate. 7. Doppler interrogation of the aortic valve demonstrated no stenosis and in my opinion is not accurate. Left Ventricle Left ventricular chamber dimension is moderately enlarged. Left ventricular systolic function is moderately reduced, estimated at 30-35%. Right Ventricle Right ventricular chamber dimension is normal. Left Atria Left atrial chamber dimension is severely enlarged. Right Atria Right atrial chamber dimension is severely enlarged. Aortic Valve The aortic valve is trileaflet. There is moderate aortic valve sclerosis. There is mild aortic valve stenosis. Pulmonic Valve The pulmonic valve is not well visualized. Mitral Valve The mitral valve has normal leaflets. There is moderate mitral valve regurgitation. Tricuspid Valve The tricuspid valve leaflets are normal. There is moderate tricuspid valve regurgitation. Pericardium/Pleural The pericardium appears normal. Aorta The aortic root size at the sinus of Valsalva is normal. Tricuspid Valve Name Value Normal Estimated PAP/RSVP RA Pressure 10 mmHg <=5 Report Signatures
[2020-08-11] MEDS: DEXTROSE 5% 1,000 ML 1,000 ML 75 ML IV CONT ×2 (05:04→20:11)
[2020-08-11 05:15] LABS: Estimated CRCL calculation 49 ml/min; Estimated Glomerular Filt Rate 50
--- NOTE | 2020-08-11 07:00 | ECG_ITS ---
Measurements Intervals [place] Rate: 102 P: ND: 0 QRS: -20 QRSD: 136 T: 104 QT: 361 QTc: 471 Interpretive Statements ATRIAL FIBRILLATION FREQUENT VENTICULAR COUPLETS AND VENTRICULAR PREMATURE COMPLEXES RIGHT BUNDLE BRANCH BLOCK ABNORMAL ECG Electronically Signed On 08-11-2020 11:27:04 [employer]LECT[employer]ICIAN by Jacob Manning D.O.
--- NOTE | 2020-08-11 07:48 | PCRCNOTE ---
08/11/20 0200 neb treatment not given. Window of time for administration has passed. See next scheduled administration.
[2020-08-11 08:51] LABS: Alveolar/Arterial O2 Gradient 37.7 mmHg; Base Excess ABG 1.2 mEq/l (+/-2.0); Fractional Inspired Oxygen 30 %; Oxygen Content ABG 12.9 %vol (16.0-22.0); Oxygen Saturation ABG 98.5 % (95.0-100.0); Oxyhemoglobin 96.8 % THb (90.0-100.0); PO2 ABG 126.9 mmHg (80.0-100.0); PO2 FiO2 Ratio Arterial Blood 4.23 %; Total Hemoglobin 9.3 g/dL (12.0-18.0); pH ABG 7.409 (7.350-7.450)
[2020-08-11 08:54] LABS: Device NON-INVASIVE VENT; Modified Allen's Test Pass; Non-Invasive Inspiratory Pressure 15 CMH2O; Non-Invasive Vent Rate 4 /MIN; Site Drawn RIGHT RADIAL
[2020-08-11 08:55] LABS: Non-Invasive Expiratory Pressure 8 CMH2O
[2020-08-11] MEDS: methylPREDNISolone SOD SUCC 40 MG VIAL IV PUSH (09:56)
[2020-08-11] MEDS: ALBUTEROL SULFATE NEB 2.5 MG/0.5 ML INH 5 MG INHALATION ×3 (10:58→19:46)
--- NOTE | 2020-08-11 11:09 | PM.PNCARD ---
Progress Note: A&P Assessment and Plan (1) Arrhythmia, ventricular: Code(s): I49.9 - Cardiac arrhythmia, unspecified Status: Acute Assessment and Plan: PVCs and ventricular ectopy with up to 5-6 beats of nonsustained ventricular tachycardia noted recently. K+ and Mg+ are normal, continue to monitor No QT prolongation noted on admission EKG. EKG this morning QTc 471 ms. Continues with frequent PVCs including couplets and triplets Not on any meds known to aggravate arrhythmias or cause QT prolongatioin O2 sat OK EF 2018 was 40%, repeat echo pending. PVCs may be related to multiple metabolic abnormalities and general physiologic stressors If BP stabilized, can add a low-dose BB to tx PVCs, cardiomyopathy and a fib BP soft 08/10/2020. Will add in 12.5 mg metoprolol tartrate every 12 hours with holding parameters. Cont Telemetry (2) Sepsis with acute hypoxic respiratory failure: Code(s): A41.9 - Sepsis, unspecified organism; R65.20 - Severe sepsis without septic shock; J96.01 - Acute respiratory failure with hypoxia Status: Acute Assessment and Plan: Getting vancomycin and supportive care (3) Atrial fibrillation: Qualifiers: Atrial fibrillation type: unspecified chronic Qualified Code(s): I48.20 - Chronic atrial fibrillation, unspecified Code(s): I48.91 - Unspecified atrial fibrillation Status: Chronic Assessment and Plan: H/O persistent? a fib, currrently off his usual Eliquis and diltiazem, rate reasonably controlled. (4) Cardiomyopathy: Qualifiers: Cardiomyopathy type: unspecified Qualified Code(s): I42.9 - Cardiomyopathy, unspecified Code(s): I42.9 - Cardiomyopathy, unspecified Status: Acute Assessment and Plan: EF was 45% in 2018. ProBNP quite high on admission and the chest x-ray shows possible CHF versus pneumonia. However, there is no edema and I do not think he is in CHF. Continue to monitor fluid balance. Additional Plan Plan discussed with Dr Khan Jimmy5 08/11/2020 Subjective Date/time seen: 08/11/20 11:09 Interval history: Follow-up for: PVCs and ventricular ectopy, sepsis with acute hypoxic respiratory failure, atrial fibrillation, cardiomyopathy. Date of service: 08/11/2020 Subjective: States that he would like some water. Not answering any questions. No distress. Off BiPAP. Echo has been done. EKG being performed. Review of Systems Review of Systems: ROS unobtainable: Yes unobtainable due to mental status Exam Narrative: Exam Narrative: Ill-appearing older male, on nasal cannula oxygen. Awake and gazes at the examiner but does not answer questions. Const: General: comfortable, no acute distress and confusion Orientation/consciousness: confusion HENMT: General nose exam: no epistaxis Eyes: EOM: EOMs intact bilaterally Neck: Neck: supple Resp: Effort & Inspection: normal respiratory effort Auscultation: diminished lung sounds bilateral in the lower lung obando Cardio: Rate: regular rate Rhythm: abnormal rhythm irregularly irregular Heart sounds: no murmurs Other: Diminished posterior tibial pulses, absent dorsalis pedis pulses GI: Inspection: non-distended GI Palp: Yes Soft to palpation Auscultation: normal bowel sounds Other: Dobbhoff in place Skin: General skin exam: normal color and no rashes or lesions noted Neuro: General: confusion Cognition (Neuro): abnormal cognition Speech: Abnormal speech present Extrem: General: no edema and no pedal edema Psych: Mental Status: mental status grossly abnormal Other: Encephalopathic and not responding appropriately. Objective Data Vital Signs Vital Signs: Vital Signs - 24 hr 08/10/20 12:00 08/10/20 12:10 08/10/20 12:30 Temperature 37.0 C 35.6 C L Pulse Rate 105 H 102 H Respiratory Rate 28 H 42 H Blood P
--- NOTE | 2020-08-11 11:53 | PCDIET ---
Spoke with RN re: Dobhoff feedings. Patient more alert today and is scheduled for swallow study. Reports Dobhoff feeds have not been initiated for that reason. RN aware of tube feeding orders in chart if patient unable to safely advance diet. Will follow up 08/12/20, per enteral feeding protocol.
--- NOTE | 2020-08-11 12:26 | PM.IMPN ---
Progress Note: A&P Assessment and Plan (1) Arrhythmia, ventricular: Code(s): I49.9 - Cardiac arrhythmia, unspecified Status: Acute Assessment and Plan: On Telemetry No new events overnight. (2) Sepsis with acute hypoxic respiratory failure: Code(s): A41.9 - Sepsis, unspecified organism; R65.20 - Severe sepsis without septic shock; J96.01 - Acute respiratory failure with hypoxia Status: Acute Assessment and Plan: Continue Vancomycin. Supportive care Early goal directed therapy. (3) Bacteremia: Code(s): R78.81 - Bacteremia Status: Acute Assessment and Plan: Repeated blood cx with no growth. Continue to monitor Fever spike yesterday (4) Sepsis: Qualifiers: Sepsis type: methicillin resistant Staphylococcus aureus Sepsis acute organ dysfunction status: with acute organ dysfunction Severe sepsis acute organ dysfunction type: encephalopathy Severe sepsis shock status: without septic shock Qualified Code(s): A41.02 - Sepsis due to Methicillin resistant Staphylococcus aureus; R65.20 - Severe sepsis without septic shock; G93.41 - Metabolic encephalopathy Code(s): A41.9 - Sepsis, unspecified organism Status: Acute Assessment and Plan: Secondary to MRSA pneumonia Continue supportive care (5) Pneumonia: Qualifiers: Pneumonia type: due to unspecified organism Laterality: bilateral Lung location: unspecified part of lung Qualified Code(s): J18.9 - Pneumonia, unspecified organism Code(s): J18.9 - Pneumonia, unspecified organism Status: Acute Assessment and Plan: Will repeat chest xr in am. (6) Acute encephalopathy: Code(s): G93.40 - Encephalopathy, unspecified Status: Acute Assessment and Plan: Improved Likely secondary to sepsis and hypernatremia. Supportive care Sitter at bedside (7) Non-Hodgkin lymphoma in remission: Code(s): C85.90 - Non-Hodgkin lymphoma, unspecified, unspecified site Status: Acute Assessment and Plan: Stable Will follow up in the outpatient setting. (8) Acute gouty arthritis: Code(s): M10.9 - Gout, unspecified Status: Acute Assessment and Plan: Continue Solumedrol 40 mg iv daily (9) Chronic kidney disease, stage III (moderate): Qualifiers: Chronic kidney disease stage 3 subtype: stage 3a (GFR 45-59) Qualified Code(s): N18.31 - Chronic kidney disease, stage 3a Code(s): N18.30 - Chronic kidney disease, stage 3 unspecified Status: Acute Assessment and Plan: Stable Bun/Cr at patient's baseline Continue to monitor Daily labs Avoid nephrotoxins (10) Nutrition disorder: Code(s): E63.9 - Nutritional deficiency, unspecified Status: Acute Assessment and Plan: Patient has been NPO for several days due to AMS Dubhoff in place will start enteral nutrition today Could not participate on swallow eval due to pain when positioning. Will re assess in am. Continue iv fluids. Subjective Date/time seen: 08/11/20 12:26 Patient is on BiPAP Review of Systems Review of Systems: Narrative: Unable to get a thorough review as patient was on BiPAP Exam Narrative: Exam Narrative: Patient lying in bed on BiPAP Const: General: cooperative, comfortable, no acute distress, alert, awake and Physically active Nutritional Appearance: average body habitus Orientation/consciousness: oriented to person Other: On BiPAP HENMT: Head: normal to inspection and normocephalic Ears: hearing grossly normal bilaterally General nose exam: Normal external nose present Eyes: General: appearance normal, both eyes and all related structures Pupils: Equal, round and reactive pupils present EOM: EOMs intact bilaterally Neck: Neck: normal visual inspection, no lymphadenopathy and no JVD Resp: Effort & Inspection: normal respiratory effort Auscultation: clear to auscultation bilaterally Cardio: Jugular v
--- NOTE | 2020-08-11 13:04 | PCSTNOTE ---
Bedside swallow unable to be completed due to patient pain level and unable to sit up for safe oral intake. Spoke with MD and nurse and both in agreement with attempt next day.
[2020-08-11 13:21] LABS: Hematocrit 31.4 % (42.0-52.0); Hemoglobin 9.4 g/dL (14.0-18.0); Immature Platelet Fraction Pct 9.7 % (0.9-11.2); Mean Corpuscular HGB Conc 29.9 g/dl (32-36); Mean Corpuscular Hemoglobin 28.7 pg (26-34); Mean Corpuscular Volume 95.7 fl (80-100); Platelet Count Result 80 k/mm3 (150-375); Red Blood Count 3.28 M/mm3 (4.6-6.20); Red Cell Distribution Width 21.2 % (11.5-14.5)
[2020-08-11] MEDS: METOPROLOL TARTRATE 12.5 MG TABLET FEED TUBE ×2 (13:30→20:10)
[2020-08-11 14:09] LABS: Anion Gap 6 mmol/L (8-16); Blood Urea Nitrogen 75 mg/dL (9-20); Calcium 8.9 mg/dL (8.4-10.2); Carbon Dioxide 29 mmol/L (22-30); Chloride 116 mmol/L (98-107); Estimated CRCL calculation 53 ml/min; Estimated Glomerular Filt Rate 54; Glucose 147 mg/dL (75-110); Potassium 3.5 mmol/L (3.4-5.0); Sodium 151 mmol/L (137-145)
[2020-08-11 15:21] LABS: White Blood Count 1.4 K/mm3 (4.5-10.0)
[2020-08-11 15:22] LABS: Total Cells Counted 100
[2020-08-11 15:23] LABS: Band Neutrophils Percent 4 % (0-6); Lymphocytes Absolute Manual 0.05 K/mm3 (1.1-4.5); Lymphocytes Percent Manual 4 % (18-44); Monocytes Absolute Manual 0.21 K/mm3 (0.1-0.90); Monocytes Percent Manual 15 % (3-9); Neutrophils Absolute Manual 1.13 K/mm3 (1.3-6.7); Neutrophils Percent Manual 77 % (46-73); Nucleated Red Blood Cells 2 %; Ovalocytes 1+ (NORMAL); Platelet Estimate Decreased (Adequate); Poikilocytosis 1+ (NORMAL); Schistocytes 1+ (NORMAL)
[2020-08-12] VITALS (21 sets, daily range): BP systolic 113–129; BP diastolic 58–89; PULSE 60–105; RESP 12–33; TEMP 36.3–37.4; O2SAT 93–100
[2020-08-12] MEDS: ALBUTEROL SULFATE NEB 2.5 MG/0.5 ML INH 5 MG INHALATION ×4 (02:36→20:31)
[2020-08-12] MEDS: PANTOPRAZOLE SODIUM IV 40 MG VIAL IV PUSH (09:56)
[2020-08-12] MEDS: methylPREDNISolone SOD SUCC 40 MG VIAL IV PUSH (09:57)
[2020-08-12] MEDS: METOPROLOL TARTRATE 12.5 MG TABLET FEED TUBE (09:57)
--- NOTE | 2020-08-12 10:48 | PCSTNOTE ---
Please refer to the Bedside Swallow Evaluation in the EMR. Please note, silent aspiration cannot be ruled out at bedside.
--- NOTE | 2020-08-12 11:40 | PCNFU ---
Nutrition Follow-Up Complete: Inadequate oral intake related to altered mental status as evidence by 0% intake over the last five days Goal: Total intake will meet estimated nutrition needs Progressing towards goal. We will continue current goal. Pt current nutrition is Jevity 1.2 at 40 ml/hr. Nutrition recommendation: Tube feedings goal rate of 75 ml/hr. Last recorded weight is 108.9 kg. No new weight reported. Bowel Motility:No reported BM Labs Reviewed: Glu 147,Na 151,GFR 54,BUN 75,Hct 31.4,Hgb 9.4 Meds Noted:Solu-Medrol, Protonix,Lopressor,Vancomycin. Additional Notes: Nutrition follow up today. Patient had Bedside Swallow today-recommending NPO. Tube feedings: Jevity 1.2 at 40 ml/hr with plans of advancing to goal rate of 75 ml/hr providing 1980 kcals/91 gms protein/1332 ml water. Agree with diet orders. Monitoring: weight, labs every Saturday and Saturday.
[2020-08-12] MEDS: DEXTROSE 5% 1,000 ML 1,000 ML 75 ML IV CONT (13:04)
--- NOTE | 2020-08-12 13:37 | PM.IMPN ---
Progress Note: A&P Assessment and Plan (1) Nutrition disorder: Code(s): E63.9 - Nutritional deficiency, unspecified Status: Acute Assessment and Plan: Started on enteral feeding. Tolerating well. Continue to monitor. (2) Cardiomyopathy: Qualifiers: Cardiomyopathy type: unspecified Qualified Code(s): I42.9 - Cardiomyopathy, unspecified Code(s): I42.9 - Cardiomyopathy, unspecified Status: Acute Assessment and Plan: Repeat 2DCHO pending. (3) Arrhythmia, ventricular: Code(s): I49.9 - Cardiac arrhythmia, unspecified Status: Acute Assessment and Plan: Having PVC's Started on Metoprolol (4) Sepsis with acute hypoxic respiratory failure: Code(s): A41.9 - Sepsis, unspecified organism; R65.20 - Severe sepsis without septic shock; J96.01 - Acute respiratory failure with hypoxia Status: Acute Assessment and Plan: Improved BiPAP continuous at night time. BiPAP prn during the day and with naps (5) Bacteremia: Code(s): R78.81 - Bacteremia Status: Acute Assessment and Plan: Repeat blood cx positive 1 of 2 bottles. (6) Acute encephalopathy: Code(s): G93.40 - Encephalopathy, unspecified Status: Acute Assessment and Plan: Improved. (7) Neutropenia: Qualifiers: Neutropenia type: secondary to cancer chemotherapy Qualified Code(s): D70.1 - Agranulocytosis secondary to cancer chemotherapy; T45.1X5A - Adverse effect of antineoplastic and immunosuppressive drugs, initial encounter Code(s): D70.9 - Neutropenia, unspecified Status: Acute Assessment and Plan: Continue to monitor. (8) Non-Hodgkin lymphoma in remission: Code(s): C85.90 - Non-Hodgkin lymphoma, unspecified, unspecified site Status: Acute Assessment and Plan: Follow up in the outpatient setting. (9) Acute gouty arthritis: Code(s): M10.9 - Gout, unspecified Status: Acute Assessment and Plan: On Solumedrol Continue to monitor Subjective Date/time seen: 08/12/20 13:37 Signals fine. Review of Systems Review of Systems: Narrative: Unable to get a thorough review of systems as patient is on BiPAP. Exam Narrative: Exam Narrative: Lying in bed NAD. BiPAP on. Const: General: cooperative, comfortable, no acute distress, alert, awake, Physically active and other (Chronically ill looking.) Nutritional Appearance: average body habitus HENMT: Head: normocephalic and atraumatic Ears: hearing grossly normal bilaterally General nose exam: Normal external nose present Other: BiPAP mask on. Eyes: General: appearance normal, both eyes and all related structures Pupils: Equal, round and reactive pupils present EOM: EOMs intact bilaterally Neck: Neck: normal visual inspection, full ROM, no lymphadenopathy and no JVD Resp: Effort & Inspection: normal respiratory effort Auscultation: clear to auscultation bilaterally Cardio: Rate: regular rate Rhythm: regular rhythm GI: Inspection: normal to inspection GI Palp: Yes Soft to palpation and Yes No hepatosplenomegaly present Auscultation: normal bowel sounds Skin: General skin exam: normal color Rashes: no rashes Wounds: no wounds Neuro: General: oriented to person Cranial nerves: Yes CN's II-XII intact bilaterally and Yes Equal, round and reactive pupils present Cognition (Neuro): abnormal cognition (Appears ok however on BiPAP unable to fully assess.) Motor exam (neuro): 5/5 motor strength present throughout Sensory Exam: normal sensation Extrem: General: normal to inspection, full ROM and no pedal edema Objective Data Vital Signs Vital Signs: Vital Signs - 24 hr 08/11/20 15:53 08/11/20 16:05 08/11/20 16:50 Temperature Pulse Rate 92 96 92 Respiratory Rate 20 20 22 H Blood Pressure Pulse Oximetry 94 08/11/20 19:46 08/11/20 19:56 08/11/20 20:00 Temperature 97.8 F Pulse Rate 101 H 97 88 Respirator
--- NOTE | 2020-08-12 15:05 | PC.NURSE ---
Increased Patient's tube feed by 10 mL to 50mL/hr.
--- NOTE | 2020-08-12 16:26 | PM.PNCARD ---
Progress Note: A&P Assessment and Plan (1) Arrhythmia, ventricular: Code(s): I49.9 - Cardiac arrhythmia, unspecified Status: Acute Assessment and Plan: PVCs and ventricular ectopy with up to 5-6 beats of nonsustained ventricular tachycardia noted recently. K+ and Mg+ should be maintained at 4.0 and 2.0 respectively. Will supplement potassium today. No QT prolongation noted on admission EKG. EKG this morning QTc 471 ms. Continues with frequent PVCs including couplets and triplets Not on any meds known to aggravate arrhythmias or cause QT prolongatioin O2 sat OK EF 2018 was 40%. Echo 08/11/2020-see below PVCs may be related to multiple metabolic abnormalities and general physiologic stressors Low-dose Metoprolol added 10/11/2019. Blood pressure improved. Increase Metoprolol to 25 mg every 12 hours. Cont Telemetry (2) Sepsis with acute hypoxic respiratory failure: Code(s): A41.9 - Sepsis, unspecified organism; R65.20 - Severe sepsis without septic shock; J96.01 - Acute respiratory failure with hypoxia Status: Acute Assessment and Plan: Getting vancomycin and supportive care (3) Atrial fibrillation: Qualifiers: Atrial fibrillation type: unspecified chronic Qualified Code(s): I48.20 - Chronic atrial fibrillation, unspecified Code(s): I48.91 - Unspecified atrial fibrillation Status: Chronic Assessment and Plan: H/O persistent? a fib, currrently off his usual Eliquis and diltiazem, rate reasonably controlled. (4) Cardiomyopathy: Qualifiers: Cardiomyopathy type: unspecified Qualified Code(s): I42.9 - Cardiomyopathy, unspecified Code(s): I42.9 - Cardiomyopathy, unspecified Status: Acute Assessment and Plan: EF was 45% in 2018. Echocardiogram 08/11/2020: 1. Complete two-dimensional, color flow and Doppler transthoracic echocardiogram is performed. 2. Left ventricular systolic function is moderately reduced, estimated at 30-35%. 3. Left ventricular chamber dimension is moderately enlarged. 4. Severe biatrial dilation. 5. Moderate mitral and tricuspid valve regurgitation. 6. Aortic valve stenosis which on visual inspection is at least mild to moderate. 7. Doppler interrogation of the aortic valve demonstrated no stenosis and in Dr. Virk's opinion is not accurate. ProBNP quite high on admission and the chest x-ray shows possible CHF versus pneumonia. However, there is no edema and I do not think he is in CHF. Continue to monitor fluid balance. He is receiving tube feedings as well as some IV fluids. Additional Plan Plan discussed with Dr. Virk [id number] 08/12/2020 Subjective Date/time seen: 08/12/20 16:26 Interval history: Follow-up for: PVCs and ventricular ectopy, sepsis with acute hypoxic respiratory failure, atrial fibrillation, cardiomyopathy. Date of service: 08/12/2020 Subjective: On BiPAP. Stares at provider but does not answer questions today. Review of Systems Review of Systems: ROS unobtainable: Yes unobtainable due to mental status Exam Narrative: Exam Narrative: Ill-appearing older male on BiPAP. Arouses and gazes at the examiner but does not answer questions. Const: General: comfortable, no acute distress and confusion Orientation/consciousness: confusion HENMT: General nose exam: no epistaxis Eyes: EOM: EOMs intact bilaterally Neck: Neck: supple Resp: Effort & Inspection: normal respiratory effort Auscultation: diminished lung sounds bilateral in the lower lung obando Other: Difficult exam due to the noise of the BiPAP machine Cardio: Rate: regular rate Rhythm: abnormal rhythm irregularly irregular Heart sounds: no murmurs Other: Diminished posterior tibial pulses, absent dorsalis pedis pulses GI: Inspection: non-distended Auscultation: normal bowel sound
[2020-08-12] MEDS: POTASSIUM CHLORIDE 20 MEQ PACKET (FOR LIQUID) 40 MEQ FEED TUBE (18:54)
--- NOTE | 2020-08-12 19:41 | PC.NURSE ---
Increased patients' tube feed by 10 mL to 60mL/hr.
[2020-08-12] MEDS: METOPROLOL TARTRATE 25 MG TABLET FEED TUBE (21:14)
[2020-08-13] VITALS (19 sets, daily range): BP systolic 109–122; BP diastolic 60–77; PULSE 52–119; RESP 20–32; TEMP 36.2–37.5; O2SAT 93–100
[2020-08-13] MEDS: ALBUTEROL SULFATE NEB 2.5 MG/0.5 ML INH 5 MG INHALATION ×4 (02:31→19:37)
[2020-08-13] MEDS: DEXTROSE 5% 1,000 ML 1,000 ML 75 ML IV CONT ×2 (02:36→17:14)
[2020-08-13 04:43] LABS: Glucose Point of Care 183 (65-105)
[2020-08-13] MEDS: Acetaminophen/HYDROcodone ELIXIR (*CRX) 7.5 MG/15 ML UDC 5 MG PO ×3 (05:09→17:14)
[2020-08-13 06:03] LABS: Anion Gap 6 mmol/L (8-16); Blood Urea Nitrogen 62 mg/dL (9-20); Calcium 8.7 mg/dL (8.4-10.2); Carbon Dioxide 27 mmol/L (22-30); Chloride 115 mmol/L (98-107); Estimated CRCL calculation 62 ml/min; Estimated Glomerular Filt Rate > 60; Glucose 182 mg/dL (75-110); Magnesium 2.5 mg/dL (1.6-2.3); Potassium 3.7 mmol/L (3.4-5.0); Sodium 148 mmol/L (137-145)
[2020-08-13] MEDS: methylPREDNISolone SOD SUCC 40 MG VIAL IV PUSH (09:58)
[2020-08-13] MEDS: METOPROLOL TARTRATE 25 MG TABLET FEED TUBE ×2 (09:58→21:02)
[2020-08-13] MEDS: PANTOPRAZOLE SODIUM IV 40 MG VIAL IV PUSH (09:58)
[2020-08-13] MEDS: LIDOCAINE 5% PATCH 2 PATCH TOPICAL (10:00)
--- NOTE | 2020-08-13 10:38 | PM.PNCARD ---
Progress Note: A&P Additional Plan 75-year-old gentleman with: Multifactorial/metabolic encephalopathy Chronic atrial fibrillation being managed with rate control he is currently receiving metoprolol for his NG tube. Patient does have moderate left ventricular systolic dysfunction. He has mild looking aortic valve stenosis on his echocardiogram. The valve by physical exam is not significantly stenotic. As I mentioned in my echo report the Doppler interrogation data is not accurate in my opinion Continue metoprolol for rate control with the atrial fib. Will follow with you while he is in the hospital Arthur Virk MD [facility] Subjective Date/time seen: Date of service: 08/13/20 10:38 Interval history: 75-year-old white male with: Chronic atrial fibrillation being managed with rate control and anticoagulation for a long time. The patient is in the hospital for evaluation of encephalopathic state I do not see any clear diagnosis having been made thus far. We are seeing the patient for evaluation of his cardiovascular status. Continues in persistent chronic atrial fibrillation heart rate is being controlled with metoprolol per his feeding tube. Patient is alert and responsive this morning but is obviously encephalopathic. He when asked specifically if he has any complaints he response and that he is not. He does not appear to be aware of his surroundings and has no ideal of the reasons for his hospitalization. Exam Const: General: comfortable and no acute distress Other: Encephalopathic chronically ill-appearing gentleman in bed with his NG feeding tube in place. Responsive, not in any obvious distress HENMT: Mouth: Yes moist mucous membranes Eyes: Sclera: sclerae normal Pupils: Equal, round and reactive pupils present Neck: Neck: supple and no JVD Other: Carotid pulses are intact bilaterally no obvious bruits Resp: Effort & Inspection: normal respiratory effort Other: Some large airway rhonchi are noted otherwise no rales no wheezing Cardio: Rhythm: abnormal rhythm irregularly irregular GI: GI Palp: Yes Soft to palpation Auscultation: normal bowel sounds Skin: General skin exam: normal color Neuro: Cognition (Neuro): abnormal cognition Other: Encephalopathic as described above Objective Data Vital Signs Vital Signs: Vital Signs - 24 hr 08/12/20 12:00 08/12/20 13:31 08/12/20 13:38 Temperature 36.4 C L Pulse Rate 101 H 100 93 Respiratory Rate 28 H 28 H 26 H Blood Pressure 126/84 Pulse Oximetry 96 100 08/12/20 16:00 08/12/20 19:50 08/12/20 20:00 Temperature 36.4 C L 36.3 C L 36.3 C L Pulse Rate 81 90 93 Respiratory Rate 14 12 12 Blood Pressure 116/77 125/89 125/89 Pulse Oximetry 100 100 100 08/12/20 20:33 08/12/20 20:34 08/12/20 21:14 Temperature Pulse Rate 88 100 97 Respiratory Rate 25 H 25 H Blood Pressure Pulse Oximetry 100 08/12/20 22:00 08/12/20 23:43 08/13/20 00:00 Temperature 36.4 C L Pulse Rate 76 80 83 Respiratory Rate 20 Blood Pressure 113/62 Pulse Oximetry 98 100 08/13/20 02:00 08/13/20 02:33 08/13/20 03:59 Temperature 36.3 C L Pulse Rate 85 83 84 Respiratory Rate 24 H 24 H Blood Pressure 121/76 Pulse Oximetry 100 100 08/13/20 04:00 08/13/20 07:29 08/13/20 08:58 Temperature 37.5 C Pulse Rate 82 83 84 Respiratory Rate 22 H Blood Pressure 111/77 Pulse Oximetry 100 94 08/13/20 09:58 Temperature Pulse Rate 96 Respiratory Rate Blood Pressure Pulse Oximetry Intake/Output Intake/Output: Intake & Output 08/10/20 08/11/20 08/12/20 08/13/20 23:59 23:59 23:59 23:59 Intake Total 2500 2500 1500 2913 Output Total 950 2230 1900 1000 Balance 1550 270 -400 1913 Meds/Results Medications: Active Medications Generic Name Dose Route Start Last Admin Trade Name Jabier PRN Reason Stop Dose Admin Acetaminophen 650 mg 08/05/20 20:35 08/10/20 10:50 Acetaminophen 650 Mg Suppository RECTAL 650 mg Q6
[2020-08-13 12:12] LABS: Glucose Point of Care 200 (65-105)
--- NOTE | 2020-08-13 13:43 | PM.IMPN ---
Progress Note: A&P Assessment and Plan (1) Arrhythmia, ventricular: Code(s): I49.9 - Cardiac arrhythmia, unspecified Status: Acute Assessment and Plan: On Telemetry No new events On Metoprolol (2) Sepsis with acute hypoxic respiratory failure: Code(s): A41.9 - Sepsis, unspecified organism; R65.20 - Severe sepsis without septic shock; J96.01 - Acute respiratory failure with hypoxia Status: Acute Assessment and Plan: On vanc BiPAP continuous att night time and prn during the day and with naps. (3) Bacteremia: Code(s): R78.81 - Bacteremia Status: Acute Assessment and Plan: Repeat blood cx 1 bottle positive (4) Acute encephalopathy: Code(s): G93.40 - Encephalopathy, unspecified Status: Acute Assessment and Plan: Improved. Supportive care (5) Neutropenia: Qualifiers: Neutropenia type: secondary to cancer chemotherapy Qualified Code(s): D70.1 - Agranulocytosis secondary to cancer chemotherapy; T45.1X5A - Adverse effect of antineoplastic and immunosuppressive drugs, initial encounter Code(s): D70.9 - Neutropenia, unspecified Status: Acute Assessment and Plan: At patient's baseline. (6) Non-Hodgkin lymphoma in remission: Code(s): C85.90 - Non-Hodgkin lymphoma, unspecified, unspecified site Status: Acute Assessment and Plan: Continue to monitor. (7) Acute gouty arthritis: Code(s): M10.9 - Gout, unspecified Status: Acute Assessment and Plan: Solumedrol 40 mg daily Will likely discontinue has had about a week's worth. (8) Chronic kidney disease, stage III (moderate): Qualifiers: Chronic kidney disease stage 3 subtype: stage 3a (GFR 45-59) Qualified Code(s): N18.31 - Chronic kidney disease, stage 3a Code(s): N18.30 - Chronic kidney disease, stage 3 unspecified Status: Acute Assessment and Plan: Stable Bun/Cr. Continue to monitor (9) Atrial fibrillation: Qualifiers: Atrial fibrillation type: unspecified chronic Qualified Code(s): I48.20 - Chronic atrial fibrillation, unspecified Code(s): I48.91 - Unspecified atrial fibrillation Status: Chronic Assessment and Plan: Rate controlled. Subjective Date/time seen: 08/13/20 13:43 Unable to obtained as patient is delirious Review of Systems Review of Systems: Narrative: Unable to obtain as patient is delirious. Exam Narrative: Exam Narrative: Lying in bed. Const: General: comfortable, well developed, awake and other (Delirious) Nutritional Appearance: average body habitus Orientation/consciousness: oriented to person and Other orientation findings (Delirious) HENMT: Head: normal to inspection and normocephalic Ears: hearing grossly normal bilaterally General nose exam: Normal external nose present Face and sinus: normal facial exam Eyes: General: appearance normal, both eyes and all related structures Pupils: Equal, round and reactive pupils present EOM: EOMs intact bilaterally Neck: Neck: normal visual inspection, full ROM, no lymphadenopathy, supple and no JVD Resp: Effort & Inspection: normal respiratory effort Auscultation: clear to auscultation bilaterally Cardio: Rhythm: other (irregularly irregular rhythm.) GI: Inspection: normal to inspection GI Palp: Yes Soft to palpation and Yes No hepatosplenomegaly present Skin: General skin exam: normal color Lesions: no lesions Rashes: no rashes Wounds: no wounds Neuro: General: other (Delirious) Cranial nerves: Yes CN's II-XII intact bilaterally and Yes Bilaterally intact EOM present Motor exam (neuro): 5/5 motor strength present throughout Extrem: General: no pedal edema Objective Data Vital Signs Vital Signs: Vital Signs - 24 hr 08/12/20 16:00 08/12/20 19:50 08/12/20 20:00 Temperature 97.5 F L 97.3 F L 97.3 F L Pulse Rate 81 90 93 Respiratory Rate 14 12 12 Blood Pressure 116/77 125/
[2020-08-13 16:36] LABS: Glucose Point of Care 244 (65-105)
[2020-08-13] MEDS: INSULIN ASPART (*BKC) 100 UNITS/ML SUB-Q (17:14)
--- NOTE | 2020-08-13 17:57 | PC.NURSE ---
This patient, Harvey Sorenson, was transferred to [facility] on 08/13/20 at 1744. Personal belongings sent with patient. Report given to Melva DANIELS. Appropriate documentation sent with patient.
[2020-08-13 23:43] LABS: Glucose Point of Care 237 (65-105)
[2020-08-14] VITALS (19 sets, daily range): BP systolic 113–129; BP diastolic 56–85; PULSE 57–90; RESP 20–48; TEMP 36.1–37.3; O2SAT 95–100
[2020-08-14 00:34] LABS: Glucose Point of Care 208 (65-105)
[2020-08-14 01:10] LABS: Base Excess ABG 1.5 mEq/l (+/-2.0); Fractional Inspired Oxygen 21 %; HCO3 ABG 25.5 mEq/l (22.0-26.0); Oxygen Content ABG 13.1 %vol (16.0-22.0); Oxygen Saturation ABG 93.7 % (95.0-100.0); Oxyhemoglobin 91.5 % THb (90.0-100.0); PO2 ABG 65.2 mmHg (80.0-100.0); Total Hemoglobin 10.1 g/dL (12.0-18.0); pH ABG 7.445 (7.350-7.450)
[2020-08-14 01:12] LABS: Device ROOM AIR; Modified Allen's Test Pass; Site Drawn LEFT RADIAL
[2020-08-14] MEDS: ALBUTEROL SULFATE NEB 2.5 MG/0.5 ML INH 5 MG INHALATION ×4 (02:17→22:25)
[2020-08-14] MEDS: Acetaminophen/HYDROcodone ELIXIR (*CRX) 7.5 MG/15 ML UDC 5 MG PO (05:22)
[2020-08-14 06:25] LABS: Glucose Point of Care 169 (65-105)
[2020-08-14 06:26] LABS: Anion Gap 6 mmol/L (8-16); Blood Urea Nitrogen 50 mg/dL (9-20); Calcium 8.6 mg/dL (8.4-10.2); Carbon Dioxide 30 mmol/L (22-30); Chloride 112 mmol/L (98-107); Estimated CRCL calculation 67 ml/min; Estimated Glomerular Filt Rate > 60; Glucose 170 mg/dL (75-110); Magnesium 2.2 mg/dL (1.6-2.3); Potassium 3.9 mmol/L (3.4-5.0); Sodium 148 mmol/L (137-145)
[2020-08-14] MEDS: DEXTROSE 5% 1,000 ML 1,000 ML 75 ML IV CONT ×2 (07:59→21:18)
[2020-08-14] MEDS: PANTOPRAZOLE SODIUM IV 40 MG VIAL IV PUSH (09:13)
[2020-08-14] MEDS: methylPREDNISolone SOD SUCC 40 MG VIAL IV PUSH (09:13)
[2020-08-14] MEDS: METOPROLOL TARTRATE 25 MG TABLET FEED TUBE ×2 (09:14→21:01)
--- NOTE | 2020-08-14 09:35 | PM.PNCARD ---
Progress Note: A&P Additional Plan Cont Metoprolol for HR control for chronic AF No new cardiiac recc's Subjective Date/time seen: Date of service : 08/14/20 09:35 Interval history: 75-year-old white male with: Chronic atrial fibrillation being managed with rate control and anticoagulation for a long time. The patient is in the hospital for evaluation of encephalopathic state I do not see any clear diagnosis having been made thus far. We are seeing the patient for evaluation of his cardiovascular status. Continues in persistent chronic atrial fibrillation heart rate is being controlled with metoprolol per his feeding tube. Patient is more alert on Bi Pap . No longer on telemetry Exam Narrative: Exam Narrative: Resting on Bi Pap , seems more alert . Still incoherent Const: General: comfortable, no acute distress and confusion Orientation/consciousness: confusion Other: Encephalopathic chronically ill-appearing gentleman in bed with his NG feeding tube in place. Responsive, not in any obvious distress HENMT: General nose exam: no epistaxis Mouth: Yes moist mucous membranes Eyes: Sclera: sclerae normal Pupils: Equal, round and reactive pupils present EOM: EOMs intact bilaterally Neck: Neck: supple and no JVD Other: Carotid pulses are intact bilaterally no obvious bruits Resp: Effort & Inspection: normal respiratory effort Auscultation: diminished lung sounds bilateral in the lower lung obando Other: Some large airway rhonchi are noted otherwise no rales no wheezing Cardio: Rate: regular rate Rhythm: abnormal rhythm irregularly irregular Heart sounds: no murmurs Other: Diminished posterior tibial pulses, absent dorsalis pedis pulses GI: Inspection: non-distended Auscultation: normal bowel sounds Other: Dobbhoff with tube feeding in place Skin: General skin exam: normal color and no rashes or lesions noted Neuro: General: confusion Cranial nerves: Yes Equal, round and reactive pupils present Cognition (Neuro): abnormal cognition Speech: Abnormal speech present Motor exam (neuro): strength not 5/5 throughout and tone not normal throughout Other: Encephalopathic as described above Extrem: General: no edema and no pedal edema Psych: Mental Status: mental status grossly abnormal Other: Encephalopathic and not responding appropriately. Objective Data Vital Signs Vital Signs: Vital Signs - 24 hr 08/13/20 09:58 08/13/20 10:00 08/13/20 12:00 Temperature Pulse Rate 96 94 105 H Respiratory Rate Blood Pressure Pulse Oximetry 96 08/13/20 15:21 08/13/20 15:31 08/13/20 16:00 Temperature 36.8 C Pulse Rate 86 95 89 Respiratory Rate 29 H 20 32 H Blood Pressure 122/77 Pulse Oximetry 100 100 08/13/20 19:40 08/13/20 19:41 08/13/20 19:55 Temperature Pulse Rate 52 L 52 L 58 L Respiratory Rate 20 20 20 Blood Pressure Pulse Oximetry 93 08/13/20 20:00 08/13/20 21:02 08/14/20 00:00 Temperature 36.2 C L 36.3 C L Pulse Rate 76 74 57 L Respiratory Rate 21 H 20 Blood Pressure 109/60 122/61 Pulse Oximetry 94 96 08/14/20 02:20 08/14/20 02:34 08/14/20 04:00 Temperature 36.5 C Pulse Rate 57 L 59 L 87 Respiratory Rate 20 20 32 H Blood Pressure 129/60 Pulse Oximetry 100 08/14/20 08:00 08/14/20 09:14 Temperature Pulse Rate 87 Respiratory Rate 24 H Blood Pressure Pulse Oximetry Intake/Output Intake/Output: Intake & Output 08/11/20 08/12/20 08/13/20 08/14/20 23:59 23:59 23:59 23:59 Intake Total 2500 1500 4692 1000 Output Total 2230 1900 4150 700 Balance 270 -400 542 300 Meds/Results Medications: Active Medications Generic Name Dose Route Start Last Admin Trade Name Freq PRN Reason Stop Dose Admin Acetaminophen 650 mg 08/05/20 20:35 08/10/20 10:50 Acetaminophen 650 Mg Suppository RECTAL 650 mg Q6H PRN Administration Mild Pain (1-3) or Fever Hydrocodone Bitart/Acetaminophen 5 mg 08/09/20 18:47 08/14/20
[2020-08-14] MEDS: ACETAMINOPHEN 650 MG SUPPOSITORY RECTAL ×2 (09:50→17:46)
--- NOTE | 2020-08-14 13:18 | PM.IMPN ---
Progress Note: A&P Assessment and Plan (1) Cardiomyopathy: Qualifiers: Cardiomyopathy type: unspecified Qualified Code(s): I42.9 - Cardiomyopathy, unspecified Code(s): I42.9 - Cardiomyopathy, unspecified Status: Acute Assessment and Plan: Stable Cardiology following On Metoprolol. (2) Arrhythmia, ventricular: Code(s): I49.9 - Cardiac arrhythmia, unspecified Status: Acute Assessment and Plan: On Metoprolol On Telemetry Continue to monitor. (3) Sepsis with acute hypoxic respiratory failure: Code(s): A41.9 - Sepsis, unspecified organism; R65.20 - Severe sepsis without septic shock; J96.01 - Acute respiratory failure with hypoxia Status: Acute Assessment and Plan: Improved. On Vanc I/O's daily (4) Bacteremia: Code(s): R78.81 - Bacteremia Status: Acute Assessment and Plan: Repeat blood cx with one out of two bottles positve Continue Vanc. (5) Acute encephalopathy: Code(s): G93.40 - Encephalopathy, unspecified Status: Acute (6) Non-Hodgkin lymphoma in remission: Code(s): C85.90 - Non-Hodgkin lymphoma, unspecified, unspecified site Status: Acute Assessment and Plan: On remission (7) Acute gouty arthritis: Code(s): M10.9 - Gout, unspecified Status: Acute Assessment and Plan: Solumedrol daily iv Improved. (8) Chronic kidney disease, stage III (moderate): Qualifiers: Chronic kidney disease stage 3 subtype: stage 3a (GFR 45-59) Qualified Code(s): N18.31 - Chronic kidney disease, stage 3a Code(s): N18.30 - Chronic kidney disease, stage 3 unspecified Status: Acute Assessment and Plan: Continue to monitor. Subjective Date/time seen: 08/14/20 13:18 I'm fine. Review of Systems Review of Systems: Narrative: Unable to get a thorough review of systems as patient is still on BiPAP. Exam Narrative: Exam Narrative: In bed on BiPAP. Const: General: comfortable, alert and awake Nutritional Appearance: average body habitus Orientation/consciousness: oriented to person Limitations: altered mental status HENMT: Head: normal to inspection and normocephalic Face and sinus: normal facial exam Eyes: General: appearance normal, both eyes and all related structures Pupils: Equal, round and reactive pupils present EOM: EOMs intact bilaterally Neck: Neck: normal visual inspection, no lymphadenopathy, supple and no JVD Resp: Effort & Inspection: normal respiratory effort Auscultation: clear to auscultation bilaterally Cardio: Jugular venous distension: no JVD Rate: regular rate Rhythm: regular rhythm GI: Inspection: normal to inspection GI Palp: Yes Soft to palpation and Yes No hepatosplenomegaly present Skin: General skin exam: normal color Rashes: no rashes Wounds: no wounds Neuro: General: oriented to person and CN's II-XI intact bilaterally Cranial nerves: Yes CN's II-XII intact bilaterally and Yes Bilaterally intact EOM present Extrem: General: no joint enlargement and no pedal edema Objective Data Vital Signs Vital Signs: Vital Signs - 24 hr 08/13/20 15:21 08/13/20 15:31 08/13/20 16:00 Temperature 98.2 F Pulse Rate 86 95 89 Respiratory Rate 29 H 20 32 H Blood Pressure 122/77 Pulse Oximetry 100 100 08/13/20 19:40 08/13/20 19:41 08/13/20 19:55 Temperature Pulse Rate 52 L 52 L 58 L Respiratory Rate 20 20 20 Blood Pressure Pulse Oximetry 93 08/13/20 20:00 08/13/20 21:02 08/14/20 00:00 Temperature 97.2 F L 97.4 F L Pulse Rate 76 74 57 L Respiratory Rate 21 H 20 Blood Pressure 109/60 122/61 Pulse Oximetry 94 96 08/14/20 02:20 08/14/20 02:34 08/14/20 04:00 Temperature 97.7 F Pulse Rate 57 L 59 L 87 Respiratory Rate 20 20 32 H Blood Pressure 129/60 Pulse Oximetry 100 08/14/20 08:00 08/14/20 09:14 08/14/20 09:37 Temperature 97.1 F L Pulse Rate 60 87 89 Respiratory Rate 24 H 22
[2020-08-14 14:11] LABS: Glucose Point of Care 177 (65-105)
[2020-08-14 17:20] LABS: Glucose Point of Care 239 (65-105)
[2020-08-14] MEDS: INSULIN ASPART (*BKC) 100 UNITS/ML SUB-Q (17:28)
[2020-08-14 23:25] LABS: Glucose Point of Care 182 (65-105)
[2020-08-15] VITALS (16 sets, daily range): BP systolic 104–121; BP diastolic 62–77; PULSE 44–88; RESP 14–46; TEMP 36.1–36.7; O2SAT 94–100
[2020-08-15] MEDS: Acetaminophen/HYDROcodone ELIXIR (*CRX) 7.5 MG/15 ML UDC 5 MG PO ×3 (02:10→20:44)
[2020-08-15] MEDS: ALBUTEROL SULFATE NEB 2.5 MG/0.5 ML INH 5 MG INHALATION ×4 (02:58→20:45)
[2020-08-15 06:08] LABS: Glucose Point of Care 125 (65-105)
[2020-08-15 09:13] LABS: Basophils Percent Auto 0.8 % (0.2-1.2); Eosinophils Absolute Auto 0.1 K/mm3 (0-0.3); Eosinophils Percent Auto 4.1 % (0-4.4); Hemoglobin 9.4 g/dL (14.0-18.0); Immature Granulocyte Absolute 0.23 K/mm3 (0.00-0.031); Immature Granulocyte Percent A 9.5 % (0-0.5); Immature Platelet Fraction Pct 6.8 % (0.9-11.2); Lymphocytes Absolute Auto 0.17 K/mm3 (0.9-3.2); Mean Corpuscular HGB Conc 29.4 g/dl (32-36); Mean Corpuscular Hemoglobin 28.1 pg (26-34); Mean Corpuscular Volume 95.5 fl (80-100); Monocytes Absolute Auto 0.5 K/mm3 (0.1-0.6); Monocytes Percent Auto 18.6 % (2.6-8.5); Neutrophils Absolute Auto 1.5 K/mm3 (1.3-6.7); Platelet Count Result 133 k/mm3 (150-375); Red Blood Count 3.35 M/mm3 (4.6-6.20); Red Cell Distribution Width 21.1 % (11.5-14.5); White Blood Count 2.4 K/mm3 (4.5-10.0)
[2020-08-15 09:24] LABS: Anion Gap 8 mmol/L (8-16); Blood Urea Nitrogen 44 mg/dL (9-20); Calcium 8.5 mg/dL (8.4-10.2); Carbon Dioxide 28 mmol/L (22-30); Chloride 110 mmol/L (98-107); Estimated CRCL calculation 83 ml/min; Estimated Glomerular Filt Rate > 60; Glucose 194 mg/dL (75-110); Potassium 3.8 mmol/L (3.4-5.0); Sodium 146 mmol/L (137-145)
[2020-08-15] MEDS: methylPREDNISolone SOD SUCC 40 MG VIAL IV PUSH (09:35)
[2020-08-15] MEDS: METOPROLOL TARTRATE 25 MG TABLET FEED TUBE ×2 (09:35→19:59)
[2020-08-15] MEDS: PANTOPRAZOLE SODIUM IV 40 MG VIAL IV PUSH (09:36)
[2020-08-15 09:52] LABS: Vancomycin Trough 11.4 ug/mL (10.0-20.0)
[2020-08-15 11:25] LABS: Acanthocytes 2+ (NORMAL); Crenated RBC 2+ (NORMAL); Helmet Cells 1+ (NORMAL); Ovalocytes 2+ (NORMAL); Tear Drop Cells 2+ (NORMAL)
[2020-08-15 12:04] LABS: Glucose Point of Care 300 (65-105)
[2020-08-15] MEDS: INSULIN ASPART (*BKC) 100 UNITS/ML SUB-Q ×2 (12:17→18:22)
--- NOTE | 2020-08-15 12:35 | PM.PNCARD ---
Progress Note: A&P Assessment and Plan (1) Arrhythmia, ventricular: Code(s): I49.9 - Cardiac arrhythmia, unspecified Status: Acute Assessment and Plan: PVCs and ventricular ectopy with up to 5-6 beats of nonsustained ventricular tachycardia noted recently. K+ and Mg+ should be maintained at 4.0 and 2.0 respectively. Will supplement potassium today. No QT prolongation noted on admission EKG. EKG this morning QTc 471 ms. Continues with frequent PVCs including couplets and triplets Not on any meds known to aggravate arrhythmias or cause QT prolongatioin O2 sat OK EF 2018 was 40%. Echo 08/11/2020-see below PVCs may be related to multiple metabolic abnormalities and general physiologic stressors Low-dose Metoprolol added 10/11/2019. Blood pressure improved. (2) Sepsis with acute hypoxic respiratory failure: Code(s): A41.9 - Sepsis, unspecified organism; R65.20 - Severe sepsis without septic shock; J96.01 - Acute respiratory failure with hypoxia Status: Acute Assessment and Plan: Getting vancomycin and supportive care (3) Atrial fibrillation: Qualifiers: Atrial fibrillation type: unspecified chronic Qualified Code(s): I48.20 - Chronic atrial fibrillation, unspecified Code(s): I48.91 - Unspecified atrial fibrillation Status: Chronic Assessment and Plan: H/O persistent? a fib, currrently off his usual Eliquis and diltiazem, rate reasonably controlled. (4) Cardiomyopathy: Qualifiers: Cardiomyopathy type: unspecified Qualified Code(s): I42.9 - Cardiomyopathy, unspecified Code(s): I42.9 - Cardiomyopathy, unspecified Status: Acute Assessment and Plan: EF was 45% in 2018. Echocardiogram 08/11/2020: 1. Complete two-dimensional, color flow and Doppler transthoracic echocardiogram is performed. 2. Left ventricular systolic function is moderately reduced, estimated at 30-35%. 3. Left ventricular chamber dimension is moderately enlarged. 4. Severe biatrial dilation. 5. Moderate mitral and tricuspid valve regurgitation. 6. Aortic valve stenosis which on visual inspection is at least mild to moderate. 7. Doppler interrogation of the aortic valve demonstrated no stenosis and in Dr. Virk's opinion is not accurate. ProBNP quite high on admission and the chest x-ray shows possible CHF versus pneumonia. However, there is no edema and I do not think he is in CHF. Continue to monitor fluid balance. He is receiving tube feedings as well as some IV fluids. Will repeat a portable chest x-ray today. Diuresis if needed Subjective Date/time seen: 08/15/20 12:35 Interval history: 75-year-old white male with: Chronic atrial fibrillation being managed with rate control and anticoagulation for a long time. The patient is in the hospital for evaluation of encephalopathic state I do not see any clear diagnosis having been made thus far. We are seeing the patient for evaluation of his cardiovascular status. Continues in persistent chronic atrial fibrillation heart rate is being controlled with metoprolol per his feeding tube. Patient is more alert on Bi Pap . No longer on telemetry Date of service 08/15/2020: No chest pain or shortness of breath. Review of Systems Review of Systems: ROS unobtainable: Yes unobtainable due to mental status Constitutional: Constitutional: Reports weakness ENT: Denies epistaxis Cardiovascular: Cardiovascular: Denies chest pain, Denies pedal edema, Denies palpitations and Denies dyspnea Respiratory: Respiratory: Denies dyspnea Gastrointestinal: Gastrointestinal: Denies abdominal pain and Denies hematemesis Genitourinary: Genitourinary: Denies hematuria Musculoskeletal: Musculoskeletal: Reports no additional musculoskeletal complaints Integumentary/Breasts: Skin/Breas
--- NOTE | 2020-08-15 13:51 | PM.IMPN ---
Progress Note: A&P Assessment and Plan (1) Cardiomyopathy: Qualifiers: Cardiomyopathy type: unspecified Qualified Code(s): I42.9 - Cardiomyopathy, unspecified Code(s): I42.9 - Cardiomyopathy, unspecified Status: Acute Assessment and Plan: Stable Does not appeared to be exacerbated. Continue to monitor (2) Arrhythmia, ventricular: Code(s): I49.9 - Cardiac arrhythmia, unspecified Status: Acute Assessment and Plan: Stable On Telemonitoring Cardiology on board Rate controlled. (3) Sepsis with acute hypoxic respiratory failure: Code(s): A41.9 - Sepsis, unspecified organism; R65.20 - Severe sepsis without septic shock; J96.01 - Acute respiratory failure with hypoxia Status: Acute Assessment and Plan: On supplemental O2 3 L by NC BiPAP at night time. (4) Bacteremia: Code(s): R78.81 - Bacteremia Status: Acute Assessment and Plan: Repeat blood cx today Still persistently elevated blood cx On Van ID following (5) Sepsis: Qualifiers: Sepsis type: methicillin resistant Staphylococcus aureus Sepsis acute organ dysfunction status: with acute organ dysfunction Severe sepsis acute organ dysfunction type: encephalopathy Severe sepsis shock status: without septic shock Qualified Code(s): A41.02 - Sepsis due to Methicillin resistant Staphylococcus aureus; R65.20 - Severe sepsis without septic shock; G93.41 - Metabolic encephalopathy Code(s): A41.9 - Sepsis, unspecified organism Status: Acute Assessment and Plan: On vanc (6) Acute encephalopathy: Code(s): G93.40 - Encephalopathy, unspecified Status: Acute Assessment and Plan: Improved Supportive care. (7) Neutropenia: Qualifiers: Neutropenia type: secondary to cancer chemotherapy Qualified Code(s): D70.1 - Agranulocytosis secondary to cancer chemotherapy; T45.1X5A - Adverse effect of antineoplastic and immunosuppressive drugs, initial encounter Code(s): D70.9 - Neutropenia, unspecified Status: Acute Assessment and Plan: Stable Continue to monitor (8) Non-Hodgkin lymphoma in remission: Code(s): C85.90 - Non-Hodgkin lymphoma, unspecified, unspecified site Status: Acute Assessment and Plan: On remission. (9) Acute gouty arthritis: Code(s): M10.9 - Gout, unspecified Status: Acute Assessment and Plan: Solumedrol 40 mg iv daily Will discontinue as has gotten a week's worth of iv Continue to monitor (10) Osteoarthritis involving multiple joints on both sides of body: Code(s): M15.9 - Polyosteoarthritis, unspecified Status: Acute Assessment and Plan: Supportive care Subjective Date/time seen: 08/15/20 13:51 Randomly mumbles words but mostly yes/no Review of Systems Review of Systems: Narrative: Unable to obtain as patient has delirium that waxes and wanes. Exam Narrative: Exam Narrative: Lying in bed, BiPAP is on. Const: General: comfortable and awake Nutritional Appearance: average body habitus Limitations: altered mental status Other: Delirious. HENMT: Head: normal to inspection and normocephalic Ears: hearing grossly normal bilaterally General nose exam: Normal external nose present Face and sinus: normal facial exam Other: BiPAP mask on. Eyes: General: appearance normal, both eyes and all related structures Pupils: Equal, round and reactive pupils present EOM: EOMs intact bilaterally Neck: Neck: full ROM, no lymphadenopathy and supple Resp: Effort & Inspection: normal respiratory effort Auscultation: clear to auscultation bilaterally Cardio: Rate: regular rate Rhythm: regular rhythm GI: Inspection: normal to inspection GI Palp: Yes Soft to palpation and Yes No hepatosplenomegaly present Skin: General skin exam: normal color Rashes: no rashes Neuro: General: moves all extremities and CN's II-XI intact bilaterally Cr
[2020-08-15 18:21] LABS: Glucose Point of Care 316 (65-105)
[2020-08-15 23:18] LABS: Glucose Point of Care 147 (65-105)
[2020-08-16] VITALS (13 sets, daily range): BP systolic 105–117; BP diastolic 52–74; PULSE 60–101; RESP 18–31; TEMP 36.1–36.8; O2SAT 94–100
[2020-08-16] MEDS: Acetaminophen/HYDROcodone ELIXIR (*CRX) 7.5 MG/15 ML UDC 5 MG PO ×3 (02:46→18:23)
[2020-08-16] MEDS: ALBUTEROL SULFATE NEB 2.5 MG/0.5 ML INH 5 MG INHALATION ×4 (03:00→22:13)
[2020-08-16 05:14] LABS: Glucose Point of Care 166 (65-105)
[2020-08-16 06:27] LABS: Anion Gap 2 mmol/L (8-16); Blood Urea Nitrogen 41 mg/dL (9-20); Calcium 8.4 mg/dL (8.4-10.2); Carbon Dioxide 33 mmol/L (22-30); Chloride 111 mmol/L (98-107); Estimated CRCL calculation 83 ml/min; Estimated Glomerular Filt Rate > 60; Glucose 154 mg/dL (75-110); Magnesium 2.1 mg/dL (1.6-2.3); Sodium 146 mmol/L (137-145)
[2020-08-16] MEDS: METOPROLOL TARTRATE 25 MG TABLET FEED TUBE (08:37)
[2020-08-16] MEDS: PANTOPRAZOLE SODIUM IV 40 MG VIAL IV PUSH (08:37)
--- NOTE | 2020-08-16 11:19 | PCNFU ---
Nutrition Follow-Up Complete: Inadequate oral intake related to altered mental status as evidence by 0% intake over the last five days Goal: Total intake will meet estimated nutrition needs Progressing towards goal. We will continue current goal. Pt current nutrition is Jevity 1.2 at 75 ml/hr. Nutrition recommendation: Minced and Moist, Level 5 with Moderately Thick liquids, level 3 Last recorded weight is 108.9 kg, no new weight. Bowel Motility:+BM 08/15 Labs Reviewed:Glu 154,BUN 41,Na 146 Meds Noted:Protonix,Lopressor. Additional Notes: Patient Dobbhoff became occluded today, Dobbhoff removed. MBS performed. Speech therapy is recommending a Minced and Moist, Level 5/Moderately Thick, Level 3. Nutrition Recommendation: addition of Ensure Enlive BID providing an additional 350 kcals and 20 gms protein. Monitoring: we will continue to monitor every 5 days.
[2020-08-16 11:42] LABS: Glucose Point of Care 148 (65-105)
--- NOTE | 2020-08-16 12:20 | PCSTNOTE ---
Please refer to the Modified Barium Swallow Evaluation in the EMR.
--- NOTE | 2020-08-16 12:20 | PCSTNOTE ---
Patient is being discharged from direct Speech Therapy at this time. Patient completed a Modified Barium Swallow study and it was determined that he can tolerate Minced and Moist Diet and Moderately Thick liquids however he is unable to follow instructions at this time and therefore cannot participate in direct Speech Therapy tasks.
--- NOTE | 2020-08-16 14:08 | PM.PNCARD ---
Progress Note: A&P Assessment and Plan (1) Arrhythmia, ventricular: Code(s): I49.9 - Cardiac arrhythmia, unspecified Status: Acute Assessment and Plan: PVCs and ventricular ectopy with up to 5-6 beats of nonsustained ventricular tachycardia noted recently. K+ and Mg+ should be maintained at 4.0 and 2.0 respectively. Will supplement potassium today. No QT prolongation noted on admission EKG. Continues with frequent PVCs including couplets and triplets Not on any meds known to aggravate arrhythmias or cause QT prolongatioin O2 sat OK EF 2018 was 40%. Echo 08/11/2020-see below PVCs may be related to multiple metabolic abnormalities and general physiologic stressors Low-dose Metoprolol added 10/11/2019. Blood pressure improved. (2) Sepsis with acute hypoxic respiratory failure: Code(s): A41.9 - Sepsis, unspecified organism; R65.20 - Severe sepsis without septic shock; J96.01 - Acute respiratory failure with hypoxia Status: Acute Assessment and Plan: Getting vancomycin and supportive care (3) Atrial fibrillation: Qualifiers: Atrial fibrillation type: unspecified chronic Qualified Code(s): I48.20 - Chronic atrial fibrillation, unspecified Code(s): I48.91 - Unspecified atrial fibrillation Status: Chronic Assessment and Plan: H/O persistent? a fib, currrently off his usual Eliquis and diltiazem, rate reasonably controlled. (4) Cardiomyopathy: Qualifiers: Cardiomyopathy type: unspecified Qualified Code(s): I42.9 - Cardiomyopathy, unspecified Code(s): I42.9 - Cardiomyopathy, unspecified Status: Acute Assessment and Plan: EF was 45% in 2018. Echocardiogram 08/11/2020: 1. Complete two-dimensional, color flow and Doppler transthoracic echocardiogram is performed. 2. Left ventricular systolic function is moderately reduced, estimated at 30-35%. 3. Left ventricular chamber dimension is moderately enlarged. 4. Severe biatrial dilation. 5. Moderate mitral and tricuspid valve regurgitation. 6. Aortic valve stenosis which on visual inspection is at least mild to moderate. 7. Doppler interrogation of the aortic valve demonstrated no stenosis and in Dr. Virk's opinion is not accurate. ProBNP quite high on admission and the chest x-ray shows possible CHF versus pneumonia. However, there is no edema and I do not think he is in CHF. Continue to monitor fluid balance. He is receiving tube feedings as well as some IV fluids. Diuresis if needed Additional Plan Cont Metoprolol for HR control for chronic AF No new cardiiac recc's Subjective Date/time seen: 08/16/20 14:08 Interval history: 75-year-old white male with: Chronic atrial fibrillation being managed with rate control and anticoagulation for a long time. The patient is in the hospital for evaluation of encephalopathic state I do not see any clear diagnosis having been made thus far. We are seeing the patient for evaluation of his cardiovascular status. Continues in persistent chronic atrial fibrillation heart rate is being controlled with metoprolol per his feeding tube. Patient is more alert on Bi Pap . No longer on telemetry Date of service 08/16/2020: No chest pain or shortness of breath. Back from swallow study Review of Systems Review of Systems: ROS unobtainable: Yes unobtainable due to mental status Constitutional: Constitutional: Reports weakness ENT: Denies epistaxis Cardiovascular: Cardiovascular: Denies chest pain, Denies pedal edema, Denies palpitations and Denies dyspnea Respiratory: Respiratory: Denies dyspnea Gastrointestinal: Gastrointestinal: Denies abdominal pain and Denies hematemesis Genitourinary: Genitourinary: Denies hematuria Musculoskeletal: Musculoskeletal: Reports no additional musculoskeletal
--- NOTE | 2020-08-16 16:37 | PM.IMPN ---
Progress Note: A&P Assessment and Plan (1) Cardiomyopathy: Qualifiers: Cardiomyopathy type: unspecified Qualified Code(s): I42.9 - Cardiomyopathy, unspecified Code(s): I42.9 - Cardiomyopathy, unspecified Status: Acute Assessment and Plan: Stable, lathe set up person: (2) Arrhythmia, ventricular: Code(s): I49.9 - Cardiac arrhythmia, unspecified Status: Acute Assessment and Plan: Patient is rate controlled on metoprolol, Cardiology following (3) Sepsis with acute hypoxic respiratory failure: Code(s): A41.9 - Sepsis, unspecified organism; R65.20 - Severe sepsis without septic shock; J96.01 - Acute respiratory failure with hypoxia Status: Acute Assessment and Plan: -Supplemental oxygen to keep oxygen saturation greater than 90% -continue BiPAP at (4) Bacteremia: Code(s): R78.81 - Bacteremia Status: Acute Assessment and Plan: -MRSA bacteremia, continue IV vanc -following blood cultures -infectious disease following (5) Sepsis: Qualifiers: Sepsis type: methicillin resistant Staphylococcus aureus Sepsis acute organ dysfunction status: with acute organ dysfunction Severe sepsis acute organ dysfunction type: encephalopathy Severe sepsis shock status: without septic shock Qualified Code(s): A41.02 - Sepsis due to Methicillin resistant Staphylococcus aureus; R65.20 - Severe sepsis without septic shock; G93.41 - Metabolic encephalopathy Code(s): A41.9 - Sepsis, unspecified organism Status: Acute Assessment and Plan: On vanc (6) Acute encephalopathy: Code(s): G93.40 - Encephalopathy, unspecified Status: Acute Assessment and Plan: Improved Supportive care. Diet has been advanced (7) Neutropenia: Qualifiers: Neutropenia type: secondary to cancer chemotherapy Qualified Code(s): D70.1 - Agranulocytosis secondary to cancer chemotherapy; T45.1X5A - Adverse effect of antineoplastic and immunosuppressive drugs, initial encounter Code(s): D70.9 - Neutropenia, unspecified Status: Acute Assessment and Plan: Stable Continue to monitor (8) Non-Hodgkin lymphoma in remission: Code(s): C85.90 - Non-Hodgkin lymphoma, unspecified, unspecified site Status: Acute Assessment and Plan: On remission. (9) Acute gouty arthritis: Code(s): M10.9 - Gout, unspecified Status: Acute Assessment and Plan: Solumedrol 40 mg iv daily Will discontinue as has gotten a week's worth of iv Continue to monitor (10) Osteoarthritis involving multiple joints on both sides of body: Code(s): M15.9 - Polyosteoarthritis, unspecified Status: Acute Assessment and Plan: Supportive care Additional Plan # MRSA bacteremia # bilateral pneumonia # Acute encephalopathy likely secondary to infectious # sepsis secondary to bacteremia with end-organ damage encephalopathy -vancomycin for MRSA bacteremia, blood cultures repeated yesterday, ID following -Tylenol for fever -neutropenic from Hodgkin's lymphoma as well as sepsis, tachypneic -CT head, MRI brain, EEG negative - clinically improving however prognosis still guarded, diet to be advanced # gout flare, resolved -home allopurinol # nonsustained V-tach, PVC, AFib, cardiomyopathy -cardiology following -patient on metoprolol 25 mg q.12 hours -EF was 45% in 2018 -echocardiogram 08/11/2020: EF 30 35%, biatrial dilation, enlarged left ventricle # other chronic conditions-holding home meds well altered -Atrial fibrillation: On Eliquis, metoprolol -hyperlipidemia: On atorvastatin -vitamin-D deficiency: Supplement -BPH: Finasteride -non-Hodgkin lymphoma follows Dr. Davis: CT scans chest/abdomen/pelvis showed no relapse, bone marrow biopsy will need to be done -congestive heart failure: Lasix, spironolactone, metolazone, Imdur- diuretics held while NPO and clinically dry -GERD: Omeprazole -iron defici
[2020-08-16 16:46] LABS: Glucose Point of Care 136 (65-105)
[2020-08-16] MEDS: METOPROLOL TARTRATE 25 MG TABLET PO (20:27)
[2020-08-16] MEDS: MORPHINE SULFATE (*CRX) 4 MG/ML INJ IV PUSH (20:30)
[2020-08-16 20:44] LABS: Glucose Point of Care 117 (65-105)
[2020-08-17] VITALS (15 sets, daily range): BP systolic 101–142; BP diastolic 72–80; PULSE 60–95; RESP 16–30; TEMP 35.9–36.7; O2SAT 94–99
[2020-08-17] MEDS: ALBUTEROL SULFATE NEB 2.5 MG/0.5 ML INH 5 MG INHALATION ×4 (03:22→19:15)
[2020-08-17 06:15] LABS: Hematocrit 28.8 % (42.0-52.0); Hemoglobin 8.7 g/dL (14.0-18.0); Mean Corpuscular HGB Conc 30.2 g/dl (32-36); Mean Corpuscular Hemoglobin 28.1 pg (26-34); Mean Corpuscular Volume 92.9 fl (80-100); Mean Platelet Volume 12.2 fl (7.4-10.4); Platelet Count Result 182 k/mm3 (150-375); Red Cell Distribution Width 21.3 % (11.5-14.5)
[2020-08-17 06:21] LABS: White Blood Count 1.7 K/mm3 (4.5-10.0)
[2020-08-17 06:28] LABS: Anion Gap 5 mmol/L (8-16); Blood Urea Nitrogen 37 mg/dL (9-20); Calcium 8.5 mg/dL (8.4-10.2); Carbon Dioxide 31 mmol/L (22-30); Chloride 111 mmol/L (98-107); Estimated CRCL calculation 74 ml/min; Estimated Glomerular Filt Rate > 60; Glucose 108 mg/dL (75-110); Potassium 3.9 mmol/L (3.4-5.0); Sodium 147 mmol/L (137-145)
[2020-08-17 08:03] LABS: Glucose Point of Care 152 (65-105)
[2020-08-17] MEDS: PANTOPRAZOLE SODIUM IV 40 MG VIAL IV PUSH (09:31)
[2020-08-17] MEDS: METOPROLOL TARTRATE 25 MG TABLET PO ×2 (09:32→22:17)
[2020-08-17] MEDS: MORPHINE SULFATE (*CRX) 4 MG/ML INJ IV PUSH (09:37)
--- NOTE | 2020-08-17 09:56 | PM.IMPN ---
Progress Note: A&P Assessment and Plan (1) Cardiomyopathy: Qualifiers: Cardiomyopathy type: unspecified Qualified Code(s): I42.9 - Cardiomyopathy, unspecified Code(s): I42.9 - Cardiomyopathy, unspecified Status: Acute Assessment and Plan: Stable, remediation technician following (2) Arrhythmia, ventricular: Code(s): I49.9 - Cardiac arrhythmia, unspecified Status: Acute Assessment and Plan: Patient is rate controlled on metoprolol, Cardiology following (3) Sepsis with acute hypoxic respiratory failure: Code(s): A41.9 - Sepsis, unspecified organism; R65.20 - Severe sepsis without septic shock; J96.01 - Acute respiratory failure with hypoxia Status: Acute Assessment and Plan: -Supplemental oxygen to keep oxygen saturation greater than 90% -continue BiPAP at night (4) Bacteremia: Code(s): R78.81 - Bacteremia Status: Acute Assessment and Plan: -MRSA bacteremia, continue IV vanc -following blood cultures -infectious disease following (5) Sepsis: Qualifiers: Sepsis type: methicillin resistant Staphylococcus aureus Sepsis acute organ dysfunction status: with acute organ dysfunction Severe sepsis acute organ dysfunction type: encephalopathy Severe sepsis shock status: without septic shock Qualified Code(s): A41.02 - Sepsis due to Methicillin resistant Staphylococcus aureus; R65.20 - Severe sepsis without septic shock; G93.41 - Metabolic encephalopathy Code(s): A41.9 - Sepsis, unspecified organism Status: Acute Assessment and Plan: On vanc (6) Acute encephalopathy: Code(s): G93.40 - Encephalopathy, unspecified Status: Acute Assessment and Plan: Slowly improving more full sentences today, still minimal compared to baseline Supportive care. Diet has been advanced (7) Neutropenia: Qualifiers: Neutropenia type: secondary to cancer chemotherapy Qualified Code(s): D70.1 - Agranulocytosis secondary to cancer chemotherapy; T45.1X5A - Adverse effect of antineoplastic and immunosuppressive drugs, initial encounter Code(s): D70.9 - Neutropenia, unspecified Status: Acute Assessment and Plan: Stable Continue to monitor (8) Non-Hodgkin lymphoma in remission: Code(s): C85.90 - Non-Hodgkin lymphoma, unspecified, unspecified site Status: Acute Assessment and Plan: On remission. (9) Acute gouty arthritis: Code(s): M10.9 - Gout, unspecified Status: Acute Assessment and Plan: Completed steroid course (10) Osteoarthritis involving multiple joints on both sides of body: Code(s): M15.9 - Polyosteoarthritis, unspecified Status: Acute Assessment and Plan: Supportive care Additional Plan # MRSA bacteremia # bilateral pneumonia # Acute encephalopathy likely secondary to infectious # sepsis secondary to bacteremia with end-organ damage encephalopathy -vancomycin for MRSA bacteremia, blood cultures repeated 08/17/2020, ID following -Tylenol for fever -neutropenic from Hodgkin's lymphoma as well as sepsis, tachypneic - CT head, MRI brain, EEG negative - clinically improving however prognosis still guarded, diet was advanced however he is not eating # gout flare, resolved -home allopurinol # nonsustained V-tach, PVC, AFib, cardiomyopathy -cardiology following -patient on metoprolol 25 mg q.12 hours -EF was 45% in 2018 -echocardiogram 08/11/2020: EF 30-35%, biatrial dilation, enlarged left ventricle # other chronic conditions-holding home meds well altered -Atrial fibrillation: On Eliquis, metoprolol -hyperlipidemia: On atorvastatin -vitamin-D deficiency: Supplement -BPH: Finasteride -non-Hodgkin lymphoma follows Dr. Davis: CT scans chest/abdomen/pelvis showed no relapse, bone marrow biopsy will need to be done -congestive heart failure: Lasix, spironolactone, metolazone, Imdur- diuretics held while NPO and clinically
--- NOTE | 2020-08-17 10:06 | PM.PNCARD ---
Progress Note: A&P Additional Plan 75-year-old man with: Chronic atrial fibrillation on heart rate control with metoprolol hemodynamically stable good rate control. Still have no specific idea as to why he is so encephalopathic. We will continue to follow with you while he is in the hospital Arthur Virk MD [facility] Subjective Date/time seen: Date of service: 08/17/20 10:06 Interval history: 75-year-old man with chronic atrial fibrillation. Follow-up visit today. He is currently on metoprolol providing heart rate control and seems to be doing well hemodynamically. Continues to be poorly responsive and a bit more encephalopathic today than usual or does not respond to questions other than a few words that do not form complete sentences Exam Const: General: no acute distress Other: Elderly white male laying in bed poorly responsive not in any distress HENMT: Mouth: Yes dry mucous membranes Eyes: Sclera: sclerae normal Pupils: Equal, round and reactive pupils present Neck: Neck: supple and no JVD Resp: Other: Fairly good air movement anterior auscultation shows a few large airway rhonchi no rales Cardio: Rhythm: abnormal rhythm irregularly irregular GI: GI Palp: Yes Soft to palpation Auscultation: normal bowel sounds Neuro: Cognition (Neuro): abnormal cognition Objective Data Vital Signs Vital Signs: Vital Signs - 24 hr 08/16/20 13:57 08/16/20 14:07 08/16/20 14:39 Temperature 36.8 C Pulse Rate 101 H 97 95 Respiratory Rate 18 20 20 Blood Pressure 115/52 L Pulse Oximetry 100 99 08/16/20 20:27 08/16/20 21:02 08/16/20 22:17 Temperature 36.7 C Pulse Rate 74 74 92 Respiratory Rate 24 H 26 H Blood Pressure 105/66 Pulse Oximetry 97 94 08/16/20 22:20 08/17/20 03:20 08/17/20 03:23 Temperature Pulse Rate 94 95 95 Respiratory Rate 31 H 30 H 30 H Blood Pressure Pulse Oximetry 95 08/17/20 03:25 08/17/20 03:29 08/17/20 06:00 Temperature 36.4 C Pulse Rate 80 60 Respiratory Rate 24 H 16 Blood Pressure 101/80 Pulse Oximetry 95 97 08/17/20 09:32 Temperature Pulse Rate 62 Respiratory Rate Blood Pressure Pulse Oximetry Intake/Output Intake/Output: Intake & Output 08/14/20 08/15/20 08/16/20 08/17/20 23:59 23:59 23:59 23:59 Intake Total 1999 5368 560 Output Total 2049 1949 2149 700 Balance -50 5712 -1421 -946 Meds/Results Medications: Active Medications Generic Name Dose Route Start Last Admin Trade Name Freq PRN Reason Stop Dose Admin Acetaminophen 650 mg 08/05/20 20:35 08/14/20 17:46 Acetaminophen 650 Mg Suppository RECTAL 650 mg Q6H PRN Administration Mild Pain (1-3) or Fever Hydrocodone Bitart/Acetaminophen 5 mg 08/09/20 18:47 08/16/20 18:23 Acetaminophen/Hydrocodone Elixir (*Crx) 7.5 Mg/15 Ml Udc PO 5 mg Q6H PRN Administration Pain Rated 4-6 Albuterol 2 puff 08/05/20 20:35 Albuterol Sulfate (*Sp) Aerosol 1 Puff INHALATION QIDRT PRN Shortness Of Breath Albuterol 5 mg 08/08/20 20:00 08/17/20 03:22 Albuterol Sulfate Neb 2.5 Mg/0.5 Ml Inh INHALATION 5 mg Q6HRT ATUL Administration Dextrose 12.5 gm 08/13/20 16:59 Dextrose 50% 25 Gm/50 Ml Syringe IV PUSH PRN PRN Hypoglycemia Protocol Glucagon 1 mg 08/13/20 16:59 Glucagon For Inj 1 Mg Vial IM PRN PRN Hypoglycemia Protocol Glucose 15 gm 08/13/20 16:59 Glucose Oral Gel 15 Gm Of Glucse In 37.5 Gm Tube PO PRN PRN Hypoglycemia Protocol Vancomycin HCl 1,500 mg in 500 mls @ 333.333 mls/hr 08/13/20 22:00 08/16/20 21:34 Vancomycin 1,500 Mg/D5w 500 Ml IVPB 333 mls/hr Q36H ATUL Administration Dextrose 1,000 mls @ 100 mls/hr 08/13/20 16:59 Dextrose 5% 1,000 Ml IVPB PRN PRN Hypoglycemia Protocol Dextrose 1,000 mls @ 100 mls/hr 08/17/20 10:00 Dextrose 5% 1,000 Ml IV CONT .Q10H ATUL Insulin Aspart 2 - 5 units 08/16/20 17:00 08/17/20 08:
[2020-08-17] MEDS: DEXTROSE 5% 1,000 ML 1,000 ML 100 ML IV CONT ×2 (10:35→22:16)
[2020-08-17 12:07] LABS: Glucose Point of Care 109 (65-105)
--- NOTE | 2020-08-17 13:41 | PC.NURSE ---
Offer to have patient take a drink of water. Patient continues to refuse at this time. I will continue to offer fluids and nutrition for patient.
[2020-08-17 16:50] LABS: Glucose Point of Care 99 (65-105)
[2020-08-17 22:17] LABS: Glucose Point of Care 106 (65-105)
--- NOTE | 2020-08-17 22:30 | PC.NURSE ---
PHARMACY TECHNICIAN INFUSION NOTIFIED UNABLE TO ACCESS A LINE. WILL ATTEMPT WHEN AVAILABLE.
[2020-08-18] VITALS (14 sets, daily range): BP systolic 113–136; BP diastolic 64–68; PULSE 72–99; RESP 22–35; TEMP 36.6–37.4; O2SAT 94–99
--- NOTE | 2020-08-18 00:51 | PC.NURSE ---
OUTBOUND SALES ADVISOR ATTEMPT IV ACCESS. PATIENT REFUSED.
[2020-08-18] MEDS: ALBUTEROL SULFATE NEB 2.5 MG/0.5 ML INH 5 MG INHALATION ×3 (02:04→14:04)
--- NOTE | 2020-08-18 07:38 | PC.NURSE ---
Was notified of patient refusing IV access from manager of housekeeping last night. Attempt to call charge nurse for help to re-access due to fluids ordered for patient and aggressively refusing any PO food or drink.
[2020-08-18 07:48] LABS: Glucose Point of Care 91 (65-105)
[2020-08-18 08:50] LABS: Hematocrit 28.6 % (42.0-52.0); Hemoglobin 8.4 g/dL (14.0-18.0); Mean Corpuscular HGB Conc 29.4 g/dl (32-36); Mean Corpuscular Volume 95.3 fl (80-100); Mean Platelet Volume 12.9 fl (7.4-10.4); Platelet Count Result 184 k/mm3 (150-375); Red Cell Distribution Width 21.4 % (11.5-14.5)
[2020-08-18 08:53] LABS: White Blood Count 1.1 K/mm3 (4.5-10.0)
--- NOTE | 2020-08-18 08:54 | PC.NURSE ---
Call from lab about critical WBC count. Orders not to call doctor with this critical lab report. Doctor's are aware of this.
[2020-08-18] MEDS: METOPROLOL TARTRATE 25 MG TABLET PO ×2 (08:58→21:22)
[2020-08-18] MEDS: PANTOPRAZOLE SODIUM IV 40 MG VIAL IV PUSH (08:59)
[2020-08-18 09:06] LABS: Anion Gap 6 mmol/L (8-16); Blood Urea Nitrogen 33 mg/dL (9-20); Calcium 8.6 mg/dL (8.4-10.2); Carbon Dioxide 32 mmol/L (22-30); Chloride 111 mmol/L (98-107); Estimated CRCL calculation 74 ml/min; Estimated Glomerular Filt Rate > 60; Glucose 103 mg/dL (75-110); Magnesium 2.1 mg/dL (1.6-2.3); Sodium 149 mmol/L (137-145)
--- NOTE | 2020-08-18 09:07 | PM.PNCARD ---
Progress Note: A&P Additional Plan 75-year-old man with chronic persistent atrial fibrillation. Beta-blockers ordered for rate control. Heart rate maybe increasing if he is refusing his medications. Unfortunately encephalopathy does not appear to be improving. Patient had been anticoagulated as an outpatient for his AF this is currently on hold. Arthur Virk MD [facility] Subjective Date/time seen: Date of service: 08/18/20 09:07 Interval history: Follow-up visit in this 75-year-old man with: Altered mental status patient has been significantly encephalopathic since admission. This is not improving. Chronic atrial fibrillation which I do not believe is associated with the mental status change. He is rate controlled with metoprolol. Nurses tell me that he is now refusing all medications treatments and meals. Exam Const: Other: Poorly responsive elderly man with BiPAP mask on HENMT: Mouth: Yes dry mucous membranes Eyes: Sclera: sclerae normal Pupils: Equal, round and reactive pupils present Neck: Neck: supple and no JVD Resp: Effort & Inspection: normal respiratory effort Other: Scattered rhonchi are noted otherwise no rales no wheezing Cardio: Rhythm: abnormal rhythm irregularly irregular GI: GI Palp: Yes Soft to palpation Auscultation: normal bowel sounds Skin: General skin exam: normal color Neuro: Cognition (Neuro): abnormal cognition Other: Poorly responsive/encephalopathic Objective Data Vital Signs Vital Signs: Vital Signs - 24 hr 08/17/20 09:32 08/17/20 10:07 08/17/20 10:22 Temperature 36.4 C Pulse Rate 62 72 Respiratory Rate 18 Blood Pressure Pulse Oximetry 94 08/17/20 10:32 08/17/20 14:00 08/17/20 14:04 Temperature 35.9 C L Pulse Rate 77 89 75 Respiratory Rate 22 H 20 20 Blood Pressure 142/75 H Pulse Oximetry 99 08/17/20 19:15 08/17/20 19:22 08/17/20 20:24 Temperature 36.7 C Pulse Rate 84 88 79 Respiratory Rate 28 H 28 H 22 H Blood Pressure 142/72 H Pulse Oximetry 99 97 08/17/20 22:17 08/18/20 02:05 08/18/20 02:10 Temperature Pulse Rate 84 92 91 Respiratory Rate 30 H 28 H Blood Pressure Pulse Oximetry 08/18/20 05:31 08/18/20 06:40 08/18/20 07:35 Temperature 36.9 C Pulse Rate 98 95 84 Respiratory Rate 30 H 22 H 35 H Blood Pressure 136/68 Pulse Oximetry 98 95 94 08/18/20 08:58 08/18/20 09:05 Temperature 36.6 C Pulse Rate 99 76 Respiratory Rate 32 H Blood Pressure 118/64 Pulse Oximetry 99 Intake/Output Intake/Output: Intake & Output 08/15/20 08/16/20 08/17/20 08/18/20 23:59 23:59 23:59 23:59 Intake Total 5368 560 1000 Output Total 1950 2150 1700 800 Balance 3418 -1590 -700 -800 Meds/Results Medications: Active Medications Generic Name Dose Route Start Last Admin Trade Name Freq PRN Reason Stop Dose Admin Acetaminophen 650 mg 08/05/20 20:35 08/14/20 17:46 Acetaminophen 650 Mg Suppository RECTAL 650 mg Q6H PRN Administration Mild Pain (1-3) or Fever Hydrocodone Bitart/Acetaminophen 5 mg 08/09/20 18:47 08/16/20 18:23 Acetaminophen/Hydrocodone Elixir (*Crx) 7.5 Mg/15 Ml Udc PO 5 mg Q6H PRN Administration Pain Rated 4-6 Albuterol 2 puff 08/05/20 20:35 Albuterol Sulfate (*Sp) Aerosol 1 Puff INHALATION QIDRT PRN Shortness Of Breath Albuterol 5 mg 08/08/20 20:00 08/18/20 07:34 Albuterol Sulfate Neb 2.5 Mg/0.5 Ml Inh INHALATION 5 mg Q6HRT ATUL Administration Dextrose 12.5 gm 08/13/20 16:59 Dextrose 50% 25 Gm/50 Ml Syringe IV PUSH PRN PRN Hypoglycemia Protocol Glucagon 1 mg 08/13/20 16:59 Glucagon For Inj 1 Mg Vial IM PRN PRN Hypoglycemia Protocol Glucose 15 gm 08/13/20 16:59 Glucose Oral Gel 15 Gm Of Glucse In 37.5 Gm Tube PO PRN PRN Hypoglycemia Protocol Vancomycin HCl 1,500 mg in 500 mls @ 333.333 mls/hr 08/13/20 22:00 08/16/20 21:34 Vancomycin 1,500 Mg/D5w 500 Ml IV
[2020-08-18 09:38] LABS: Vancomycin Trough 11.6 ug/mL (10.0-20.0)
--- NOTE | 2020-08-18 09:42 | PM.IMPN ---
Progress Note: A&P Assessment and Plan (1) Bacteremia: Code(s): R78.81 - Bacteremia Status: Acute Assessment and Plan: -MRSA bacteremia, continue IV vanc -following blood cultures -infectious disease following (2) Cardiomyopathy: Qualifiers: Cardiomyopathy type: unspecified Qualified Code(s): I42.9 - Cardiomyopathy, unspecified Code(s): I42.9 - Cardiomyopathy, unspecified Status: Acute Assessment and Plan: Stable, clerical stock inspector following (3) Arrhythmia, ventricular: Code(s): I49.9 - Cardiac arrhythmia, unspecified Status: Acute Assessment and Plan: Patient is rate controlled on metoprolol, Cardiology following (4) Sepsis with acute hypoxic respiratory failure: Code(s): A41.9 - Sepsis, unspecified organism; R65.20 - Severe sepsis without septic shock; J96.01 - Acute respiratory failure with hypoxia Status: Acute Assessment and Plan: -Supplemental oxygen to keep oxygen saturation greater than 90% -continue BiPAP at night (5) Sepsis: Qualifiers: Sepsis type: methicillin resistant Staphylococcus aureus Sepsis acute organ dysfunction status: with acute organ dysfunction Severe sepsis acute organ dysfunction type: encephalopathy Severe sepsis shock status: without septic shock Qualified Code(s): A41.02 - Sepsis due to Methicillin resistant Staphylococcus aureus; R65.20 - Severe sepsis without septic shock; G93.41 - Metabolic encephalopathy Code(s): A41.9 - Sepsis, unspecified organism Status: Acute Assessment and Plan: On vanc (6) Acute encephalopathy: Code(s): G93.40 - Encephalopathy, unspecified Status: Acute Assessment and Plan: Worsening mentation from yesterday, patient not taking anything p.o., fixing nutritional issues with NG tube when tube feeds Supportive care. (7) Neutropenia: Qualifiers: Neutropenia type: secondary to cancer chemotherapy Qualified Code(s): D70.1 - Agranulocytosis secondary to cancer chemotherapy; T45.1X5A - Adverse effect of antineoplastic and immunosuppressive drugs, initial encounter Code(s): D70.9 - Neutropenia, unspecified Status: Acute Assessment and Plan: Stable Continue to monitor (8) Non-Hodgkin lymphoma in remission: Code(s): C85.90 - Non-Hodgkin lymphoma, unspecified, unspecified site Status: Acute Assessment and Plan: On remission. (9) Acute gouty arthritis: Code(s): M10.9 - Gout, unspecified Status: Acute Assessment and Plan: Completed steroid course (10) Osteoarthritis involving multiple joints on both sides of body: Code(s): M15.9 - Polyosteoarthritis, unspecified Status: Acute Assessment and Plan: Pain control: IV morphine 4 mg q.4 hours p.r.n. Additional Plan # MRSA bacteremia # bilateral pneumonia # Acute encephalopathy likely secondary to infectious # sepsis secondary to bacteremia with end-organ damage encephalopathy -vancomycin for MRSA bacteremia, blood cultures repeated 08/17/2020 no growth to date, ID following -Tylenol for fever -neutropenic from Hodgkin's lymphoma as well as sepsis, tachypneic - CT head, MRI brain, EEG negative - clinically improving however prognosis still guarded, patient was not eating, placing NG tube in restarting tube feeds with free water flush # gout flare, resolved -home allopurinol # nonsustained V-tach, PVC, AFib, cardiomyopathy -cardiology following -patient on metoprolol 25 mg q.12 hours -EF was 45% in 2018 -echocardiogram 08/11/2020: EF 30-35%, biatrial dilation, enlarged left ventricle # other chronic conditions-holding home meds well altered -Atrial fibrillation: On Eliquis, metoprolol -hyperlipidemia: On atorvastatin -vitamin-D deficiency: Supplement -BPH: Finasteride -non-Hodgkin lymphoma follows Dr. Davis: CT scans chest/abdomen/pelvis showed no relapse, bone marrow biopsy will need to be
--- NOTE | 2020-08-18 09:42 | PC.NURSE ---
IV put in place by JEREMIAH Mast. Report given that patient IV had infiltrated and nurse was unable to get IV access. Call to dye house supervisor by night nurse was met with refusal by patient. Upon inspection with Kezia we were able to verify access was still good, but another IV was put in place as a back up. Fluids running again for patient as he continues to refuse anything PO.
[2020-08-18 12:17] LABS: Glucose Point of Care 129 (65-105)
[2020-08-18] MEDS: LIDOCAINE 5% PATCH 2 PATCH TOPICAL (12:25)
[2020-08-18] MEDS: MORPHINE SULFATE (*CRX) 4 MG/ML INJ IV PUSH ×3 (12:29→21:26)
--- NOTE | 2020-08-18 12:35 | PC.NURSE ---
Able to reposition patient and give pain medication to help make more comfortable. Patient has taken a few spoonfuls of thickened tea. Mouth was moistened with swabs, water, and moisture cream.
--- NOTE | 2020-08-18 13:03 | PC.NURSE ---
Spoke with patient's daughter on the phone while in the room with patient. Daughter wanted to make sure he was given his lidocaine patches and 4mg morphine. Daughter stated that 2mg or 3 mg isn't enough for his chronic pain. Patient is receiving 4mg morphine PRN and I placed two lidocaine patches on him; one on left shoulder and one on lower back. Patient is unable to tell us where any pain is located and only says help and is unable to tell us anything specific despite our efforts to keep him comfortable. Will continue to monitor the patient and give my best efforts to keep him comfortable and in as little pain as possible. Patient did agree to take some spoonfuls of tea PO and drank about half of his drink. This is the first time he has agreed to take anything by mouth since I have been in his care.
--- NOTE | 2020-08-18 15:32 | PC.NURSE ---
Patient was just turned in bed and took a few more sips of thickened liquid.
[2020-08-18 17:10] LABS: Glucose Point of Care 144 (65-105)
--- NOTE | 2020-08-18 18:38 | PC.NURSE ---
Patient to xray for dobhoff placement and verification via bed.
[2020-08-18 20:40] LABS: Glucose Point of Care 113 (65-105)
[2020-08-18] MEDS: DEXTROSE 5% 1,000 ML 1,000 ML 125 ML IV CONT (22:02)
[2020-08-19] VITALS (16 sets, daily range): BP systolic 105–118; BP diastolic 34–76; PULSE 42–87; RESP 22–36; TEMP 36.2–37.4; O2SAT 94–99
[2020-08-19 01:26] LABS: Glucose Point of Care 136 (65-105)
[2020-08-19] MEDS: ALBUTEROL SULFATE NEB 2.5 MG/0.5 ML INH 5 MG INHALATION ×4 (02:29→20:25)
[2020-08-19] MEDS: DEXTROSE 5% 1,000 ML 1,000 ML 125 ML IV CONT ×2 (05:56→17:07)
[2020-08-19 06:19] LABS: Anion Gap 4 mmol/L (8-16); Blood Urea Nitrogen 36 mg/dL (9-20); Calcium 8.1 mg/dL (8.4-10.2); Carbon Dioxide 30 mmol/L (22-30); Chloride 107 mmol/L (98-107); Estimated CRCL calculation 62 ml/min; Estimated Glomerular Filt Rate > 60; Glucose 127 mg/dL (75-110); Potassium 3.8 mmol/L (3.4-5.0); Sodium 141 mmol/L (137-145)
[2020-08-19 08:42] LABS: Glucose Point of Care 151 (65-105)
[2020-08-19] MEDS: PANTOPRAZOLE SODIUM IV 40 MG VIAL IV PUSH (08:54)
[2020-08-19] MEDS: METOPROLOL TARTRATE 25 MG TABLET PO ×2 (08:54→21:18)
--- NOTE | 2020-08-19 11:19 | PM.PNCARD ---
Progress Note: A&P Additional Plan 75-year-old man with: Chronic atrial fibrillation heart rate is adequately controlled. No active cardiac issue. We will continue to follow him as needed their encephalopathy continues to be his principal issue at this time Subjective Date/time seen: date of service:08/19/20 11:19 Interval history: Follow-up visit in this 75-year-old man with: Altered mental status patient has been significantly encephalopathic since admission. This is not improving. Chronic atrial fibrillation which I do not believe is associated with the mental status change. He is rate controlled with metoprolol. Nurses tell me that he is now refusing all medications treatments and meals. Today the patient is essentially completely up tended. Fortunately he is now receiving tube feeding for nutritional support. Exam Narrative: Exam Narrative: Patient in bed with tube feeding running he is very poorly responsive. Const: General: comfortable, no acute distress and confusion Orientation/consciousness: confusion Other: Poorly responsive elderly man with BiPAP mask on HENMT: General nose exam: no epistaxis Mouth: Yes moist mucous membranes and Yes dry mucous membranes Eyes: Sclera: sclerae normal Pupils: Equal, round and reactive pupils present EOM: EOMs intact bilaterally Neck: Neck: supple and no JVD Other: Carotid pulses are intact bilaterally no obvious bruits Resp: Effort & Inspection: normal respiratory effort Auscultation: diminished lung sounds bilateral in the lower lung obando Other: Scattered rhonchi are noted otherwise no rales no wheezing Cardio: Rate: regular rate Rhythm: abnormal rhythm irregularly irregular Heart sounds: no murmurs Other: Diminished posterior tibial pulses, absent dorsalis pedis pulses GI: Inspection: non-distended Auscultation: normal bowel sounds Other: Dobbhoff with tube feeding in place Skin: General skin exam: normal color and no rashes or lesions noted Neuro: General: confusion Cranial nerves: Yes Equal, round and reactive pupils present Cognition (Neuro): abnormal cognition Speech: Abnormal speech present Motor exam (neuro): strength not 5/5 throughout and tone not normal throughout Other: Poorly responsive/encephalopathic Extrem: General: no edema and no pedal edema Psych: Mental Status: mental status grossly abnormal Other: Encephalopathic and not responding appropriately. Objective Data Vital Signs Vital Signs: Vital Signs - 24 hr 08/18/20 14:04 08/18/20 14:14 08/18/20 14:31 Temperature 36.6 C Pulse Rate 72 75 75 Respiratory Rate 28 H 30 H 33 H Blood Pressure 113/66 Pulse Oximetry 95 95 08/18/20 15:49 08/18/20 21:22 08/19/20 00:00 Temperature 37.4 C 37.4 C Pulse Rate 96 53 L Respiratory Rate 36 H Blood Pressure 118/34 L Pulse Oximetry 97 08/19/20 02:31 08/19/20 02:32 08/19/20 03:41 Temperature 36.6 C Pulse Rate 42 L Respiratory Rate 25 H 25 H 24 H Blood Pressure 105/64 Pulse Oximetry 99 08/19/20 08:54 08/19/20 10:36 08/19/20 10:49 Temperature Pulse Rate 57 L 77 76 Respiratory Rate 26 H 26 H Blood Pressure Pulse Oximetry 94 Intake/Output Intake/Output: Intake & Output 08/16/20 08/17/20 08/18/20 08/19/20 23:59 23:59 23:59 23:59 Intake Total 1060 1000 1670 1000 Output Total 2150 1700 950 300 Balance -1090 -700 720 700 Meds/Results Medications: Active Medications Generic Name Dose Route Start Last Admin Trade Name Freq PRN Reason Stop Dose Admin Acetaminophen 650 mg 08/05/20 20:35 08/14/20 17:46 Acetaminophen 650 Mg Suppository RECTAL 650 mg Q6H PRN Administration Mild Pain (1-3) or Fever Hydrocodone Bitart/Acetaminophen 5 mg 08/09/20 18:47 08/16/20 18:23 Acetaminophen/Hydrocodone Elixir (*Crx) 7.5 Mg/15 Ml Udc PO 5 mg Q6H PRN Administration Pain Rated 4-6 Albuterol 2 puff 08/05/20 20:35 Albuterol Sulfate (*Sp) Aerosol 1 Puff INHALATION
--- NOTE | 2020-08-19 11:42 | PM.IMPN ---
Progress Note: A&P Assessment and Plan (1) Bacteremia: Code(s): R78.81 - Bacteremia Status: Acute Assessment and Plan: -MRSA bacteremia, continue IV vanc, blood cultures from 08/19 are negative so far -infectious disease following Dr. barillas (2) Cardiomyopathy: Qualifiers: Cardiomyopathy type: unspecified Qualified Code(s): I42.9 - Cardiomyopathy, unspecified Code(s): I42.9 - Cardiomyopathy, unspecified Status: Acute Assessment and Plan: Stable (3) Arrhythmia, ventricular: Code(s): I49.9 - Cardiac arrhythmia, unspecified Status: Acute Assessment and Plan: Patient is rate controlled on metoprolol, Cardiology following (4) Sepsis with acute hypoxic respiratory failure: Code(s): A41.9 - Sepsis, unspecified organism; R65.20 - Severe sepsis without septic shock; J96.01 - Acute respiratory failure with hypoxia Status: Acute Assessment and Plan: -Supplemental oxygen to keep oxygen saturation greater than 90% -continue BiPAP at night (5) Sepsis: Qualifiers: Sepsis type: methicillin resistant Staphylococcus aureus Sepsis acute organ dysfunction status: with acute organ dysfunction Severe sepsis acute organ dysfunction type: encephalopathy Severe sepsis shock status: without septic shock Qualified Code(s): A41.02 - Sepsis due to Methicillin resistant Staphylococcus aureus; R65.20 - Severe sepsis without septic shock; G93.41 - Metabolic encephalopathy Code(s): A41.9 - Sepsis, unspecified organism Status: Acute Assessment and Plan: On vanc (6) Acute encephalopathy: Code(s): G93.40 - Encephalopathy, unspecified Status: Acute Assessment and Plan: Mentation unchanged similar to yesterday (7) Neutropenia: Qualifiers: Neutropenia type: secondary to cancer chemotherapy Qualified Code(s): D70.1 - Agranulocytosis secondary to cancer chemotherapy; T45.1X5A - Adverse effect of antineoplastic and immunosuppressive drugs, initial encounter Code(s): D70.9 - Neutropenia, unspecified Status: Acute Assessment and Plan: Stable Continue to monitor (8) Non-Hodgkin lymphoma in remission: Code(s): C85.90 - Non-Hodgkin lymphoma, unspecified, unspecified site Status: Acute Assessment and Plan: in remission. (9) Acute gouty arthritis: Code(s): M10.9 - Gout, unspecified Status: Acute Assessment and Plan: Completed steroid course (10) Osteoarthritis involving multiple joints on both sides of body: Code(s): M15.9 - Polyosteoarthritis, unspecified Status: Acute Assessment and Plan: Pain control: IV morphine 4 mg q.4 hours p.r.n. Additional Plan # MRSA bacteremia # Acute encephalopathy likely secondary to infectious versus delirium # sepsis secondary to bacteremia with end-organ damage encephalopathy -vancomycin for MRSA bacteremia, blood cultures repeated 08/17/2020 no growth to date, ID following -Tylenol for fever -neutropenic from Hodgkin's lymphoma as well as sepsis, tachypneic - CT head, MRI brain, EEG negative -labs are improving however patient is not eating, Dobbhoff placed for tube feeds started 08/19 # gout flare, resolved -home allopurinol # nonsustained V-tach, PVC, AFib, cardiomyopathy -cardiology following -patient on metoprolol 25 mg q.12 hours -EF was 45% in 2018 -echocardiogram 08/11/2020: EF 30-35%, biatrial dilation, enlarged left ventricle # hypernatremia -resolved with D5W, now treating malnutrition with tube feeds # other chronic conditions-holding home meds well altered -Atrial fibrillation: On Eliquis, metoprolol -hyperlipidemia: On atorvastatin -vitamin-D deficiency: Supplement -BPH: Finasteride -non-Hodgkin lymphoma follows Dr. Davis: CT scans chest/abdomen/pelvis showed no relapse, bone marrow biopsy will need to be done -congestive heart failure: Lasix, spironolactone, metolazo
[2020-08-19 11:59] LABS: Glucose Point of Care 146 (65-105)
--- NOTE | 2020-08-19 12:46 | PC.NURSE ---
Patient refused bedside xray. Spoke with Dr. Padilla about patient's refusal. Dr. Padilla stated that we can possibly try again tomorrow if patient is more alert and willing.
[2020-08-19] MEDS: MORPHINE SULFATE (*CRX) 4 MG/ML INJ IV PUSH ×2 (13:05→23:37)
--- NOTE | 2020-08-19 14:36 | PCDIET ---
Nutrition Follow-Up Complete: Inadequate oral intake related to altered mental status as evidence by 0% intake over the last five days Total intake will meet estimated nutrition needs Goal: Progressing towards goal. Continue goal. Pt current nutrition is Glucerna 1.2 at 40ml/hr Wt. 108.9 kg, recommend new wt, wt unchanged since 08/09 Bowel Motility: Today BM + Labs Reviewed:Glucose 146 Meds Noted:Protonix, Albuterol, Vancomycin, Protonix, Insulin Additional Notes: Pt started on enteral nutrition of Glucerna 1.2 at 40ml/hr due to 0% PO intake over the last few days on Minced and Moist, level 5 diet and moderately thick level three liquids. Current nutrition at 40ml/hr providing 1056kcals, 52g protein, and 708ml of free water over 22hrs. Recommend increasing Glucerna 1.2 to 75ml/hr providing 1980 kcals, 99g protein, and 1328ml of free water, meeting 100% of needs. We will follow tube feeding rate, tolerance, wt, and labs every t/f.
--- NOTE | 2020-08-19 16:38 | PC.NURSE ---
While in room 347 the respiratory therapist called out to me to inform me that Harvey had pulled out his feeding tube. Before doing anything I made a call to Dr. Padilla to see what he wanted to be done. Dr. Padilla stated to have him put back on the same diet he was on and try to feed him and give him fluids orally. He wants to try this to avoid putting restraints on the patient. Patient is continuing to be aggressive and pull at IV's and gown.
[2020-08-19 16:39] LABS: Glucose Point of Care 113 (65-105)
--- NOTE | 2020-08-19 18:18 | PC.NURSE ---
Spoke with daughter concerning patient and she offered to see if having her come here with him would help. Call to [employer] to ask permission about this. Per [employer] it is not a good option with [place] being at such high numbers to allow her to come in since he is not under any current orders that allow him to have a visitor.
[2020-08-20] VITALS (13 sets, daily range): BP systolic 102–109; BP diastolic 66–89; PULSE 65–93; RESP 18–44; TEMP 36.3–36.4; O2SAT 93–100
[2020-08-20 01:51] LABS: Glucose Point of Care 105 (65-105)
[2020-08-20] MEDS: ALBUTEROL SULFATE NEB 2.5 MG/0.5 ML INH 5 MG INHALATION ×4 (02:47→22:13)
[2020-08-20] MEDS: DEXTROSE 5% 1,000 ML 1,000 ML 125 ML IV CONT ×2 (02:48→16:49)
[2020-08-20 06:08] LABS: Anion Gap 5 mmol/L (8-16); Blood Urea Nitrogen 34 mg/dL (9-20); Calcium 7.8 mg/dL (8.4-10.2); Carbon Dioxide 30 mmol/L (22-30); Chloride 104 mmol/L (98-107); Estimated CRCL calculation 67 ml/min; Estimated Glomerular Filt Rate > 60; Glucose 105 mg/dL (75-110); Magnesium 1.9 mg/dL (1.6-2.3); Potassium 3.3 mmol/L (3.4-5.0); Sodium 139 mmol/L (137-145)
[2020-08-20 07:44] LABS: Glucose Point of Care 106 (65-105)
--- NOTE | 2020-08-20 07:58 | PM.IMPN ---
Progress Note: A&P Assessment and Plan (1) Bacteremia: Code(s): R78.81 - Bacteremia Status: Acute Assessment and Plan: -MRSA bacteremia, continue IV vanc, blood cultures from 08/17 are negative so far -infectious disease Dr. Rahman following (2) Cardiomyopathy: Qualifiers: Cardiomyopathy type: unspecified Qualified Code(s): I42.9 - Cardiomyopathy, unspecified Code(s): I42.9 - Cardiomyopathy, unspecified Status: Acute Assessment and Plan: Stable (3) Arrhythmia, ventricular: Code(s): I49.9 - Cardiac arrhythmia, unspecified Status: Acute Assessment and Plan: Patient is rate controlled on metoprolol, Cardiology following (4) Sepsis with acute hypoxic respiratory failure: Code(s): A41.9 - Sepsis, unspecified organism; R65.20 - Severe sepsis without septic shock; J96.01 - Acute respiratory failure with hypoxia Status: Acute Assessment and Plan: -Supplemental oxygen to keep oxygen saturation greater than 90% -continue BiPAP at night (5) Sepsis: Qualifiers: Sepsis type: methicillin resistant Staphylococcus aureus Sepsis acute organ dysfunction status: with acute organ dysfunction Severe sepsis acute organ dysfunction type: encephalopathy Severe sepsis shock status: without septic shock Qualified Code(s): A41.02 - Sepsis due to Methicillin resistant Staphylococcus aureus; R65.20 - Severe sepsis without septic shock; G93.41 - Metabolic encephalopathy Code(s): A41.9 - Sepsis, unspecified organism Status: Acute Assessment and Plan: On vanc (6) Acute encephalopathy: Code(s): G93.40 - Encephalopathy, unspecified Status: Acute Assessment and Plan: Significant improvement (7) Neutropenia: Qualifiers: Neutropenia type: secondary to cancer chemotherapy Qualified Code(s): D70.1 - Agranulocytosis secondary to cancer chemotherapy; T45.1X5A - Adverse effect of antineoplastic and immunosuppressive drugs, initial encounter Code(s): D70.9 - Neutropenia, unspecified Status: Acute Assessment and Plan: Stable Continue to monitor (8) Non-Hodgkin lymphoma in remission: Code(s): C85.90 - Non-Hodgkin lymphoma, unspecified, unspecified site Status: Acute Assessment and Plan: in remission. (9) Acute gouty arthritis: Code(s): M10.9 - Gout, unspecified Status: Acute Assessment and Plan: Completed steroid course (10) Osteoarthritis involving multiple joints on both sides of body: Code(s): M15.9 - Polyosteoarthritis, unspecified Status: Acute Assessment and Plan: Pain control with liquid [place] Additional Plan # MRSA bacteremia # Acute encephalopathy likely secondary to infectious versus delirium # sepsis secondary to bacteremia with end-organ damage encephalopathy -vancomycin for MRSA bacteremia, blood cultures repeated 08/17/2020 no growth to date, ID following -Tylenol for fever -neutropenic from Hodgkin's lymphoma as well as sepsis, tachypneic - CT head, MRI brain, EEG negative -infectious encephalopathy, improving significantly -patient will need extensive rehabilitation, starting PT OT today, getting up to chair, encourage p.o. intake # gout flare, resolved -home allopurinol # nonsustained V-tach, PVC, AFib, cardiomyopathy -cardiology following -patient on metoprolol 25 mg q.12 hours -EF was 45% in 2018 -echocardiogram 08/11/2020: EF 30-35%, biatrial dilation, enlarged left ventricle # hypernatremia -resolved # hypokalemia -replete as needed, 40 mEq a day, potassium 3.3 # other chronic conditions-holding home meds well altered -Atrial fibrillation: On Eliquis, metoprolol -hyperlipidemia: On atorvastatin -vitamin-D deficiency: Supplement -BPH: Finasteride -non-Hodgkin lymphoma follows Dr. Davis: CT scans chest/abdomen/pelvis showed no relapse, bone marrow biopsy will need to be done -congestive
[2020-08-20] MEDS: MORPHINE SULFATE (*CRX) 4 MG/ML INJ IV PUSH (09:31)
[2020-08-20] MEDS: PANTOPRAZOLE SODIUM IV 40 MG VIAL IV PUSH (09:31)
--- NOTE | 2020-08-20 09:43 | PC.NURSE ---
Spoke with Dr. Padilla. He does not want the patient to receive the IV morphine. MAR will not let me undo the administration at the moment. Left a message for pharmacy. Pt did not receive the morphine.
[2020-08-20] MEDS: Acetaminophen/HYDROcodone ELIXIR (*CRX) 7.5 MG/15 ML UDC 5 MG PO (09:53)
[2020-08-20 09:54] LABS: Glucose Point of Care 126 (65-105)
[2020-08-20] MEDS: METOPROLOL TARTRATE 25 MG TABLET PO ×2 (10:00→20:46)
[2020-08-20 12:06] LABS: Glucose Point of Care 126 (65-105)
--- NOTE | 2020-08-20 13:24 | PM.PNCARD ---
Progress Note: A&P Assessment and Plan (1) Arrhythmia, ventricular: Code(s): I49.9 - Cardiac arrhythmia, unspecified Status: Acute Assessment and Plan: PVCs and ventricular ectopy with up to 5-6 beats of nonsustained ventricular tachycardia noted earlier during hospitalization, improved, resolved. PVCs may be related to multiple metabolic abnormalities and general physiologic stressors Low-dose Metoprolol added 10/11/2019. Will supplement potassium today as it is 3.3. (2) Sepsis with acute hypoxic respiratory failure: Code(s): A41.9 - Sepsis, unspecified organism; R65.20 - Severe sepsis without septic shock; J96.01 - Acute respiratory failure with hypoxia Status: Acute Assessment and Plan: Getting vancomycin and supportive care (3) Atrial fibrillation: Qualifiers: Atrial fibrillation type: unspecified chronic Qualified Code(s): I48.20 - Chronic atrial fibrillation, unspecified Code(s): I48.91 - Unspecified atrial fibrillation Status: Chronic Assessment and Plan: H/O persistent a fib, rate controlled on metoprolol, anticoagulated with Eliquis. (4) Cardiomyopathy: Qualifiers: Cardiomyopathy type: unspecified Qualified Code(s): I42.9 - Cardiomyopathy, unspecified Code(s): I42.9 - Cardiomyopathy, unspecified Status: Acute Assessment and Plan: EF was 45% in 2018. Echocardiogram 08/11/2020: 1. Complete two-dimensional, color flow and Doppler transthoracic echocardiogram is performed. 2. Left ventricular systolic function is moderately reduced, estimated at 30-35%. 3. Left ventricular chamber dimension is moderately enlarged. 4. Severe biatrial dilation. 5. Moderate mitral and tricuspid valve regurgitation. 6. Aortic valve stenosis which on visual inspection is at least mild to moderate. 7. Doppler interrogation of the aortic valve demonstrated no stenosis and in Dr. Virk's opinion is not accurate. Patient has worsened cardiomyopathy. ProBNP quite high on admission and the chest x-ray shows possible CHF versus pneumonia. Does not appear to be in CHF at this time. Continue metoprolol. Eventually add lisinopril and/or resume spironolactone. However, blood pressure somewhat soft today. Subjective Date/time seen: 08/20/20 13:24 Interval history: Follow-up visit in this 75-year-old man with MRSA bacteremia, encephalopathy. We are seeing him for his a fib, nonsustained VT, and cardiomyopathy. He sees Dr. Virk as an OPT 08/19/2020: Today the patient is essentially completely obtunded. Fortunately he is now receiving tube feeding for nutritional support. AFib rate is controlled Date of service 08/12: Physical therapy is trying to work with the patient but he is not able to participate. His chief complaint: ?My low back is--it's just too much.? Denies any shortness of breath or chest pain. Trying to eat a little bit. Not needing O2. Review of Systems Constitutional: Constitutional: Reports fatigue and Reports weakness Eyes: Eyes: Reports no additional eye complaints ENT: Denies epistaxis Cardiovascular: Cardiovascular: Denies chest pain, Denies pedal edema and Denies palpitations Respiratory: Respiratory: Denies dyspnea Gastrointestinal: Gastrointestinal: Denies abdominal pain Musculoskeletal: Musculoskeletal: Reports back pain Integumentary/Breasts: Skin/Breast: Reports erythema (forarms, ecchymosis) and Reports rash Neurologic: Reports confusion Psychiatric: Psychiatric: Reports behavioral changes Exam Narrative: Exam Narrative: Older male in bed, does not respond much but does look at me and answered couple questions. Disheveled bed sheets, no gown on. Const: General: comfortable and no acute distress HENMT: General nose exam: no epistax
[2020-08-20] MEDS: APIXABAN 5 MG TABLET PO (16:47)
[2020-08-20 18:02] LABS: Glucose Point of Care 95 (65-105)
[2020-08-20 21:35] LABS: Glucose Point of Care 111 (65-105)
[2020-08-21] VITALS (12 sets, daily range): BP systolic 102–108; BP diastolic 66–69; PULSE 62–88; RESP 18–26; TEMP 36.1–36.8; O2SAT 96–100
[2020-08-21] MEDS: DEXTROSE 5% 1,000 ML 1,000 ML 125 ML IV CONT (02:39)
[2020-08-21] MEDS: Acetaminophen/HYDROcodone ELIXIR (*CRX) 7.5 MG/15 ML UDC 5 MG PO ×2 (02:42→20:35)
[2020-08-21] MEDS: ALBUTEROL SULFATE NEB 2.5 MG/0.5 ML INH 5 MG INHALATION ×3 (03:10→21:07)
[2020-08-21 06:02] LABS: Glucose Point of Care 119 (65-105)
[2020-08-21 06:03] LABS: Hematocrit 23.6 % (42.0-52.0); Hemoglobin 7.2 g/dL (14.0-18.0); Mean Corpuscular HGB Conc 30.5 g/dl (32-36); Mean Corpuscular Hemoglobin 28.3 pg (26-34); Mean Corpuscular Volume 92.9 fl (80-100); Mean Platelet Volume 12.5 fl (7.4-10.4); Platelet Count Result 169 k/mm3 (150-375); Red Blood Count 2.54 M/mm3 (4.6-6.20); Red Cell Distribution Width 20.7 % (11.5-14.5)
[2020-08-21 06:37] LABS: White Blood Count 1.3 K/mm3 (4.5-10.0)
[2020-08-21 06:42] LABS: Anion Gap 4 mmol/L (8-16); Blood Urea Nitrogen 26 mg/dL (9-20); Carbon Dioxide 28 mmol/L (22-30); Chloride 103 mmol/L (98-107); Estimated CRCL calculation 74 ml/min; Estimated Glomerular Filt Rate > 60; Glucose 117 mg/dL (75-110); Potassium 3.5 mmol/L (3.4-5.0); Sodium 135 mmol/L (137-145)
[2020-08-21 09:34] LABS: Glucose Point of Care 111 (65-105)
[2020-08-21] MEDS: PANTOPRAZOLE SODIUM IV 40 MG VIAL IV PUSH (09:46)
[2020-08-21] MEDS: APIXABAN 5 MG TABLET PO (09:57)
[2020-08-21] MEDS: METOPROLOL TARTRATE 25 MG TABLET PO ×2 (10:01→20:31)
[2020-08-21] MEDS: MORPHINE SULFATE (*CRX) 4 MG/ML INJ IV PUSH (10:06)
--- NOTE | 2020-08-21 10:21 | PM.IMPN ---
Progress Note: A&P Assessment and Plan (1) Failure to thrive: Qualifiers: Failure to thrive age range: in adult Qualified Code(s): R62.7 - Adult failure to thrive Status: Acute Assessment and Plan: -removing Dobbhoff tube feeds, refusing p.o. intake, refusing to work with physical therapy -patient is failing to thrive -plan for PEG tube for nutrition and medications, consulting surgery (2) Bacteremia: Code(s): R78.81 - Bacteremia Status: Acute Assessment and Plan: -MRSA bacteremia, continue IV vanc, blood cultures from 08/17 are negative so far -infectious disease Dr. Rahman following (3) Cardiomyopathy: Qualifiers: Cardiomyopathy type: unspecified Qualified Code(s): I42.9 - Cardiomyopathy, unspecified Code(s): I42.9 - Cardiomyopathy, unspecified Status: Acute Assessment and Plan: Stable (4) Arrhythmia, ventricular: Code(s): I49.9 - Cardiac arrhythmia, unspecified Status: Acute Assessment and Plan: Patient is rate controlled on metoprolol, Cardiology following (5) Acute encephalopathy: Code(s): G93.40 - Encephalopathy, unspecified Status: Acute Assessment and Plan: No change (6) Neutropenia: Qualifiers: Neutropenia type: secondary to cancer chemotherapy Qualified Code(s): D70.1 - Agranulocytosis secondary to cancer chemotherapy; T45.1X5A - Adverse effect of antineoplastic and immunosuppressive drugs, initial encounter Code(s): D70.9 - Neutropenia, unspecified Status: Acute Assessment and Plan: Stable Continue to monitor (7) Non-Hodgkin lymphoma in remission: Code(s): C85.90 - Non-Hodgkin lymphoma, unspecified, unspecified site Status: Acute Assessment and Plan: in remission. (8) Acute gouty arthritis: Code(s): M10.9 - Gout, unspecified Status: Acute Assessment and Plan: Completed steroid course (9) Osteoarthritis involving multiple joints on both sides of body: Code(s): M15.9 - Polyosteoarthritis, unspecified Status: Acute Assessment and Plan: Pain control with liquid [place] Additional Plan #Failure to thrive -consulting surgery for PEG tube placement -patient will need extensive rehabilitation, starting PT OT today, getting up to chair, encourage p.o. intake -patient has removed every Dobbhoff place, refuses p.o. intake -he refuses to work with PT/OT -family has unrealistic expectations # MRSA bacteremia # encephalopathy likely infectious encephalopathy -vancomycin for MRSA bacteremia, blood cultures repeated 08/17/2020 no growth to date, ID following -Tylenol for fever p.r.n. -neutropenic from Hodgkin's lymphoma - CT head, MRI brain, EEG negative # gout flare, resolved -home allopurinol # nonsustained V-tach, PVC, AFib, cardiomyopathy -cardiology following -patient on metoprolol 25 mg q.12 hours -EF was 45% in 2018 -echocardiogram 08/11/2020: EF 30-35%, biatrial dilation, enlarged left ventricle # hypernatremia -resolved # hypokalemia -replete as needed, 40 mEq today, potassium 3.5 # other chronic conditions-holding home meds well altered, will plan for PEG tube placement so he gets these medications -Atrial fibrillation: On Eliquis, metoprolol -hyperlipidemia: On atorvastatin -vitamin-D deficiency: on supplement -BPH: on Finasteride, with Lee catheter now -non-Hodgkin lymphoma follows Dr. Davis: CT scans chest/abdomen/pelvis showed no relapse, bone marrow biopsy will need to be done -congestive heart failure: Lasix, spironolactone, metolazone, Imdur- diuretics held while NPO and clinically dry -GERD: Omeprazole -iron deficient anemia: Ferrous sulfate, B12, s/p 1u PRBC 08/01 Diet: Heart healthy, minced and moist, thickened liquids DVT prophylaxis: SCDs, will need to be on Eliquis if he can take p.o. Code status: Full code Disposition: Inpatient, likely need placement afterward l
--- NOTE | 2020-08-21 11:24 | PM.PNCARD ---
Progress Note: A&P Assessment and Plan (1) Arrhythmia, ventricular: Code(s): I49.9 - Cardiac arrhythmia, unspecified Status: Acute Assessment and Plan: PVCs and ventricular ectopy with up to 5-6 beats of nonsustained ventricular tachycardia noted earlier during hospitalization, improved, resolved. PVCs may be related to multiple metabolic abnormalities and general physiologic stressors Low-dose Metoprolol added 10/11/2019. Will supplement potassium today as it is 3.5 if pt will take it. Daily BMP (2) Sepsis with acute hypoxic respiratory failure: Code(s): A41.9 - Sepsis, unspecified organism; R65.20 - Severe sepsis without septic shock; J96.01 - Acute respiratory failure with hypoxia Status: Acute Assessment and Plan: Getting vancomycin and supportive care (3) Atrial fibrillation: Qualifiers: Atrial fibrillation type: unspecified chronic Qualified Code(s): I48.20 - Chronic atrial fibrillation, unspecified Code(s): I48.91 - Unspecified atrial fibrillation Status: Chronic Assessment and Plan: H/O persistent a fib, rate controlled on metoprolol, anticoagulated with Eliquis. Will hold Eliquis as pt likely will need a feeding tube. If H&H stable, supplement w/ Lovenox until feeding tube (4) Cardiomyopathy: Qualifiers: Cardiomyopathy type: unspecified Qualified Code(s): I42.9 - Cardiomyopathy, unspecified Code(s): I42.9 - Cardiomyopathy, unspecified Status: Acute Assessment and Plan: EF was 45% in 2018. Echocardiogram 08/11/2020: Left ventricular systolic function is moderately reduced, estimated at 30-35%,moderately enlarged, Moderate mitral and tricuspid valve regurgitation, Aortic valve stenosis which on visual inspection is at least mild to moderate. Patient has worsened cardiomyopathy. ProBNP quite high on admission and the chest x-ray shows possible CHF versus pneumonia. Does not appear to be in CHF at this time. Continue metoprolol. Eventually add lisinopril and/or resume spironolactone. However, blood pressure somewhat soft and not taking po meds anyway. (5) Back pain: Code(s): M54.9 - Dorsalgia, unspecified Status: Acute Assessment and Plan: I don't know if this is chronic or new; with bacteremia he could have discitis. (6) Anemia: Qualifiers: Anemia type: unspecified type Qualified Code(s): D64.9 - Anemia, unspecified Code(s): D64.9 - Anemia, unspecified Status: Acute Assessment and Plan: Worsening anemia; persistent neutropenia noted. Daily CBC Subjective Date/time seen: 08/21/20 11:24 Interval history: Follow-up visit in this 75-year-old man with MRSA bacteremia, encephalopathy. We are seeing him for his a fib, nonsustained VT, and cardiomyopathy. He sees Dr. Virk as an OPT 08/19/2020: Today the patient is essentially completely obtunded. Fortunately he is now receiving tube feeding for nutritional support. AFib rate is controlled 08/20/2020: Physical therapy is trying to work with the patient but he is not able to participate. His chief complaint: ?My low back is--it's just too much.? Denies any shortness of breath or chest pain. Trying to eat a little bit. Not needing O2. Date of SErvice 08/21/2020: Not eating or participating w/ Ph Tx, not taking po meds regularly. C/o low back pain but doesn't answer other questions. Review of Systems Review of Systems: ROS unobtainable: Yes unobtainable due to medical condition ENT: Reports system reviewed and no additional complaints, except as documented Cardiovascular: Cardiovascular: Reports no additional cardiovascular complaints Respiratory: Respiratory: Reports no additional res
[2020-08-21] MEDS: POTASSIUM CHLORIDE 20 MEQ TABLET PO (12:27)
[2020-08-21 13:11] LABS: Glucose Point of Care 104 (65-105)
--- NOTE | 2020-08-21 14:40 | PCRCNOTE ---
Window of time for administration has passed. See next scheduled administration.
[2020-08-21 18:16] LABS: Glucose Point of Care 91 (65-105)
[2020-08-21 20:35] LABS: Glucose Point of Care 86 (65-105)
[2020-08-22] VITALS (11 sets, daily range): BP systolic 107–114; BP diastolic 56–68; PULSE 52–95; RESP 22–44; TEMP 36.6–36.8; O2SAT 93–97
[2020-08-22] MEDS: ALBUTEROL SULFATE NEB 2.5 MG/0.5 ML INH 5 MG INHALATION ×4 (01:43→17:49)
[2020-08-22 05:22] LABS: Glucose Point of Care 81 (65-105)
[2020-08-22 06:16] LABS: Hematocrit 24.7 % (42.0-52.0); Hemoglobin 7.6 g/dL (14.0-18.0); Mean Corpuscular HGB Conc 30.8 g/dl (32-36); Mean Corpuscular Hemoglobin 28.5 pg (26-34); Mean Corpuscular Volume 92.5 fl (80-100); Mean Platelet Volume 12.7 fl (7.4-10.4); Platelet Count Result 180 k/mm3 (150-375); Red Blood Count 2.67 M/mm3 (4.6-6.20); Red Cell Distribution Width 20.7 % (11.5-14.5)
[2020-08-22 06:26] LABS: White Blood Count 1.4 K/mm3 (4.5-10.0)
[2020-08-22 06:36] LABS: Anion Gap 4 mmol/L (8-16); Blood Urea Nitrogen 20 mg/dL (9-20); Calcium 8.1 mg/dL (8.4-10.2); Carbon Dioxide 27 mmol/L (22-30); Chloride 102 mmol/L (98-107); Estimated CRCL calculation 67 ml/min; Estimated Glomerular Filt Rate > 60; Glucose 82 mg/dL (75-110); Potassium 3.7 mmol/L (3.4-5.0); Sodium 133 mmol/L (137-145)
[2020-08-22] MEDS: METOPROLOL TARTRATE 25 MG TABLET PO ×2 (08:27→20:26)
[2020-08-22] MEDS: PANTOPRAZOLE SODIUM IV 40 MG VIAL IV PUSH (08:27)
--- NOTE | 2020-08-22 09:42 | PM.PNCARD ---
Progress Note: A&P Additional Plan 75-year-old gentleman with: Chronic atrial fibrillation well rate controlled with metoprolol. Again no specific cardiac recommendations as it pertains to his encephalopathy and failure to thrive. Arthur Virk MD [facility] Subjective Date/time seen: Date of service: 08/22/20 09:42 Interval history: Follow-up visit in this 75-year-old man with MRSA bacteremia, encephalopathy. We are seeing him for his a fib, nonsustained VT, and cardiomyopathy. He sees Dr. Virk as an OPT Patient continues to be encephalopathic otherwise appears to be comfortable. Very poorly responsive. Continues in rate controlled atrial fibrillation. Hospitalist's notes that the patient has been difficult to care for and has been pulling out Dobbhoff feeding tube. Consideration for PEG tube is noted in the chart. Exam Narrative: Exam Narrative: Older male who regards examiner, doesn't answer most questions. Disheveled bed, not wearing gown. Const: General: comfortable, no acute distress and confusion Orientation/consciousness: confusion Other: Poorly responsive elderly man with BiPAP mask on HENMT: General nose exam: no epistaxis Mouth: Yes moist mucous membranes and Yes dry mucous membranes Eyes: Sclera: sclerae normal Pupils: Equal, round and reactive pupils present EOM: EOMs intact bilaterally Neck: Neck: supple and no JVD Other: Carotid pulses are intact bilaterally no obvious bruits Resp: Effort & Inspection: normal respiratory effort Auscultation: clear to auscultation bilaterally and diminished lung sounds bilateral in the lower lung obando Other: Scattered rhonchi are noted otherwise no rales no wheezing Cardio: Rate: regular rate Rhythm: abnormal rhythm regularly irregular Heart sounds: no murmurs Other: In trigeminy today GI: Inspection: non-distended Auscultation: normal bowel sounds Urinary Catheter: Urinary Catheter: patent and draining, urine cloudy and urine dark Skin: General skin exam: normal color, no rashes or lesions noted and erythema (Some ecchymosis over forearms with a small skin tear left forearm) Wounds: wounds noted (Ecchymosis and skin tear left forearm.) Neuro: General: confusion Cranial nerves: Yes Equal, round and reactive pupils present Cognition (Neuro): abnormal cognition Speech: No normal speech and Abnormal speech present Motor exam (neuro): strength not 5/5 throughout and tone not normal throughout Other: Not oriented to place or time. Extrem: General: no edema and no pedal edema Right lower extremity: lower leg not examined Left lower extremity: lower leg not examined Psych: Mental Status: mental status grossly abnormal Affect: No normal affect Other: Encephalopathic and not responding appropriately. Objective Data Vital Signs Vital Signs: Vital Signs - 24 hr 08/21/20 10:01 08/21/20 14:04 08/21/20 14:41 Temperature 36.8 C Pulse Rate 74 80 65 Respiratory Rate 26 H 24 H Blood Pressure 102/69 Pulse Oximetry 100 08/21/20 14:45 08/21/20 14:49 08/21/20 20:20 Temperature 36.1 C L Pulse Rate 65 88 Respiratory Rate 24 H 26 H Blood Pressure 108/69 Pulse Oximetry 96 100 08/21/20 20:31 08/21/20 21:10 08/21/20 21:11 Temperature Pulse Rate 88 62 Respiratory Rate 18 23 H Blood Pressure Pulse Oximetry 08/22/20 01:44 08/22/20 05:13 08/22/20 08:19 Temperature 36.6 C Pulse Rate 87 89 65 Respiratory Rate 22 H 24 H 24 H Blood Pressure 111/56 L Pulse Oximetry 96 08/22/20 08:24 08/22/20 08:27 08/22/20 08:29 Temperature Pulse Rate 62 69 Respiratory Rate 24 H Blood Pressure Pulse Oximetry 95 Intake/Output Intake/Output: Intake & Output 08/19/20 08/20/20 08/21/20 08/22/20 23:59 23:59 23:59 23:59 Intake Total 1620 2870 3000 25 Output Total 1000 1350 1250 600 Balance 620 1520 1750 575 Meds/Results Medications: Active Medications Generic Name Dose Route Start Last Admin Trade
[2020-08-22 11:56] LABS: Glucose Point of Care 80 (65-105)
--- NOTE | 2020-08-22 12:10 | WPDGICN ---
Assessment and Plan Assessment and plan (1) Nutrition disorder: Code(s): E63.9 - Nutritional deficiency, unspecified Status: Acute Assessment and Plan: he is not eating and pulled out DHT twice, family is ok with PEG placement. We will hold his eliquis today and will proceed with egd and peg placement on Saturday. (2) Failure to thrive: Qualifiers: Failure to thrive age range: in adult Qualified Code(s): R62.7 - Adult failure to thrive Status: Acute (3) Bacteremia: Code(s): R78.81 - Bacteremia Status: Acute Assessment and Plan: MRSA bacteremia on iv vancomycin per ID team repeat blood cultures negative (4) Sepsis: Qualifiers: Sepsis type: methicillin resistant Staphylococcus aureus Sepsis acute organ dysfunction status: with acute organ dysfunction Severe sepsis acute organ dysfunction type: encephalopathy Severe sepsis shock status: without septic shock Qualified Code(s): A41.02 - Sepsis due to Methicillin resistant Staphylococcus aureus; R65.20 - Severe sepsis without septic shock; G93.41 - Metabolic encephalopathy Code(s): A41.9 - Sepsis, unspecified organism Status: Acute (5) Non-Hodgkin lymphoma in remission: Code(s): C85.90 - Non-Hodgkin lymphoma, unspecified, unspecified site Status: Acute (6) Neutropenia: Code(s): D70.9 - Neutropenia, unspecified Status: Acute (7) Anemia of chronic disease: Code(s): D63.8 - Anemia in other chronic diseases classified elsewhere Status: Acute Assessment and Plan: hb 7-8, no signs of gib multifactorial, also h/o non-hodgkin lymphoma will get coagulation panel before peg placement (8) Acute encephalopathy: Code(s): G93.40 - Encephalopathy, unspecified Status: Acute Assessment and Plan: he is confused and not interacting with therapist nor eating. 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 Infectious disease and cardiology has been following the patient. Last set of blood cultures without growth. Per notes he has been difficult to care for and pulled out Dobbhoff feeding tube at least two different times, he is still confused and he is not eating otherwise. Primary team talked to family and they are agreeable to proceed with PEG placement for feeding. History obtained from records and his nurse as he is still confused. Review of Systems Constitutional: Constitutional: Reports lethargy Eyes: Eyes: Reports no additional eye complaints ENT: Reports system reviewed and no additional complaints, except as documented Cardiovascular: Cardiovascular: Denies chest pain Respiratory: Respiratory: Denies wheezing Gastrointestinal: Gastrointestinal: Denies abdominal pain Musculoskeletal: Musculoskeletal: Reports arthralgias Integumentary/Breasts: Skin/Breast: Denies dry skin Neurologic: Reports confusion Psychiatric: Psychiatric: Reports confusion [facility] Past Medical History Medical History Angina pectoris, unspecified previous cardiac catheterization with minimal blockage no intervention Anxiety Arthritis 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
--- NOTE | 2020-08-22 13:13 | PM.IMPN ---
Progress Note: A&P Assessment and Plan (1) Failure to thrive: Qualifiers: Failure to thrive age range: in adult Qualified Code(s): R62.7 - Adult failure to thrive Status: Acute Assessment and Plan: -removing Dobbhoff tube feeds, refusing p.o. intake, refusing to work with physical therapy -patient is failing to thrive -plan for PEG tube for nutrition and medications on Saturday with GI consult (2) Bacteremia: Code(s): R78.81 - Bacteremia Status: Acute Assessment and Plan: -MRSA bacteremia, continue IV vanc, blood cultures from 08/17, continue until 09/01 -infectious disease Dr. Rahman following (3) Cardiomyopathy: Qualifiers: Cardiomyopathy type: unspecified Qualified Code(s): I42.9 - Cardiomyopathy, unspecified Code(s): I42.9 - Cardiomyopathy, unspecified Status: Acute Assessment and Plan: Stable (4) Arrhythmia, ventricular: Code(s): I49.9 - Cardiac arrhythmia, unspecified Status: Acute Assessment and Plan: Patient is rate controlled on metoprolol, Cardiology following (5) Acute encephalopathy: Code(s): G93.40 - Encephalopathy, unspecified Status: Acute Assessment and Plan: No change (6) Neutropenia: Qualifiers: Neutropenia type: secondary to cancer chemotherapy Qualified Code(s): D70.1 - Agranulocytosis secondary to cancer chemotherapy; T45.1X5A - Adverse effect of antineoplastic and immunosuppressive drugs, initial encounter Code(s): D70.9 - Neutropenia, unspecified Status: Acute Assessment and Plan: Stable Continue to monitor (7) Non-Hodgkin lymphoma in remission: Code(s): C85.90 - Non-Hodgkin lymphoma, unspecified, unspecified site Status: Acute Assessment and Plan: in remission. Plan for bone marrow biopsy when stable however with clinical deterioration hospice may be more appropriate, discussed with Dr. Davis (8) Acute gouty arthritis: Code(s): M10.9 - Gout, unspecified Status: Acute Assessment and Plan: Completed steroid course (9) Osteoarthritis involving multiple joints on both sides of body: Code(s): M15.9 - Polyosteoarthritis, unspecified Status: Acute Assessment and Plan: Pain control with liquid [place], IV morphine p.r.n. Additional Plan #Failure to thrive -plan for PEG tube placement Saturday -patient will need extensive rehabilitation, starting PT OT today, getting up to chair, encourage p.o. intake -he refuses to work with PT/OT -family has unrealistic expectations, discussed with oncologist and hospice may be appropriate however family will likely refuse, will place PEG tube and follow # MRSA bacteremia # encephalopathy likely infectious encephalopathy -vancomycin for MRSA bacteremia, blood cultures repeated 08/17/2020 no growth to date, will continue for 2 weeks after last negative blood culture which would be 09/01/2020, discussed with Dr. Rahman infectious disease application packaging consultant -Tylenol for fever p.r.n. -neutropenic from Hodgkin's lymphoma -CT head, MRI brain, EEG negative # gout flare, resolved -home allopurinol # nonsustained V-tach, PVC, AFib, cardiomyopathy -cardiology following -patient on metoprolol 25 mg q.12 hours -EF was 45% in 2018 -echocardiogram 08/11/2020: EF 30-35%, biatrial dilation, enlarged left ventricle # hypernatremia -resolved # hypokalemia -replete as needed. Potassium 3.7, giving 40 mEq # other chronic conditions- holding home meds well altered, will plan for PEG tube placement so he gets these medications -Atrial fibrillation: On Eliquis, metoprolol -hyperlipidemia: On atorvastatin -vitamin-D deficiency: on supplement -BPH: on Finasteride, with Lee catheter -non-Hodgkin lymphoma follows Dr. Davis: CT scans chest/abdomen/pelvis showed no relapse, bone marrow biopsy will need to be done at some point. Discussed with Dr. Davis poor prognosis. -congest
--- NOTE | 2020-08-22 13:38 | WPDINFPN2 ---
Progress Note: A&P Assessment and Plan (1) Bacteremia: Code(s): R78.81 - Bacteremia Status: Acute Assessment and Plan: 1. MRSA bacteremia with infection, lung vs skin source. Repeat BCs ng 5 days 2. Fever due to #1, resolved 3. Encephalopathy, due to # 1 and due to hypernatremia 4. Recent gout. 5. Lymphoma/neutropenia, with persistent blood line abnormalities. REC Vanc #18 , through 09/01. Target trough 15-20. Very guarded prognosis. Subjective Date/time seen: 08/22/20 13:38 Interval history: no complaints Exam Narrative: Exam Narrative: afebrile Const: General: cooperative Eyes: Conjunctivae: conjunctivae normal Resp: Effort & Inspection: normal respiratory effort Auscultation: clear to auscultation bilaterally Cardio: Rhythm: regular rhythm Heart sounds: S1 normal heart sound present, S2 normal heart sound present and no murmurs GI: GI Palp: No abdominal tenderness Auscultation: normal bowel sounds Skin: General skin exam: no rashes or lesions noted Other: 2 + edema at feet Objective Data Vital Signs Vital Signs: Vital Signs - 24 hr 08/21/20 14:04 08/21/20 14:41 08/21/20 14:45 Temperature 36.8 C Pulse Rate 80 65 Respiratory Rate 26 H 24 H Blood Pressure 102/69 Pulse Oximetry 100 96 08/21/20 14:49 08/21/20 20:20 08/21/20 20:31 Temperature 36.1 C L Pulse Rate 65 88 88 Respiratory Rate 24 H 26 H Blood Pressure 108/69 Pulse Oximetry 100 08/21/20 21:10 08/21/20 21:11 08/22/20 01:44 Temperature Pulse Rate 62 87 Respiratory Rate 18 23 H 22 H Blood Pressure Pulse Oximetry 08/22/20 05:13 08/22/20 08:19 08/22/20 08:24 Temperature 36.6 C Pulse Rate 89 65 Respiratory Rate 24 H 24 H Blood Pressure 111/56 L Pulse Oximetry 96 95 08/22/20 08:27 08/22/20 08:29 Temperature Pulse Rate 62 69 Respiratory Rate 24 H Blood Pressure Pulse Oximetry Intake/Output Intake/Output: Intake & Output 08/19/20 08/20/20 08/21/20 08/22/20 23:59 23:59 23:59 23:59 Intake Total 1620 2870 3000 25 Output Total 1000 1350 1250 600 Balance 620 5980 7805 -818 Meds/Results Medications: Active Medications Generic Name Dose Route Start Last Admin Trade Name Freq PRN Reason Stop Dose Admin Acetaminophen 650 mg 08/05/20 20:35 08/14/20 17:46 Acetaminophen 650 Mg Suppository RECTAL 650 mg Q6H PRN Administration Mild Pain (1-3) or Fever Hydrocodone Bitart/Acetaminophen 5 mg 08/09/20 18:47 08/21/20 20:35 Acetaminophen/Hydrocodone Elixir (*Crx) 7.5 Mg/15 Ml Udc PO 5 mg Q6H PRN Administration Pain Rated 4-6 Albuterol 2 puff 08/05/20 20:35 Albuterol Sulfate (*Sp) Aerosol 1 Puff INHALATION QIDRT PRN Shortness Of Breath Albuterol 5 mg 08/08/20 20:00 08/22/20 08:17 Albuterol Sulfate Neb 2.5 Mg/0.5 Ml Inh INHALATION 5 mg Q6HRT ATUL Administration Apixaban 5 mg 08/20/20 17:00 08/21/20 09:57 Apixaban 5 Mg Tablet PO 5 mg BID ATUL Administration Dextrose 12.5 gm 08/13/20 16:59 Dextrose 50% 25 Gm/50 Ml Syringe IV PUSH PRN PRN Hypoglycemia Protocol Glucagon 1 mg 08/13/20 16:59 Glucagon For Inj 1 Mg Vial IM PRN PRN Hypoglycemia Protocol Glucose 15 gm 08/13/20 16:59 Glucose Oral Gel 15 Gm Of Glucse In 37.5 Gm Tube PO PRN PRN Hypoglycemia Protocol Vancomycin HCl 1,500 mg in 500 mls @ 333.333 mls/hr 08/13/20 22:00 08/21/20 11:16 Vancomycin 1,500 Mg/D5w 500 Ml IVPB Infused Q36H ATUL Infusion Dextrose 1,000 mls @ 100 mls/hr 08/13/20 16:59 Dextrose 5% 1,000 Ml IVPB PRN PRN Hypoglycemia Protocol Insulin Aspart 2 - 5 units 08/16/20 17:00 08/22/20 11:58 Insulin Aspart (*Bkc) 100 Units/Ml SUB-Q Not Given TIDWM ATUL Protocol Lidocaine 2 patch 08/09/20 16:23 08/18/20 12:25 Lidocaine 5% Patch TOPICAL 2 patch QAM PRN Administration Pain Metoprolol Tartrate 25 mg 1
--- NOTE | 2020-08-22 14:10 | PC.NURSE ---
Patient took some sips of an Ensure drink. He had about 120 mL before he said he was done.
[2020-08-22 17:27] LABS: Anion Gap 5 mmol/L (8-16); Blood Urea Nitrogen 22 mg/dL (9-20); Calcium 8.1 mg/dL (8.4-10.2); Carbon Dioxide 27 mmol/L (22-30); Chloride 102 mmol/L (98-107); Estimated CRCL calculation 67 ml/min; Estimated Glomerular Filt Rate > 60; Glucose 122 mg/dL (75-110); Sodium 134 mmol/L (137-145)
[2020-08-22 17:56] LABS: Potassium 3.9 mmol/L (3.4-5.0)
[2020-08-22 18:17] LABS: Glucose Point of Care 118 (65-105)
[2020-08-22] MEDS: Acetaminophen/HYDROcodone ELIXIR (*CRX) 7.5 MG/15 ML UDC 5 MG PO (20:21)
[2020-08-22 22:59] LABS: Glucose Point of Care 100 (65-105)
[2020-08-23] VITALS (15 sets, daily range): BP systolic 99–129; BP diastolic 53–87; PULSE 51–96; RESP 18–46; TEMP 36.2–37.3; O2SAT 92–98
[2020-08-23 01:04] LABS: Vancomycin Trough 10.7 ug/mL (10.0-20.0)
[2020-08-23] MEDS: Acetaminophen/HYDROcodone ELIXIR (*CRX) 7.5 MG/15 ML UDC 5 MG PO ×2 (04:09→10:39)
[2020-08-23 05:41] LABS: Hematocrit 23.3 % (42.0-52.0); Hemoglobin 7.2 g/dL (14.0-18.0); Mean Corpuscular HGB Conc 30.9 g/dl (32-36); Mean Corpuscular Hemoglobin 28.2 pg (26-34); Mean Corpuscular Volume 91.4 fl (80-100); Mean Platelet Volume 12.1 fl (7.4-10.4); Platelet Count Result 197 k/mm3 (150-375); Red Blood Count 2.55 M/mm3 (4.6-6.20); Red Cell Distribution Width 20.9 % (11.5-14.5)
[2020-08-23 05:49] LABS: White Blood Count 1.2 K/mm3 (4.5-10.0)
[2020-08-23 05:50] LABS: INR 1.4; Prothrombin Time 17.8 Seconds (11.1-14.7)
[2020-08-23 05:54] LABS: Magnesium 1.9 mg/dL (1.6-2.3)
[2020-08-23 05:59] LABS: Glucose Point of Care 112 (65-105)
--- NOTE | 2020-08-23 07:21 | PCRCNOTE ---
Window of time for administration has passed. See next scheduled administration.
[2020-08-23 07:59] LABS: Glucose Point of Care 97 (65-105)
[2020-08-23] MEDS: PANTOPRAZOLE SODIUM IV 40 MG VIAL IV PUSH (08:37)
[2020-08-23] MEDS: METOPROLOL TARTRATE 25 MG TABLET PO (08:37)
--- NOTE | 2020-08-23 09:51 | PC.NURSE ---
Spoke with daughter about obtaining consent for PEG tube placement. JEREMIAH Gomez spoke with her to confirm. Daughter also mentioned concerns that he should not be getting any more IV morphine to see if that helps him become more alert. I explained that he hasn't had IV morphine for a few days now and he is still becoming less alert and oriented. I also explained the amount of intake he is getting is not enough to sustain him and he is becoming failure to thrive. Daughter is aware of the situation with no further questions at this time.
[2020-08-23] MEDS: ALBUTEROL SULFATE NEB 2.5 MG/0.5 ML INH 5 MG INHALATION ×3 (10:03→19:37)
--- NOTE | 2020-08-23 11:49 | PC.NURSE ---
Patient was given complete bed bath with complete linen and gown change.
[2020-08-23 11:53] LABS: Glucose Point of Care 102 (65-105)
--- NOTE | 2020-08-23 12:00 | WPDINFPN2 ---
Progress Note: A&P Assessment and Plan (1) Bacteremia: Code(s): R78.81 - Bacteremia Status: Acute Assessment and Plan: 1. MRSA bacteremia with infection, lung vs skin source. Repeat BCs ng final 2. Fever due to #1, resolved 3. Encephalopathy, due to # 1 and due to hypernatremia 4. Recent gout. 5. Lymphoma/neutropenia, with persistent blood line abnormalities. REC Vanc #, through 09/01. Target trough 15-20. Very guarded prognosis. Discharge planning discussed Subjective Date/time seen: 08/23/20 12:00 Interval history: verbalizes a little, nothing coherent, getting bed bath Exam Narrative: Exam Narrative: afebrile Const: General: no acute distress Resp: Effort & Inspection: normal respiratory effort Auscultation: clear to auscultation bilaterally Cardio: Rate: regular rate Rhythm: regular rhythm Heart sounds: no murmurs GI: Inspection: distended GI Palp: Yes Soft to palpation, No Tenderness to palpation present (GI) and No Guarding due to palpation present (GI) Urinary Catheter: Urinary Catheter: patent and draining and urine clear Objective Data Vital Signs Vital Signs: Vital Signs - 24 hr 08/22/20 15:49 08/22/20 16:00 08/22/20 17:49 Temperature 36.6 C Pulse Rate 70 52 L 68 Respiratory Rate 24 H 44 H 22 H Blood Pressure 114/61 Pulse Oximetry 93 08/22/20 20:18 08/22/20 20:26 08/23/20 05:44 Temperature 36.8 C 37.3 C Pulse Rate 95 86 51 L Respiratory Rate 42 H 46 H Blood Pressure 107/68 129/87 Pulse Oximetry 97 96 08/23/20 08:37 08/23/20 10:03 08/23/20 10:09 Temperature Pulse Rate 62 70 Respiratory Rate 24 H Blood Pressure Pulse Oximetry 94 08/23/20 10:43 Temperature 36.4 C L Pulse Rate 52 L Respiratory Rate 42 H Blood Pressure 109/75 Pulse Oximetry 94 Intake/Output Intake/Output: Intake & Output 08/20/20 08/21/20 08/22/20 08/23/20 23:59 23:59 23:59 23:59 Intake Total 2870 3000 745 620 Output Total 1350 1250 1150 750 Balance 1520 1750 -405 -130 Meds/Results Medications: Active Medications Generic Name Dose Route Start Last Admin Trade Name Freq PRN Reason Stop Dose Admin Acetaminophen 650 mg 08/05/20 20:35 08/14/20 17:46 Acetaminophen 650 Mg Suppository RECTAL 650 mg Q6H PRN Administration Mild Pain (1-3) or Fever Hydrocodone Bitart/Acetaminophen 5 mg 08/09/20 18:47 08/23/20 10:39 Acetaminophen/Hydrocodone Elixir (*Crx) 7.5 Mg/15 Ml Udc PO 5 mg Q6H PRN Administration Pain Rated 4-6 Albuterol 2 puff 08/05/20 20:35 Albuterol Sulfate (*Sp) Aerosol 1 Puff INHALATION QIDRT PRN Shortness Of Breath Albuterol 5 mg 08/08/20 20:00 08/23/20 10:03 Albuterol Sulfate Neb 2.5 Mg/0.5 Ml Inh INHALATION 5 mg Q6HRT ATUL Administration Apixaban 5 mg 08/20/20 17:00 08/21/20 09:57 Apixaban 5 Mg Tablet PO 5 mg BID ATUL Administration Dextrose 12.5 gm 08/13/20 16:59 Dextrose 50% 25 Gm/50 Ml Syringe IV PUSH PRN PRN Hypoglycemia Protocol Glucagon 1 mg 08/13/20 16:59 Glucagon For Inj 1 Mg Vial IM PRN PRN Hypoglycemia Protocol Glucose 15 gm 08/13/20 16:59 Glucose Oral Gel 15 Gm Of Glucse In 37.5 Gm Tube PO PRN PRN Hypoglycemia Protocol Vancomycin HCl 1,500 mg in 500 mls @ 333.333 mls/hr 08/13/20 22:00 08/23/20 02:44 Vancomycin 1,500 Mg/D5w 500 Ml IVPB Infused Q36H ATUL Infusion Dextrose 1,000 mls @ 100 mls/hr 08/13/20 16:59 Dextrose 5% 1,000 Ml IVPB PRN PRN Hypoglycemia Protocol Insulin Aspart 2 - 5 units 08/16/20 17:00 08/23/20 11:47 Insulin Aspart (*Bkc) 100 Units/Ml SUB-Q Not Given TIDWM ATUL Protocol Lidocaine 2 patch 08/09/20 16:23 08/18/20 12:25 Lidocaine 5% Patch TOPICAL 2 patch QAM PRN Administration Pain Metoprolol Tartrate 25 mg 08/16/20 21:00 08/23/20 08:37 Metoprolol Tartrate 25 Mg Tablet PO 25 mg Q12HR ATUL Administration
--- NOTE | 2020-08-23 14:57 | PM.IMPN ---
Progress Note: A&P Assessment and Plan (1) Failure to thrive: Qualifiers: Failure to thrive age range: in adult Qualified Code(s): R62.7 - Adult failure to thrive Status: Acute Assessment and Plan: -removing Dobbhoff tube feeds, refusing p.o. intake, refusing to work with physical therapy -patient is failing to thrive -plan for PEG tube for nutrition and medications on Saturday with GI consult (2) Bacteremia: Code(s): R78.81 - Bacteremia Status: Acute Assessment and Plan: -MRSA bacteremia, continue iv vancomycin -infectious disease Dr. Rahman following (3) Cardiomyopathy: Qualifiers: Cardiomyopathy type: unspecified Qualified Code(s): I42.9 - Cardiomyopathy, unspecified Code(s): I42.9 - Cardiomyopathy, unspecified Status: Acute Assessment and Plan: Stable (4) Arrhythmia, ventricular: Code(s): I49.9 - Cardiac arrhythmia, unspecified Status: Acute Assessment and Plan: Patient is rate controlled on metoprolol, Cardiology following (5) Acute encephalopathy: Code(s): G93.40 - Encephalopathy, unspecified Status: Acute Assessment and Plan: ongoing (6) Neutropenia: Qualifiers: Neutropenia type: secondary to cancer chemotherapy Qualified Code(s): D70.1 - Agranulocytosis secondary to cancer chemotherapy; T45.1X5A - Adverse effect of antineoplastic and immunosuppressive drugs, initial encounter Code(s): D70.9 - Neutropenia, unspecified Status: Acute Assessment and Plan: wcc is 1.2 -neutropenic from Hodgkin's lymphoma -CT head, MRI brain, EEG negative (7) Non-Hodgkin lymphoma in remission: Code(s): C85.90 - Non-Hodgkin lymphoma, unspecified, unspecified site Status: Acute Assessment and Plan: in remission. Plan for bone marrow biopsy when stable however with clinical deterioration hospice may be adviced. -vancomycin for MRSA bacteremia, blood cultures repeated 08/17/2020 no growth to date, will continue for 2 weeks after last negative blood culture which would be 09/01/2020, discussed with Dr. Rahman infectious disease economics consultant -Tylenol for fever p.r.n. (8) Acute gouty arthritis: Code(s): M10.9 - Gout, unspecified Status: Acute Assessment and Plan: Completed steroid course (9) Osteoarthritis involving multiple joints on both sides of body: Code(s): M15.9 - Polyosteoarthritis, unspecified Status: Acute Assessment and Plan: Pain control with liquid [place], IV morphine p.r.n. Subjective Date/time seen: 08/23/20 14:57 Interval history: 75-year-old male past medical history congestive heart failure, COPD, AFib, gout,non-Hodgkin lymphoma followed by Dr. Davis, recurrent gout who presented to [facility] ED for altered mental status. He was recently admitted for generalized weakness 08/02-08/04, was given 1 unit of blood for anemia with improvement of hemoglobin stable at 7.6. he was leukopenic a blood cells 1500. Dr. Davis was concern for relapse of lymphoma, CT chest and pelvis did not show any signs of relapse. poor historian somnolent today. Pt seen by ID today. Review of Systems Review of Systems: ROS unobtainable: Yes unobtainable due to medical condition Exam Narrative: Exam Narrative: - GENERAL: ill-appearing male, somnolent today - EYES: responsive to pain opening eyes to pain - HENT: Very dry oral mucosa. No cervical lymphadenopathy. - LUNGS: Decreased BS BL - CARDIOVASCULAR: Regular rate and irregular rhythm S1-S2 - ABDOMEN: Soft, non-distended. No palpable masses. - EXTREMITIES: rheumatoid nodules elbow - NEUROLOGIC: difficult to assess - PSYCHIATRIC: difficult to assess Objective Data Vital Signs Vital Signs: Vital Signs - 24 hr 08/22/20 15:49 08/22/20 16:00 08/22/20 17:49 Temperature 36.6 C Pulse Rate 70 52 L 68 Respiratory Rate 24 H 44 H 22 H Blood Pressure 11
--- NOTE | 2020-08-23 16:02 | WPDGIPROGNO ---
Progress Note: A&P Assessment and Plan (1) Anorexia: Code(s): R63.0 - Anorexia Status: Acute Assessment and Plan: egd with peg placement tomorrow, blood thinner on hold, inr 1.4 and normal platelets. Will give abx prior egd family agreeable (2) Failure to thrive: Qualifiers: Failure to thrive age range: in adult Qualified Code(s): R62.7 - Adult failure to thrive Status: Acute (3) Bacteremia: Code(s): R78.81 - Bacteremia Status: Acute Assessment and Plan: id on board, had mrsa (4) Acute encephalopathy: Code(s): G93.40 - Encephalopathy, unspecified Status: Acute (5) Non-Hodgkin lymphoma in remission: Code(s): C85.90 - Non-Hodgkin lymphoma, unspecified, unspecified site Status: Acute (6) Neutropenia: Qualifiers: Neutropenia type: secondary to cancer chemotherapy Qualified Code(s): D70.1 - Agranulocytosis secondary to cancer chemotherapy; T45.1X5A - Adverse effect of antineoplastic and immunosuppressive drugs, initial encounter Code(s): D70.9 - Neutropenia, unspecified Status: Acute Assessment and Plan: hematology on board (7) Anemia of chronic disease: Code(s): D63.8 - Anemia in other chronic diseases classified elsewhere Status: Acute Subjective Date/time seen: 08/23/20 16:02 Interval history: no new issues, still confused and not eating. Review of Systems Review of Systems: All systems reviewed & are unremarkable except as noted in HPI and below Exam Const: General: comfortable, no acute distress and confusion Orientation/consciousness: confusion (unchanged) Other: Poorly responsive elderly man HENMT: General nose exam: no epistaxis Mouth: Yes dry mucous membranes Eyes: Pupils: Equal, round and reactive pupils present EOM: EOMs intact bilaterally Neck: Neck: supple and no JVD Resp: Effort & Inspection: normal respiratory effort Auscultation: clear to auscultation bilaterally and diminished lung sounds bilateral in the lower lung obando Cardio: Rhythm: abnormal rhythm regularly irregular Heart sounds: no murmurs GI: Inspection: non-distended GI Palp: Yes Soft to palpation, No Firmness to palpation present (GI) and No Tenderness to palpation present (GI) Auscultation: normal bowel sounds Urinary Catheter: Urinary Catheter: patent and draining and urine dark Skin: General skin exam: normal color, no rashes or lesions noted and erythema (Some ecchymosis over forearms with a small skin tear left forearm) Wounds: wounds noted (Ecchymosis left forearm.) Neuro: General: confusion Cranial nerves: Yes Equal, round and reactive pupils present Cognition (Neuro): abnormal cognition Speech: Abnormal speech present Other: Not oriented to place or time. Extrem: General: no edema and no pedal edema Right lower extremity: lower leg not examined Left lower extremity: lower leg not examined Psych: Mental Status: mental status grossly abnormal Affect: No normal affect Other: Encephalopathic and not responding appropriately. Objective Data Vital Signs Vital Signs: Vital Signs - 24 hr 08/22/20 17:49 08/22/20 20:18 08/22/20 20:26 Temperature 98.2 F Pulse Rate 68 95 86 Respiratory Rate 22 H 42 H Blood Pressure 107/68 Pulse Oximetry 97 08/23/20 05:44 08/23/20 08:37 08/23/20 10:03 Temperature 99.1 F Pulse Rate 51 L 62 70 Respiratory Rate 46 H 24 H Blood Pressure 129/87 Pulse Oximetry 96 08/23/20 10:09 08/23/20 10:13 08/23/20 10:43 Temperature 97.5 F L Pulse Rate 63 52 L Respiratory Rate 24 H 42 H Blood Pressure 109/75 Pulse Oximetry 94 94 08/23/20 14:00 08/23/20 15:17 08/23/20 15:25 Temperature 98.5 F Pulse Rate 96 74 77 Respiratory Rate 20 18 24 H Blood Pressure 108/57 L Pulse Oximetry 96 Intake/Output Intake/Output: Intake & Output 08/20/20 08/21/20 08/22/20 08/23/20 23:59 23:59 23:59 23:59 Intake Total 2870 3000 7
[2020-08-23 16:45] LABS: Glucose Point of Care 96 (65-105)
--- NOTE | 2020-08-23 17:34 | PCDIET ---
Nutrition Follow-Up Complete: Inadequate oral intake related to altered mental status as evidence by 0% intake over the last five days Total intake will meet estimated nutrition needs Goal:Goal not met. Continue goal. Pt current nutrition is Heart Healthy, Minced and Moist Moderately Thick Liquids Nutrition recommendation: agree Last recorded weight is 108.9 kg, recommend new wt, no new wt since admit on Bowel Motility: 08/19, recommend magnesium for motility agent Labs Reviewed:Glucose 112, WBC 1.2 Meds Noted:Vancomycin, Protonix, Albuterol, Novolog Additional Notes: Pt has pulled Dobbhoff. Was getting Glucerna 1.2. Pt eating 0% of meals. Plans for PEG placement tomorrow. Once PEG is usable, recommend starting Glucerna 1.2 at 10ml/hr and advancing 10ml q 4hrs to goal of 40ml/hr day one and to goal of 75ml/hr day two if electrolytes remain stable. AT goal, enteral nutrition will provide 1980 kcals, 99g protein, and 1328ml of free water. We will continue to monitor nutrition initiation, weight, labs every T/F.
[2020-08-23 18:13] LABS: Anion Gap 2 mmol/L (8-16); Blood Urea Nitrogen 23 mg/dL (9-20); Calcium 8.2 mg/dL (8.4-10.2); Carbon Dioxide 29 mmol/L (22-30); Chloride 103 mmol/L (98-107); Estimated CRCL calculation 67 ml/min; Estimated Glomerular Filt Rate > 60; Glucose 94 mg/dL (75-110); Sodium 134 mmol/L (137-145)
[2020-08-23 23:33] LABS: Glucose Point of Care 80 (65-105)
[2020-08-24] VITALS (16 sets, daily range): BP systolic 113–131; BP diastolic 65–72; PULSE 50–100; RESP 20–33; TEMP 36.2–36.6; O2SAT 92–99
[2020-08-24] MEDS: ALBUTEROL SULFATE NEB 2.5 MG/0.5 ML INH 5 MG INHALATION ×4 (01:25→19:54)
--- NOTE | 2020-08-24 06:16 | PC.NURSE ---
Patient left room for surgery via stretcher
[2020-08-24] MEDS: LACTATED RINGERS 1,000 ML 150 ML IV CONT (06:37)
[2020-08-24 06:41] LABS: Glucose Point of Care 88 (65-105)
--- NOTE | 2020-08-24 07:48 | WPDGIPROGNO ---
Progress Note: A&P Assessment and Plan (1) Anorexia: Code(s): R63.0 - Anorexia Status: Acute Assessment and Plan: after discussing with anesthesia we decided that he will be high risk to undergo egd with peg placement. We canceled procedure, risk for aspiration and other complications. Anesthesia made him ASA class 5 (very high risk) I talked to hospitalist, attempt DHT placement again for feeding (2) Failure to thrive: Qualifiers: Failure to thrive age range: in adult Qualified Code(s): R62.7 - Adult failure to thrive Status: Acute (3) Bacteremia: Code(s): R78.81 - Bacteremia Status: Acute Assessment and Plan: id on board, had mrsa (4) Acute encephalopathy: Code(s): G93.40 - Encephalopathy, unspecified Status: Acute Assessment and Plan: still quite confused and lethargic (5) Non-Hodgkin lymphoma in remission: Code(s): C85.90 - Non-Hodgkin lymphoma, unspecified, unspecified site Status: Acute (6) Neutropenia: Qualifiers: Neutropenia type: secondary to cancer chemotherapy Qualified Code(s): D70.1 - Agranulocytosis secondary to cancer chemotherapy; T45.1X5A - Adverse effect of antineoplastic and immunosuppressive drugs, initial encounter Code(s): D70.9 - Neutropenia, unspecified Status: Acute Assessment and Plan: hematology on board (7) Anemia of chronic disease: Code(s): D63.8 - Anemia in other chronic diseases classified elsewhere Status: Acute Subjective Date/time seen: 08/24/20 07:48 Interval history: patient came down to endoscopy and evaluated by anesthesia, still lethargic and also tachypneic. Review of Systems Review of Systems: All systems reviewed & are unremarkable except as noted in HPI and below Exam Const: General: confusion Orientation/consciousness: confusion (unchanged) Other: Poorly responsive elderly man, acutely ill HENMT: General nose exam: no epistaxis Mouth: Yes dry mucous membranes Eyes: Sclera: sclerae normal Neck: Neck: supple and no JVD Resp: Effort & Inspection: normal respiratory effort Auscultation: diminished lung sounds bilateral in the lower lung obando Other: breathing about 26-28 per minute Cardio: Rhythm: abnormal rhythm regularly irregular Heart sounds: no murmurs GI: Inspection: non-distended GI Palp: Yes Soft to palpation, No Firmness to palpation present (GI) and No Tenderness to palpation present (GI) Auscultation: normal bowel sounds Urinary Catheter: Urinary Catheter: patent and draining and urine dark Skin: General skin exam: normal color, no rashes or lesions noted and erythema (Some ecchymosis over forearms with a small skin tear left forearm) Wounds: wounds noted (Ecchymosis left forearm.) Neuro: General: confusion Cranial nerves: Yes Equal, round and reactive pupils present Cognition (Neuro): abnormal cognition Speech: Abnormal speech present Other: Not oriented to place or time. Extrem: General: no edema and no pedal edema Right lower extremity: lower leg not examined Left lower extremity: lower leg not examined Psych: Mental Status: mental status grossly abnormal Affect: No normal affect Other: Encephalopathic and not responding appropriately. Objective Data Vital Signs Vital Signs: Vital Signs - 24 hr 08/23/20 08:37 08/23/20 10:03 08/23/20 10:09 Temperature Pulse Rate 62 70 Respiratory Rate 24 H Blood Pressure Pulse Oximetry 94 08/23/20 10:13 08/23/20 10:43 08/23/20 14:00 Temperature 97.5 F L 98.5 F Pulse Rate 63 52 L 96 Respiratory Rate 24 H 42 H 20 Blood Pressure 109/75 108/57 L Pulse Oximetry 94 96 08/23/20 15:17 08/23/20 15:25 08/23/20 19:39 Temperature Pulse Rate 74 77 75 Respiratory Rate 18 24 H 28 H Blood Pressure Pulse Oximetry 92 08/23/20 19:40 08/23/20 19:47 08/23/20 20:17 Temperature 97.1 F L Pulse Rate 70 72 94 Respiratory Rate 30 H 30 H 2
--- NOTE | 2020-08-24 07:51 | PC.NURSE ---
Pt returned from GI lab per stretcher; unable to perform procedure r/t patient condition per anesthesiologist.
[2020-08-24] MEDS: PANTOPRAZOLE SODIUM IV 40 MG VIAL IV PUSH (09:27)
[2020-08-24 10:18] LABS: Basophils Percent Auto 0.7 % (0.2-1.2); Eosinophils Absolute Auto 0.1 K/mm3 (0-0.3); Eosinophils Percent Auto 8.1 % (0-4.4); Hematocrit 24.5 % (42.0-52.0); Hemoglobin 7.4 g/dL (14.0-18.0); Immature Granulocyte Percent A 6.7 % (0-0.5); Lymphocytes Absolute Auto 0.24 K/mm3 (0.9-3.2); Lymphocytes Percent Auto 16.1 % (18.3-44.2); Mean Corpuscular HGB Conc 30.2 g/dl (32-36); Mean Corpuscular Hemoglobin 27.8 pg (26-34); Mean Corpuscular Volume 92.1 fl (80-100); Mean Platelet Volume 11.8 fl (7.4-10.4); Monocytes Absolute Auto 0.2 K/mm3 (0.1-0.6); Monocytes Percent Auto 15.4 % (2.6-8.5); Neutrophils Absolute Auto 0.8 K/mm3 (1.3-6.7); Platelet Count Result 225 k/mm3 (150-375); Red Blood Count 2.66 M/mm3 (4.6-6.20); Red Cell Distribution Width 20.9 % (11.5-14.5)
[2020-08-24 10:27] LABS: Partial Thromboplastin Time 42.5 SECONDS (22.3-36.8)
[2020-08-24 10:35] LABS: White Blood Count 1.5 K/mm3 (4.5-10.0)
[2020-08-24 10:40] LABS: Acanthocytes 1+ (NORMAL); Hypochromasia 1+ (NORMAL); Ovalocytes 1+ (NORMAL); Platelet Estimate Adequate (Adequate); Poikilocytosis 1+ (NORMAL)
[2020-08-24 11:34] LABS: Alanine Aminotransferase 17 U/L (4-50); Albumin Level 2.5 g/dL (3.5-5.1); Alkaline Phosphatase 263 U/L (38-126); Anion Gap 5 mmol/L (8-16); Aspartate Amino Transferase 25 U/L (17-59); Bilirubin,Total 4.3 mg/dL (0.2-1.3); Blood Urea Nitrogen 24 mg/dL (9-20); Calcium 8.4 mg/dL (8.4-10.2); Carbon Dioxide 28 mmol/L (22-30); Chloride 103 mmol/L (98-107); Estimated CRCL calculation 74 ml/min; Estimated Glomerular Filt Rate > 60; Glucose 109 mg/dL (75-110); Magnesium 1.9 mg/dL (1.6-2.3); Potassium 3.8 mmol/L (3.4-5.0); Sodium 136 mmol/L (137-145)
[2020-08-24 12:01] LABS: Transferrin < 80 mg/dL (206-381)
--- NOTE | 2020-08-24 12:26 | PCDIET ---
Physician consult for PPN. PEG tube was canceled for today, patient lethargic/high risk for anesthesia. Plans are to start PPN for nutrition today. Clinimix 4.25/5 at 80 ml/hr with 250 ml of 20% Lipid Emulsion which will providing patient with 1153 kcals and 82 gms protein meeting 54% of patients caloric needs. RD will continue to monitor every Saturday and Saturday.
[2020-08-24 12:33] LABS: Glucose Point of Care 94 (65-105)
--- NOTE | 2020-08-24 13:27 | WPDINFPN2 ---
Progress Note: A&P Assessment and Plan (1) Bacteremia: Code(s): R78.81 - Bacteremia Status: Acute Assessment and Plan: 1. MRSA bacteremia with infection, lung vs skin source. Repeat BCs ng final 2. Fever due to #1, resolved 3. Encephalopathy, due to # 1 and due to hypernatremia 4. Recent gout. 5. Lymphoma/neutropenia, with persistent blood line abnormalities. Support of his cell mediated immunity will be crucial to his recovery, and conversely persistent neutropenia is a poor prognostic finding. REC Vanc #, through 09/01. Target trough 15-20. Discharge planning in process. Subjective Date/time seen: 08/24/20 13:27 Interval history: no new complaints Exam Narrative: Exam Narrative: afebrilr Const: General: no acute distress Other: appears ill Eyes: General: appearance normal, both eyes and all related structures Resp: Effort & Inspection: normal respiratory effort Auscultation: clear to auscultation bilaterally Cardio: Rate: regular rate Rhythm: regular rhythm Heart sounds: no gallops and Murmur heart sound present GI: Inspection: non-distended GI Palp: Yes Soft to palpation and No Tenderness to palpation present (GI) Skin: General skin exam: no rashes or lesions noted Objective Data Vital Signs Vital Signs: Vital Signs - 24 hr 08/23/20 14:00 08/23/20 15:17 08/23/20 15:25 Temperature 36.9 C Pulse Rate 96 74 77 Respiratory Rate 20 18 24 H Blood Pressure 108/57 L Pulse Oximetry 96 08/23/20 19:39 08/23/20 19:40 08/23/20 19:47 Temperature Pulse Rate 75 70 72 Respiratory Rate 28 H 30 H 30 H Blood Pressure Pulse Oximetry 92 92 08/23/20 20:17 08/23/20 21:25 08/23/20 23:15 Temperature 36.2 C L Pulse Rate 94 93 96 Respiratory Rate 20 24 H Blood Pressure 99/53 L Pulse Oximetry 98 96 08/24/20 01:26 08/24/20 01:30 08/24/20 01:33 Temperature Pulse Rate 86 86 82 Respiratory Rate 25 H 27 H 26 H Blood Pressure Pulse Oximetry 95 08/24/20 03:29 08/24/20 05:41 08/24/20 06:30 Temperature 36.2 C L 36.5 C Pulse Rate 97 50 L 95 Respiratory Rate 30 H 22 H 26 H Blood Pressure 130/72 113/65 Pulse Oximetry 97 98 98 08/24/20 09:52 08/24/20 09:55 08/24/20 10:00 Temperature Pulse Rate 75 75 75 Respiratory Rate 22 H 22 H Blood Pressure Pulse Oximetry 92 Intake/Output Intake/Output: Intake & Output 08/21/20 08/22/20 08/23/20 08/24/20 23:59 23:59 23:59 23:59 Intake Total 3000 745 790 Output Total 1250 1150 1150 500 Balance 9485 -875 -647 -491 Meds/Results Medications: Active Medications Generic Name Dose Route Start Last Admin Trade Name Freq PRN Reason Stop Dose Admin Acetaminophen 650 mg 08/05/20 20:35 08/14/20 17:46 Acetaminophen 650 Mg Suppository RECTAL 650 mg Q6H PRN Administration Mild Pain (1-3) or Fever Hydrocodone Bitart/Acetaminophen 5 mg 08/09/20 18:47 08/23/20 10:39 Acetaminophen/Hydrocodone Elixir (*Crx) 7.5 Mg/15 Ml Udc PO 5 mg Q6H PRN Administration Pain Rated 4-6 Albuterol 2 puff 08/05/20 20:35 Albuterol Sulfate (*Sp) Aerosol 1 Puff INHALATION QIDRT PRN Shortness Of Breath Albuterol 5 mg 08/08/20 20:00 08/24/20 09:52 Albuterol Sulfate Neb 2.5 Mg/0.5 Ml Inh INHALATION 5 mg Q6HRT ATUL Administration Apixaban 5 mg 08/20/20 17:00 08/21/20 09:57 Apixaban 5 Mg Tablet PO 5 mg BID ATUL Administration Dextrose 12.5 gm 08/13/20 16:59 Dextrose 50% 25 Gm/50 Ml Syringe IV PUSH PRN PRN Hypoglycemia Protocol Glucagon 1 mg 08/13/20 16:59 Glucagon For Inj 1 Mg Vial IM PRN PRN Hypoglycemia Protocol Glucose 15 gm 08/13/20 16:59 Glucose Oral Gel 15 Gm Of Glucse In 37.5 Gm Tube PO PRN PRN Hypoglycemia Protocol Vancomycin HCl 1,500 mg in 500 mls @ 333.333 mls/hr 08/13/20 22:00 08/24/20 09:27 Vancomycin 1,500 Mg/D5w 500 Ml IVPB 333 mls/hr Q36H ATUL Administration Dextros
--- NOTE | 2020-08-24 14:17 | PM.IMPN ---
Progress Note: A&P Assessment and Plan (1) Failure to thrive: Qualifiers: Failure to thrive age range: in adult Qualified Code(s): R62.7 - Adult failure to thrive Status: Acute Assessment and Plan: -TRy PPN pt was not able to have PEG inserted today mdh risk for procedure (2) Bacteremia: Code(s): R78.81 - Bacteremia Status: Acute Assessment and Plan: -MRSA bacteremia, continue iv vancomycin -infectious disease Dr. Rahman following (3) Cardiomyopathy: Qualifiers: Cardiomyopathy type: unspecified Qualified Code(s): I42.9 - Cardiomyopathy, unspecified Code(s): I42.9 - Cardiomyopathy, unspecified Status: Acute Assessment and Plan: Stable (4) Arrhythmia, ventricular: Code(s): I49.9 - Cardiac arrhythmia, unspecified Status: Acute Assessment and Plan: Patient is rate controlled on metoprolol, Cardiology following (5) Acute encephalopathy: Code(s): G93.40 - Encephalopathy, unspecified Status: Acute Assessment and Plan: Ongoing for 3 weeks, poor prognosis daughter aware (6) Neutropenia: Qualifiers: Neutropenia type: secondary to cancer chemotherapy Qualified Code(s): D70.1 - Agranulocytosis secondary to cancer chemotherapy; T45.1X5A - Adverse effect of antineoplastic and immunosuppressive drugs, initial encounter Code(s): D70.9 - Neutropenia, unspecified Status: Acute Assessment and Plan: wcc is 1.2 -neutropenic from Hodgkin's lymphoma -CT head, MRI brain, EEG negative (7) Non-Hodgkin lymphoma in remission: Code(s): C85.90 - Non-Hodgkin lymphoma, unspecified, unspecified site Status: Acute Assessment and Plan: in remission. Plan for bone marrow biopsy when stable however with clinical deterioration hospice may be adviced. -vancomycin for MRSA bacteremia, blood cultures repeated 08/17/2020 no growth to date, will continue for 2 weeks after last negative blood culture which would be 09/01/2020, discussed with Dr. Rahman infectious disease network security consultant -Tylenol for fever p.r.n. (8) Acute gouty arthritis: Code(s): M10.9 - Gout, unspecified Status: Acute Assessment and Plan: Completed steroid course (9) Osteoarthritis involving multiple joints on both sides of body: Code(s): M15.9 - Polyosteoarthritis, unspecified Status: Acute Assessment and Plan: Pain control with liquid [place], IV morphine p.r.n. Subjective Date/time seen: 08/24/20 14:17 Interval history: 75-year-old male past medical history congestive heart failure, COPD, AFib, gout,non-Hodgkin lymphoma followed by Dr. Davis, recurrent gout who presented to [facility] ED for altered mental status. He was recently admitted for generalized weakness 08/02-08/04, was given 1 unit of blood for anemia with improvement of hemoglobin stable at 7.6. he was leukopenic a blood cells 1500. Dr. Davis was concern for relapse of lymphoma, CT chest and pelvis did not show any signs of relapse. poor historian somnolent today. Pt seen by ID today. Pt started on Clinimix for nutrition today. long discussion with daughter, explained to her that we are unable to put in the PEG tube. So we will use PPN. Talked about his poor prognosis and advised hospice to daughter she does want to consider it at this time. Review of Systems Review of Systems: All systems reviewed & are unremarkable except as noted in HPI and below Exam Narrative: Exam Narrative: - GENERAL: ill-appearing male, eyes open today - EYES: responsive to pain opening eyes to pain - HENT: Very dry oral mucosa. - LUNGS: Decreased BS BL - CARDIOVASCULAR: Regular rate and irregular rhythm S1-S2 - ABDOMEN: Soft, non-distended. No palpable masses. - EXTREMITIES: rheumatoid nodules elbow - NEUROLOGIC: difficult to assess - PSYCHIATRIC: difficult to assess Objective Data Vital Signs Vital Signs: Vit
[2020-08-24] MEDS: AMINO ACIDS 4.25%/D5W/LYTES/CA 2,000 ML 80 ML IV CONT (14:35)
[2020-08-24] MEDS: FAT EMULSIONS IV 20% 250 ML 20.83 ML IVPB (14:35)
[2020-08-24 16:46] LABS: Potassium 3.9 mmol/L (3.4-5.0)
[2020-08-24 17:00] LABS: Anion Gap 4 mmol/L (8-16); Blood Urea Nitrogen 23 mg/dL (9-20); Calcium 8.1 mg/dL (8.4-10.2); Carbon Dioxide 29 mmol/L (22-30); Chloride 103 mmol/L (98-107); Estimated CRCL calculation 74 ml/min; Estimated Glomerular Filt Rate > 60; Glucose 96 mg/dL (75-110); Sodium 136 mmol/L (137-145)
[2020-08-24 17:16] LABS: Glucose Point of Care 93 (65-105)
[2020-08-24] MEDS: METOPROLOL TARTRATE 25 MG TABLET PO (22:06)
[2020-08-24 23:19] LABS: Glucose Point of Care 115 (65-105)
[2020-08-25] VITALS (23 sets, daily range): BP systolic 98–129; BP diastolic 46–82; PULSE 65–109; RESP 20–44; TEMP 36.2–37.7; O2SAT 95–100
[2020-08-25] MEDS: ALBUTEROL SULFATE NEB 2.5 MG/0.5 ML INH 5 MG INHALATION ×4 (02:54→19:58)
[2020-08-25 05:54] LABS: Basophils Percent Auto 0.7 % (0.2-1.2); Eosinophils Absolute Auto 0.2 K/mm3 (0-0.3); Eosinophils Percent Auto 11.3 % (0-4.4); Hematocrit 22.3 % (42.0-52.0); Immature Granulocyte Absolute 0.05 K/mm3 (0.00-0.031); Immature Granulocyte Percent A 3.5 % (0-0.5); Lymphocytes Absolute Auto 0.18 K/mm3 (0.9-3.2); Lymphocytes Percent Auto 12.7 % (18.3-44.2); Mean Corpuscular HGB Conc 30.9 g/dl (32-36); Mean Corpuscular Hemoglobin 28.3 pg (26-34); Mean Corpuscular Volume 91.4 fl (80-100); Mean Platelet Volume 12.4 fl (7.4-10.4); Monocytes Absolute Auto 0.2 K/mm3 (0.1-0.6); Monocytes Percent Auto 14.8 % (2.6-8.5); Neutrophils Absolute Auto 0.8 K/mm3 (1.3-6.7); Platelet Count Result 237 k/mm3 (150-375); Red Blood Count 2.44 M/mm3 (4.6-6.20); Red Cell Distribution Width 20.9 % (11.5-14.5)
[2020-08-25 06:02] LABS: Glucose Point of Care 120 (65-105)
[2020-08-25 06:13] LABS: Triglycerides 101 mg/dL (<150)
[2020-08-25 06:15] LABS: Hemoglobin 6.9 g/dL (14.0-18.0); White Blood Count 1.4 K/mm3 (4.5-10.0)
[2020-08-25 06:19] LABS: Alanine Aminotransferase 15 U/L (4-50); Albumin Level 2.4 g/dL (3.5-5.1); Alkaline Phosphatase 247 U/L (38-126); Anion Gap 5 mmol/L (8-16); Aspartate Amino Transferase 23 U/L (17-59); Bilirubin,Total 3.4 mg/dL (0.2-1.3); Blood Urea Nitrogen 26 mg/dL (9-20); Calcium 8.2 mg/dL (8.4-10.2); Carbon Dioxide 28 mmol/L (22-30); Chloride 102 mmol/L (98-107); Estimated CRCL calculation 67 ml/min; Estimated Glomerular Filt Rate > 60; Glucose 117 mg/dL (75-110); Potassium 3.8 mmol/L (3.4-5.0); Sodium 135 mmol/L (137-145)
[2020-08-25 07:08] LABS: Band Neutrophils Percent 5 % (0-6); Basophils Absolute Manual 0.05 K/mm3 (0.0-0.1); Basophils Percent Manual 4 % (0-1); Eosinophils Absolute Manual 0.09 K/mm3 (0.02-0.5); Eosinophils Percent Manual 7 % (0-4); Lymphocytes Absolute Manual 0.22 K/mm3 (1.1-4.5); Monocytes Absolute Manual 0.11 K/mm3 (0.1-0.90); Monocytes Percent Manual 8 % (3-9); Neutrophils Absolute Manual 0.91 K/mm3 (1.3-6.7); Neutrophils Percent Manual 60 % (46-73); Total Cells Counted 100
[2020-08-25 07:09] LABS: Burr Cells 1+ (NORMAL); Hypochromasia 1+ (NORMAL); Ovalocytes 1+ (NORMAL); Platelet Estimate Adequate (Adequate)
[2020-08-25] MEDS: ACETAMINOPHEN 650 MG SUPPOSITORY RECTAL (09:57)
[2020-08-25] MEDS: PANTOPRAZOLE SODIUM IV 40 MG VIAL IV PUSH (09:57)
[2020-08-25 12:27] LABS: Glucose Point of Care 103 (65-105)
--- NOTE | 2020-08-25 12:47 | PM.IMPN ---
Progress Note: A&P Assessment and Plan (1) Failure to thrive: Qualifiers: Failure to thrive age range: in adult Qualified Code(s): R62.7 - Adult failure to thrive Status: Acute Assessment and Plan: -TRy PPN pt was not able to have PEG inserted today high risk for procedure (2) Bacteremia: Code(s): R78.81 - Bacteremia Status: Acute Assessment and Plan: -MRSA bacteremia, continue iv vancomycin -infectious disease Dr. Rahman following (3) Cardiomyopathy: Qualifiers: Cardiomyopathy type: unspecified Qualified Code(s): I42.9 - Cardiomyopathy, unspecified Code(s): I42.9 - Cardiomyopathy, unspecified Status: Acute Assessment and Plan: Stable (4) Arrhythmia, ventricular: Code(s): I49.9 - Cardiac arrhythmia, unspecified Status: Acute Assessment and Plan: Patient is rate controlled on metoprolol, Cardiology following (5) Acute encephalopathy: Code(s): G93.40 - Encephalopathy, unspecified Status: Acute Assessment and Plan: Ongoing for 3 weeks, poor prognosis daughter aware (6) Neutropenia: Qualifiers: Neutropenia type: secondary to cancer chemotherapy Qualified Code(s): D70.1 - Agranulocytosis secondary to cancer chemotherapy; T45.1X5A - Adverse effect of antineoplastic and immunosuppressive drugs, initial encounter Code(s): D70.9 - Neutropenia, unspecified Status: Acute Assessment and Plan: wcc is 1.2 -neutropenic from Hodgkin's lymphoma -CT head, MRI brain, EEG negative (7) Non-Hodgkin lymphoma in remission: Code(s): C85.90 - Non-Hodgkin lymphoma, unspecified, unspecified site Status: Acute Assessment and Plan: in remission. Plan for bone marrow biopsy when stable however with clinical deterioration hospice may be adviced. -vancomycin for MRSA bacteremia, blood cultures repeated 08/17/2020 no growth to date, will continue for 2 weeks after last negative blood culture which would be 09/01/2020, discussed with Dr. Rahman infectious disease gis consultant -Tylenol for fever p.r.n. (8) Acute gouty arthritis: Code(s): M10.9 - Gout, unspecified Status: Acute Assessment and Plan: Completed steroid course (9) Osteoarthritis involving multiple joints on both sides of body: Code(s): M15.9 - Polyosteoarthritis, unspecified Status: Acute Assessment and Plan: Pain control with liquid [place], IV morphine p.r.n. Additional Plan Order Cxr and blood today Family to have a case conference to discuss hospice later today. Subjective Date/time seen: 08/25/20 12:47 Interval history: 75-year-old male past medical history congestive heart failure, COPD, AFib, gout,non-Hodgkin lymphoma followed by Dr. Davis, recurrent gout who presented to [facility] ED for altered mental status. He was recently admitted for generalized weakness 08/02-08/04, was given 1 unit of blood for anemia with improvement of hemoglobin stable at 7.6. he was leukopenic a blood cells 1500. Dr. Davis was concern for relapse of lymphoma, CT chest and pelvis did not show any signs of relapse. poor historian somnolent. Pt seen by ID. Pt started on Clinimix for nutrition yesterday. long discussion with daughter, explained to her that he is not doing well, with deep breathing. Talked about his poor prognosis and advised hospice to daughter she should be having case conference to day to discuss further. Pt remains full code. hb 6.9 wcc is 1.4 will go ahead and transfuse blood. Review of Systems Review of Systems: ROS unobtainable: Yes unobtainable due to medical condition Exam Narrative: Exam Narrative: - GENERAL: ill-appearing male, eyes open today - EYES: responsive to pain opening eyes to pain - HENT: Very dry oral mucosa. - LUNGS: Decreased BS BL, tacypneic - CARDIOVASCULAR: Regular rate and irregular rhythm S1-S2 - ABDOMEN: Soft, non-distended. No palp
[2020-08-25] MEDS: FAT EMULSIONS IV 20% 250 ML 20.83 ML IVPB (14:10)
[2020-08-25] MEDS: AMINO ACIDS 4.25%/D5W/LYTES/CA 2,000 ML 80 ML IV CONT (14:10)
--- NOTE | 2020-08-25 14:23 | WPDINFPN2 ---
Progress Note: A&P Assessment and Plan (1) Bacteremia: Code(s): R78.81 - Bacteremia Status: Acute Assessment and Plan: 1. MRSA bacteremia with infection, lung vs skin source. Repeat BCs ng final 2. Fever due to #1, resolved 3. Encephalopathy, due to # 1 and due to hypernatremia 4. Recent gout. 5. Lymphoma/neutropenia, with persistent blood line abnormalities. Support of his cell mediated immunity will be crucial to his recovery, and conversely persistent neutropenia is a poor prognostic finding. REC Vanc #, through 09/01. Target trough 15-20. Discharge planning in process, encompassing goals of care. Subjective Date/time seen: 08/25/20 14:23 Interval history: no new complaints Exam Narrative: Exam Narrative: afebrile, appears chronically ill Const: General: no acute distress Resp: Effort & Inspection: normal respiratory effort Auscultation: clear to auscultation bilaterally Other: tachypnea Cardio: Rate: regular rate Rhythm: regular rhythm Heart sounds: no murmurs GI: Inspection: non-distended GI Palp: Yes Soft to palpation and No Tenderness to palpation present (GI) Skin: General skin exam: normal color and no rashes or lesions noted Objective Data Vital Signs Vital Signs: Vital Signs - 24 hr 08/24/20 15:21 08/24/20 15:25 08/24/20 19:56 Temperature Pulse Rate 75 77 72 Respiratory Rate 24 H 24 H 20 Blood Pressure Pulse Oximetry 08/24/20 20:16 08/24/20 22:06 08/24/20 22:07 Temperature 36.6 C Pulse Rate 100 88 Respiratory Rate 22 H 33 H Blood Pressure 122/69 Pulse Oximetry 97 96 08/25/20 02:55 08/25/20 05:49 08/25/20 09:40 Temperature 36.6 C Pulse Rate 67 98 67 Respiratory Rate 20 22 H 24 H Blood Pressure 98/52 L Pulse Oximetry 95 96 08/25/20 09:49 08/25/20 09:57 08/25/20 10:25 Temperature 37.7 C H 37.7 C H Pulse Rate 65 86 Respiratory Rate 20 44 H Blood Pressure 105/63 Pulse Oximetry 08/25/20 10:56 08/25/20 14:00 08/25/20 14:06 Temperature 36.4 C Pulse Rate 65 65 Respiratory Rate 20 20 Blood Pressure Pulse Oximetry Intake/Output Intake/Output: Intake & Output 08/22/20 08/23/20 08/24/20 08/25/20 23:59 23:59 23:59 23:59 Intake Total 773 677 9215 2490 Output Total 1150 1150 950 550 Balance -405 -155 100 4037 Meds/Results Medications: Active Medications Generic Name Dose Route Start Last Admin Trade Name Freq PRN Reason Stop Dose Admin Acetaminophen 650 mg 08/05/20 20:35 08/25/20 09:57 Acetaminophen 650 Mg Suppository RECTAL 650 mg Q6H PRN Administration Mild Pain (1-3) or Fever Hydrocodone Bitart/Acetaminophen 5 mg 08/09/20 18:47 08/23/20 10:39 Acetaminophen/Hydrocodone Elixir (*Crx) 7.5 Mg/15 Ml Udc PO 5 mg Q6H PRN Administration Pain Rated 4-6 Albuterol 2 puff 08/05/20 20:35 Albuterol Sulfate (*Sp) Aerosol 1 Puff INHALATION QIDRT PRN Shortness Of Breath Albuterol 5 mg 08/08/20 20:00 08/25/20 14:05 Albuterol Sulfate Neb 2.5 Mg/0.5 Ml Inh INHALATION 5 mg Q6HRT ATUL Administration Apixaban 5 mg 08/20/20 17:00 08/21/20 09:57 Apixaban 5 Mg Tablet PO 5 mg BID ATUL Administration Dextrose 12.5 gm 08/13/20 16:59 Dextrose 50% 25 Gm/50 Ml Syringe IV PUSH PRN PRN Hypoglycemia Protocol Glucagon 1 mg 08/13/20 16:59 Glucagon For Inj 1 Mg Vial IM PRN PRN Hypoglycemia Protocol Glucose 15 gm 08/13/20 16:59 Glucose Oral Gel 15 Gm Of Glucse In 37.5 Gm Tube PO PRN PRN Hypoglycemia Protocol Vancomycin HCl 1,500 mg in 500 mls @ 333.333 mls/hr 08/13/20 22:00 08/24/20 11:00 Vancomycin 1,500 Mg/D5w 500 Ml IVPB Infused Q36H ATUL Infusion Dextrose 1,000 mls @ 100 mls/hr 08/13/20 16:59 Dextrose 5% 1,000 Ml IVPB PRN PRN Hypoglycemia Protocol Dextrose 1,000 mls @ 50 mls/hr 08/24/20 10:54 Dextrose 10% IV CONT .Q20H PRN if PN is interru
[2020-08-25] MEDS: SODIUM CHLORIDE 0.9% IV 250 ML 30 ML IV CONT (15:02)
[2020-08-25] MEDS: Acetaminophen/HYDROcodone ELIXIR (*CRX) 7.5 MG/15 ML UDC 5 MG PO ×2 (15:07→20:50)
[2020-08-25 17:34] LABS: Anion Gap 7 mmol/L (8-16); Blood Urea Nitrogen 26 mg/dL (9-20); Calcium 8.2 mg/dL (8.4-10.2); Carbon Dioxide 25 mmol/L (22-30); Chloride 102 mmol/L (98-107); Estimated CRCL calculation 74 ml/min; Estimated Glomerular Filt Rate > 60; Glucose 111 mg/dL (75-110); Potassium 3.6 mmol/L (3.4-5.0); Sodium 134 mmol/L (137-145)
[2020-08-25] MEDS: FUROSEMIDE 40 MG TABLET PO (18:18)
[2020-08-25 18:24] LABS: Glucose Point of Care 106 (65-105)
[2020-08-25] MEDS: METOPROLOL TARTRATE 25 MG TABLET PO (20:51)
[2020-08-25 22:19] LABS: Vancomycin Trough 10.7 ug/mL (10.0-20.0)
[2020-08-26] VITALS (14 sets, daily range): BP systolic 142–148; BP diastolic 73–83; PULSE 62–103; RESP 18–30; TEMP 36.3–36.7; O2SAT 96–100
[2020-08-26 00:36] LABS: Glucose Point of Care 141 (65-105)
[2020-08-26] MEDS: ALBUTEROL SULFATE NEB 2.5 MG/0.5 ML INH 5 MG INHALATION ×4 (02:10→21:18)
[2020-08-26 05:27] LABS: Glucose Point of Care 105 (65-105)
[2020-08-26 06:11] LABS: Hematocrit 26.9 % (42.0-52.0); Hemoglobin 8.5 g/dL (14.0-18.0); Mean Corpuscular HGB Conc 31.6 g/dl (32-36); Mean Corpuscular Hemoglobin 28.4 pg (26-34); Mean Platelet Volume 11.3 fl (7.4-10.4); Platelet Count Result 238 k/mm3 (150-375); Red Blood Count 2.99 M/mm3 (4.6-6.20); Red Cell Distribution Width 19.7 % (11.5-14.5)
[2020-08-26 06:24] LABS: Anion Gap 6 mmol/L (8-16); Blood Urea Nitrogen 30 mg/dL (9-20); Calcium 8.2 mg/dL (8.4-10.2); Carbon Dioxide 27 mmol/L (22-30); Chloride 100 mmol/L (98-107); Estimated CRCL calculation 83 ml/min; Estimated Glomerular Filt Rate > 60; Glucose 104 mg/dL (75-110); Phosphorus 4.2 mg/dL (2.5-4.5); Potassium 3.9 mmol/L (3.4-5.0); Sodium 133 mmol/L (137-145)
[2020-08-26 07:32] LABS: White Blood Count 1.7 K/mm3 (4.5-10.0)
--- NOTE | 2020-08-26 07:32 | PC.NURSE ---
Call from lab reporting WBC count of 1.7; physician communication stating no call to hospitalist needed for critical WBC.
[2020-08-26 07:39] LABS: Band Neutrophils Percent 7 % (0-6); Basophils Absolute Manual 0.03 K/mm3 (0.0-0.1); Basophils Percent Manual 2 % (0-1); Eosinophils Absolute Manual 0.15 K/mm3 (0.02-0.5); Eosinophils Percent Manual 9 % (0-4); Lymphocytes Absolute Manual 0.13 K/mm3 (1.1-4.5); Monocytes Absolute Manual 0.11 K/mm3 (0.1-0.90); Monocytes Percent Manual 7 % (3-9); Neutrophils Absolute Manual 1.25 K/mm3 (1.3-6.7); Neutrophils Percent Manual 67 % (46-73); Platelet Estimate Adequate (Adequate); Poikilocytosis 1+ (NORMAL); Total Cells Counted 100
[2020-08-26 07:40] LABS: Acanthocytes 1+ (NORMAL); Burr Cells 1+ (NORMAL); Hypochromasia 1+ (NORMAL); Ovalocytes 1+ (NORMAL)
[2020-08-26] MEDS: METOPROLOL TARTRATE 25 MG TABLET PO ×2 (08:14→20:54)
[2020-08-26] MEDS: PANTOPRAZOLE SODIUM IV 40 MG VIAL IV PUSH (08:14)
--- NOTE | 2020-08-26 11:14 | PM.PNCARD ---
Progress Note: A&P Additional Plan 75-year-old man with: Chronic atrial fibrillation well controlled with metoprolol no recent cardiac instability Patient has MRSA sepsis/bacteremia which is being treated by Infectious Disease insurance consultant. Encephalopathy is being contributed to this. By report patient was more lucid yesterday but today is again minimally responsive. Does not appear to be have any active cardiovascular issues Arthur Virk MD [facility] Subjective Date/time seen: Date of service: 08/26/20 11:14 Interval history: 75-year-old man with: Chronic atrial fibrillation being managed with metoprolol for rate control patient has been stable clinically with this. Staphylococcal sepsis/bacteremia is on antibiotics intravenously for this and according to the chart will be in the hospital for approximately 6 more days to complete therapy. Significantly encephalopathic apparently was more lucid yesterday today is minimally responsive again. Exam Narrative: Exam Narrative: Older male who regards examiner, doesn't answer most questions. Disheveled bed, not wearing gown. Const: General: comfortable, no acute distress and confusion Orientation/consciousness: confusion Other: Poorly responsive elderly man with BiPAP mask on HENMT: General nose exam: no epistaxis Mouth: Yes moist mucous membranes and Yes dry mucous membranes Eyes: Sclera: sclerae normal Pupils: Equal, round and reactive pupils present EOM: EOMs intact bilaterally Neck: Neck: supple and no JVD Other: Carotid pulses are intact bilaterally no obvious bruits Resp: Effort & Inspection: normal respiratory effort Auscultation: clear to auscultation bilaterally and diminished lung sounds bilateral in the lower lung obando Other: Scattered rhonchi are noted otherwise no rales no wheezing Cardio: Rate: regular rate Rhythm: abnormal rhythm regularly irregular Heart sounds: no murmurs Other: In trigeminy today GI: Inspection: non-distended Auscultation: normal bowel sounds Other: [place] with tube feeding in place Urinary Catheter: Urinary Catheter: patent and draining, urine cloudy and urine dark Skin: General skin exam: normal color, no rashes or lesions noted and erythema (Some ecchymosis over forearms with a small skin tear left forearm) Wounds: wounds noted (Ecchymosis and skin tear left forearm.) Neuro: General: confusion Cranial nerves: Yes Equal, round and reactive pupils present Cognition (Neuro): abnormal cognition Speech: No normal speech and Abnormal speech present Motor exam (neuro): strength not 5/5 throughout and tone not normal throughout Other: Not oriented to place or time. Extrem: General: no edema and no pedal edema Right lower extremity: lower leg not examined Left lower extremity: lower leg not examined Psych: Mental Status: mental status grossly abnormal Affect: No normal affect Other: Encephalopathic and not responding appropriately. Objective Data Vital Signs Vital Signs: Vital Signs - 24 hr 08/25/20 14:00 08/25/20 14:06 08/25/20 15:10 Temperature 37.7 C H Pulse Rate 65 65 106 H Respiratory Rate 20 20 37 H Blood Pressure 107/71 Pulse Oximetry 95 08/25/20 15:25 08/25/20 16:25 08/25/20 17:25 Temperature 36.6 C 36.5 C 36.7 C Pulse Rate 96 99 109 H Respiratory Rate 42 H 25 H 30 H Blood Pressure 108/67 105/57 L 129/80 Pulse Oximetry 100 95 98 08/25/20 18:10 08/25/20 19:58 08/25/20 20:00 Temperature 36.6 C 36.4 C Pulse Rate 97 88 94 Respiratory Rate 40 H 24 H 28 H Blood Pressure 114/82 114/65 Pulse Oximetry 96 97 08/25/20 20:10 08/25/20 20:15 08/25/20 20:51 Temperature 36.3 C L Pulse Rate 81 92 96 Respiratory Rate 24 H 24 H Blood Pressure 113/61 Pulse Oximetry 96 08/25/20 21:15 08/25/20 22:15 08/25/20 23:12 Temperature 36.4 C L 36.2 C L Pulse Rate 93 103 H 95 Respiratory Rate 28 H 22 H 30 H Blood Pressure 110/71 120/78 Pulse Oximetry 100 97 98 08/25/20 23:20 08/26/20 0
[2020-08-26 12:03] LABS: Glucose Point of Care 114 (65-105)
[2020-08-26] MEDS: FAT EMULSIONS IV 20% 250 ML 20.83 ML IVPB (12:56)
[2020-08-26] MEDS: AMINO ACIDS 4.25%/D5W/LYTES/CA 2,000 ML 80 ML IV CONT (12:57)
--- NOTE | 2020-08-26 13:11 | PCNFU ---
Nutrition Follow-Up Complete: Inadequate oral intake related to altered mental status as evidence by 0% intake over the last five days Goal: Total intake will meet estimated nutrition needs Limited progress towards goal. We will continue current goal. Pt current nutrition is Clinimix E 4.25/5. Nutrition recommendation:change to TPN if patient remains on parenteral nutrition for greater than 3-4 days. Last recorded weight is 108.9 kg, no new weight at this time. Bowel Motility:+BM reported 08/23 Labs Reviewed:BUN 30,Na 133,Hgb 8.5 Meds Noted:Clinimix 4.25/5 at 80 ml/hr with 250 ml of 20% Lipid Emulsion, Protonix, Lopressor. Additional Notes: Nutrition follow up. Patient is current with PPN providing 1153 kcals and 82 gms protein, which is meeting 53% of patient caloric needs. If patient remains on PPN for more than 3-4 days, I would recommend a central line and changing over to TPN -Clinimix 5/15 at 80 ml/hr with 250 ml Lipid Emulsion which will provide 1863 kcals and 96 gms protein. Oral Intake remains poor, 20% documented on 08/24 which was applesauce. Patient is a full assist with meals. Monitoring: Nutrition initiation via diet or alternative nutrition source (PPN/EN), weight, labs every Saturday and Saturday.
--- NOTE | 2020-08-26 13:20 | PM.IMPN ---
Progress Note: A&P Assessment and Plan (1) Failure to thrive: Qualifiers: Failure to thrive age range: in adult Qualified Code(s): R62.7 - Adult failure to thrive Status: Acute Assessment and Plan: -TRy PPN pt was not able to have PEG inserted due to being high risk for procedure (2) Bacteremia: Code(s): R78.81 - Bacteremia Status: Acute Assessment and Plan: -MRSA bacteremia, continue iv vancomycin -infectious disease Dr. Rahman following Cxr shows pulmonary edema + pneumonia (3) Cardiomyopathy: Qualifiers: Cardiomyopathy type: unspecified Qualified Code(s): I42.9 - Cardiomyopathy, unspecified Code(s): I42.9 - Cardiomyopathy, unspecified Status: Acute Assessment and Plan: Stable (4) Arrhythmia, ventricular: Code(s): I49.9 - Cardiac arrhythmia, unspecified Status: Acute Assessment and Plan: Patient is rate controlled on metoprolol, Cardiology following (5) Acute encephalopathy: Code(s): G93.40 - Encephalopathy, unspecified Status: Acute Assessment and Plan: Ongoing for 3 weeks, poor prognosis daughter aware (6) Neutropenia: Qualifiers: Neutropenia type: secondary to cancer chemotherapy Qualified Code(s): D70.1 - Agranulocytosis secondary to cancer chemotherapy; T45.1X5A - Adverse effect of antineoplastic and immunosuppressive drugs, initial encounter Code(s): D70.9 - Neutropenia, unspecified Status: Acute Assessment and Plan: wcc is 1.7 -neutropenic from Hodgkin's lymphoma, Dr Davis is consulted -CT head, MRI brain, EEG negative (7) Non-Hodgkin lymphoma in remission: Code(s): C85.90 - Non-Hodgkin lymphoma, unspecified, unspecified site Status: Acute Assessment and Plan: in remission. Plan for bone marrow biopsy when stable however with clinical deterioration hospice may be adviced. -vancomycin for MRSA bacteremia, blood cultures repeated 08/17/2020 no growth to date, will continue for 2 weeks after last negative blood culture which would be 09/01/2020, discussed with Dr. Rahman infectious disease trousseau consultant -Tylenol for fever p.r.n. (8) Acute gouty arthritis: Code(s): M10.9 - Gout, unspecified Status: Acute Assessment and Plan: Completed steroid course (9) Osteoarthritis involving multiple joints on both sides of body: Code(s): M15.9 - Polyosteoarthritis, unspecified Status: Acute Assessment and Plan: Pain control with liquid [place], IV morphine p.r.n. Subjective Date/time seen: 08/26/20 13:20 Interval history: 75-year-old male past medical history congestive heart failure, COPD, AFib, gout,non-Hodgkin lymphoma followed by Dr. Davis, recurrent gout who presented to [facility] ED for altered mental status. He was recently admitted for generalized weakness 08/02-08/04, was given 1 unit of blood for anemia with improvement of hemoglobin stable at 7.6. he was leukopenic a blood cells 1500. Dr. Davis was concern for relapse of lymphoma, CT chest and pelvis did not show any signs of relapse. poor historian somnolent. Pt seen by ID. Pt started on Clinimix for nutrition. long discussion with daughter, explained to her that he is not doing well, with deep breathing. Talked about his poor prognosis and advised hospice to daughter. Pt is still not looking well, encephalopathic and deep breathing. Pt is waiting to see DR Davis. Review of Systems Review of Systems: All systems reviewed & are unremarkable except as noted in HPI and below ROS unobtainable: Yes unobtainable due to mental status Exam Narrative: Exam Narrative: - GENERAL: ill-appearing male, eyes open but still encephalopathic - EYES: responsive to pain opening eyes to pain - HENT: Very dry oral mucosa. - LUNGS: Decreased BS BL, tacypneic - CARDIOVASCULAR: Regular rate and irregular rhythm S1-S2 - ABDOMEN: Soft, non-distended. No pal
[2020-08-26] MEDS: Acetaminophen/HYDROcodone ELIXIR (*CRX) 7.5 MG/15 ML UDC 5 MG PO (14:10)
--- NOTE | 2020-08-26 17:52 | WPDINFPN2 ---
Progress Note: A&P Assessment and Plan (1) Bacteremia: Code(s): R78.81 - Bacteremia Status: Acute Assessment and Plan: 1. MRSA bacteremia with infection, lung vs skin source. Repeat BCs ng final 2. Fever due to #1, resolved 3. Encephalopathy, due to # 1 and due to hypernatremia 4. Recent gout. 5. Lymphoma/neutropenia, with persistent blood line abnormalities. Support of his cell mediated immunity will be crucial to his recovery, and conversely persistent neutropenia is a poor prognostic finding. REC Vanc #, through 09/01. Target trough 15-20. Bone marrow planned for 08/29. Subjective Date/time seen: 08/26/20 17:52 Interval history: agitated Exam Narrative: Exam Narrative: afebrile Const: General: uncomfortable Skin: General skin exam: normal color and no rashes or lesions noted Neuro: Cognition (Neuro): abnormal cognition Objective Data Vital Signs Vital Signs: Vital Signs - 24 hr 08/25/20 18:10 08/25/20 19:58 08/25/20 20:00 Temperature 36.6 C 36.4 C Pulse Rate 97 88 94 Respiratory Rate 40 H 24 H 28 H Blood Pressure 114/82 114/65 Pulse Oximetry 96 97 08/25/20 20:10 08/25/20 20:15 08/25/20 20:51 Temperature 36.3 C L Pulse Rate 81 92 96 Respiratory Rate 24 H 24 H Blood Pressure 113/61 Pulse Oximetry 96 08/25/20 21:15 08/25/20 22:15 08/25/20 23:12 Temperature 36.4 C L 36.2 C L Pulse Rate 93 103 H 95 Respiratory Rate 28 H 22 H 30 H Blood Pressure 110/71 120/78 Pulse Oximetry 100 97 98 08/25/20 23:20 08/26/20 02:10 08/26/20 02:20 Temperature 36.4 C Pulse Rate 95 87 85 Respiratory Rate 20 30 H 29 H Blood Pressure 114/46 L Pulse Oximetry 96 96 08/26/20 04:54 08/26/20 07:35 08/26/20 07:38 Temperature 36.3 C L Pulse Rate 90 88 Respiratory Rate 24 H 18 18 Blood Pressure 142/73 H Pulse Oximetry 100 08/26/20 07:47 08/26/20 08:14 08/26/20 13:00 Temperature Pulse Rate 89 62 90 Respiratory Rate 22 H 18 Blood Pressure Pulse Oximetry 08/26/20 13:06 Temperature Pulse Rate 91 Respiratory Rate 18 Blood Pressure Pulse Oximetry Intake/Output Intake/Output: Intake & Output 08/23/20 08/24/20 08/25/20 08/26/20 23:59 23:59 23:59 23:59 Intake Total 790 1150 3160 2955 Output Total 2848 843 0020 1050 Balance -555 022 4713 1905 Meds/Results Medications: Active Medications Generic Name Dose Route Start Last Admin Trade Name Freq PRN Reason Stop Dose Admin Acetaminophen 650 mg 08/05/20 20:35 08/25/20 09:57 Acetaminophen 650 Mg Suppository RECTAL 650 mg Q6H PRN Administration Mild Pain (1-3) or Fever Hydrocodone Bitart/Acetaminophen 5 mg 08/09/20 18:47 08/26/20 14:10 Acetaminophen/Hydrocodone Elixir (*Crx) 7.5 Mg/15 Ml Udc PO 5 mg Q6H PRN Administration Pain Rated 4-6 Albuterol 2 puff 08/05/20 20:35 Albuterol Sulfate (*Sp) Aerosol 1 Puff INHALATION QIDRT PRN Shortness Of Breath Albuterol 5 mg 08/08/20 20:00 08/26/20 13:00 Albuterol Sulfate Neb 2.5 Mg/0.5 Ml Inh INHALATION 5 mg Q6HRT ATUL Administration Apixaban 5 mg 08/20/20 17:00 08/21/20 09:57 Apixaban 5 Mg Tablet PO 5 mg BID ATUL Administration Dextrose 12.5 gm 08/13/20 16:59 Dextrose 50% 25 Gm/50 Ml Syringe IV PUSH PRN PRN Hypoglycemia Protocol Glucagon 1 mg 08/13/20 16:59 Glucagon For Inj 1 Mg Vial IM PRN PRN Hypoglycemia Protocol Glucose 15 gm 08/13/20 16:59 Glucose Oral Gel 15 Gm Of Glucse In 37.5 Gm Tube PO PRN PRN Hypoglycemia Protocol Dextrose 1,000 mls @ 100 mls/hr 08/13/20 16:59 Dextrose 5% 1,000 Ml IVPB PRN PRN Hypoglycemia Protocol Dextrose 1,000 mls @ 50 mls/hr 08/24/20 10:54 Dextrose 10% IV CONT .Q20H PRN if PN is interrupted Amino Acids/Electrolytes/Dextrose 2,000 mls @ 80 mls/hr 08/24/20 13:00 08/26/20 12:57 Clinimix E 4.25%/5% Solution IV CONT 80 mls/hr .Q24H
--- NOTE | 2020-08-26 18:00 | PDONCCN ---
HPI - Date of Consult Date/Time: 08/26/20 18:00 Requesting Physician: Cipriano Padilla DO Primary Care Provider: Armen Beasley DO - Consult Narrative Narrative: Harvey Sorenson is a 75 year old male who is well known to Dr. Davis and was admitted on 08/05 after presenting with AMS that was found to be related to sepsis (PNA and bacteremia) and associated encephalopathy (by EEG) in the setting of chronic pancytopenia, including grade 3 neutropenia. He required 2 units of blood on 08/25 for Hgb 6.9, which improved to 8.5 today. He had positive blood cultures x 2 sets (08/05 and 08/09) for MRSA. ID was consulted and Vancomycin initiated for 21 days with end date 09/01. Repeat cultures on 08/17 were negative. Most recent CXR showed diffuse airspace opacities compatible with PNA or pulmonary edema. COVID negative on 08/05. His hospital course has been complicated by FTT. He pulled DHT twice and currently on PPN with tentative EGD next week for PEG tube placement. He is alert, follows command, oriented to person, place but not . Review of Systems - Review of Systems unobtainable due to mental status - Neurologic Reports system reviewed and no additional complaints, except as documented, Reports abnormal speech, Reports behavioral changes, Reports confusion, Reports weakness PMFSH Medical History: Medical History (Last Updated 08/23/20 @ 16:04 by Cristobal Castañeda MD) Angina pectoris, unspecified previous cardiac catheterization with minimal blockage no intervention Anorexia Anxiety Arthritis 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istory of gastrostomy tube placement Hyperlipidemia Hypertension Hyponatremia chronic Hypoxia Neutropenia Non Hodgkin's lymphoma Still on chemotherapy Obesity Obstructive sleep apnea Olecranon bursitis of right elbow Osteoarthritis involving multiple joints on both sides of body Peripheral sensory neuropathy Pulmonary hypertension Respiratory failure January 2016 resulting in tracheostomy and subsequent closure Sleep apnea Surgical History: Surgical History (Last Reviewed 08/10/20 @ 20:03 by Cinthia Arroyo MD) H/O hernia repair incarcerated ventral hernia November 2016 H/O uvulectomy History of cardiac catheterization March 2008 demonstrating mild coronary artery disease History of carpal tunnel release History of colostomy History of nasal septoplasty Hx of tonsillectomy Status post cataract extraction of both eyes with insertion of intraocular lens Status post rotator cuff repair bilateral [place] teeth extracted Family History: Family History (Last Reviewed 08/10/20 @ 20:03 by Cinthia Arroyo MD) Father Patient's father is COPD with emphysema Sibling Patient's sister is CHF (congestive heart failure) Diabetes mellitus Mother Valvular heart disease - Social History Social History: Social History (Last Reviewed 08/10/20 @ 20:03 by Cinthia Arroyo MD) Gender Identity: Gender identity (if verbalized by the patient): Male Alcohol Use: Alcohol intake: former Substance Use: Substance use: never Substance use type: does not use Others: Spiritual care concerns: No Smoking Status: Smoking status: Never smoker Tobacco type: cigars Smoking end date: 09/23/99 Meds Home Medications Medication Instructions Recorded Confirmed Type acetaminophen 650 mg PO PRN PRN 07/14/19 08/05/20 History cholecalciferol (vitamin D3) 1,000 unit PO DAILY 07/14/19 08/05/20 History cyanocobalamin (vitamin B-12) 1,000 mcg PO DAILY 07/14/19 08/05/20 History
[2020-08-26 18:24] LABS: Anion Gap 7 mmol/L (8-16); Blood Urea Nitrogen 30 mg/dL (9-20); Calcium 8.3 mg/dL (8.4-10.2); Carbon Dioxide 25 mmol/L (22-30); Chloride 101 mmol/L (98-107); Estimated CRCL calculation 83 ml/min; Estimated Glomerular Filt Rate > 60; Glucose 96 mg/dL (75-110); Potassium 4.1 mmol/L (3.4-5.0); Sodium 133 mmol/L (137-145)
[2020-08-26 20:12] LABS: Iron 18 ug/dL (49-181)
[2020-08-26 20:21] LABS: Percent Iron Saturation 11 % (20-50)
[2020-08-26 20:46] LABS: Folic Acid 6.7 ng/mL (2.76->20); Vitamin B12 > 1000.0 pg/mL (239-931)
[2020-08-26] MEDS: EPOETIN ALFA-EPBX 10,000 UNITS/ML VIAL 20000 UNITS SUB-Q (20:52)
[2020-08-26 23:44] LABS: Glucose Point of Care 122 (65-105)
[2020-08-27] VITALS (11 sets, daily range): BP systolic 99–116; BP diastolic 52–64; PULSE 72–97; RESP 18–24; TEMP 36.2–36.4; O2SAT 95–98
[2020-08-27] MEDS: Acetaminophen/HYDROcodone ELIXIR (*CRX) 7.5 MG/15 ML UDC 5 MG PO ×3 (00:17→19:28)
[2020-08-27] MEDS: ALBUTEROL SULFATE NEB 2.5 MG/0.5 ML INH 5 MG INHALATION ×4 (02:40→22:49)
[2020-08-27 05:07] LABS: Glucose Point of Care 92 (65-105)
[2020-08-27 05:26] LABS: Glucose Point of Care 112 (65-105)
[2020-08-27 06:06] LABS: Anion Gap 5 mmol/L (8-16); Blood Urea Nitrogen 28 mg/dL (9-20); Calcium 8.2 mg/dL (8.4-10.2); Carbon Dioxide 27 mmol/L (22-30); Chloride 100 mmol/L (98-107); Estimated CRCL calculation 83 ml/min; Estimated Glomerular Filt Rate > 60; Glucose 112 mg/dL (75-110); Phosphorus 3.8 mg/dL (2.5-4.5); Potassium 3.6 mmol/L (3.4-5.0); Sodium 132 mmol/L (137-145)
[2020-08-27 09:29] LABS: Triglycerides 101 mg/dL (<150)
[2020-08-27] MEDS: METOPROLOL TARTRATE 25 MG TABLET PO ×2 (09:50→21:15)
[2020-08-27] MEDS: PANTOPRAZOLE SODIUM IV 40 MG VIAL IV PUSH (09:50)
[2020-08-27 12:03] LABS: Glucose Point of Care 110 (65-105)
--- NOTE | 2020-08-27 12:51 | PM.IMPN ---
Progress Note: A&P Assessment and Plan (1) Failure to thrive: Qualifiers: Failure to thrive age range: in adult Qualified Code(s): R62.7 - Adult failure to thrive Status: Acute Assessment and Plan: -Doing well on clinimax eating food also (2) Bacteremia: Code(s): R78.81 - Bacteremia Status: Acute Assessment and Plan: -MRSA bacteremia, continue iv vancomycin -infectious disease Dr. Rahman following Cxr shows pulmonary edema + pneumonia (3) Cardiomyopathy: Qualifiers: Cardiomyopathy type: unspecified Qualified Code(s): I42.9 - Cardiomyopathy, unspecified Code(s): I42.9 - Cardiomyopathy, unspecified Status: Acute Assessment and Plan: Stable (4) Arrhythmia, ventricular: Code(s): I49.9 - Cardiac arrhythmia, unspecified Status: Acute Assessment and Plan: Patient is rate controlled on metoprolol, Cardiology following (5) Acute encephalopathy: Code(s): G93.40 - Encephalopathy, unspecified Status: Resolved Assessment and Plan: resolved after almost 4 weeks, much improvement today. (6) Neutropenia: Qualifiers: Neutropenia type: secondary to cancer chemotherapy Qualified Code(s): D70.1 - Agranulocytosis secondary to cancer chemotherapy; T45.1X5A - Adverse effect of antineoplastic and immunosuppressive drugs, initial encounter Code(s): D70.9 - Neutropenia, unspecified Status: Acute Assessment and Plan: wcc is 1.7 -neutropenic from Hodgkin's lymphoma, Dr Davis is consulted -CT head, MRI brain, EEG negative (7) Non-Hodgkin lymphoma in remission: Code(s): C85.90 - Non-Hodgkin lymphoma, unspecified, unspecified site Status: Acute Assessment and Plan: in remission. Plan for bone marrow biopsy when stable however with clinical deterioration hospice may be adviced. -vancomycin for MRSA bacteremia, blood cultures repeated 08/17/2020 no growth to date, will continue for 2 weeks after last negative blood culture which would be 09/01/2020, discussed with Dr. Rahman infectious disease fitness sales consultant -Tylenol for fever p.r.n. (8) Acute gouty arthritis: Code(s): M10.9 - Gout, unspecified Status: Acute Assessment and Plan: Completed steroid course (9) Osteoarthritis involving multiple joints on both sides of body: Code(s): M15.9 - Polyosteoarthritis, unspecified Status: Acute Assessment and Plan: Pain control with liquid [place], IV morphine p.r.n. Additional Plan Subjective Date/time seen: 08/27/20 12:51 Interval history: 75-year-old male past medical history congestive heart failure, COPD, AFib, gout,non-Hodgkin lymphoma followed by Dr. Davis, recurrent gout who presented to [facility] ED for altered mental status. He was recently admitted for generalized weakness 08/02-08/04, was given 1 unit of blood for anemia with improvement of hemoglobin stable at 7.6. he was leukopenic a blood cells 1500. Dr. Davis was concern for relapse of lymphoma, CT chest and pelvis did not show any signs of relapse. poor historian somnolent. Pt seen by ID. Pt started on Clinimix for nutrition. long discussion with daughter. Pt has woken up more alert today. Review of Systems Review of Systems: All systems reviewed & are unremarkable except as noted in HPI and below Exam Narrative: Exam Narrative: - GENERAL: ill-appearing male, eyes open, talking, smiling, alert - LUNGS: clear lung obando - CARDIOVASCULAR: Regular rate and irregular rhythm S1-S2 - ABDOMEN: Soft, non-distended. No palpable masses. - EXTREMITIES: rheumatoid nodules elbow Objective Data Vital Signs Vital Signs: Vital Signs - 24 hr 08/26/20 13:00 08/26/20 13:06 08/26/20 20:05 Temperature 36.7 C Pulse Rate 90 91 103 H Respiratory Rate 18 18 22 H Blood Pressure 148/83 H Pulse Oximetry 98 08/26/20 20:54 08/26/20 21:18 08/26/20 21:21 Tem
[2020-08-27] MEDS: AMINO ACIDS 4.25%/D5W/LYTES/CA 2,000 ML 80 ML IV CONT (14:23)
[2020-08-27] MEDS: FAT EMULSIONS IV 20% 250 ML 20.8 ML IVPB (14:45)
[2020-08-27 16:53] LABS: Glucose Point of Care 89 (65-105)
[2020-08-27 19:13] LABS: Anion Gap 4 mmol/L (8-16); Blood Urea Nitrogen 30 mg/dL (9-20); Calcium 8.4 mg/dL (8.4-10.2); Carbon Dioxide 27 mmol/L (22-30); Chloride 99 mmol/L (98-107); Estimated CRCL calculation 83 ml/min; Estimated Glomerular Filt Rate > 60; Glucose 97 mg/dL (75-110); Potassium 4.3 mmol/L (3.4-5.0); Sodium 130 mmol/L (137-145)
[2020-08-27 23:47] LABS: Glucose Point of Care 121 (65-105)
[2020-08-28] VITALS (12 sets, daily range): BP systolic 100–111; BP diastolic 59–73; PULSE 71–90; RESP 18–44; TEMP 36.1–36.7; O2SAT 94–98
[2020-08-28] MEDS: Acetaminophen/HYDROcodone ELIXIR (*CRX) 7.5 MG/15 ML UDC 5 MG PO ×2 (02:39→11:53)
[2020-08-28] MEDS: ALBUTEROL SULFATE NEB 2.5 MG/0.5 ML INH 5 MG INHALATION ×3 (02:58→19:21)
[2020-08-28 05:10] LABS: Glucose Point of Care 119 (65-105)
[2020-08-28 06:43] LABS: Anion Gap 3 mmol/L (8-16); Blood Urea Nitrogen 31 mg/dL (9-20); Calcium 8.3 mg/dL (8.4-10.2); Carbon Dioxide 29 mmol/L (22-30); Chloride 96 mmol/L (98-107); Estimated CRCL calculation 83 ml/min; Estimated Glomerular Filt Rate > 60; Glucose 112 mg/dL (75-110); Phosphorus 3.9 mg/dL (2.5-4.5); Potassium 3.9 mmol/L (3.4-5.0); Sodium 128 mmol/L (137-145)
[2020-08-28 08:14] LABS: Glucose Point of Care 112 (65-105)
[2020-08-28] MEDS: METOPROLOL TARTRATE 25 MG TABLET PO ×2 (09:06→21:25)
[2020-08-28] MEDS: PANTOPRAZOLE SODIUM IV 40 MG VIAL IV PUSH (09:07)
[2020-08-28 12:34] LABS: Glucose Point of Care 106 (65-105)
[2020-08-28] MEDS: AMINO ACIDS 4.25%/D5W/LYTES/CA 2,000 ML 80 ML IV CONT (13:11)
[2020-08-28] MEDS: FAT EMULSIONS IV 20% 250 ML 20.8 ML IVPB (13:12)
--- NOTE | 2020-08-28 16:24 | PM.IMPN ---
Progress Note: A&P Assessment and Plan (1) Failure to thrive: Qualifiers: Failure to thrive age range: in adult Qualified Code(s): R62.7 - Adult failure to thrive Status: Acute Assessment and Plan: -Doing well on clinimax eating food also (2) Bacteremia: Code(s): R78.81 - Bacteremia Status: Acute Assessment and Plan: -MRSA bacteremia, continue iv vancomycin -infectious disease Dr. Rahman following Cxr shows pulmonary edema + pneumonia 08/28/20 16:24 Patient is 75-year-old male with history of non-Hodgkin lymphoma followed by oncologist [facility] for acute mental status change patient was not able to get MRI of the hospital therefore patient was transferred to [facility], upon arrival he had a fever tachycardia tachypnea and he appears septic and unresponsive, patient is seen by Dr. rahman patient is found to have MRSA bacteremia and being treated with vancomycin and Dr. rahman is recommending for 28 days to complete the course on September 01, patient is off steroid, patient is on Clinimix for nutrition as he had pulled off Dobbhoff twice once clinically stable will consult GI for PEG. Currently patient unable to provide any review of symptoms or history, is quite somnolent plan is to continue antibiotic and further recommendation to follow (3) Cardiomyopathy: Qualifiers: Cardiomyopathy type: unspecified Qualified Code(s): I42.9 - Cardiomyopathy, unspecified Code(s): I42.9 - Cardiomyopathy, unspecified Status: Acute Assessment and Plan: Stable (4) Arrhythmia, ventricular: Code(s): I49.9 - Cardiac arrhythmia, unspecified Status: Acute Assessment and Plan: Patient is rate controlled on metoprolol, Cardiology following (5) Acute encephalopathy: Code(s): G93.40 - Encephalopathy, unspecified Status: Resolved Assessment and Plan: resolved after almost 4 weeks, much improvement today. (6) Neutropenia: Qualifiers: Neutropenia type: secondary to cancer chemotherapy Qualified Code(s): D70.1 - Agranulocytosis secondary to cancer chemotherapy; T45.1X5A - Adverse effect of antineoplastic and immunosuppressive drugs, initial encounter Code(s): D70.9 - Neutropenia, unspecified Status: Acute Assessment and Plan: wcc is 1.7 -neutropenic from Hodgkin's lymphoma, Dr Davis is consulted -CT head, MRI brain, EEG negative (7) Non-Hodgkin lymphoma in remission: Code(s): C85.90 - Non-Hodgkin lymphoma, unspecified, unspecified site Status: Acute Assessment and Plan: in remission. Plan for bone marrow biopsy when stable however with clinical deterioration hospice may be adviced. -vancomycin for MRSA bacteremia, blood cultures repeated 08/17/2020 no growth to date, will continue for 2 weeks after last negative blood culture which would be 09/01/2020, discussed with Dr. Rahman infectious disease business travel consultant -Tylenol for fever p.r.n. (8) Acute gouty arthritis: Code(s): M10.9 - Gout, unspecified Status: Acute Assessment and Plan: Completed steroid course (9) Osteoarthritis involving multiple joints on both sides of body: Code(s): M15.9 - Polyosteoarthritis, unspecified Status: Acute Assessment and Plan: Pain control with liquid [place], IV morphine p.r.n. Subjective Date/time seen: 08/28/20 16:24 Patient is 75-year-old male with history of non-Hodgkin lymphoma followed by oncologist [facility] for acute mental status change patient was not able to get MRI of the hospital therefore patient was transferred to [facility], upon arrival he had a fever tachycardia tachypnea and he appears septic and unresponsive, patient is seen by Dr. rahman patient is found to have MRSA bacteremia and being treated with vancomycin and Dr. rahman is recommending for 28 days to complete the course on September 01, pa
[2020-08-28 16:46] LABS: Glucose Point of Care 109 (65-105)
[2020-08-28 21:25] LABS: Vancomycin Trough 13.9 ug/mL (10.0-20.0)
[2020-08-28 23:24] LABS: Glucose Point of Care 114 (65-105)
[2020-08-29] VITALS (19 sets, daily range): BP systolic 100–106; BP diastolic 64–67; PULSE 26–92; RESP 18–33; TEMP 36–36.2; O2SAT 92–99
[2020-08-29] MEDS: ALBUTEROL SULFATE NEB 2.5 MG/0.5 ML INH 5 MG INHALATION ×4 (01:05→19:44)
[2020-08-29] MEDS: Acetaminophen/HYDROcodone ELIXIR (*CRX) 7.5 MG/15 ML UDC 5 MG PO ×2 (05:11→16:55)
[2020-08-29 05:14] LABS: Glucose Point of Care 104 (65-105)
[2020-08-29 05:48] LABS: Basophils Percent Auto 0.5 % (0.2-1.2); Eosinophils Absolute Auto 0.3 K/mm3 (0-0.3); Eosinophils Percent Auto 13.9 % (0-4.4); Hematocrit 25.2 % (42.0-52.0); Immature Granulocyte Absolute 0.11 K/mm3 (0.00-0.031); Immature Granulocyte Percent A 5.9 % (0-0.5); Lymphocytes Absolute Auto 0.17 K/mm3 (0.9-3.2); Lymphocytes Percent Auto 9.1 % (18.3-44.2); Mean Corpuscular HGB Conc 31.7 g/dl (32-36); Mean Corpuscular Hemoglobin 28.4 pg (26-34); Mean Corpuscular Volume 89.4 fl (80-100); Mean Platelet Volume 11.2 fl (7.4-10.4); Monocytes Absolute Auto 0.3 K/mm3 (0.1-0.6); Monocytes Percent Auto 15.5 % (2.6-8.5); Neutrophils Percent Auto 55.1 % (45.5-73.1); Platelet Count Result 290 k/mm3 (150-375); Red Blood Count 2.82 M/mm3 (4.6-6.20); Red Cell Distribution Width 19.1 % (11.5-14.5)
[2020-08-29 05:59] LABS: INR 1.3; Prothrombin Time 16.5 Seconds (11.1-14.7)
[2020-08-29 06:00] LABS: Partial Thromboplastin Time 47.9 SECONDS (22.3-36.8)
[2020-08-29 06:02] LABS: Alanine Aminotransferase 14 U/L (4-50); Albumin Level 2.4 g/dL (3.5-5.1); Alkaline Phosphatase 242 U/L (38-126); Anion Gap 5 mmol/L (8-16); Aspartate Amino Transferase 22 U/L (17-59); Bilirubin,Total 3.1 mg/dL (0.2-1.3); Blood Urea Nitrogen 32 mg/dL (9-20); Calcium 8.5 mg/dL (8.4-10.2); Carbon Dioxide 28 mmol/L (22-30); Chloride 97 mmol/L (98-107); Estimated CRCL calculation 83 ml/min; Estimated Glomerular Filt Rate > 60; Glucose 116 mg/dL (75-110); Phosphorus 4.1 mg/dL (2.5-4.5); Potassium 4.2 mmol/L (3.4-5.0); Sodium 130 mmol/L (137-145)
[2020-08-29 06:09] LABS: Transferrin 83 mg/dL (206-381)
[2020-08-29 06:15] LABS: White Blood Count 1.9 K/mm3 (4.5-10.0)
[2020-08-29 06:20] LABS: Platelet Estimate Adequate (Adequate)
[2020-08-29 06:22] LABS: Anisocytosis 1+ (NORMAL); Ovalocytes 2+ (NORMAL); Poikilocytosis 2+ (NORMAL); Tear Drop Cells 1+ (NORMAL)
[2020-08-29 06:25] LABS: Acanthocytes 2+ (NORMAL); Target Cells 1+ (NORMAL)
[2020-08-29 09:01] LABS: Triglycerides 97 mg/dL (<150)
[2020-08-29] MEDS: PANTOPRAZOLE SODIUM IV 40 MG VIAL IV PUSH (09:31)
[2020-08-29] MEDS: METOPROLOL TARTRATE 25 MG TABLET PO ×2 (09:31→20:40)
--- NOTE | 2020-08-29 11:11 | PC.NURSE ---
Patient to electroplating laborer per bed for bone marrow biopsy.
[2020-08-29 12:58] LABS: Glucose Point of Care 94 (65-105)
[2020-08-29] MEDS: FAT EMULSIONS IV 20% 250 ML 20.8 ML IVPB (13:46)
[2020-08-29] MEDS: AMINO ACIDS 4.25%/D5W/LYTES/CA 2,000 ML 80 ML IV CONT (13:46)
--- NOTE | 2020-08-29 14:37 | WPDINFPN2 ---
Progress Note: A&P Assessment and Plan (1) Bacteremia: Code(s): R78.81 - Bacteremia Status: Acute Assessment and Plan: 1. MRSA bacteremia with infection, lung vs skin source. Repeat BCs ng final 2. Fever due to #1, resolved 3. Encephalopathy, due to # 1 and due to hypernatremia 4. Recent gout. 5. Lymphoma/neutropenia, with persistent blood line abnormalities. REC Vanc # / , through 09/01. Target trough 15-20. Bone marrow pending. Subjective Date/time seen: 08/29/20 14:37 Interval history: on PPV, does not arouse Exam Narrative: Exam Narrative: afebrile Const: General: no acute distress Resp: Effort & Inspection: normal respiratory effort Auscultation: clear to auscultation bilaterally GI: GI Palp: No Tenderness to palpation present (GI) Objective Data Vital Signs Vital Signs: Vital Signs - 24 hr 08/28/20 19:21 08/28/20 19:41 08/28/20 20:35 Temperature 36.7 C Pulse Rate 90 88 83 Respiratory Rate 20 20 44 H Blood Pressure 108/62 Pulse Oximetry 96 94 08/28/20 20:40 08/28/20 21:25 08/29/20 01:05 Temperature Pulse Rate 80 89 Respiratory Rate 24 H 18 Blood Pressure Pulse Oximetry 08/29/20 01:16 08/29/20 05:33 08/29/20 08:37 Temperature 36.2 C L Pulse Rate 87 92 78 Respiratory Rate 26 H 22 H 31 H Blood Pressure 102/65 Pulse Oximetry 96 92 95 08/29/20 08:38 08/29/20 08:50 08/29/20 09:31 Temperature Pulse Rate 78 64 64 Respiratory Rate 31 H 28 H Blood Pressure Pulse Oximetry 08/29/20 11:32 08/29/20 11:45 08/29/20 12:00 Temperature Pulse Rate 76 75 76 Respiratory Rate 22 H 22 H 22 H Blood Pressure 104/65 106/67 100/65 Pulse Oximetry 95 95 98 08/29/20 12:42 08/29/20 14:13 08/29/20 14:24 Temperature Pulse Rate 81 87 82 Respiratory Rate 26 H 33 H 32 H Blood Pressure Pulse Oximetry 99 97 Intake/Output Intake/Output: Intake & Output 08/26/20 08/27/20 08/28/2007/20 23:59 23:59 23:59 23:59 Intake Total 4178 9700 2750 2250 Output Total 0813 341 7913 1350 Balance 3125 2670 1050 900 Meds/Results Medications: Active Medications Generic Name Dose Route Start Last Admin Trade Name Freq PRN Reason Stop Dose Admin Acetaminophen 650 mg 08/05/20 20:35 08/25/20 09:57 Acetaminophen 650 Mg Suppository RECTAL 650 mg Q6H PRN Administration Mild Pain (1-3) or Fever Hydrocodone Bitart/Acetaminophen 5 mg 08/09/20 18:47 08/29/20 05:11 Acetaminophen/Hydrocodone Elixir (*Crx) 7.5 Mg/15 Ml Udc PO 5 mg Q6H PRN Administration Pain Rated 4-6 Albuterol 2 puff 08/05/20 20:35 Albuterol Sulfate (*Sp) Aerosol 1 Puff INHALATION QIDRT PRN Shortness Of Breath Albuterol 5 mg 08/08/20 20:00 08/29/20 14:11 Albuterol Sulfate Neb 2.5 Mg/0.5 Ml Inh INHALATION 5 mg Q6HRT ATUL Administration Apixaban 5 mg 08/20/20 17:00 08/21/20 09:57 Apixaban 5 Mg Tablet PO 5 mg BID ATUL Administration Dextrose 12.5 gm 08/13/20 16:59 Dextrose 50% 25 Gm/50 Ml Syringe IV PUSH PRN PRN Hypoglycemia Protocol Glucagon 1 mg 08/13/20 16:59 Glucagon For Inj 1 Mg Vial IM PRN PRN Hypoglycemia Protocol Glucose 15 gm 08/13/20 16:59 Glucose Oral Gel 15 Gm Of Glucse In 37.5 Gm Tube PO PRN PRN Hypoglycemia Protocol Dextrose 1,000 mls @ 100 mls/hr 08/13/20 16:59 Dextrose 5% 1,000 Ml IVPB PRN PRN Hypoglycemia Protocol Dextrose 1,000 mls @ 50 mls/hr 08/24/20 10:54 Dextrose 10% IV CONT .Q20H PRN if PN is interrupted Amino Acids/Electrolytes/Dextrose 2,000 mls @ 80 mls/hr 08/24/20 13:00 08/29/20 13:46 Clinimix E 4.25%/5% Solution IV CONT 80 mls/hr .Q24H ATUL Administration Protocol Fat Emulsion Intravenous 250 mls @ 20.833 mls/hr 08/24/20 13:00 08/29/20 13:46 Lipids 20% IVPB 20.8 mls/hr Q24H ATUL Administration Vancomycin HCl 1,500 mg in 500 mls @ 333.333 mls/hr 08/29/20
--- NOTE | 2020-08-29 15:51 | PM.IMPN ---
Progress Note: A&P Assessment and Plan (1) Failure to thrive: Qualifiers: Failure to thrive age range: in adult Qualified Code(s): R62.7 - Adult failure to thrive Status: Acute Assessment and Plan: -Doing well on clinimax eating food also (2) Bacteremia: Code(s): R78.81 - Bacteremia Status: Acute Assessment and Plan: -MRSA bacteremia, continue iv vancomycin -infectious disease Dr. Rahman following Cxr shows pulmonary edema + pneumonia 08/29/20 15:51 Patient is 75-year-old male with history of non-Hodgkin lymphoma followed by oncologist [facility] for acute mental status change patient was not able to get MRI of the hospital therefore patient was transferred to [facility], upon arrival he had a fever tachycardia tachypnea and he appears septic and unresponsive, patient is seen by Dr. rahman patient is found to have MRSA bacteremia and being treated with vancomycin and Dr. rahman is recommending for 28 days to complete the course on September 01, patient is off steroid, patient is on Clinimix for nutrition as he had pulled off Dobbhoff twice, once clinically stable will consult GI for PEG. Currently patient unable to provide any review of symptoms or history, is quite somnolent plan is to continue antibiotic, patient is scheduled bone marrow biopsy today, there is slight improvement in white count today will continue to monitor and further recommendation to follow (3) Cardiomyopathy: Qualifiers: Cardiomyopathy type: unspecified Qualified Code(s): I42.9 - Cardiomyopathy, unspecified Code(s): I42.9 - Cardiomyopathy, unspecified Status: Acute Assessment and Plan: Stable (4) Arrhythmia, ventricular: Code(s): I49.9 - Cardiac arrhythmia, unspecified Status: Acute Assessment and Plan: Patient is rate controlled on metoprolol, Cardiology following (5) Acute encephalopathy: Code(s): G93.40 - Encephalopathy, unspecified Status: Resolved Assessment and Plan: resolved after almost 4 weeks, much improvement today. (6) Neutropenia: Qualifiers: Neutropenia type: secondary to cancer chemotherapy Qualified Code(s): D70.1 - Agranulocytosis secondary to cancer chemotherapy; T45.1X5A - Adverse effect of antineoplastic and immunosuppressive drugs, initial encounter Code(s): D70.9 - Neutropenia, unspecified Status: Acute Assessment and Plan: wcc is 1.7 -neutropenic from Hodgkin's lymphoma, Dr Davis is consulted -CT head, MRI brain, EEG negative (7) Non-Hodgkin lymphoma in remission: Code(s): C85.90 - Non-Hodgkin lymphoma, unspecified, unspecified site Status: Acute Assessment and Plan: in remission. Plan for bone marrow biopsy when stable however with clinical deterioration hospice may be adviced. -vancomycin for MRSA bacteremia, blood cultures repeated 08/17/2020 no growth to date, will continue for 2 weeks after last negative blood culture which would be 09/01/2020, discussed with Dr. Rahman infectious disease personnel consultant -Tylenol for fever p.r.n. (8) Acute gouty arthritis: Code(s): M10.9 - Gout, unspecified Status: Acute Assessment and Plan: Completed steroid course (9) Osteoarthritis involving multiple joints on both sides of body: Code(s): M15.9 - Polyosteoarthritis, unspecified Status: Acute Assessment and Plan: Pain control with liquid [place], IV morphine p.r.n. Subjective Date/time seen: 08/29/20 15:51 Patient is 75-year-old male with history of non-Hodgkin lymphoma followed by oncologist [facility] for acute mental status change patient was not able to get MRI of the hospital therefore patient was transferred to [facility], upon arrival he had a fever tachycardia tachypnea and he appears septic and unresponsive, patient is seen by Dr. rahman patient is found to have MRSA bacteremia
[2020-08-29] MEDS: CIPROFLOXACIN HCL 0.3% OP SOLN 2.5 ML BTL 1 DROP EACH EYE ×2 (17:20→20:41)
[2020-08-29 17:54] LABS: Glucose Point of Care 123 (65-105)
[2020-08-30] VITALS (16 sets, daily range): BP systolic 98–113; BP diastolic 57–66; PULSE 60–88; RESP 18–24; TEMP 36.2–37.6; O2SAT 95–100
[2020-08-30] MEDS: Acetaminophen/HYDROcodone ELIXIR (*CRX) 7.5 MG/15 ML UDC 5 MG PO ×3 (00:06→15:52)
[2020-08-30 00:16] LABS: Glucose Point of Care 84 (65-105)
[2020-08-30] MEDS: ALBUTEROL SULFATE NEB 2.5 MG/0.5 ML INH 5 MG INHALATION ×4 (01:46→19:42)
[2020-08-30] MEDS: CIPROFLOXACIN HCL 0.3% OP SOLN 2.5 ML BTL 1 DROP EACH EYE ×5 (05:09→20:32)
[2020-08-30 05:17] LABS: Glucose Point of Care 117 (65-105)
[2020-08-30 05:52] LABS: Basophils Percent Auto 0.6 % (0.2-1.2); Eosinophils Absolute Auto 0.4 K/mm3 (0-0.3); Eosinophils Percent Auto 20.6 % (0-4.4); Hematocrit 26.6 % (42.0-52.0); Hemoglobin 8.2 g/dL (14.0-18.0); Immature Granulocyte Absolute 0.06 K/mm3 (0.00-0.031); Immature Granulocyte Percent A 3.3 % (0-0.5); Lymphocytes Absolute Auto 0.15 K/mm3 (0.9-3.2); Lymphocytes Percent Auto 8.3 % (18.3-44.2); Mean Corpuscular HGB Conc 30.8 g/dl (32-36); Mean Corpuscular Hemoglobin 28.3 pg (26-34); Mean Corpuscular Volume 91.7 fl (80-100); Mean Platelet Volume 11.4 fl (7.4-10.4); Monocytes Absolute Auto 0.3 K/mm3 (0.1-0.6); Monocytes Percent Auto 16.7 % (2.6-8.5); Neutrophils Absolute Auto 0.9 K/mm3 (1.3-6.7); Neutrophils Percent Auto 50.5 % (45.5-73.1); Platelet Count Result 309 k/mm3 (150-375); Red Cell Distribution Width 19.2 % (11.5-14.5)
[2020-08-30 06:00] LABS: White Blood Count 1.8 K/mm3 (4.5-10.0)
[2020-08-30 06:04] LABS: Alanine Aminotransferase 14 U/L (4-50); Albumin Level 2.5 g/dL (3.5-5.1); Alkaline Phosphatase 298 U/L (38-126); Anion Gap 4 mmol/L (8-16); Aspartate Amino Transferase 22 U/L (17-59); Bilirubin,Total 3.1 mg/dL (0.2-1.3); Blood Urea Nitrogen 29 mg/dL (9-20); Calcium 8.6 mg/dL (8.4-10.2); Carbon Dioxide 27 mmol/L (22-30); Chloride 99 mmol/L (98-107); Estimated CRCL calculation 84 ml/min; Estimated Glomerular Filt Rate > 60; Glucose 114 mg/dL (75-110); Phosphorus 4.3 mg/dL (2.5-4.5); Potassium 4.1 mmol/L (3.4-5.0); Sodium 130 mmol/L (137-145)
[2020-08-30] MEDS: PANTOPRAZOLE SODIUM IV 40 MG VIAL IV PUSH (09:25)
[2020-08-30] MEDS: METOPROLOL TARTRATE 25 MG TABLET PO ×2 (09:26→20:33)
[2020-08-30] MEDS: LIDOCAINE 5% PATCH 2 PATCH TOPICAL (10:11)
--- NOTE | 2020-08-30 11:19 | WPDINFPN2 ---
Progress Note: A&P Assessment and Plan (1) Bacteremia: Code(s): R78.81 - Bacteremia Status: Acute Assessment and Plan: 1. MRSA bacteremia with infection, lung vs skin source. Repeat BCs ng final 2. Fever due to #1, resolved 3. Encephalopathy, due to # 1 and due to hypernatremia 4. Recent gout. 5. Lymphoma/neutropenia, with persistent blood line abnormalities. REC Vanc #26 / 28, through 09/01. Target trough 15-20. Bone marrow result pending. Subjective Date/time seen: 08/30/20 11:19 Interval history: more awake today, though disoriented Exam Narrative: Exam Narrative: afebrile Const: General: no acute distress Resp: Effort & Inspection: normal respiratory effort Auscultation: clear to auscultation bilaterally Cardio: Rate: regular rate Rhythm: regular rhythm Heart sounds: no murmurs Objective Data Vital Signs Vital Signs: Vital Signs - 24 hr 08/29/20 11:32 08/29/20 11:45 08/29/20 12:00 Temperature Pulse Rate 76 75 76 Respiratory Rate 22 H 22 H 22 H Blood Pressure 104/65 106/67 100/65 Pulse Oximetry 95 95 98 08/29/20 12:42 08/29/20 14:13 08/29/20 14:24 Temperature Pulse Rate 81 87 82 Respiratory Rate 26 H 33 H 32 H Blood Pressure Pulse Oximetry 99 97 08/29/20 17:54 08/29/20 19:42 08/29/20 19:43 Temperature 36.1 C L Pulse Rate 85 88 88 Respiratory Rate 32 H 20 24 H Blood Pressure 100/64 Pulse Oximetry 99 97 08/29/20 20:39 08/29/20 20:40 08/29/20 20:49 Temperature 36.0 C L Pulse Rate 85 86 Respiratory Rate 20 Blood Pressure 102/67 Pulse Oximetry 99 99 08/30/20 01:47 08/30/20 01:49 08/30/20 03:52 Temperature 36.4 C L Pulse Rate 80 80 87 Respiratory Rate 20 20 19 Blood Pressure 106/66 Pulse Oximetry 100 98 08/30/20 08:55 08/30/20 09:08 08/30/20 09:10 Temperature Pulse Rate 60 60 60 Respiratory Rate 18 18 18 Blood Pressure Pulse Oximetry 95 08/30/20 09:20 08/30/20 09:26 Temperature Pulse Rate 81 Respiratory Rate Blood Pressure 98/58 L Pulse Oximetry Intake/Output Intake/Output: Intake & Output 08/27/20 08/28/20 08/29/20 08/30/20 23:59 23:59 23:59 23:59 Intake Total 3470 2750 3230 594 Output Total 800 1700 1850 Balance 2670 1050 1380 594 Meds/Results Medications: Active Medications Generic Name Dose Route Start Last Admin Trade Name Freq PRN Reason Stop Dose Admin Acetaminophen 650 mg 08/05/20 20:35 08/25/20 09:57 Acetaminophen 650 Mg Suppository RECTAL 650 mg Q6H PRN Administration Mild Pain (1-3) or Fever Hydrocodone Bitart/Acetaminophen 5 mg 08/09/20 18:47 08/30/20 06:45 Acetaminophen/Hydrocodone Elixir (*Crx) 7.5 Mg/15 Ml Udc PO 5 mg Q6H PRN Administration Pain Rated 4-6 Albuterol 2 puff 08/05/20 20:35 Albuterol Sulfate (*Sp) Aerosol 1 Puff INHALATION QIDRT PRN Shortness Of Breath Albuterol 5 mg 08/08/20 20:00 08/30/20 08:55 Albuterol Sulfate Neb 2.5 Mg/0.5 Ml Inh INHALATION 5 mg Q6HRT ATUL Administration Apixaban 5 mg 08/20/20 17:00 08/21/20 09:57 Apixaban 5 Mg Tablet PO 5 mg BID ATUL Administration Ciprofloxacin 1 drop 08/29/20 17:00 08/30/20 09:26 Ciprofloxacin Hcl 0.3% Op Soln 2.5 Ml Btl EACH EYE 1 drop Q4HWA ATUL Administration Dextrose 12.5 gm 08/13/20 16:59 Dextrose 50% 25 Gm/50 Ml Syringe IV PUSH PRN PRN Hypoglycemia Protocol Glucagon 1 mg 08/13/20 16:59 Glucagon For Inj 1 Mg Vial IM PRN PRN Hypoglycemia Protocol Glucose 15 gm 08/13/20 16:59 Glucose Oral Gel 15 Gm Of Glucse In 37.5 Gm Tube PO PRN PRN Hypoglycemia Protocol Dextrose 1,000 mls @ 100 mls/hr 08/13/20 16:59 Dextrose 5% 1,000 Ml IVPB PRN PRN Hypoglycemia Protocol Dextrose 1,000 mls @ 50 mls/hr 08/24/20 10:54 Dextrose 10% IV CONT .Q20H PRN if PN is interrupted Amino Acids/Electrolytes/Dextrose 2,000 mls @ 80 mls/hr 08/24/20
[2020-08-30 11:54] LABS: Glucose Point of Care 126 (65-105)
[2020-08-30] MEDS: AMINO ACIDS 4.25%/D5W/LYTES/CA 2,000 ML 80 ML IV CONT (13:19)
[2020-08-30] MEDS: FAT EMULSIONS IV 20% 250 ML 20.8 ML IVPB (13:19)
--- NOTE | 2020-08-30 14:37 | PM.IMPN ---
Progress Note: A&P Assessment and Plan (1) Failure to thrive: Qualifiers: Failure to thrive age range: in adult Qualified Code(s): R62.7 - Adult failure to thrive Status: Acute Assessment and Plan: -Doing well on clinimax eating food also (2) Bacteremia: Code(s): R78.81 - Bacteremia Status: Acute Assessment and Plan: -MRSA bacteremia, continue iv vancomycin -infectious disease Dr. Rahman following Cxr shows pulmonary edema + pneumonia 08/30/20 14:39 Patient is 75-year-old male with history of non-Hodgkin lymphoma followed by oncologist at [facility], Initially patient was seen at [facility] for acute mental status change patient was not able to get MRI of the hospital therefore patient was transferred to [facility], upon arrival he had a fever tachycardia tachypnea and he appears septic and unresponsive, patient was seen by Dr. Rahman patient was found to have MRSA bacteremia and being treated with vancomycin and Dr. rahman is recommending for 28 days to complete the course on September 01, patient is off steroid, patient is on Clinimix for nutrition as he had pulled off Dobbhoff twice, once clinically stable will consult GI for PEG. Currently patient unable to provide any review of symptoms or history, is quite somnolent plan is to continue antibiotic, patient had bone marrow biopsy on 08/29, there is slight improvement in white count today will continue to monitor and further recommendation to follow (3) Cardiomyopathy: Qualifiers: Cardiomyopathy type: unspecified Qualified Code(s): I42.9 - Cardiomyopathy, unspecified Code(s): I42.9 - Cardiomyopathy, unspecified Status: Acute Assessment and Plan: Stable (4) Arrhythmia, ventricular: Code(s): I49.9 - Cardiac arrhythmia, unspecified Status: Acute Assessment and Plan: Patient is rate controlled on metoprolol, Cardiology following (5) Acute encephalopathy: Code(s): G93.40 - Encephalopathy, unspecified Status: Resolved Assessment and Plan: resolved after almost 4 weeks, much improvement today. (6) Neutropenia: Qualifiers: Neutropenia type: secondary to cancer chemotherapy Qualified Code(s): D70.1 - Agranulocytosis secondary to cancer chemotherapy; T45.1X5A - Adverse effect of antineoplastic and immunosuppressive drugs, initial encounter Code(s): D70.9 - Neutropenia, unspecified Status: Acute Assessment and Plan: wcc is 1.7 -neutropenic from Hodgkin's lymphoma, Dr Davis is consulted -CT head, MRI brain, EEG negative (7) Non-Hodgkin lymphoma in remission: Code(s): C85.90 - Non-Hodgkin lymphoma, unspecified, unspecified site Status: Acute Assessment and Plan: in remission. Plan for bone marrow biopsy when stable however with clinical deterioration hospice may be adviced. -vancomycin for MRSA bacteremia, blood cultures repeated 08/17/2020 no growth to date, will continue for 2 weeks after last negative blood culture which would be 09/01/2020, discussed with Dr. Rahman infectious disease rewards consultant -Tylenol for fever p.r.n. (8) Acute gouty arthritis: Code(s): M10.9 - Gout, unspecified Status: Acute Assessment and Plan: Completed steroid course (9) Osteoarthritis involving multiple joints on both sides of body: Code(s): M15.9 - Polyosteoarthritis, unspecified Status: Acute Assessment and Plan: Pain control with liquid [place], IV morphine p.r.n. Subjective Date/time seen: 08/30/20 14:39 Patient is 75-year-old male with history of non-Hodgkin lymphoma followed by oncologist at [facility], Initially patient was seen at [facility] for acute mental status change patient was not able to get MRI of the hospital therefore patient was transferred to [facility], upon arrival he had a fever tachycardia tachypnea and he ap
--- NOTE | 2020-08-30 14:41 | PCDIET ---
Nutrition Follow-Up Complete: Inadequate oral intake related to altered mental status as evidence by 0% intake over the last five days Total intake will meet estimated nutrition needs Goal:Goal not met. Continue goal. Pt current nutrition is Clinimix 4.25/5 at 80ml/hr + 250ml 20% lipids and moderately thick liquids, heart healthy minced and moist level 5. Nutrition recommendation: Enteral nutrition more appropriate if pt would maintain Dobbhoff or become more appropriate for Gtube. If unable, recommend continued encouraged for PO intake with more terminal block assembler nutrition via TPN -Clinimix 5/15 at 80 ml/hr with 250 ml Lipid Emulsion which will provide 1863 kcals and 96 gms protein. Last recorded weight is 110.9 kg, up from 108.9kg on assessment Bowel Motility: 08/29 BM + Labs Reviewed:Glucose 114, BUN 29, Na 130, Protein 5.0, Albumin 2.5, Hgb/Hct 8.2, 26.6 Meds Noted: albuterol, vancomycin, protonix, insulin Additional Notes: Patient is current with PPN providing 1153 kcals and 82 gms protein, which is meeting 53% of patient caloric needs. If patient remains on PPN for more than 3-4 days, I would recommend a central line and changing over to TPN -Clinimix 5/15 at 80 ml/hr with 250 ml Lipid Emulsion which will provide 1863 kcals and 96 gms protein. PO intake at 10% this morning, applesauce. Per MD notes, more arousable, but still disoriented. Hopefully as pt continues to improve cognitively, PO intake will increase. Following wt, labs, PO intake, PPN/TPN/EN plan every T/F
[2020-08-30 18:03] LABS: Glucose Point of Care 112 (65-105)
[2020-08-30 19:31] LABS: Iron 13 ug/dL (49-181)
[2020-08-30 19:36] LABS: Vitamin B12 > 1000.0 pg/mL (239-931)
[2020-08-30 19:41] LABS: Percent Iron Saturation 8 % (20-50)
[2020-08-30 23:33] LABS: Glucose Point of Care 112 (65-105)
[2020-08-31] VITALS (10 sets, daily range): BP systolic 97–128; BP diastolic 54–71; PULSE 73–113; RESP 18–24; TEMP 36.1–37.7; O2SAT 93–96
[2020-08-31] MEDS: Acetaminophen/HYDROcodone ELIXIR (*CRX) 7.5 MG/15 ML UDC 5 MG PO ×3 (01:40→17:58)
[2020-08-31 03:21] LABS: Eosinophils Absolute Auto 0.3 K/mm3 (0-0.3); Eosinophils Percent Auto 14.1 % (0-4.4); Hematocrit 25.3 % (42.0-52.0); Hemoglobin 7.9 g/dL (14.0-18.0); Immature Granulocyte Absolute 0.07 K/mm3 (0.00-0.031); Immature Granulocyte Percent A 3.5 % (0-0.5); Lymphocytes Absolute Auto 0.19 K/mm3 (0.9-3.2); Lymphocytes Percent Auto 9.5 % (18.3-44.2); Mean Corpuscular HGB Conc 31.2 g/dl (32-36); Mean Corpuscular Hemoglobin 28.7 pg (26-34); Mean Platelet Volume 11.6 fl (7.4-10.4); Monocytes Absolute Auto 0.5 K/mm3 (0.1-0.6); Monocytes Percent Auto 22.6 % (2.6-8.5); Neutrophils Percent Auto 49.3 % (45.5-73.1); Platelet Count Result 309 k/mm3 (150-375); Red Blood Count 2.75 M/mm3 (4.6-6.20); Red Cell Distribution Width 19.5 % (11.5-14.5)
[2020-08-31 03:35] LABS: Alanine Aminotransferase 15 U/L (4-50); Albumin Level 2.5 g/dL (3.5-5.1); Alkaline Phosphatase 289 U/L (38-126); Anion Gap 5 mmol/L (8-16); Aspartate Amino Transferase 24 U/L (17-59); Bilirubin,Total 2.5 mg/dL (0.2-1.3); Blood Urea Nitrogen 30 mg/dL (9-20); Calcium 8.5 mg/dL (8.4-10.2); Carbon Dioxide 27 mmol/L (22-30); Chloride 98 mmol/L (98-107); Estimated CRCL calculation 95 ml/min; Estimated Glomerular Filt Rate > 60; Glucose 114 mg/dL (75-110); Phosphorus 4.1 mg/dL (2.5-4.5); Potassium 4.3 mmol/L (3.4-5.0); Sodium 130 mmol/L (137-145); Triglycerides 84 mg/dL (<150)
--- NOTE | 2020-08-31 04:02 | PCRCNOTE ---
Window of time for administration has passed. See next scheduled administration.
[2020-08-31 04:04] LABS: Vancomycin Trough 19.8 ug/mL (10.0-20.0)
[2020-08-31] MEDS: CIPROFLOXACIN HCL 0.3% OP SOLN 2.5 ML BTL 1 DROP EACH EYE ×5 (04:13→19:59)
[2020-08-31 04:51] LABS: Hypochromasia 2+ (NORMAL); Ovalocytes 1+ (NORMAL); Platelet Estimate Adequate (Adequate)
[2020-08-31 05:13] LABS: Glucose Point of Care 153 (65-105)
[2020-08-31] MEDS: PANTOPRAZOLE SODIUM IV 40 MG VIAL IV PUSH (08:09)
[2020-08-31] MEDS: METOPROLOL TARTRATE 25 MG TABLET PO (08:09)
--- NOTE | 2020-08-31 10:21 | PCRCNOTE ---
Window of time for administration has passed. See next scheduled administration.
[2020-08-31 11:33] LABS: Triglycerides 78 mg/dL (<150)
[2020-08-31 11:54] LABS: Glucose Point of Care 109 (65-105)
[2020-08-31] MEDS: FAT EMULSIONS IV 20% 250 ML 20.8 ML IVPB (13:08)
[2020-08-31] MEDS: AMINO ACIDS 4.25%/D5W/LYTES/CA 2,000 ML 80 ML IV CONT (13:09)
--- NOTE | 2020-08-31 15:02 | PC.NURSE ---
TREVIN faxed at [phone] report called to Tessie DANIELS at [phone]
[2020-08-31] MEDS: ALBUTEROL SULFATE NEB 2.5 MG/0.5 ML INH 5 MG INHALATION ×2 (15:17→19:31)
--- NOTE | 2020-08-31 17:31 | PM.IMPN ---
Progress Note: A&P Assessment and Plan (1) Failure to thrive: Qualifiers: Failure to thrive age range: in adult Qualified Code(s): R62.7 - Adult failure to thrive Status: Acute Assessment and Plan: -Doing well on clinimax eating food also (2) Bacteremia: Code(s): R78.81 - Bacteremia Status: Acute Assessment and Plan: -MRSA bacteremia, continue iv vancomycin -infectious disease Dr. Rahman following Cxr shows pulmonary edema + pneumonia 08/31/20 17:31 Patient is 75-year-old male with history of non-Hodgkin lymphoma followed by oncologist at [facility], Initially patient was seen at [facility] for acute mental status change patient was not able to get MRI of the hospital therefore patient was transferred to [facility], upon arrival he had a fever tachycardia tachypnea and he appears septic and unresponsive, patient was seen by Dr. Rahman patient was found to have MRSA bacteremia and being treated with vancomycin and Dr. rahman is recommending for 28 days to complete the course on September 01, patient is off steroid, patient is on Clinimix for nutrition as he had pulled off [place] twice, once clinically stable will consult GI for PEG. Currently patient unable to provide any review of symptoms or history, is quite somnolent plan is to continue antibiotic, patient had bone marrow biopsy on 08/29, today 08/31 there is slight improvement in white count today 2.0, bone marrow biopsy is pending, patient is pain and does not participate in PT, will continue to monitor and further recommendation to follow (3) Cardiomyopathy: Qualifiers: Cardiomyopathy type: unspecified Qualified Code(s): I42.9 - Cardiomyopathy, unspecified Code(s): I42.9 - Cardiomyopathy, unspecified Status: Acute Assessment and Plan: Stable (4) Arrhythmia, ventricular: Code(s): I49.9 - Cardiac arrhythmia, unspecified Status: Acute Assessment and Plan: Patient is rate controlled on metoprolol, Cardiology following (5) Acute encephalopathy: Code(s): G93.40 - Encephalopathy, unspecified Status: Resolved Assessment and Plan: resolved after almost 4 weeks, much improvement today. (6) Neutropenia: Qualifiers: Neutropenia type: secondary to cancer chemotherapy Qualified Code(s): D70.1 - Agranulocytosis secondary to cancer chemotherapy; T45.1X5A - Adverse effect of antineoplastic and immunosuppressive drugs, initial encounter Code(s): D70.9 - Neutropenia, unspecified Status: Acute Assessment and Plan: wcc is 1.7 -neutropenic from Hodgkin's lymphoma, Dr Davis is consulted -CT head, MRI brain, EEG negative (7) Non-Hodgkin lymphoma in remission: Code(s): C85.90 - Non-Hodgkin lymphoma, unspecified, unspecified site Status: Acute Assessment and Plan: in remission. Plan for bone marrow biopsy when stable however with clinical deterioration hospice may be adviced. -vancomycin for MRSA bacteremia, blood cultures repeated 08/17/2020 no growth to date, will continue for 2 weeks after last negative blood culture which would be 09/01/2020, discussed with Dr. Rahman infectious disease technical marketing consultant -Tylenol for fever p.r.n. (8) Acute gouty arthritis: Code(s): M10.9 - Gout, unspecified Status: Acute Assessment and Plan: Completed steroid course (9) Osteoarthritis involving multiple joints on both sides of body: Code(s): M15.9 - Polyosteoarthritis, unspecified Status: Acute Assessment and Plan: Pain control with liquid [place], IV morphine p.r.n. Subjective Date/time seen: 08/31/20 17:31 Patient is 75-year-old male with history of non-Hodgkin lymphoma followed by oncologist at [facility], Initially patient was seen at [facility] for acute mental status change patient was not able to get MRI of the hospital therefore patient
[2020-08-31 17:37] LABS: Glucose Point of Care 104 (65-105)
[2020-09-01] VITALS (11 sets, daily range): BP systolic 103–138; BP diastolic 61–75; PULSE 64–96; RESP 18–28; TEMP 36.2–36.5; O2SAT 93–97
[2020-09-01 00:06] LABS: Glucose Point of Care 112 (65-105)
[2020-09-01] MEDS: ALBUTEROL SULFATE NEB 2.5 MG/0.5 ML INH 5 MG INHALATION ×3 (01:23→13:51)
[2020-09-01] MEDS: Acetaminophen/HYDROcodone ELIXIR (*CRX) 7.5 MG/15 ML UDC 5 MG PO ×3 (01:55→19:27)
[2020-09-01 05:09] LABS: Glucose Point of Care 106 (65-105)
[2020-09-01] MEDS: CIPROFLOXACIN HCL 0.3% OP SOLN 2.5 ML BTL 1 DROP EACH EYE ×5 (05:20→20:00)
[2020-09-01 06:08] LABS: Basophils Percent Auto 0.9 % (0.2-1.2); Eosinophils Absolute Auto 0.3 K/mm3 (0-0.3); Eosinophils Percent Auto 14.6 % (0-4.4); Immature Granulocyte Absolute 0.25 K/mm3 (0.00-0.031); Immature Granulocyte Percent A 11.7 % (0-0.5); Lymphocytes Absolute Auto 0.16 K/mm3 (0.9-3.2); Lymphocytes Percent Auto 7.5 % (18.3-44.2); Mean Corpuscular HGB Conc 30.8 g/dl (32-36); Mean Corpuscular Hemoglobin 27.9 pg (26-34); Mean Corpuscular Volume 90.6 fl (80-100); Monocytes Absolute Auto 0.5 K/mm3 (0.1-0.6); Neutrophils Absolute Auto 0.9 K/mm3 (1.3-6.7); Neutrophils Percent Auto 42.3 % (45.5-73.1); Platelet Count Result 320 k/mm3 (150-375); Red Blood Count 2.87 M/mm3 (4.6-6.20); Red Cell Distribution Width 19.2 % (11.5-14.5); White Blood Count 2.1 K/mm3 (4.5-10.0)
[2020-09-01 06:21] LABS: Estimated CRCL calculation 84 ml/min; Estimated Glomerular Filt Rate > 60
[2020-09-01 06:24] LABS: Alanine Aminotransferase 15 U/L (4-50); Albumin Level 2.6 g/dL (3.5-5.1); Alkaline Phosphatase 350 U/L (38-126); Anion Gap 4 mmol/L (8-16); Aspartate Amino Transferase 27 U/L (17-59); Bilirubin,Total 2.6 mg/dL (0.2-1.3); Blood Urea Nitrogen 28 mg/dL (9-20); Calcium 8.7 mg/dL (8.4-10.2); Carbon Dioxide 28 mmol/L (22-30); Chloride 98 mmol/L (98-107); Estimated CRCL calculation 84 ml/min; Estimated Glomerular Filt Rate > 60; Glucose 104 mg/dL (75-110); Magnesium 1.9 mg/dL (1.6-2.3); Potassium 4.1 mmol/L (3.4-5.0); Sodium 130 mmol/L (137-145)
[2020-09-01 07:24] LABS: Ovalocytes 2+ (NORMAL); Platelet Estimate Increased (Adequate)
[2020-09-01 07:25] LABS: Acanthocytes 1+ (NORMAL); Hypochromasia 1+ (NORMAL)
[2020-09-01] MEDS: METOPROLOL TARTRATE 25 MG TABLET PO ×2 (09:53→20:00)
[2020-09-01] MEDS: PANTOPRAZOLE SODIUM IV 40 MG VIAL IV PUSH (09:53)
[2020-09-01 12:14] LABS: Glucose Point of Care 109 (65-105)
[2020-09-01] MEDS: AMINO ACIDS 4.25%/D5W/LYTES/CA 2,000 ML 80 ML IV CONT (12:29)
[2020-09-01] MEDS: FAT EMULSIONS IV 20% 250 ML 20.8 ML IVPB (12:30)
--- NOTE | 2020-09-01 13:11 | WPDINFPN2 ---
Progress Note: A&P Assessment and Plan (1) Bacteremia: Code(s): R78.81 - Bacteremia Status: Acute Assessment and Plan: 1. MRSA bacteremia with infection, lung vs skin source. Repeat BCs ng final 2. Fever due to #1, back up slightly 3. Encephalopathy 4. Recent gout. 5. Lymphoma/neutropenia, bone marrow shows no tumor (non-final results). REC Vanc #28, stop and follow. Subjective Date/time seen: 09/01/20 13:11 Interval history: asking if he can put this behind him, doesn't/cannot specify what he is referring to Exam Narrative: Exam Narrative: t max 37.7 Const: General: no acute distress Other: appears chronically ill Resp: Auscultation: clear to auscultation bilaterally and diminished lung sounds Other: tachypnea Cardio: Rate: regular rate Rhythm: regular rhythm Heart sounds: no murmurs GI: Inspection: non-distended GI Palp: Yes Soft to palpation and No Tenderness to palpation present (GI) Skin: General skin exam: no rashes or lesions noted Objective Data Vital Signs Vital Signs: Vital Signs - 24 hr 08/31/20 13:35 08/31/20 15:30 08/31/20 18:33 Temperature 37.2 C Pulse Rate 83 85 Respiratory Rate 18 18 Blood Pressure Pulse Oximetry 08/31/20 19:34 08/31/20 20:00 08/31/20 20:02 Temperature 36.6 C Pulse Rate 113 H 73 73 Respiratory Rate 20 24 H Blood Pressure 97/54 L Pulse Oximetry 93 96 09/01/20 01:26 09/01/20 05:30 09/01/20 08:15 Temperature 36.5 C Pulse Rate 68 96 Respiratory Rate 22 H Blood Pressure 103/65 Pulse Oximetry 97 93 09/01/20 09:31 09/01/20 09:41 09/01/20 09:53 Temperature Pulse Rate 65 67 64 Respiratory Rate 22 H 18 Blood Pressure 106/61 Pulse Oximetry 95 Intake/Output Intake/Output: Intake & Output 08/29/20 08/30/20 08/31/20 09/01/20 23:59 23:59 23:59 23:59 Intake Total 3230 3170 3250 2370 Output Total 1850 900 750 800 Balance 1380 2270 2500 1570 Meds/Results Medications: Active Medications Generic Name Dose Route Start Last Admin Trade Name Freq PRN Reason Stop Dose Admin Acetaminophen 650 mg 08/05/20 20:35 08/25/20 09:57 Acetaminophen 650 Mg Suppository RECTAL 650 mg Q6H PRN Administration Mild Pain (1-3) or Fever Hydrocodone Bitart/Acetaminophen 5 mg 08/09/20 18:47 09/01/20 09:55 Acetaminophen/Hydrocodone Elixir (*Crx) 7.5 Mg/15 Ml Udc PO 5 mg Q6H PRN Administration Pain Rated 4-6 Albuterol 2 puff 08/05/20 20:35 Albuterol Sulfate (*Sp) Aerosol 1 Puff INHALATION QIDRT PRN Shortness Of Breath Albuterol 5 mg 08/08/20 20:00 09/01/20 09:29 Albuterol Sulfate Neb 2.5 Mg/0.5 Ml Inh INHALATION 5 mg Q6HRT ATUL Administration Apixaban 5 mg 08/20/20 17:00 08/21/20 09:57 Apixaban 5 Mg Tablet PO 5 mg BID ATUL Administration Ciprofloxacin 1 drop 08/29/20 17:00 09/01/20 12:31 Ciprofloxacin Hcl 0.3% Op Soln 2.5 Ml Btl EACH EYE 1 drop Q4HWA ATUL Administration Dextrose 12.5 gm 08/13/20 16:59 Dextrose 50% 25 Gm/50 Ml Syringe IV PUSH PRN PRN Hypoglycemia Protocol Glucagon 1 mg 08/13/20 16:59 Glucagon For Inj 1 Mg Vial IM PRN PRN Hypoglycemia Protocol Glucose 15 gm 08/13/20 16:59 Glucose Oral Gel 15 Gm Of Glucse In 37.5 Gm Tube PO PRN PRN Hypoglycemia Protocol Dextrose 1,000 mls @ 100 mls/hr 08/13/20 16:59 Dextrose 5% 1,000 Ml IVPB PRN PRN Hypoglycemia Protocol Dextrose 1,000 mls @ 50 mls/hr 08/24/20 10:54 Dextrose 10% IV CONT .Q20H PRN if PN is interrupted Amino Acids/Electrolytes/Dextrose 2,000 mls @ 80 mls/hr 08/24/20 13:00 09/01/20 12:29 Clinimix E 4.25%/5% Solution IV CONT 80 mls/hr .Q24H ATUL Administration Protocol Fat Emulsion Intravenous 250 mls @ 20.833 mls/hr 08/24/20 13:00 09/01/20 12:30 Lipids 20% IVPB 20.8 mls/hr Q24H ATUL Administration Vancomycin HCl 1,500 mg in 500 mls @ 333.333 mls/hr
[2020-09-01 17:38] LABS: Glucose Point of Care 113 (65-105)
--- NOTE | 2020-09-01 17:58 | PM.IMPN ---
Progress Note: A&P Assessment and Plan (1) Failure to thrive: Qualifiers: Failure to thrive age range: in adult Qualified Code(s): R62.7 - Adult failure to thrive Status: Acute Assessment and Plan: -Doing well on clinimax eating food also (2) Bacteremia: Code(s): R78.81 - Bacteremia Status: Acute Assessment and Plan: -MRSA bacteremia, continue iv vancomycin -infectious disease Dr. Rahman following Cxr shows pulmonary edema + pneumonia 09/01/20 17:58 Patient is 75-year-old male with history of non-Hodgkin lymphoma followed by oncologist at [facility], Initially patient was seen at [facility] for acute mental status change patient was not able to get MRI of the hospital therefore patient was transferred to [facility], upon arrival he had a fever tachycardia tachypnea and he appears septic and unresponsive, patient was seen by Dr. Rahman patient was found to have MRSA bacteremia and being treated with vancomycin and Dr. rahman is recommending for 28 days to complete the course on September 01, patient is off steroid, patient is on Clinimix for nutrition as he had pulled off Dobbhoff twice, once clinically stable will consult GI for PEG. Currently patient unable to provide any review of symptoms or history, he is quite somnolent he will complete his vancomycin today, patient is expressing desire to consult hospice, personal care aid is in contact with the family, the planning to have a family meeting on Saturday and further recommendation to follow. Family is aware the patient will need 24 hour care at home or he may go to residential. (3) Cardiomyopathy: Qualifiers: Cardiomyopathy type: unspecified Qualified Code(s): I42.9 - Cardiomyopathy, unspecified Code(s): I42.9 - Cardiomyopathy, unspecified Status: Acute Assessment and Plan: Stable (4) Arrhythmia, ventricular: Code(s): I49.9 - Cardiac arrhythmia, unspecified Status: Acute Assessment and Plan: Patient is rate controlled on metoprolol, Cardiology following (5) Acute encephalopathy: Code(s): G93.40 - Encephalopathy, unspecified Status: Resolved Assessment and Plan: resolved after almost 4 weeks, much improvement today. (6) Neutropenia: Qualifiers: Neutropenia type: secondary to cancer chemotherapy Qualified Code(s): D70.1 - Agranulocytosis secondary to cancer chemotherapy; T45.1X5A - Adverse effect of antineoplastic and immunosuppressive drugs, initial encounter Code(s): D70.9 - Neutropenia, unspecified Status: Acute Assessment and Plan: wcc is 1.7 -neutropenic from Hodgkin's lymphoma, Dr Davis is consulted -CT head, MRI brain, EEG negative (7) Non-Hodgkin lymphoma in remission: Code(s): C85.90 - Non-Hodgkin lymphoma, unspecified, unspecified site Status: Acute Assessment and Plan: in remission. Plan for bone marrow biopsy when stable however with clinical deterioration hospice may be adviced. -vancomycin for MRSA bacteremia, blood cultures repeated 08/17/2020 no growth to date, will continue for 2 weeks after last negative blood culture which would be 09/01/2020, discussed with Dr. Rahman infectious disease accounting consultant -Tylenol for fever p.r.n. (8) Acute gouty arthritis: Code(s): M10.9 - Gout, unspecified Status: Acute Assessment and Plan: Completed steroid course (9) Osteoarthritis involving multiple joints on both sides of body: Code(s): M15.9 - Polyosteoarthritis, unspecified Status: Acute Assessment and Plan: Pain control with liquid [place], IV morphine p.r.n. Subjective Date/time seen: 09/01/20 17:58 Patient is 75-year-old male with history of non-Hodgkin lymphoma followed by oncologist at [facility], Initially patient was seen at [facility] for acute mental status change patient was not able to get MRI
[2020-09-01 20:17] LABS: Glucose Point of Care 117 (65-105)
--- NOTE | 2020-09-01 23:27 | PCRCNOTE ---
Window of time for administration has passed. See next scheduled administration.
[2020-09-01 23:28] LABS: Glucose Point of Care 103 (65-105)
[2020-09-02] VITALS (12 sets, daily range): BP systolic 114–127; BP diastolic 63–71; PULSE 64–94; RESP 18–38; TEMP 36.4–37.2; O2SAT 87–98
[2020-09-02] MEDS: Acetaminophen/HYDROcodone ELIXIR (*CRX) 7.5 MG/15 ML UDC 5 MG PO ×3 (01:37→20:39)
[2020-09-02] MEDS: ALBUTEROL SULFATE NEB 2.5 MG/0.5 ML INH 5 MG INHALATION ×2 (04:39→22:08)
[2020-09-02] MEDS: CIPROFLOXACIN HCL 0.3% OP SOLN 2.5 ML BTL 1 DROP EACH EYE ×5 (05:29→20:39)
[2020-09-02 05:41] LABS: Basophils Percent Auto 0.9 % (0.2-1.2); Eosinophils Absolute Auto 0.4 K/mm3 (0-0.3); Eosinophils Percent Auto 15.6 % (0-4.4); Hematocrit 24.8 % (42.0-52.0); Hemoglobin 7.8 g/dL (14.0-18.0); Immature Granulocyte Absolute 0.12 K/mm3 (0.00-0.031); Immature Granulocyte Percent A 5.3 % (0-0.5); Lymphocytes Absolute Auto 0.15 K/mm3 (0.9-3.2); Lymphocytes Percent Auto 6.7 % (18.3-44.2); Mean Corpuscular HGB Conc 31.5 g/dl (32-36); Mean Corpuscular Hemoglobin 28.7 pg (26-34); Mean Corpuscular Volume 91.2 fl (80-100); Mean Platelet Volume 11.3 fl (7.4-10.4); Monocytes Absolute Auto 0.6 K/mm3 (0.1-0.6); Monocytes Percent Auto 25.3 % (2.6-8.5); Neutrophils Percent Auto 46.2 % (45.5-73.1); Platelet Count Result 316 k/mm3 (150-375); Red Blood Count 2.72 M/mm3 (4.6-6.20); Red Cell Distribution Width 19.3 % (11.5-14.5); White Blood Count 2.3 K/mm3 (4.5-10.0)
[2020-09-02 06:00] LABS: Alanine Aminotransferase 13 U/L (4-50); Albumin Level 2.5 g/dL (3.5-5.1); Alkaline Phosphatase 304 U/L (38-126); Anion Gap 4 mmol/L (8-16); Aspartate Amino Transferase 23 U/L (17-59); Bilirubin,Total 2.2 mg/dL (0.2-1.3); Blood Urea Nitrogen 28 mg/dL (9-20); Calcium 8.8 mg/dL (8.4-10.2); Carbon Dioxide 29 mmol/L (22-30); Chloride 97 mmol/L (98-107); Estimated CRCL calculation 84 ml/min; Estimated Glomerular Filt Rate > 60; Glucose 100 mg/dL (75-110); Potassium 4.3 mmol/L (3.4-5.0); Sodium 130 mmol/L (137-145)
[2020-09-02 06:26] LABS: Hypochromasia 1+ (NORMAL); Platelet Estimate Adequate (Adequate)
[2020-09-02 06:27] LABS: Acanthocytes 1+ (NORMAL); Ovalocytes 1+ (NORMAL); Poikilocytosis 1+ (NORMAL); Tear Drop Cells 1+ (NORMAL)
[2020-09-02 08:28] LABS: Glucose Point of Care 104 (65-105)
[2020-09-02] MEDS: METOPROLOL TARTRATE 25 MG TABLET PO ×2 (09:07→20:39)
[2020-09-02] MEDS: PANTOPRAZOLE SODIUM IV 40 MG VIAL IV PUSH (09:07)
[2020-09-02 09:43] LABS: Triglycerides 87 mg/dL (<150)
--- NOTE | 2020-09-02 10:24 | PCRCNOTE ---
Window of time for administration has passed. See next scheduled administration.
[2020-09-02 11:13] LABS: Triglycerides 87 mg/dL (<150)
[2020-09-02 11:58] LABS: Glucose Point of Care 112 (65-105)
--- NOTE | 2020-09-02 13:15 | PCNFU ---
Nutrition Follow-Up Complete: Inadequate oral intake related to altered mental status as evidence by 0% intake over the last five days Goal: Total intake will meet estimated nutrition needs Limiting progress towards goal. We will continue current goal. Pt current nutrition is Heart healthy/minced and moist level 5/Moderately, Thick level 3 with PPN. Nutrition recommendation: Enteral nutrition more appropriate if pt would maintain Dobbhoff or become more appropriate for Gtube. If unable, recommend continued encouraged for PO intake with more intermediate project manager nutrition via TPN -Clinimix 5/15 at 80 ml/hr with 250 ml Lipid Emulsion which will provide 1863 kcals and 96 gms protein. Last recorded weight is 110.6 kg up from 108.9 kg. Bowel Motility:+BM reported 08/30 Labs Reviewed:BUN 28,Na 130,Hct 24.8,Hgb 17.8 Meds Noted:Protonix,Lopressor, Clinimix 4.25/5 at 80 ml/hr with 250 ml of 20% Lipid Emulsion. Additional Notes: Nutrition follow up. Spoke with nursing and Dr. Kearns today regarding patient nutritional status. Patient ate bites of applesauce today. PPN continues at this time providing 1153 kcals and 82 gms protein, providing 53% of patients caloric needs. Antibiotics have been completed. Monitoring: Nutrition initiation via diet or alternative nutrition source (PPN/EN), weight, labs every Saturday and Saturday.
[2020-09-02] MEDS: AMINO ACIDS 4.25%/D5W/LYTES/CA 2,000 ML 80 ML IV CONT (13:22)
[2020-09-02] MEDS: FAT EMULSIONS IV 20% 250 ML 20.8 ML IVPB (13:22)
--- NOTE | 2020-09-02 15:34 | PCRCNOTE ---
Window of time for administration has passed. See next scheduled administration.
--- NOTE | 2020-09-02 16:15 | WPDINFPN2 ---
Progress Note: A&P Assessment and Plan (1) Bacteremia: Code(s): R78.81 - Bacteremia Status: Acute Assessment and Plan: 1. MRSA bacteremia with infection, lung vs skin source. Repeat BCs ng final 2. Fever due to #1, abating 3. Encephalopathy 4. Recent gout. 5. Lymphoma/neutropenia, bone marrow shows no tumor (non-final results). REC Off Vanc (28 days) and stable, hospice planned, so no further evaluation. will sign off thanks. Subjective Date/time seen: 09/02/20 16:15 Interval history: confused Exam Narrative: Exam Narrative: t max 37.7. Not tachypneic Const: General: no acute distress Resp: Effort & Inspection: normal respiratory effort Auscultation: clear to auscultation bilaterally and lung sounds not diminished GI: GI Palp: Yes Soft to palpation and No Tenderness to palpation present (GI) Objective Data Vital Signs Vital Signs: Vital Signs - 24 hr 09/01/20 19:56 09/01/20 20:00 09/02/20 04:40 Temperature 36.2 C L Pulse Rate 82 82 82 Respiratory Rate 24 H 20 Blood Pressure 138/75 Pulse Oximetry 95 09/02/20 04:50 09/02/20 08:00 09/02/20 09:07 Temperature 36.6 C Pulse Rate 83 90 64 Respiratory Rate 20 18 Blood Pressure 114/71 Pulse Oximetry 93 09/02/20 09:15 Temperature Pulse Rate Respiratory Rate Blood Pressure Pulse Oximetry 87 L Intake/Output Intake/Output: Intake & Output 08/30/20 08/31/20 09/01/20 09/02/20 23:59 23:59 23:59 23:59 Intake Total 3170 3250 2490 2325 Output Total 900 089 058 6847 Balance 2270 2500 1690 875 Meds/Results Medications: Active Medications Generic Name Dose Route Start Last Admin Trade Name Freq PRN Reason Stop Dose Admin Acetaminophen 650 mg 08/05/20 20:35 08/25/20 09:57 Acetaminophen 650 Mg Suppository RECTAL 650 mg Q6H PRN Administration Mild Pain (1-3) or Fever Hydrocodone Bitart/Acetaminophen 5 mg 08/09/20 18:47 09/02/20 13:17 Acetaminophen/Hydrocodone Elixir (*Crx) 7.5 Mg/15 Ml Udc PO 5 mg Q6H PRN Administration Pain Rated 4-6 Albuterol 2 puff 08/05/20 20:35 Albuterol Sulfate (*Sp) Aerosol 1 Puff INHALATION QIDRT PRN Shortness Of Breath Albuterol 5 mg 08/08/20 20:00 09/02/20 15:34 Albuterol Sulfate Neb 2.5 Mg/0.5 Ml Inh INHALATION Not Given Q6HRT [facility] Apixaban 5 mg 08/20/20 17:00 08/21/20 09:57 Apixaban 5 Mg Tablet PO 5 mg BID ATUL Administration Ciprofloxacin 1 drop 08/29/20 17:00 09/02/20 13:23 Ciprofloxacin Hcl 0.3% Op Soln 2.5 Ml Btl EACH EYE 1 drop Q4HWA ATUL Administration Dextrose 12.5 gm 08/13/20 16:59 Dextrose 50% 25 Gm/50 Ml Syringe IV PUSH PRN PRN Hypoglycemia Protocol Glucagon 1 mg 08/13/20 16:59 Glucagon For Inj 1 Mg Vial IM PRN PRN Hypoglycemia Protocol Glucose 15 gm 08/13/20 16:59 Glucose Oral Gel 15 Gm Of Glucse In 37.5 Gm Tube PO PRN PRN Hypoglycemia Protocol Dextrose 1,000 mls @ 100 mls/hr 08/13/20 16:59 Dextrose 5% 1,000 Ml IVPB PRN PRN Hypoglycemia Protocol Dextrose 1,000 mls @ 50 mls/hr 08/24/20 10:54 Dextrose 10% IV CONT .Q20H PRN if PN is interrupted Amino Acids/Electrolytes/Dextrose 2,000 mls @ 80 mls/hr 08/24/20 13:00 09/02/20 13:22 Clinimix E 4.25%/5% Solution IV CONT 80 mls/hr .Q24H ATUL Administration Protocol Fat Emulsion Intravenous 250 mls @ 20.833 mls/hr 08/24/20 13:00 09/02/20 13:22 Lipids 20% IVPB 20.8 mls/hr Q24H ATUL Administration Insulin Aspart 2 - 5 units 08/24/20 12:00 09/02/20 12:06 Insulin Aspart (*Bkc) 100 Units/Ml SUB-Q Not Given Q6HR [facility] Protocol Lidocaine 2 patch 08/09/20 16:23 08/30/20 10:11 Lidocaine 5% Patch TOPICAL 2 patch QAM PRN Administration Pain Metoprolol Tartrate 25 mg 08/16/20 21:00 09/02/20 09:07 Metoprolol Tartrate 25 Mg Tablet PO 25 mg Q12HR ATUL Administration Pantoprazole Sodium 40 mg
[2020-09-02 17:59] LABS: Glucose Point of Care 107 (65-105)
--- NOTE | 2020-09-02 18:28 | PM.IMPN ---
Progress Note: A&P Assessment and Plan (1) Failure to thrive: Qualifiers: Failure to thrive age range: in adult Qualified Code(s): R62.7 - Adult failure to thrive Status: Acute Assessment and Plan: -Doing well on clinimax eating food also (2) Bacteremia: Code(s): R78.81 - Bacteremia Status: Acute Assessment and Plan: -MRSA bacteremia, continue iv vancomycin -infectious disease Dr. Rahman following Cxr shows pulmonary edema + pneumonia 09/02/20 18:28 Patient is 75-year-old male with history of non-Hodgkin lymphoma followed by oncologist at [facility], Initially patient was seen at [facility] for acute mental status change patient was not able to get MRI of the hospital therefore patient was transferred to [facility], upon arrival he had a fever tachycardia tachypnea and he appears septic and unresponsive, patient was seen by Dr. Rahman patient was found to have MRSA bacteremia and being treated with vancomycin and Dr. rahman is recommending for 28 days to complete the course on September 01, patient is off steroid, patient is on Clinimix for nutrition as he had pulled off [place] twice, once clinically stable will consult GI for PEG. Currently patient unable to provide any review of symptoms or history, he is quite somnolent his in pain, he completed his vancomycin on 09/01, patient is expressing desire to consult hospice, health care aide is in contact with the family, the planning to have a family meeting on Monday 09/03 and further recommendation to follow. Family is aware the patient will need 24 hour care at home or he may go to custodial. (3) Cardiomyopathy: Qualifiers: Cardiomyopathy type: unspecified Qualified Code(s): I42.9 - Cardiomyopathy, unspecified Code(s): I42.9 - Cardiomyopathy, unspecified Status: Acute Assessment and Plan: Stable (4) Arrhythmia, ventricular: Code(s): I49.9 - Cardiac arrhythmia, unspecified Status: Acute Assessment and Plan: Patient is rate controlled on metoprolol, Cardiology following (5) Acute encephalopathy: Code(s): G93.40 - Encephalopathy, unspecified Status: Resolved Assessment and Plan: resolved after almost 4 weeks, much improvement today. (6) Neutropenia: Qualifiers: Neutropenia type: secondary to cancer chemotherapy Qualified Code(s): D70.1 - Agranulocytosis secondary to cancer chemotherapy; T45.1X5A - Adverse effect of antineoplastic and immunosuppressive drugs, initial encounter Code(s): D70.9 - Neutropenia, unspecified Status: Acute Assessment and Plan: [facility] is 1.7 -neutropenic from Hodgkin's lymphoma, Dr Davis is consulted -CT head, MRI brain, EEG negative (7) Non-Hodgkin lymphoma in remission: Code(s): C85.90 - Non-Hodgkin lymphoma, unspecified, unspecified site Status: Acute Assessment and Plan: in remission. Plan for bone marrow biopsy when stable however with clinical deterioration hospice may be adviced. -vancomycin for MRSA bacteremia, blood cultures repeated 08/17/2020 no growth to date, will continue for 2 weeks after last negative blood culture which would be 09/01/2020, discussed with Dr. Rahman infectious disease senior energy consultant -Tylenol for fever p.r.n. (8) Acute gouty arthritis: Code(s): M10.9 - Gout, unspecified Status: Acute Assessment and Plan: Completed steroid course (9) Osteoarthritis involving multiple joints on both sides of body: Code(s): M15.9 - Polyosteoarthritis, unspecified Status: Acute Assessment and Plan: Pain control with liquid [place], IV morphine p.r.n. Subjective Date/time seen: 09/02/20 18:28 Patient is 75-year-old male with history of non-Hodgkin lymphoma followed by oncologist at [facility], Initially patient was seen at [facility] for acute mental status change patient was n
[2020-09-03] VITALS (12 sets, daily range): BP systolic 114–128; BP diastolic 73–78; PULSE 67–92; RESP 16–40; TEMP 35.9–36.3; O2SAT 91–94
[2020-09-03] LABS: Glucose Point of Care 118 (65-105)
[2020-09-03] MEDS: ALBUTEROL SULFATE NEB 2.5 MG/0.5 ML INH 5 MG INHALATION ×3 (04:17→19:40)
[2020-09-03] MEDS: Acetaminophen/HYDROcodone ELIXIR (*CRX) 7.5 MG/15 ML UDC 5 MG PO (05:11)
[2020-09-03] MEDS: CIPROFLOXACIN HCL 0.3% OP SOLN 2.5 ML BTL 1 DROP EACH EYE ×5 (05:11→22:47)
[2020-09-03 05:24] LABS: Glucose Point of Care 111 (65-105)
[2020-09-03 06:52] LABS: Basophils Percent Auto 1.2 % (0.2-1.2); Eosinophils Absolute Auto 0.2 K/mm3 (0-0.3); Eosinophils Percent Auto 9.8 % (0-4.4); Hemoglobin 7.9 g/dL (14.0-18.0); Immature Granulocyte Absolute 0.04 K/mm3 (0.00-0.031); Immature Granulocyte Percent A 1.6 % (0-0.5); Lymphocytes Percent Auto 8.2 % (18.3-44.2); Mean Corpuscular HGB Conc 30.4 g/dl (32-36); Mean Corpuscular Hemoglobin 27.7 pg (26-34); Mean Corpuscular Volume 91.2 fl (80-100); Mean Platelet Volume 11.1 fl (7.4-10.4); Monocytes Absolute Auto 0.8 K/mm3 (0.1-0.6); Monocytes Percent Auto 31.4 % (2.6-8.5); Neutrophils Absolute Auto 1.2 K/mm3 (1.3-6.7); Neutrophils Percent Auto 47.8 % (45.5-73.1); Platelet Count Result 324 k/mm3 (150-375); Red Blood Count 2.85 M/mm3 (4.6-6.20); White Blood Count 2.5 K/mm3 (4.5-10.0)
[2020-09-03 07:12] LABS: Alanine Aminotransferase 13 U/L (4-50); Albumin Level 2.7 g/dL (3.5-5.1); Alkaline Phosphatase 282 U/L (38-126); Anion Gap 6 mmol/L (8-16); Aspartate Amino Transferase 22 U/L (17-59); Bilirubin,Total 2.4 mg/dL (0.2-1.3); Blood Urea Nitrogen 30 mg/dL (9-20); Calcium 9.1 mg/dL (8.4-10.2); Carbon Dioxide 28 mmol/L (22-30); Chloride 98 mmol/L (98-107); Estimated CRCL calculation 75 ml/min; Estimated Glomerular Filt Rate > 60; Glucose 128 mg/dL (75-110); Potassium 4.2 mmol/L (3.4-5.0); Sodium 132 mmol/L (137-145)
[2020-09-03] MEDS: METOPROLOL TARTRATE 25 MG TABLET PO ×2 (08:05→21:42)
[2020-09-03] MEDS: PANTOPRAZOLE SODIUM IV 40 MG VIAL IV PUSH (08:06)
[2020-09-03 08:29] LABS: Platelet Estimate Adequate (Adequate)
[2020-09-03 08:30] LABS: Acanthocytes 1+ (NORMAL); Hypochromasia 1+ (NORMAL); Ovalocytes 1+ (NORMAL)
--- NOTE | 2020-09-03 11:40 | PCRCNOTE ---
Window of time for administration has passed. See next scheduled administration.
--- NOTE | 2020-09-03 11:58 | PM.IMPN ---
Progress Note: A&P Assessment and Plan (1) Failure to thrive: Qualifiers: Failure to thrive age range: in adult Qualified Code(s): R62.7 - Adult failure to thrive Status: Acute Assessment and Plan: -Doing well on clinimax eating food also (2) Bacteremia: Code(s): R78.81 - Bacteremia Status: Acute Assessment and Plan: -MRSA bacteremia, continue iv vancomycin -infectious disease Dr. Rahman following Cxr shows pulmonary edema + pneumonia 09/03/20 11:58 Patient is 75-year-old male with history of non-Hodgkin lymphoma followed by oncologist at [facility], Initially patient was seen at [facility] for acute mental status change patient was not able to get MRI of the hospital therefore patient was transferred to [facility], upon arrival he had a fever tachycardia tachypnea and he appears septic and unresponsive, patient was seen by Dr. Rahman patient was found to have MRSA bacteremia and being treated with vancomycin and Dr. rahman is recommending for 28 days to complete the course on September 01, patient is off steroid, patient is on Clinimix for nutrition as he had pulled off Dobb[place] twice, once clinically stable will consult GI for PEG. Currently patient unable to provide any review of symptoms or history, he is quite somnolent his in pain, he completed his vancomycin on 09/01, patient is expressing desire to consult hospice, assurance services manager health care is in contact with the family, the planning to have a family meeting on Monday 09/03 and further recommendation to follow. Today patient is in pain and somnolent, I spoke with the patient's daughter the requesting another 24 hours before making any decision to take the patient home under hospice care or seen the patient to long term, after discussing with the patient's daughter will start hydrocodone for pain management, Family is aware the patient will need 24 hour care at home or he may go to long term. (3) Cardiomyopathy: Qualifiers: Cardiomyopathy type: unspecified Qualified Code(s): I42.9 - Cardiomyopathy, unspecified Code(s): I42.9 - Cardiomyopathy, unspecified Status: Acute Assessment and Plan: Stable (4) Arrhythmia, ventricular: Code(s): I49.9 - Cardiac arrhythmia, unspecified Status: Acute Assessment and Plan: Patient is rate controlled on metoprolol, Cardiology following (5) Acute encephalopathy: Code(s): G93.40 - Encephalopathy, unspecified Status: Resolved Assessment and Plan: resolved after almost 4 weeks, much improvement today. (6) Neutropenia: Qualifiers: Neutropenia type: secondary to cancer chemotherapy Qualified Code(s): D70.1 - Agranulocytosis secondary to cancer chemotherapy; T45.1X5A - Adverse effect of antineoplastic and immunosuppressive drugs, initial encounter Code(s): D70.9 - Neutropenia, unspecified Status: Acute Assessment and Plan: wcc is 1.7 -neutropenic from Hodgkin's lymphoma, Dr Davis is consulted -CT head, MRI brain, EEG negative (7) Non-Hodgkin lymphoma in remission: Code(s): C85.90 - Non-Hodgkin lymphoma, unspecified, unspecified site Status: Acute Assessment and Plan: in remission. Plan for bone marrow biopsy when stable however with clinical deterioration hospice may be adviced. -vancomycin for MRSA bacteremia, blood cultures repeated 08/17/2020 no growth to date, will continue for 2 weeks after last negative blood culture which would be 09/01/2020, discussed with Dr. Rahman infectious disease campaign consultant -Tylenol for fever p.r.n. (8) Acute gouty arthritis: Code(s): M10.9 - Gout, unspecified Status: Acute Assessment and Plan: Completed steroid course (9) Osteoarthritis involving multiple joints on both sides of body: Code(s): M15.9 - Polyosteoarthritis, unspecified Status: Acute Assessment and Plan: Pain
[2020-09-03 12:02] LABS: Glucose Point of Care 107 (65-105)
[2020-09-03] MEDS: AMINO ACIDS 4.25%/D5W/LYTES/CA 2,000 ML 80 ML IV CONT (13:17)
[2020-09-03] MEDS: FAT EMULSIONS IV 20% 250 ML 20.8 ML IVPB (13:18)
[2020-09-03] MEDS: HYDROcodone/acetaminophen (*CRX) 5-325 MG TABLET 1 TAB PO ×2 (13:30→22:46)
[2020-09-03 16:41] LABS: Glucose Point of Care 107 (65-105)
[2020-09-03 23:58] LABS: Glucose Point of Care 101 (65-105)
[2020-09-04] VITALS (10 sets, daily range): BP systolic 98–117; BP diastolic 64–73; PULSE 76–96; RESP 24–45; TEMP 35.7–36.9; O2SAT 90–98
[2020-09-04 05:46] LABS: Glucose Point of Care 102 (65-105)
[2020-09-04 06:29] LABS: Hematocrit 26.7 % (42.0-52.0); Hemoglobin 8.3 g/dL (14.0-18.0); Mean Corpuscular HGB Conc 31.1 g/dl (32-36); Mean Corpuscular Hemoglobin 28.3 pg (26-34); Mean Corpuscular Volume 91.1 fl (80-100); Mean Platelet Volume 11.1 fl (7.4-10.4); Platelet Count Result 342 k/mm3 (150-375); Red Blood Count 2.93 M/mm3 (4.6-6.20); White Blood Count 2.5 K/mm3 (4.5-10.0)
[2020-09-04 06:48] LABS: Alanine Aminotransferase 13 U/L (4-50); Albumin Level 2.9 g/dL (3.5-5.1); Alkaline Phosphatase 273 U/L (38-126); Anion Gap 6 mmol/L (8-16); Aspartate Amino Transferase 24 U/L (17-59); Bilirubin,Total 2.8 mg/dL (0.2-1.3); Blood Urea Nitrogen 32 mg/dL (9-20); Calcium 9.3 mg/dL (8.4-10.2); Carbon Dioxide 28 mmol/L (22-30); Chloride 98 mmol/L (98-107); Estimated CRCL calculation 84 ml/min; Estimated Glomerular Filt Rate > 60; Glucose 103 mg/dL (75-110); Potassium 4.4 mmol/L (3.4-5.0); Sodium 132 mmol/L (137-145)
[2020-09-04] MEDS: PANTOPRAZOLE SODIUM IV 40 MG VIAL IV PUSH (08:07)
[2020-09-04] MEDS: CIPROFLOXACIN HCL 0.3% OP SOLN 2.5 ML BTL 1 DROP EACH EYE ×3 (08:07→20:31)
[2020-09-04 08:17] LABS: Triglycerides 94 mg/dL (<150)
[2020-09-04 09:27] LABS: Band Neutrophils Percent 10 % (0-6); Basophils Absolute Manual 0.02 K/mm3 (0.0-0.1); Basophils Percent Manual 1 % (0-1); Eosinophils Percent Manual 8 % (0-4); Lymphocytes Absolute Manual 0.22 K/mm3 (1.1-4.5); Metamyelocytes Percent 1 %; Monocytes Absolute Manual 0.35 K/mm3 (0.1-0.90); Monocytes Percent Manual 14 % (3-9); Neutrophils Absolute Manual 1.67 K/mm3 (1.3-6.7); Neutrophils Percent Manual 57 % (46-73); Ovalocytes 1+ (NORMAL); Platelet Estimate Adequate (Adequate); Total Cells Counted 100
[2020-09-04 09:28] LABS: Acanthocytes 1+ (NORMAL); Hypochromasia 1+ (NORMAL)
[2020-09-04] MEDS: HYDROcodone/acetaminophen (*CRX) 5-325 MG TABLET 1 TAB PO ×2 (10:49→20:31)
[2020-09-04 11:47] LABS: Glucose Point of Care 95 (65-105)
--- NOTE | 2020-09-04 12:08 | PCRCNOTE ---
Window of time for administration has passed. See next scheduled administration.
[2020-09-04 12:15] LABS: Triglycerides 90 mg/dL (<150)
[2020-09-04] MEDS: ALBUTEROL SULFATE NEB 2.5 MG/0.5 ML INH 5 MG INHALATION ×2 (13:53→21:50)
[2020-09-04] MEDS: FAT EMULSIONS IV 20% 250 ML 20.8 ML IVPB (15:11)
[2020-09-04] MEDS: AMINO ACIDS 4.25%/D5W/LYTES/CA 2,000 ML 80 ML IV CONT (15:12)
--- NOTE | 2020-09-04 15:38 | PM.IMPN ---
Progress Note: A&P Assessment and Plan (1) Failure to thrive: Qualifiers: Failure to thrive age range: in adult Qualified Code(s): R62.7 - Adult failure to thrive Status: Acute Assessment and Plan: -Doing well on clinimax eating food also (2) Bacteremia: Code(s): R78.81 - Bacteremia Status: Acute Assessment and Plan: -MRSA bacteremia, continue iv vancomycin -infectious disease Dr. Rahman following Cxr shows pulmonary edema + pneumonia 09/04/20 15:38 Patient is 75-year-old male with history of non-Hodgkin lymphoma followed by oncologist at [facility], Initially patient was seen at [facility] for acute mental status change patient was not able to get MRI of the hospital therefore patient was transferred to [facility], upon arrival he had a fever tachycardia tachypnea and he appears septic and unresponsive, patient was seen by Dr. Rahman patient was found to have MRSA bacteremia and being treated with vancomycin and Dr. rahman is recommending for 28 days to complete the course on September 01, patient is off steroid, patient is on Clinimix for nutrition as he had pulled off Dobbhoff twice, once clinically stable will consult GI for PEG. Currently patient unable to provide any review of symptoms or history, he is quite somnolent his in pain, he completed his vancomycin on 09/01, patient is expressing desire to consult hospice, congregational care pastor is in contact with the family, the planning to have a family meeting on Monday 09/03 and further recommendation to follow. Today patient is in pain and somnolent, I spoke with the patient's daughter the requesting another 24 hours before making any decision to take the patient home under hospice care or seen the patient to assisted, after discussing with the patient's daughter will start hydrocodone for pain management, Family is aware the patient will need 24 hour care at home or he may go to assisted. Today patient daughter is present in the room unable to discharge to take the patient home, place the patient under hospice care or sent the patient to assisted, it has been very difficult for the family to decide family has spoken with hospice leaning more towards hospice will discuss tomorrow with congregational care pastor and further recommendation to follow, patient still quite somnolent and in pain unable to provide any review of symptoms (3) Cardiomyopathy: Qualifiers: Cardiomyopathy type: unspecified Qualified Code(s): I42.9 - Cardiomyopathy, unspecified Code(s): I42.9 - Cardiomyopathy, unspecified Status: Acute Assessment and Plan: Stable (4) Arrhythmia, ventricular: Code(s): I49.9 - Cardiac arrhythmia, unspecified Status: Acute Assessment and Plan: Patient is rate controlled on metoprolol, Cardiology following (5) Acute encephalopathy: Code(s): G93.40 - Encephalopathy, unspecified Status: Resolved Assessment and Plan: resolved after almost 4 weeks, much improvement today. (6) Neutropenia: Qualifiers: Neutropenia type: secondary to cancer chemotherapy Qualified Code(s): D70.1 - Agranulocytosis secondary to cancer chemotherapy; T45.1X5A - Adverse effect of antineoplastic and immunosuppressive drugs, initial encounter Code(s): D70.9 - Neutropenia, unspecified Status: Acute Assessment and Plan: wcc is 1.7 -neutropenic from Hodgkin's lymphoma, Dr Davis is consulted -CT head, MRI brain, EEG negative (7) Non-Hodgkin lymphoma in remission: Code(s): C85.90 - Non-Hodgkin lymphoma, unspecified, unspecified site Status: Acute Assessment and Plan: in remission. Plan for bone marrow biopsy when stable however with clinical deterioration hospice may be adviced. -vancomycin for MRSA bacteremia, blood cultures repeated 08/17/2020 no growth to date, will continue for 2 weeks after last negative blood cult
[2020-09-04 16:30] LABS: Glucose Point of Care 98 (65-105)
[2020-09-04] MEDS: METOPROLOL TARTRATE 25 MG TABLET PO (20:31)
[2020-09-04 22:03] LABS: Glucose Point of Care 107 (65-105)
[2020-09-05] VITALS (9 sets, daily range): BP systolic 101–115; BP diastolic 48–68; PULSE 53–86; RESP 23–40; TEMP 36.4–37.1; O2SAT 93–97
[2020-09-05] MEDS: ALBUTEROL SULFATE NEB 2.5 MG/0.5 ML INH 5 MG INHALATION ×2 (03:36→14:54)
[2020-09-05 05:06] LABS: Glucose Point of Care 100 (65-105)
[2020-09-05] MEDS: CIPROFLOXACIN HCL 0.3% OP SOLN 2.5 ML BTL 1 DROP EACH EYE ×3 (05:12→20:46)
[2020-09-05 06:14] LABS: Eosinophils Absolute Auto 0.2 K/mm3 (0-0.3); Eosinophils Percent Auto 10.6 % (0-4.4); Hematocrit 27.5 % (42.0-52.0); Hemoglobin 8.3 g/dL (14.0-18.0); Immature Granulocyte Absolute 0.13 K/mm3 (0.00-0.031); Immature Granulocyte Percent A 6.3 % (0-0.5); Lymphocytes Absolute Auto 0.15 K/mm3 (0.9-3.2); Lymphocytes Percent Auto 7.2 % (18.3-44.2); Mean Corpuscular HGB Conc 30.2 g/dl (32-36); Mean Corpuscular Hemoglobin 28.5 pg (26-34); Mean Corpuscular Volume 94.5 fl (80-100); Mean Platelet Volume 11.1 fl (7.4-10.4); Monocytes Absolute Auto 0.8 K/mm3 (0.1-0.6); Monocytes Percent Auto 36.2 % (2.6-8.5); Neutrophils Absolute Auto 0.8 K/mm3 (1.3-6.7); Neutrophils Percent Auto 38.7 % (45.5-73.1); Platelet Count Result 297 k/mm3 (150-375); Red Blood Count 2.91 M/mm3 (4.6-6.20); Red Cell Distribution Width 19.2 % (11.5-14.5); White Blood Count 2.1 K/mm3 (4.5-10.0)
[2020-09-05 06:23] LABS: INR 1.2; Prothrombin Time 15.5 Seconds (11.1-14.7)
[2020-09-05 06:24] LABS: Partial Thromboplastin Time 50.1 SECONDS (22.3-36.8)
[2020-09-05 06:27] LABS: Alanine Aminotransferase 12 U/L (4-50); Albumin Level 2.8 g/dL (3.5-5.1); Alkaline Phosphatase 252 U/L (38-126); Anion Gap 5 mmol/L (8-16); Aspartate Amino Transferase 21 U/L (17-59); Bilirubin,Total 2.3 mg/dL (0.2-1.3); Blood Urea Nitrogen 32 mg/dL (9-20); Calcium 9.1 mg/dL (8.4-10.2); Carbon Dioxide 29 mmol/L (22-30); Chloride 98 mmol/L (98-107); Estimated CRCL calculation 81 ml/min; Estimated Glomerular Filt Rate > 60; Glucose 106 mg/dL (75-110); Potassium 4.2 mmol/L (3.4-5.0); Sodium 132 mmol/L (137-145)
[2020-09-05 06:34] LABS: Transferrin 107 mg/dL (206-381)
[2020-09-05 08:07] LABS: Anisocytosis 1+ (NORMAL); Ovalocytes 1+ (NORMAL); Platelet Estimate Adequate (Adequate)
[2020-09-05] MEDS: PANTOPRAZOLE SODIUM IV 40 MG VIAL IV PUSH (09:14)
[2020-09-05] MEDS: METOPROLOL TARTRATE 25 MG TABLET PO ×2 (09:14→20:46)
--- NOTE | 2020-09-05 10:50 | PCRCNOTE ---
Window of time for administration has passed. See next scheduled administration.
[2020-09-05 11:56] LABS: Glucose Point of Care 102 (65-105)
[2020-09-05] MEDS: AMINO ACIDS 4.25%/D5W/LYTES/CA 2,000 ML 80 ML IV CONT (12:56)
[2020-09-05] MEDS: FAT EMULSIONS IV 20% 250 ML 20.8 ML IVPB (13:56)
[2020-09-05] MEDS: HYDROcodone/acetaminophen (*CRX) 5-325 MG TABLET 1 TAB PO ×2 (14:02→22:04)
--- NOTE | 2020-09-05 16:45 | WPDGIPROGNO ---
Progress Note: A&P Assessment and Plan (1) Malnutrition: Code(s): E46 - Unspecified protein-calorie malnutrition Status: Acute Assessment and Plan: he is hardly eating and he has been on TPN for several days family not ready for hospice and primary team asked me again to consider egd with peg placement. Repeat blood cultures negative and already received iv antibiotics by id recommendation, he is more alert and interacting patient even told me that he used to have g-tube in the past (noted scar in epigastric area) will make plans for possible peg placement tomorrow (2) Failure to thrive: Qualifiers: Failure to thrive age range: in adult Qualified Code(s): R62.7 - Adult failure to thrive Status: Acute Assessment and Plan: he had a prolonged hospitalization almost a month here (3) Neutropenia: Code(s): D70.9 - Neutropenia, unspecified Status: Acute Assessment and Plan: unchanged (4) Bacteremia: Code(s): R78.81 - Bacteremia Status: Acute (5) Acute encephalopathy: Code(s): G93.40 - Encephalopathy, unspecified Status: Resolved Assessment and Plan: mental status waxing (6) Non-Hodgkin lymphoma in remission: Code(s): C85.90 - Non-Hodgkin lymphoma, unspecified, unspecified site Status: Acute Subjective Date/time seen: 09/05/20 16:45 Interval history: I was called again to reassess patient, he has been on TPN for several days now since he has pulled DHT several times and he was sicker to undergo PEG placement. Family is still undecided about how to proceed and not ready for hospice. Review of Systems Review of Systems: All systems reviewed & are unremarkable except as noted in HPI and below Exam Const: General: no acute distress Other: he is talking to family member in phone now HENMT: General nose exam: Normal nares present Eyes: Pupils: Equal, round and reactive pupils present Neck: Neck: supple Resp: Effort & Inspection: normal respiratory effort Auscultation: no crackles Cardio: Rate: regular rate GI: Inspection: non-distended GI Palp: Yes Soft to palpation and No Tenderness to palpation present (GI) Other: healed scar from previous gastrostomy site Skin: General skin exam: normal color Neuro: Cognition (Neuro): abnormal cognition (sometimes gets confused) Speech: normal speech Psych: Affect: Anxious affect present Objective Data Vital Signs Vital Signs: Vital Signs - 24 hr 09/04/20 19:55 09/04/20 20:31 09/04/20 21:51 Temperature 98.1 F Pulse Rate 84 84 76 Respiratory Rate 24 H 26 H Blood Pressure 107/64 Pulse Oximetry 93 96 09/04/20 21:52 09/04/20 22:05 09/05/20 03:34 Temperature Pulse Rate 78 84 82 Respiratory Rate 25 H 25 H 35 H Blood Pressure Pulse Oximetry 93 09/05/20 03:38 09/05/20 03:41 09/05/20 06:00 Temperature 98.8 F Pulse Rate 82 53 L 80 Respiratory Rate 35 H 23 H 24 H Blood Pressure 101/68 Pulse Oximetry 97 09/05/20 09:14 09/05/20 14:30 09/05/20 14:56 Temperature 97.5 F L Pulse Rate 74 86 80 Respiratory Rate 40 H 30 H Blood Pressure 115/48 L Pulse Oximetry 95 Intake/Output Intake/Output: Intake & Output 09/02/20 09/03/20 09/04/20 09/05/20 23:59 23:59 23:59 23:59 Intake Total 2445 2265 1723 2270 Output Total 1450 1750 1050 1100 Balance 995 199 312 0230 Meds/Results Medications: Active Medications Generic Name Dose Route Start Last Admin Trade Name Freq PRN Reason Stop Dose Admin Acetaminophen 650 mg 08/05/20 20:35 08/25/20 09:57 Acetaminophen 650 Mg Suppository RECTAL 650 mg Q6H PRN Administration Mild Pain (1-3) or Fever Hydrocodone Bitart/Acetaminophen 1 tab 09/03/20 11:17 09/05/20 14:02 Hydrocodone/Acetaminophen (*Crx) 5-325 Mg Tablet PO 1 tab Q8H PRN Administration Pain Rated 4-6 Albuterol 2 puff 08/05/20 20:35 Albuterol Sulfate (*Sp) Aerosol 1 Puff INHALATIO
--- NOTE | 2020-09-05 17:24 | PM.IMPN ---
Progress Note: A&P Assessment and Plan (1) Failure to thrive: Qualifiers: Failure to thrive age range: in adult Qualified Code(s): R62.7 - Adult failure to thrive Status: Acute Assessment and Plan: -Doing well on clinimax eating food also (2) Bacteremia: Code(s): R78.81 - Bacteremia Status: Acute Assessment and Plan: -MRSA bacteremia, continue iv vancomycin -infectious disease Dr. Rahman following Cxr shows pulmonary edema + pneumonia 09/05/20 17:24 Patient is 75-year-old male with history of non-Hodgkin lymphoma followed by oncologist at [facility], Initially patient was seen at [facility] for acute mental status change patient was not able to get MRI of the hospital therefore patient was transferred to [facility], upon arrival he had a fever tachycardia tachypnea and he appears septic and unresponsive, patient was seen by Dr. Rahman patient was found to have MRSA bacteremia and being treated with vancomycin and Dr. rahman is recommending for 28 days to complete the course on September 01, patient is off steroid, patient is on Clinimix for nutrition as he had pulled off Dobbhoff twice, once clinically stable will consult GI for PEG. Currently patient unable to provide any review of symptoms or history, he is quite somnolent his in pain, he completed his vancomycin on 09/01, patient is expressing desire to consult hospice, tire care manager is in contact with the family, the planning to have a family meeting on Monday 09/03 and further recommendation to follow. Today patient is in pain and somnolent, I spoke with the patient's daughter the requesting another 24 hours before making any decision to take the patient home under hospice care or seen the patient to halfway, after discussing with the patient's daughter will start hydrocodone for pain management, Family is aware the patient will need 24 hour care at home or he may go to halfway. 09/04 patient daughter was present in the room unable to discharge to take the patient home, or place the patient under hospice care or sent the patient to halfway, it has been very difficult for the family to decide family has spoken with hospice leaning more towards hospice, since receiving peripheral nutrition and patient cannot discharge home, I discussed with the GI and patient is not candidate for PEG as he would not be able to tolerate anesthesia, will continue to monitor family will decide and further recommendation to follow, unfortunately patient is not able to provide any review of symptom (3) Cardiomyopathy: Qualifiers: Cardiomyopathy type: unspecified Qualified Code(s): I42.9 - Cardiomyopathy, unspecified Code(s): I42.9 - Cardiomyopathy, unspecified Status: Acute Assessment and Plan: Stable (4) Arrhythmia, ventricular: Code(s): I49.9 - Cardiac arrhythmia, unspecified Status: Acute Assessment and Plan: Patient is rate controlled on metoprolol, Cardiology following (5) Acute encephalopathy: Code(s): G93.40 - Encephalopathy, unspecified Status: Resolved Assessment and Plan: resolved after almost 4 weeks, much improvement today. (6) Neutropenia: Qualifiers: Neutropenia type: secondary to cancer chemotherapy Qualified Code(s): D70.1 - Agranulocytosis secondary to cancer chemotherapy; T45.1X5A - Adverse effect of antineoplastic and immunosuppressive drugs, initial encounter Code(s): D70.9 - Neutropenia, unspecified Status: Acute Assessment and Plan: wc is 1.7 -neutropenic from Hodgkin's lymphoma, Dr Davis is consulted -CT head, MRI brain, EEG negative (7) Non-Hodgkin lymphoma in remission: Code(s): C85.90 - Non-Hodgkin lymphoma, unspecified, unspecified site Status: Acute Assessment and Plan: in remission. Plan for bone marrow biopsy when stable however with clinical deteriorati
[2020-09-05 17:52] LABS: Glucose Point of Care 100 (65-105)
[2020-09-06] VITALS (22 sets, daily range): BP systolic 96–119; BP diastolic 58–78; PULSE 64–100; RESP 16–48; TEMP 36.1–36.9; O2SAT 92–100
--- NOTE | 2020-09-06 01:27 | PCRCNOTE ---
Window of time for administration has passed. See next scheduled administration.
[2020-09-06] MEDS: ALBUTEROL SULFATE NEB 2.5 MG/0.5 ML INH 5 MG INHALATION ×4 (03:22→21:13)
[2020-09-06] MEDS: CIPROFLOXACIN HCL 0.3% OP SOLN 2.5 ML BTL 1 DROP EACH EYE ×3 (06:02→22:30)
[2020-09-06 06:18] LABS: Glucose Point of Care 103 (65-105)
[2020-09-06 06:18] LABS: Glucose Point of Care 103 (65-105)
--- NOTE | 2020-09-06 08:15 | PM.IMPN ---
Progress Note: A&P Assessment and Plan (1) Malnutrition: Code(s): E46 - Unspecified protein-calorie malnutrition Status: Acute Assessment and Plan: S/p PEG tube placement Will start tube feedings. Appreciate GI note. (2) Neutropenia: Code(s): D70.9 - Neutropenia, unspecified Status: Acute Assessment and Plan: Chronic in nature Continue to monitor (3) Back pain: Code(s): M54.9 - Dorsalgia, unspecified Status: Acute Assessment and Plan: Continue pain meds Continue to monitor (4) Failure to thrive: Qualifiers: Failure to thrive age range: in adult Qualified Code(s): R62.7 - Adult failure to thrive Status: Acute Assessment and Plan: Supportive care Family leaning towards Hospice. Will continue discussions as case evolves. (5) Cardiomyopathy: Qualifiers: Cardiomyopathy type: unspecified Qualified Code(s): I42.9 - Cardiomyopathy, unspecified Code(s): I42.9 - Cardiomyopathy, unspecified Status: Acute Assessment and Plan: Stable Continue to monitor. (6) Arrhythmia, ventricular: Code(s): I49.9 - Cardiac arrhythmia, unspecified Status: Acute Assessment and Plan: On Telemetry Continue to monitor (7) Sepsis with acute hypoxic respiratory failure: Code(s): A41.9 - Sepsis, unspecified organism; R65.20 - Severe sepsis without septic shock; J96.01 - Acute respiratory failure with hypoxia Status: Acute Assessment and Plan: Still on Vanc Repeat Blood cx negative so far Appreciate ID note. (8) Bacteremia: Code(s): R78.81 - Bacteremia Status: Acute Assessment and Plan: Negative repeat blood cx. Vanc currently (9) Acute encephalopathy: Code(s): G93.40 - Encephalopathy, unspecified Status: Resolved Assessment and Plan: Improved greatly (10) Non-Hodgkin lymphoma in remission: Code(s): C85.90 - Non-Hodgkin lymphoma, unspecified, unspecified site Status: Acute Assessment and Plan: Follow up in the outpatient setting. (11) Acute gouty arthritis: Code(s): M10.9 - Gout, unspecified Status: Acute Assessment and Plan: Resolved. Subjective Date/time seen: 09/06/20 08:15 Patient states that he was told he was going home today. Review of Systems Review of Systems: Narrative: Unable to obtain as patient delirious, with lucid periods in between. Exam Narrative: Exam Narrative: Lying in bed. Const: General: no acute distress, alert, awake and other (Chronically ill looking.) Nutritional Appearance: overweight Limitations: altered mental status HENMT: Head: normal to inspection and normocephalic Ears: hearing grossly normal bilaterally General nose exam: Normal external nose present Face and sinus: normal facial exam Mouth: Yes Normal oral and palatal mucosa present Eyes: General: appearance normal, both eyes and all related structures Pupils: Equal, round and reactive pupils present EOM: EOMs intact bilaterally Neck: Neck: normal visual inspection, full ROM, no lymphadenopathy and no JVD Lymphatic: no lymphadenopathy noted Resp: Effort & Inspection: normal respiratory effort Auscultation: clear to auscultation bilaterally Cardio: Rate: regular rate Rhythm: regular rhythm GI: Inspection: normal to inspection GI Palp: Yes Soft to palpation and Yes No hepatosplenomegaly present Skin: General skin exam: normal color Lesions: no lesions Rashes: no rashes Wounds: no wounds Neuro: General: oriented to person, no focal motor deficits and CN's II-XI intact bilaterally Cranial nerves: Yes CN's II-XII intact bilaterally and Yes Equal, round and reactive pupils present Cognition (Neuro): abnormal cognition (Delirious with luicd intervals) Speech: normal speech Motor exam (neuro): 5/5 motor strength present throughout Extrem: General: normal to inspection, full ROM and no pedal edema O
[2020-09-06 09:19] LABS: Triglycerides 67 mg/dL (<150)
[2020-09-06] MEDS: METOPROLOL TARTRATE 25 MG TABLET PO ×2 (09:32→22:30)
[2020-09-06] MEDS: PANTOPRAZOLE SODIUM IV 40 MG VIAL IV PUSH (09:33)
[2020-09-06] MEDS: LIDOCAINE 5% PATCH 2 PATCH TOPICAL (09:45)
[2020-09-06] MEDS: ACETAMINOPHEN 650 MG SUPPOSITORY RECTAL (09:46)
[2020-09-06] MEDS: LACTATED RINGERS 1,000 ML 150 ML IV CONT (10:29)
[2020-09-06 10:38] LABS: Glucose Point of Care 97 (65-105)
--- NOTE | 2020-09-06 10:40 | WPDANESEPPF ---
Anes - Initial Pre Proc Eval Procedure: Operation Date: 08/24/20 07:30 Proposed Procedures p Esophagogastroduodenoscopy - Cristobal Castañeda MD s Percutaneous Endoscopic Gastrostomy - Cristobal Castañeda MD Operation Date: 08/29/20 11:00 Proposed Procedures p Bone Aspiration + Biopsy - Syed Ortiz MD Operation Date: 09/06/20 14:15 Proposed Procedures p Percutaneous Endoscopic Gastrostomy - Cristobal Castañeda MD Date/Time: 09/06/20 10:40 Surgeon: Cipriano Padilla DO Pre Op Diagnosis: Altered Mental Status Patient Data Age: 75 Gender: M Height: 5 ft 7 in Weight: 104.6 kg Last Vital Signs Temp 36.9 C 09/06/20 10:26 Pulse 86 09/06/20 10:26 Resp 36 H 09/06/20 10:26 BP 115/68 09/06/20 10:26 Pulse Ox 96 09/06/20 10:26 Allergies Allergy/AdvReac Type Severity Reaction Status Date / Time Penicillins AdvReac Unknown Unknown Verified 09/06/20 10:21 Home Medications Medication Instructions Recorded Confirmed Type acetaminophen 650 mg PO PRN PRN 07/14/19 08/05/20 History cholecalciferol (vitamin D3) 1,000 unit PO DAILY 07/14/19 08/05/20 History cyanocobalamin (vitamin B-12) 1,000 mcg PO DAILY 07/14/19 08/05/20 History ferrous sulfate 325 mg (65 mg 325 mg PO DAILY tablet 08/03/19 08/05/20 History iron) tablet magnesium oxide 400 mg (241.3 mg 400 mg PO DAILY 08/03/19 08/05/20 History magnesium) tablet atorvastatin 40 mg tablet 40 mg PO DAILY #90 tablet 11/19/19 08/05/20 Rx diltiazem HCl 120 mg 120 mg PO DAILY #90 cap 03/01/20 08/05/20 Rx capsule,extended release 24 hr clotrimazole-betamethasone 1 applic TOPICAL BID PRN 04/20/20 08/05/20 History [Lotrisone] finasteride 5 mg tablet 5 mg PO DAILY #90 tablet 05/05/20 08/05/20 Rx Lubriderm Daily Moisture 1 ea TOPICAL QAM #89 ml 05/25/20 08/05/20 Rx spironolactone 25 mg PO HS #30 tablet 05/25/20 08/05/20 Rx allopurinol 100 mg tablet 200 mg PO DAILY #180 tablet 05/31/20 08/05/20 Rx furosemide 20 mg PO BID 06/06/20 08/05/20 History omeprazole 20 mg capsule,delayed 20 mg PO DAILY #90 cap 06/14/20 08/05/20 Rx release isosorbide mononitrate 60 mg 30 mg PO DAILY #90 tablet 06/28/20 08/05/20 Rx tablet,extended release 24 hr pregabalin 75 mg capsule 75 mg PO TID #270 cap 06/28/20 08/05/20 Rx ropinirole 0.5 mg tablet 0.25 mg PO TID #136 tablet 06/28/20 08/05/20 Rx apixaban 5 mg tablet 5 mg PO BID #180 tablet 06/29/20 08/05/20 Rx potassium chloride 10 mEq 20 meq PO BID #60 tablet 06/30/20 08/05/20 Rx tablet,extended release sertraline 50 mg tablet 50 mg PO DAILY #90 tablet 07/02/20 08/05/20 Rx terazosin 1 mg capsule 1 mg PO HS #90 cap 07/20/20 08/05/20 Rx hydrocodone 5 mg-acetaminophen 325 1 tablet PO Q8H PRN #30 tablet MDD 07/28/20 08/05/20 Rx mg tablet 15mg metolazone 5 mg tablet 5 mg PO DAILY #90 tablet 08/04/20 08/05/20 Rx prednisone 40 mg PO DAILY #12 tablet 08/04/20 08/05/20 Rx Laboratory Tests 09/05/20 09/05/20 09/06/20 11:37 17:50 00:11 POC Capillary Glucose 102 mg/dl mg/dl 100 mg/dl mg/dl 103 mg/dl mg/dl (65-105) (65-105) (65-105) Triglycerides 09/06/20 09/06/20 09/06/20 06:16 08:49 10:35 POC Capillary Glucose 103 mg/dl mg/dl 97 mg/dl mg/dl (65-105) (65-105) Triglycerides 67 mg/dL mg/dL (<150) Patient hx anesthesia problems: none Family hx anesthesia problems: none PMFSH Past Medical History Medical History Angina pectoris, unspecified previous cardiac catheterization with minimal blockage no intervention Anorexia Anxiety Arthritis 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
--- NOTE | 2020-09-06 10:45 | PC.NURSE ---
Pt down to surgery
--- NOTE | 2020-09-06 13:19 | PCNFU ---
Nutrition Follow-Up Complete: Inadequate oral intake related to altered mental status as evidence by 0% intake over the last five days Goal: Total intake will meet estimated nutrition needs Progressing towards goal. We will continue current goal. Pt current nutrition is Jevity 1.2 at 20 ml/hr. Last recorded weight is 104.6 kg, down from 108.9 kg on admit. Bowel Motility:+BM reported 09/04 Labs Reviewed:BUN 32, Na 132,Alb 2.8 Meds Noted:Lopressor, Protonix Additional Notes: Nutrition follow up. PPN has been discontinued. Patient had PEG placed today. Orders for tube feedings to start in 6 hours. Jevity 1.2 at 20 ml/hr. Patient is at high risk for refeeding syndrome. We will introduce tube feeding slowly with a goal rate of 70 ml/hr, providing 1848 kcals and 85 gms protein. Monitoring: tube feeding tolerance, weight, labs daily
[2020-09-06 14:51] LABS: Triglycerides 74 mg/dL (<150)
[2020-09-06 17:08] LABS: Glucose Point of Care 78 (65-105)
[2020-09-07] VITALS (18 sets, daily range): BP systolic 111–124; BP diastolic 63–76; PULSE 80–106; RESP 20–42; TEMP 36.3–36.6; O2SAT 89–97
[2020-09-07 01:06] LABS: Glucose Point of Care 67 (65-105)
[2020-09-07] MEDS: GLUCAGON FOR INJ 1 MG VIAL IM (01:50)
[2020-09-07] MEDS: ALBUTEROL SULFATE NEB 2.5 MG/0.5 ML INH 5 MG INHALATION ×4 (02:23→19:06)
[2020-09-07 02:38] LABS: Glucose Point of Care 91 (65-105)
[2020-09-07] MEDS: CIPROFLOXACIN HCL 0.3% OP SOLN 2.5 ML BTL 1 DROP EACH EYE ×5 (05:59→20:30)
[2020-09-07 06:33] LABS: Glucose Point of Care 81 (65-105)
[2020-09-07] MEDS: PANTOPRAZOLE SODIUM IV 40 MG VIAL IV PUSH (09:30)
[2020-09-07] MEDS: METOPROLOL TARTRATE 25 MG TABLET PO ×2 (09:30→20:30)
--- NOTE | 2020-09-07 10:40 | PCDIET ---
Nutrition follow up. Patient had PEG placed yesterday. Spoke with nursing today, patient is tolerating tube feedings of Jevity 1.2 at 20 ml/hr. Recommend: tube feedings advance by 10 ml/hr q 6 hours to a goal rate of 40 ml/hr today. Day 2, if tolerating feedings at 40 ml/hr advance to goal rate of 70 ml/hr. RD will continue to monitor daily.
[2020-09-07 12:24] LABS: SARS-CoV-2 RNA PCR Negative
[2020-09-07 12:28] LABS: Glucose Point of Care 107 (65-105)
--- NOTE | 2020-09-07 12:54 | PM.IMPN ---
Progress Note: A&P Assessment and Plan (1) Failure to thrive: Qualifiers: Failure to thrive age range: in adult Qualified Code(s): R62.7 - Adult failure to thrive Status: Acute Assessment and Plan: Supportive care Called daughter today and gave update on father's condition. (2) Nutrition disorder: Code(s): E63.9 - Nutritional deficiency, unspecified Status: Acute Assessment and Plan: S/p PEG tube placement. Feedings ongoing. (3) Cardiomyopathy: Qualifiers: Cardiomyopathy type: unspecified Qualified Code(s): I42.9 - Cardiomyopathy, unspecified Code(s): I42.9 - Cardiomyopathy, unspecified Status: Acute Assessment and Plan: Stable Doesn't appear to be exacerbated. (4) Arrhythmia, ventricular: Code(s): I49.9 - Cardiac arrhythmia, unspecified Status: Acute Assessment and Plan: On Telemetry No new events recorded. (5) Bacteremia: Code(s): R78.81 - Bacteremia Status: Acute Assessment and Plan: Repeat blood cx have been negative. Continue Vanc as per ID (6) Acute encephalopathy: Code(s): G93.40 - Encephalopathy, unspecified Status: Resolved Assessment and Plan: Waxes and wanes. (7) Non-Hodgkin lymphoma in remission: Code(s): C85.90 - Non-Hodgkin lymphoma, unspecified, unspecified site Status: Acute Assessment and Plan: On remission. Subjective Date/time seen: 09/07/20 12:54 Patient states that he is doing well. Review of Systems Review of Systems: Narrative: Unable to get as patient is delirious. Exam Narrative: Exam Narrative: Lying in bed. Const: General: cooperative, comfortable and other Nutritional Appearance: overweight Orientation/consciousness: oriented to person, oriented to place and Other orientation findings (Delirious.) HENMT: Head: normal to inspection and normocephalic General nose exam: Normal external nose present Face and sinus: normal facial exam Eyes: General: appearance normal, both eyes and all related structures Pupils: Equal, round and reactive pupils present EOM: EOMs intact bilaterally Neck: Neck: no lymphadenopathy, supple and no JVD Resp: Effort & Inspection: normal respiratory effort Auscultation: clear to auscultation bilaterally Cardio: Jugular venous distension: no JVD Rate: regular rate Rhythm: regular rhythm GI: Inspection: normal to inspection GI Palp: Yes Soft to palpation and Yes No hepatosplenomegaly present Skin: General skin exam: normal color Lesions: no lesions Rashes: no rashes Neuro: General: oriented to person, oriented to place and CN's II-XI intact bilaterally Cranial nerves: Yes CN's II-XII intact bilaterally and Yes Equal, round and reactive pupils present Cognition (Neuro): abnormal cognition (Delirious, waxes and wanes.) Motor exam (neuro): 5/5 motor strength present throughout Extrem: General: full ROM, no joint enlargement and no pedal edema Objective Data Vital Signs Vital Signs: Vital Signs - 24 hr 09/06/20 12:55 09/06/20 13:05 09/06/20 13:30 Temperature 97.2 F L Pulse Rate 82 86 82 Respiratory Rate 47 H 33 H 26 H Blood Pressure 102/71 103/72 103/68 Pulse Oximetry 94 97 98 09/06/20 13:45 09/06/20 14:15 09/06/20 14:46 Temperature 97.0 F L 97.1 F L Pulse Rate 83 80 99 Respiratory Rate 24 H 16 20 Blood Pressure 108/63 105/73 Pulse Oximetry 97 97 09/06/20 14:56 09/06/20 15:13 09/06/20 20:26 Temperature 98.0 F 98.2 F Pulse Rate 94 83 94 Respiratory Rate 20 20 16 Blood Pressure 106/61 118/78 Pulse Oximetry 100 99 09/06/20 21:14 09/06/20 21:24 09/06/20 22:15 Temperature Pulse Rate 100 100 Respiratory Rate 20 26 H Blood Pressure Pulse Oximetry 92 92 09/06/20 22:30 09/07/20 02:24 09/07/20 02:34 Temperature Pulse Rate 100 98 97 Respiratory Rate 20 20 Blood Pressure Pulse Oximetry 09/07/20 06:32 09/07/20 07:40 09/07
--- NOTE | 2020-09-07 14:05 | WPDANESPN ---
Anes - Prog Note Post-Op Date/Time: 09/07/20 14:06 Cardiovascular status: normal Respiratory status: normal Airway patency: baseline Mental status: baseline (Oriented to person) Post-Op hydration status: normal Vital Signs: Last Vital Signs Temp 36.6 C 09/07/20 06:32 Pulse 106 H 09/07/20 13:44 Resp 26 H 09/07/20 13:44 BP 111/76 09/07/20 06:32 Pulse Ox 89 L 09/07/20 09:30 Pain Score (VAS): 0/10. Patient resting in bed at time of assessment. A&O to person at time of assessment, no change from baseline according to RN. No additional issues or concerns addressed by RN at time of assessment. I/O: Intake & Output 09/06/20 09/07/20 09/07/20 23:59 07:59 15:59 Intake Total 178 90 Output Total 300 675 Balance -300 -497 90 Laboratory Tests 09/05/20 05:19 09/05/20 05:19 09/06/20 09/06/20 09/07/20 14:32 17:04 01:02 POC Capillary Glucose 78 67 Triglycerides 74 SARS-CoV-2 RNA (RT-PCR) 09/07/20 09/07/20 09/07/20 02:36 02:57 05:58 POC Capillary Glucose 91 81 Triglycerides SARS-CoV-2 RNA (RT-PCR) Negative 09/07/20 12:23 POC Capillary Glucose 107 Triglycerides SARS-CoV-2 RNA (RT-PCR) Post-procedural complaints: none Patient Feedback: Patient satisfied with anesthetic care.
[2020-09-07 17:48] LABS: Glucose Point of Care 129 (65-105)
[2020-09-08] VITALS (9 sets, daily range): BP systolic 110–142; BP diastolic 74–92; PULSE 55–115; RESP 28–40; TEMP 36.1–38.3; O2SAT 91–95
[2020-09-08 00:48] LABS: Glucose Point of Care 123 (65-105)
[2020-09-08] MEDS: CIPROFLOXACIN HCL 0.3% OP SOLN 2.5 ML BTL 1 DROP EACH EYE (05:19)
[2020-09-08 05:39] LABS: Glucose Point of Care 129 (65-105)
[2020-09-08 06:18] LABS: Alanine Aminotransferase 12 U/L (4-50); Albumin Level 2.8 g/dL (3.5-5.1); Alkaline Phosphatase 315 U/L (38-126); Anion Gap 6 mmol/L (8-16); Aspartate Amino Transferase 25 U/L (17-59); Bilirubin,Total 2.7 mg/dL (0.2-1.3); Blood Urea Nitrogen 36 mg/dL (9-20); Calcium 9.3 mg/dL (8.4-10.2); Carbon Dioxide 29 mmol/L (22-30); Chloride 102 mmol/L (98-107); Estimated CRCL calculation 71 ml/min; Estimated Glomerular Filt Rate > 60; Glucose 121 mg/dL (75-110); Magnesium 2.1 mg/dL (1.6-2.3); Potassium 4.3 mmol/L (3.4-5.0); Sodium 137 mmol/L (137-145)
[2020-09-08 06:43] LABS: Eosinophils Percent Auto 1.5 % (0-4.4); Hematocrit 26.3 % (42.0-52.0); Immature Granulocyte Absolute 0.16 K/mm3 (0.00-0.031); Immature Granulocyte Percent A 8.2 % (0-0.5); Lymphocytes Absolute Auto 0.18 K/mm3 (0.9-3.2); Lymphocytes Percent Auto 9.2 % (18.3-44.2); Mean Corpuscular HGB Conc 30.4 g/dl (32-36); Mean Corpuscular Hemoglobin 28.8 pg (26-34); Mean Corpuscular Volume 94.6 fl (80-100); Mean Platelet Volume 11.4 fl (7.4-10.4); Monocytes Absolute Auto 1.1 K/mm3 (0.1-0.6); Monocytes Percent Auto 56.1 % (2.6-8.5); Neutrophils Absolute Auto 0.5 K/mm3 (1.3-6.7); Platelet Count Result 294 k/mm3 (150-375); Red Blood Count 2.78 M/mm3 (4.6-6.20); Red Cell Distribution Width 19.3 % (11.5-14.5)
[2020-09-08 09:14] LABS: Platelet Estimate Adequate (Adequate)
[2020-09-08 09:15] LABS: Hypochromasia 2+ (NORMAL); Ovalocytes 1+ (NORMAL)
[2020-09-08] MEDS: PANTOPRAZOLE SODIUM IV 40 MG VIAL IV PUSH (09:46)
[2020-09-08] MEDS: HYDROcodone/acetaminophen (*CRX) 5-325 MG TABLET 1 TAB PO (09:48)
--- NOTE | 2020-09-08 11:16 | PCDIET ---
Nutrition follow up. Spoke with nursing today, Patient is tolerating tube feedings of Jevity 1.2 at 40 ml/hr. MD orders for tube feedings to advance by 10 ml/hr q 4 hours to goal rate of 70 ml/hr which is providing patient with 1848 kcals and 85 ml protein. Will continue to monitor every Saturday and Saturday.
[2020-09-08 12:03] LABS: Glucose Point of Care 130 (65-105)
--- NOTE | 2020-09-08 16:10 | PM.IMPN ---
Progress Note: A&P Assessment and Plan (1) Malnutrition: Code(s): E46 - Unspecified protein-calorie malnutrition Status: Acute Assessment and Plan: S/p PEG tube placement. Feedings goal rate in progress (2) Neutropenia: Code(s): D70.9 - Neutropenia, unspecified Status: Acute Assessment and Plan: Stable At patient's baseline. (3) Failure to thrive: Qualifiers: Failure to thrive age range: in adult Qualified Code(s): R62.7 - Adult failure to thrive Status: Acute Assessment and Plan: Will be discharged to [place] (4) Cardiomyopathy: Qualifiers: Cardiomyopathy type: unspecified Qualified Code(s): I42.9 - Cardiomyopathy, unspecified Code(s): I42.9 - Cardiomyopathy, unspecified Status: Acute Assessment and Plan: Stable. (5) Arrhythmia, ventricular: Code(s): I49.9 - Cardiac arrhythmia, unspecified Status: Acute Assessment and Plan: No new events on Telemetry. (6) Sepsis with acute hypoxic respiratory failure: Code(s): A41.9 - Sepsis, unspecified organism; R65.20 - Severe sepsis without septic shock; J96.01 - Acute respiratory failure with hypoxia Status: Acute Assessment and Plan: Resolved. (7) Bacteremia: Code(s): R78.81 - Bacteremia Status: Acute Assessment and Plan: Resolved Negative blood cx (8) Acute encephalopathy: Code(s): G93.40 - Encephalopathy, unspecified Status: Resolved Assessment and Plan: Waxes and wanes. (9) Non-Hodgkin lymphoma in remission: Code(s): C85.90 - Non-Hodgkin lymphoma, unspecified, unspecified site Status: Acute Assessment and Plan: Stable Follow up in the outpatient setting. Subjective Date/time seen: 09/08/20 16:10 States that he is fine. Review of Systems Review of Systems: Narrative: Unable to get as patient is delirious it waxes and wanes. Exam Narrative: Exam Narrative: Lying in bed. Const: General: awake, Physically active, confusion and other (Chronicaly ill looking.) Nutritional Appearance: average body habitus HENMT: Head: normal to inspection and normocephalic Eyes: General: appearance normal, both eyes and all related structures Pupils: Equal, round and reactive pupils present EOM: EOMs intact bilaterally Neck: Neck: no lymphadenopathy, supple and no JVD Resp: Effort & Inspection: normal respiratory effort Auscultation: clear to auscultation bilaterally Cardio: Jugular venous distension: no JVD Rate: regular rate Rhythm: regular rhythm GI: Inspection: other (PEG tube in place.) GI Palp: Yes Soft to palpation and Yes No hepatosplenomegaly present Skin: General skin exam: normal color Rashes: no rashes Neuro: General: CN's II-XI intact bilaterally and confusion Cranial nerves: Yes CN's II-XII intact bilaterally and Yes Equal, round and reactive pupils present Motor exam (neuro): 5/5 motor strength present throughout Extrem: General: full ROM, no joint enlargement and no pedal edema Objective Data Vital Signs Vital Signs: Vital Signs - 24 hr 09/07/20 19:13 09/07/20 19:16 09/07/20 19:17 Temperature Pulse Rate 98 98 98 Respiratory Rate 22 H 24 H 24 H Blood Pressure Pulse Oximetry 97 96 09/07/20 19:25 09/07/20 20:18 09/07/20 20:30 Temperature 97.5 F L Pulse Rate 99 95 95 Respiratory Rate 30 H 36 H Blood Pressure 124/76 Pulse Oximetry 93 09/07/20 20:45 09/07/20 23:42 09/08/20 01:28 Temperature Pulse Rate 95 84 90 Respiratory Rate 36 H 32 H 28 H Blood Pressure Pulse Oximetry 93 92 91 09/08/20 05:28 09/08/20 09:32 09/08/20 14:00 Temperature 97 F L 98.0 F Pulse Rate 55 L 71 Respiratory Rate 40 H Blood Pressure 110/74 142/92 H Pulse Oximetry 93 93 94 Intake/Output Intake/Output: Intake & Output 09/05/20 09/06/20 09/07/20 09/08/20 23:59 23:59 23:59 23:59 Intake Total 2160 421 642 537 Output Total
--- NOTE | 2020-09-08 16:51 | WPDGIPROGNO ---
Progress Note: A&P Assessment and Plan (1) Malnutrition: Code(s): E46 - Unspecified protein-calorie malnutrition Status: Acute Assessment and Plan: tolerating tube feeding by g-tube abdominal binder in place (sometimes he is delirious and start pulling out lines) please call us if questions (2) Anorexia: Code(s): R63.0 - Anorexia Status: Acute (3) Neutropenia: Code(s): D70.9 - Neutropenia, unspecified Status: Acute Assessment and Plan: stable, already received iv antibiotic treatment (4) Acute encephalopathy: Code(s): G93.40 - Encephalopathy, unspecified Status: Resolved (5) Non-Hodgkin lymphoma in remission: Code(s): C85.90 - Non-Hodgkin lymphoma, unspecified, unspecified site Status: Acute Subjective Date/time seen: 09/08/20 16:51 Interval history: tolerating feeding by g-tube at 50ml/h Review of Systems Review of Systems: All systems reviewed & are unremarkable except as noted in HPI and below Exam Const: General: no acute distress Other: anxious, talking but confused HENMT: General nose exam: Normal nares present Eyes: Pupils: Equal, round and reactive pupils present Neck: Neck: supple Resp: Effort & Inspection: normal respiratory effort Auscultation: no crackles Cardio: Rate: regular rate GI: Inspection: non-distended GI Palp: Yes Soft to palpation and No Tenderness to palpation present (GI) Other: g-tube site looks ok, feeding is running Skin: General skin exam: normal color Neuro: Cognition (Neuro): abnormal cognition (sometimes gets confused) Speech: normal speech Psych: Affect: Anxious affect present Objective Data Vital Signs Vital Signs: Vital Signs - 24 hr 09/07/20 19:13 09/07/20 19:16 09/07/20 19:17 Temperature Pulse Rate 98 98 98 Respiratory Rate 22 H 24 H 24 H Blood Pressure Pulse Oximetry 97 96 09/07/20 19:25 09/07/20 20:18 09/07/20 20:30 Temperature 97.5 F L Pulse Rate 99 95 95 Respiratory Rate 30 H 36 H Blood Pressure 124/76 Pulse Oximetry 93 09/07/20 20:45 09/07/20 23:42 09/08/20 01:28 Temperature Pulse Rate 95 84 90 Respiratory Rate 36 H 32 H 28 H Blood Pressure Pulse Oximetry 93 92 91 12/17/20 05:28 09/08/20 09:32 09/08/20 14:00 Temperature 97 F L 98.0 F Pulse Rate 55 L 71 Respiratory Rate 40 H Blood Pressure 110/74 142/92 H Pulse Oximetry 93 93 94 Intake/Output Intake/Output: Intake & Output 09/05/20 09/06/20 09/07/20 09/08/20 23:59 23:59 23:59 23:59 Intake Total 2320 250 642 537 Output Total 0262 574 975 225 Balance 220 -325 -333 312 Meds/Results Medications: Active Medications Generic Name Dose Route Start Last Admin Trade Name Freq PRN Reason Stop Dose Admin Acetaminophen 650 mg 08/05/20 20:35 09/06/20 09:46 Acetaminophen 650 Mg Suppository RECTAL 650 mg Q6H PRN Administration Mild Pain (1-3) or Fever Hydrocodone Bitart/Acetaminophen 1 tab 09/03/20 11:17 09/08/20 09:48 Hydrocodone/Acetaminophen (*Crx) 5-325 Mg Tablet PO 1 tab Q8H PRN Administration Pain Rated 4-6 Albuterol 2 puff 08/05/20 20:35 Albuterol Sulfate (*Sp) Aerosol 1 Puff INHALATION QIDRT PRN Shortness Of Breath Apixaban 5 mg 08/20/20 17:00 08/21/20 09:57 Apixaban 5 Mg Tablet PO 5 mg BID ATUL Administration Dextrose 12.5 gm 08/13/20 16:59 Dextrose 50% 25 Gm/50 Ml Syringe IV PUSH PRN PRN Hypoglycemia Protocol Glucagon 1 mg 08/13/20 16:59 09/07/20 01:50 Glucagon For Inj 1 Mg Vial IM 1 mg PRN PRN Administration Hypoglycemia Protocol Glucose 15 gm 08/13/20 16:59 Glucose Oral Gel 15 Gm Of Glucse In 37.5 Gm Tube PO PRN PRN Hypoglycemia Protocol Dextrose 1,000 mls @ 100 mls/hr 08/13/20 16:59 Dextrose 5% 1,000 Ml IVPB PRN PRN Hypoglycemia Protocol Insulin Aspart 2 - 5 units 08/24/20 12:00 09/08/20 12:00 Insu
[2020-09-08 19:35] LABS: Glucose Point of Care 142 (65-105)
[2020-09-08] MEDS: METOPROLOL TARTRATE 25 MG TABLET PO (20:18)
[2020-09-08] MEDS: ACETAMINOPHEN 650 MG SUPPOSITORY RECTAL (20:19)
[2020-09-09] VITALS (13 sets, daily range): BP systolic 111–129; BP diastolic 63–78; PULSE 52–105; RESP 27–30; TEMP 36.6–37.9; O2SAT 92–96
[2020-09-09 01:28] LABS: Glucose Point of Care 139 (65-105)
[2020-09-09 05:31] LABS: Glucose Point of Care 127 (65-105)
[2020-09-09] MEDS: METOPROLOL TARTRATE 25 MG TABLET PO ×2 (08:51→21:55)
[2020-09-09] MEDS: PANTOPRAZOLE SODIUM IV 40 MG VIAL IV PUSH (08:51)
[2020-09-09] MEDS: ACETAMINOPHEN 650 MG SUPPOSITORY RECTAL (08:55)
--- NOTE | 2020-09-09 11:24 | PCNFU ---
Nutrition Follow-Up Complete: Inadequate oral intake related to altered mental status as evidence by 0% intake over the last five days Goal: Total intake will meet estimated nutrition needs Patient has met current goal. No new goal. Pt current nutrition is Jevity 1.2 @ 70 ml/hr. Nutrition recommendation: Agree Last recorded weight is 101.5 kg. Bowel Motility:+BM 09/08 Labs Reviewed:Glu 127,BUN 36,Alb 2.8 Meds Noted:Lopressor,Protonix,Tylenol Additional Notes: Patient seen today for nutrition follow up today. Tube feedings are currently at goal rate of Jevity 1.2 providing patient with 1848 kcals and 85 gms protein. Patient overnight spiked a fever. I did speak with Care Coordination in regards to type/rate of tube feeding when patient is medically stable to discharge. Monitoring: weight, labs every Saturday and Saturday.
[2020-09-09 12:00] LABS: Glucose Point of Care 122 (65-105)
--- NOTE | 2020-09-09 14:34 | PM.IMPN ---
Progress Note: A&P Assessment and Plan (1) Malnutrition: Code(s): E46 - Unspecified protein-calorie malnutrition Status: Acute Assessment and Plan: S/p PEG tube placement Holding feedings today as patient is severely constipated. (2) Neutropenia: Code(s): D70.9 - Neutropenia, unspecified Status: Acute Assessment and Plan: At patient's baseline. Continue to monitor (3) Failure to thrive: Qualifiers: Failure to thrive age range: in adult Qualified Code(s): R62.7 - Adult failure to thrive Status: Acute Assessment and Plan: Patient was going to go today to extended care facility however spiked a fever. So it's on hold for the time being. Called daughter to give update but was not available left message. (4) Cardiomyopathy: Qualifiers: Cardiomyopathy type: unspecified Qualified Code(s): I42.9 - Cardiomyopathy, unspecified Code(s): I42.9 - Cardiomyopathy, unspecified Status: Acute Assessment and Plan: Unchanged (5) Arrhythmia, ventricular: Code(s): I49.9 - Cardiac arrhythmia, unspecified Status: Acute Assessment and Plan: No new events On Continuous Telemetry. (6) Sepsis with acute hypoxic respiratory failure: Code(s): A41.9 - Sepsis, unspecified organism; R65.20 - Severe sepsis without septic shock; J96.01 - Acute respiratory failure with hypoxia Status: Acute Assessment and Plan: New fever New sepsis work in progress. (7) Bacteremia: Code(s): R78.81 - Bacteremia Status: Acute Assessment and Plan: Repeat blood cx negative In view of new fever we have repeated blood cx. (8) Pneumonia: Qualifiers: Pneumonia type: due to unspecified organism Laterality: bilateral Lung location: unspecified part of lung Qualified Code(s): J18.9 - Pneumonia, unspecified organism Code(s): J18.9 - Pneumonia, unspecified organism Status: Acute Assessment and Plan: Added Cefepime as patient has had prolonged hospital stay. (9) Non-Hodgkin lymphoma in remission: Code(s): C85.90 - Non-Hodgkin lymphoma, unspecified, unspecified site Status: Acute Assessment and Plan: In remission Follow up in the outpatient setting. (10) Acute gouty arthritis: Code(s): M10.9 - Gout, unspecified Status: Acute Assessment and Plan: Appears stable. Subjective Date/time seen: 09/09/20 14:34 Patient had a temp spike over night. Had respiratory distress as well is now back on BiPAP Review of Systems Review of Systems: Narrative: Unable to obtain as patient is delirious. Exam Narrative: Exam Narrative: Acutely ill looking. Const: General: no acute distress (However on BiPAP) Nutritional Appearance: average body habitus HENMT: Head: normal to inspection and normocephalic Ears: hearing grossly normal bilaterally Face and sinus: normal facial exam Eyes: General: appearance normal, both eyes and all related structures Pupils: Equal, round and reactive pupils present EOM: EOMs intact bilaterally Neck: Neck: supple and no JVD Resp: Auscultation: diminished lung sounds on the right Cardio: Rate: regular rate Rhythm: regular rhythm GI: GI Palp: Yes Soft to palpation and Yes No hepatosplenomegaly present Skin: General skin exam: normal color Trauma: no lacerations or abrasions Wounds: no wounds Neuro: General: CN's II-XI intact bilaterally Cranial nerves: Yes CN's II-XII intact bilaterally and Yes Equal, round and reactive pupils present Cognition (Neuro): abnormal cognition (Delirious.) Extrem: General: full ROM and no pedal edema Objective Data Vital Signs Vital Signs: Vital Signs - 24 hr 09/08/20 20:14 09/08/20 20:18 09/08/20 20:19 Temperature 101 F H 101 F H Pulse Rate 115 H 115 H Respiratory Rate 28 H Blood Pressure 121/74 Pulse Oximetry 95 09/08/20 20:25 09/08/20 21:19 09/09/20 00:00 T
[2020-09-09] MEDS: BISACODYL 10 MG SUPPOSITORY RECTAL (15:52)
[2020-09-09] MEDS: DEXTROSE 5%/0.45% SOD CHL 1,000 ML 75 ML IV CONT (17:40)
[2020-09-09 17:44] LABS: Glucose Point of Care 100 (65-105)
[2020-09-09] MEDS: HYDROcodone/acetaminophen (*CRX) 5-325 MG TABLET 1 TAB PO (22:36)
[2020-09-10] VITALS (8 sets, daily range): BP systolic 94–122; BP diastolic 46–83; PULSE 63–102; RESP 20–26; TEMP 36.2–36.4; O2SAT 91–99
[2020-09-10 00:14] LABS: Glucose Point of Care 101 (65-105)
[2020-09-10] MEDS: DEXTROSE 5%/0.45% SOD CHL 1,000 ML 75 ML IV CONT ×2 (05:45→22:10)
[2020-09-10 05:51] LABS: Glucose Point of Care 103 (65-105)
[2020-09-10] MEDS: PANTOPRAZOLE SODIUM IV 40 MG VIAL IV PUSH (08:55)
[2020-09-10 12:11] LABS: Glucose Point of Care 97 (65-105)
--- NOTE | 2020-09-10 15:58 | PM.IMPN ---
Progress Note: A&P Assessment and Plan (1) Malnutrition: Code(s): E46 - Unspecified protein-calorie malnutrition Status: Acute Assessment and Plan: Patient is s/p G-Tube placement. Tolerating feedings. Continue to monitor (2) Neutropenia: Code(s): D70.9 - Neutropenia, unspecified Status: Acute Assessment and Plan: At patient's baseline Continue to monitor (3) Failure to thrive: Qualifiers: Failure to thrive age range: in adult Qualified Code(s): R62.7 - Adult failure to thrive Status: Acute Assessment and Plan: Prolonged hospitalization. Unable to work with PT due to AMS Doris lift at this point. (4) Cardiomyopathy: Qualifiers: Cardiomyopathy type: unspecified Qualified Code(s): I42.9 - Cardiomyopathy, unspecified Code(s): I42.9 - Cardiomyopathy, unspecified Status: Acute Assessment and Plan: Stable Continue to monitor Continue home meds (5) Arrhythmia, ventricular: Code(s): I49.9 - Cardiac arrhythmia, unspecified Status: Acute Assessment and Plan: No new episodes Continue blockade (6) Sepsis with acute hypoxic respiratory failure: Code(s): A41.9 - Sepsis, unspecified organism; R65.20 - Severe sepsis without septic shock; J96.01 - Acute respiratory failure with hypoxia Status: Acute Assessment and Plan: Added Cefepime already on Vanc Await cx Follow ID recs (7) Bacteremia: Code(s): R78.81 - Bacteremia Status: Acute Assessment and Plan: On Vanc (8) Pneumonia: Qualifiers: Pneumonia type: due to unspecified organism Laterality: bilateral Lung location: unspecified part of lung Qualified Code(s): J18.9 - Pneumonia, unspecified organism Code(s): J18.9 - Pneumonia, unspecified organism Status: Acute Assessment and Plan: On Vanc and Cefepime (9) Non-Hodgkin lymphoma in remission: Code(s): C85.90 - Non-Hodgkin lymphoma, unspecified, unspecified site Status: Acute Assessment and Plan: Stable Continue to monitor (10) Acute gouty arthritis: Code(s): M10.9 - Gout, unspecified Status: Acute Assessment and Plan: Appears to be well controlled. (11) Chronic kidney disease, stage III (moderate): Qualifiers: Chronic kidney disease stage 3 subtype: stage 3a (GFR 45-59) Qualified Code(s): N18.31 - Chronic kidney disease, stage 3a Code(s): N18.30 - Chronic kidney disease, stage 3 unspecified Status: Acute Assessment and Plan: Continue to monitor Bun/Cr Avoid nephrotoxins. (12) Generalized weakness: Code(s): R53.1 - Weakness Status: Acute Assessment and Plan: Prolonged hospitalization (13) DANIKA on CPAP: Code(s): G47.33 - Obstructive sleep apnea (adult) (pediatric); Z99.89 - Dependence on other enabling machines and devices Status: Acute Assessment and Plan: Continue CPAP at night. Subjective Date/time seen: 09/10/20 15:58 Opens eyes to calling his name. Review of Systems Review of Systems: Narrative: Unable to get a thorough review as patient is delirious. Exam Narrative: Exam Narrative: Lying in bed, BiPAP on, opens eyes spontaneously. Const: General: other (Chronically ill looking.) Nutritional Appearance: average body habitus Limitations: altered mental status HENMT: Head: normal to inspection and normocephalic Ears: hearing grossly normal bilaterally General nose exam: Normal external nose present Face and sinus: normal facial exam Eyes: General: appearance normal, both eyes and all related structures Pupils: Equal, round and reactive pupils present EOM: EOMs intact bilaterally Neck: Neck: no lymphadenopathy, supple and no JVD Resp: Effort & Inspection: normal respiratory effort Auscultation: clear to auscultation bilaterally Cardio: Rate: regular rate Rhythm: regular rhythm GI: Inspection:
[2020-09-10 17:56] LABS: Glucose Point of Care 110 (65-105)
[2020-09-10] MEDS: METOPROLOL TARTRATE 25 MG TABLET PO (20:20)
[2020-09-11] VITALS (9 sets, daily range): BP systolic 112–116; BP diastolic 61–69; PULSE 92–115; RESP 22–26; TEMP 36.9–37.4; O2SAT 86–98
[2020-09-11 00:25] LABS: Glucose Point of Care 127 (65-105)
[2020-09-11 05:43] LABS: Glucose Point of Care 110 (65-105)
[2020-09-11] MEDS: PANTOPRAZOLE SODIUM IV 40 MG VIAL IV PUSH (09:48)
[2020-09-11] MEDS: DEXTROSE 5%/0.45% SOD CHL 1,000 ML 75 ML IV CONT (09:58)
--- NOTE | 2020-09-11 10:33 | PCDIET ---
Nutrition tube feeding screen complete: Inadequate oral intake related to altered mental status as evidence by 0% intake over the last five days Total intake will meet estimated nutrition needs Goal: goal has been being met, continue goal Pt current nutrition is Jevity 1.2 at 40ml/hr . Nutrition recommendation: increased to goal of 70ml/hr as tolerated Last recorded weight is 102.6 kg, down from 108.9kg on assessment Bowel Motility: 09/10 BM Labs Reviewed:Glucose 110 Meds Noted: Dulcolax, Protonix, Insulin, [place] Additional Notes: Tube feeding screen received. Pt has been on Jevity 1.2 at goal of 70ml/hr, tolerating well. Tube feedings were on hold and now restarted at 40ml/hr with plans to increase to 30ml q 4 hrs to goal of 70ml/hr. Over 22hrs, at goal, tube feedings will provide patient with 1848 kcals and 85 gms protein, meeting 100% of nutrition needs. Following every T/F.
[2020-09-11] MEDS: METOPROLOL TARTRATE 25 MG TABLET FEED TUBE ×2 (11:11→20:38)
[2020-09-11 13:00] LABS: Glucose Point of Care 129 (65-105)
--- NOTE | 2020-09-11 15:32 | PM.IMPN ---
Progress Note: A&P Assessment and Plan (1) DANIKA on CPAP: Code(s): G47.33 - Obstructive sleep apnea (adult) (pediatric); Z99.89 - Dependence on other enabling machines and devices Status: Acute Assessment and Plan: Continue CPAP at night time. (2) Malnutrition: Code(s): E46 - Unspecified protein-calorie malnutrition Status: Acute Assessment and Plan: S/p G tube placement Feedings have been re started Tolerating feedings (3) Neutropenia: Code(s): D70.9 - Neutropenia, unspecified Status: Acute Assessment and Plan: At patient's baseline. (4) Failure to thrive: Qualifiers: Failure to thrive age range: in adult Qualified Code(s): R62.7 - Adult failure to thrive Status: Acute Assessment and Plan: Going to NH. (5) Cardiomyopathy: Qualifiers: Cardiomyopathy type: unspecified Qualified Code(s): I42.9 - Cardiomyopathy, unspecified Code(s): I42.9 - Cardiomyopathy, unspecified Status: Acute Assessment and Plan: Stable. (6) Arrhythmia, ventricular: Code(s): I49.9 - Cardiac arrhythmia, unspecified Status: Acute Assessment and Plan: No new events on Telemetry. (7) Sepsis with acute hypoxic respiratory failure: Code(s): A41.9 - Sepsis, unspecified organism; R65.20 - Severe sepsis without septic shock; J96.01 - Acute respiratory failure with hypoxia Status: Acute Assessment and Plan: Resolved. (8) Bacteremia: Code(s): R78.81 - Bacteremia Status: Acute Assessment and Plan: Repeat blood cx no growth. (9) Non-Hodgkin lymphoma in remission: Code(s): C85.90 - Non-Hodgkin lymphoma, unspecified, unspecified site Status: Acute Assessment and Plan: Stable. (10) Chronic kidney disease, stage III (moderate): Qualifiers: Chronic kidney disease stage 3 subtype: stage 3a (GFR 45-59) Qualified Code(s): N18.31 - Chronic kidney disease, stage 3a Code(s): N18.30 - Chronic kidney disease, stage 3 unspecified Status: Acute Assessment and Plan: Stable Continue to monitor. (11) Generalized weakness: Code(s): R53.1 - Weakness Status: Acute Assessment and Plan: Going to NH (12) Fever: Code(s): R50.9 - Fever, unspecified Status: Acute Assessment and Plan: Afebrile now > 48 hours. Subjective Date/time seen: 09/11/20 15:32 Patient on CPAP Review of Systems Review of Systems: Narrative: Unable to obtain as patient is delirious. Exam Narrative: Exam Narrative: Lying in bed, CPAP on. Const: General: comfortable, no acute distress and other (Chronically ill looking.) Nutritional Appearance: average body habitus Orientation/consciousness: Other orientation findings (Delirious, waxes and wanes.) HENMT: Head: normal to inspection and normocephalic Ears: hearing grossly normal bilaterally General nose exam: Normal external nose present Face and sinus: normal facial exam Eyes: General: appearance normal, both eyes and all related structures Pupils: Equal, round and reactive pupils present EOM: EOMs intact bilaterally Neck: Neck: no lymphadenopathy, supple and no JVD Resp: Auscultation: clear to auscultation bilaterally Cardio: Rate: regular rate Rhythm: regular rhythm GI: GI Palp: Yes Soft to palpation and Yes No hepatosplenomegaly present Skin: General skin exam: normal color Lesions: no lesions Rashes: no rashes Trauma: no lacerations or abrasions Wounds: no wounds Neuro: General: CN's II-XI intact bilaterally Cranial nerves: Yes CN's II-XII intact bilaterally and Yes Equal, round and reactive pupils present Cognition (Neuro): abnormal cognition (Delirious.) Extrem: General: no joint enlargement and other (B/L pedal edema.) Objective Data Vital Signs Vital Signs: Vital Signs - 24 hr 09/10/20 18:38 09/10/20 20:00 09/10/20 20:20 Temperature 97.4 F L
[2020-09-11 19:10] LABS: Glucose Point of Care 119 (65-105)
[2020-09-11] MEDS: HYDROcodone/acetaminophen (*CRX) 5-325 MG TABLET 1 TAB PO (20:46)
[2020-09-12] VITALS (10 sets, daily range): BP systolic 100; BP diastolic 43–75; PULSE 60–111; RESP 20–22; TEMP 37.2–37.9; O2SAT 91–97
[2020-09-12] MEDS: DEXTROSE 5%/0.45% SOD CHL 1,000 ML 75 ML IV CONT ×2 (00:44→12:16)
[2020-09-12 00:58] LABS: Glucose Point of Care 124 (65-105)
[2020-09-12 05:50] LABS: Basophils Percent Auto 1.7 % (0.2-1.2); Eosinophils Absolute Auto 0.1 K/mm3 (0-0.3); Hematocrit 27.6 % (42.0-52.0); Hemoglobin 7.9 g/dL (14.0-18.0); Immature Granulocyte Absolute 0.05 K/mm3 (0.00-0.031); Immature Granulocyte Percent A 2.8 % (0-0.5); Lymphocytes Absolute Auto 0.17 K/mm3 (0.9-3.2); Lymphocytes Percent Auto 9.7 % (18.3-44.2); Mean Corpuscular HGB Conc 28.6 g/dl (32-36); Mean Corpuscular Volume 97.9 fl (80-100); Mean Platelet Volume 11.3 fl (7.4-10.4); Monocytes Absolute Auto 0.9 K/mm3 (0.1-0.6); Monocytes Percent Auto 51.7 % (2.6-8.5); Neutrophils Absolute Auto 0.5 K/mm3 (1.3-6.7); Neutrophils Percent Auto 30.1 % (45.5-73.1); Platelet Count Result 229 k/mm3 (150-375); Red Blood Count 2.82 M/mm3 (4.6-6.20); Red Cell Distribution Width 19.6 % (11.5-14.5)
[2020-09-12 05:53] LABS: Glucose Point of Care 118 (65-105)
[2020-09-12 05:59] LABS: INR 1.2; Prothrombin Time 16.2 Seconds (11.1-14.7)
[2020-09-12 06:00] LABS: Partial Thromboplastin Time 43.3 SECONDS (22.3-36.8)
[2020-09-12 06:18] LABS: White Blood Count 1.8 K/mm3 (4.5-10.0)
[2020-09-12 06:21] LABS: Ovalocytes 2+ (NORMAL); Platelet Estimate Adequate (Adequate)
[2020-09-12 06:38] LABS: Alanine Aminotransferase 13 U/L (4-50); Albumin Level 2.7 g/dL (3.5-5.1); Alkaline Phosphatase 515 U/L (38-126); Anion Gap 4 mmol/L (8-16); Aspartate Amino Transferase 27 U/L (17-59); Bilirubin,Total 2.1 mg/dL (0.2-1.3); Blood Urea Nitrogen 29 mg/dL (9-20); Calcium 8.8 mg/dL (8.4-10.2); Carbon Dioxide 29 mmol/L (22-30); Chloride 109 mmol/L (98-107); Estimated CRCL calculation 92 ml/min; Estimated Glomerular Filt Rate > 60; Glucose 123 mg/dL (75-110); Magnesium 1.9 mg/dL (1.6-2.3); Sodium 142 mmol/L (137-145)
[2020-09-12 06:50] LABS: Transferrin 88 mg/dL (206-381)
[2020-09-12] MEDS: PANTOPRAZOLE SODIUM IV 40 MG VIAL IV PUSH (09:19)
[2020-09-12] MEDS: METOPROLOL TARTRATE 25 MG TABLET FEED TUBE ×2 (09:24→21:23)
--- NOTE | 2020-09-12 11:25 | PCSTNOTE ---
Please refer to the Bedside Swallow Evaluation in the EMR. Please note, silent aspiration cannot be ruled out at bedside.
[2020-09-12 12:26] LABS: Glucose Point of Care 123 (65-105)
[2020-09-12] MEDS: ACETAMINOPHEN 650 MG SUPPOSITORY RECTAL (14:20)
--- NOTE | 2020-09-12 14:26 | PM.IMPN ---
Progress Note: A&P Assessment and Plan (1) Fever: Code(s): R50.9 - Fever, unspecified Status: Acute Assessment and Plan: Now afebrile for 72 hours Repeat blood cx no growth (2) DANIKA on CPAP: Code(s): G47.33 - Obstructive sleep apnea (adult) (pediatric); Z99.89 - Dependence on other enabling machines and devices Status: Acute Assessment and Plan: Continue CPAP at night time. (3) Malnutrition: Code(s): E46 - Unspecified protein-calorie malnutrition Status: Acute Assessment and Plan: S/p PEG tube placement. (4) Neutropenia: Code(s): D70.9 - Neutropenia, unspecified Status: Acute Assessment and Plan: Chronic At patient's baseline. (5) Back pain: Code(s): M54.9 - Dorsalgia, unspecified Status: Acute Assessment and Plan: Continue pain management. (6) Failure to thrive: Qualifiers: Failure to thrive age range: in adult Qualified Code(s): R62.7 - Adult failure to thrive Status: Acute Assessment and Plan: Going to extended care facility. (7) Cardiomyopathy: Qualifiers: Cardiomyopathy type: unspecified Qualified Code(s): I42.9 - Cardiomyopathy, unspecified Code(s): I42.9 - Cardiomyopathy, unspecified Status: Acute Assessment and Plan: Stable (8) Arrhythmia, ventricular: Code(s): I49.9 - Cardiac arrhythmia, unspecified Status: Acute Assessment and Plan: No new episodes Stable (9) Sepsis with acute hypoxic respiratory failure: Code(s): A41.9 - Sepsis, unspecified organism; R65.20 - Severe sepsis without septic shock; J96.01 - Acute respiratory failure with hypoxia Status: Acute Assessment and Plan: Resolved. (10) Bacteremia: Code(s): R78.81 - Bacteremia Status: Acute Assessment and Plan: Repeated blood cx with no growth (11) Acute encephalopathy: Code(s): G93.40 - Encephalopathy, unspecified Status: Resolved Assessment and Plan: Improved Waxes and wanes. (12) Non-Hodgkin lymphoma in remission: Code(s): C85.90 - Non-Hodgkin lymphoma, unspecified, unspecified site Status: Acute Assessment and Plan: On remission. (13) Generalized weakness: Code(s): R53.1 - Weakness Status: Acute Assessment and Plan: Unable to participate on PT/OT due to delirium. Awaiting Covid 19 swab before he can be discharged. Subjective Date/time seen: 09/12/20 14:26 States that feels fine. Review of Systems Review of Systems: Narrative: Unable to obtain as patient is delirious. Exam Narrative: Exam Narrative: Lying in bed. Const: General: cooperative, comfortable, no acute distress, alert, awake, Physically active and other (chronically ill looking.) Nutritional Appearance: average body habitus HENMT: Head: normocephalic Ears: hearing grossly normal bilaterally General nose exam: Normal external nose present Face and sinus: normal facial exam Eyes: General: appearance normal, both eyes and all related structures Pupils: Equal, round and reactive pupils present EOM: EOMs intact bilaterally Neck: Neck: no lymphadenopathy, supple and no JVD Resp: Auscultation: clear to auscultation bilaterally Cardio: Rate: regular rate Rhythm: regular rhythm GI: GI Palp: Yes Soft to palpation and Yes No hepatosplenomegaly present Skin: General skin exam: normal color Lesions: no lesions Rashes: no rashes Trauma: no lacerations or abrasions Wounds: no wounds Neuro: General: oriented to person, CN's II-XI intact bilaterally and other (Delirious waxes and wanes.) Cranial nerves: Yes CN's II-XII intact bilaterally and Yes Equal, round and reactive pupils present Speech: normal speech Extrem: General: other (B/L LE edema.) Objective Data Vital Signs Vital Signs: Vital Signs - 24 hr 09/11/20 17:45 09/11/20 17:46 09/11/20 17:47 Temperature Pulse Rate
[2020-09-12 16:54] LABS: SARS-CoV-2 RNA PCR Negative
[2020-09-12 18:14] LABS: Glucose Point of Care 135 (65-105)
[2020-09-13 00:01] LABS: Glucose Point of Care 129 (65-105)
[2020-09-13] MEDS: DEXTROSE 5%/0.45% SOD CHL 1,000 ML 75 ML IV CONT (02:23)
[2020-09-13 02:38] VITALS: RESP 22; O2SAT 97
[2020-09-13 03:28] VITALS: PULSE 64; O2SAT 94
[2020-09-13 06:24] LABS: Glucose Point of Care 115 (65-105)
[2020-09-13 06:26] VITALS: BP 101/48; PULSE 105; RESP 24; TEMP 37.7; O2SAT 94
[2020-09-13 08:00] VITALS: O2SAT 95
[2020-09-13] MEDS: PANTOPRAZOLE SODIUM IV 40 MG VIAL IV PUSH (08:02)
[2020-09-13 08:07] VITALS: PULSE 88
[2020-09-13] MEDS: METOPROLOL TARTRATE 25 MG TABLET FEED TUBE (08:07)
--- NOTE | 2020-09-13 10:30 | PM.DS ---
DS: Admitting Diagnosis Admitting Diagnosis Admitting Diagnosis: 1. Fever 2. Neutropenia 3. Failure to thrive DS: Discharge Diagnosis Discharge Diagnosis (1) Fever: Code(s): R50.9 - Fever, unspecified Status: Acute Assessment and Plan: Now afebrile for 72 hours Repeat blood cx no growth (2) DANIKA on CPAP: Code(s): G47.33 - Obstructive sleep apnea (adult) (pediatric); Z99.89 - Dependence on other enabling machines and devices Status: Acute Assessment and Plan: Continue CPAP at night time. (3) Malnutrition: Code(s): E46 - Unspecified protein-calorie malnutrition Status: Acute Assessment and Plan: S/p PEG tube placement. (4) Neutropenia: Code(s): D70.9 - Neutropenia, unspecified Status: Acute Assessment and Plan: Chronic At patient's baseline. (5) Back pain: Code(s): M54.9 - Dorsalgia, unspecified Status: Acute Assessment and Plan: Continue pain management. (6) Failure to thrive: Qualifiers: Failure to thrive age range: in adult Qualified Code(s): R62.7 - Adult failure to thrive Status: Acute Assessment and Plan: Going to extended care facility. (7) Cardiomyopathy: Qualifiers: Cardiomyopathy type: unspecified Qualified Code(s): I42.9 - Cardiomyopathy, unspecified Code(s): I42.9 - Cardiomyopathy, unspecified Status: Acute Assessment and Plan: Stable (8) Arrhythmia, ventricular: Code(s): I49.9 - Cardiac arrhythmia, unspecified Status: Acute Assessment and Plan: No new episodes Stable (9) Sepsis with acute hypoxic respiratory failure: Code(s): A41.9 - Sepsis, unspecified organism; R65.20 - Severe sepsis without septic shock; J96.01 - Acute respiratory failure with hypoxia Status: Acute Assessment and Plan: Resolved. (10) Bacteremia: Code(s): R78.81 - Bacteremia Status: Acute Assessment and Plan: Repeated blood cx with no growth (11) Acute encephalopathy: Code(s): G93.40 - Encephalopathy, unspecified Status: Resolved Assessment and Plan: Improved Waxes and wanes. (12) Non-Hodgkin lymphoma in remission: Code(s): C85.90 - Non-Hodgkin lymphoma, unspecified, unspecified site Status: Acute Assessment and Plan: On remission. (13) Generalized weakness: Code(s): R53.1 - Weakness Status: Acute Assessment and Plan: Unable to participate on PT/OT due to delirium. Awaiting Covid 19 swab before he can be discharged. DS: Summary Hospital Course Reason for hospitalization: Harvey Sorenson is a 75 year old male who has been to the hospital on multiple occasion for gouty arthritis. The patient has been seen by orthopedic physicians in the past and has had fluid aspirated from his rest that determined that the patient does have gouty arthritis. The patient was unable to go to a skilled nursing because he had been receiving Rituxan for non-Hodgkin follicular lymphoma. He is on maintenance Rituxan which is preventing the patient from going to a skilled nursing. The patient had gone to rehab at 1 time but signed himself AMA. His Rituxan was soon March and then again in June. The patient believes he is due for another [address] abraham was notified and Dr. abraham did explain to the ER doctor that the patient is no longer on that treatment. On 06/10/2020 the patient was discharged from the hospital. He had been having generalized weakness for months. The patient lives home alone and cannot live home alone any further. The patient has gouty arthritis and has such severe pain that he cannot function at home. The patient was admitted to a snf unit on 05/25/2020 where he left against medical advice. It looks like the patient left to be placed in a sniff placement at rehab at [facility]. I explained to the patient that the best treatment for him
[2020-09-13 12:03] LABS: Glucose Point of Care 135 (65-105)
== END 2020-09-13 13:00 | DRG 871 ==
LOC: ANH3MEDSUR 08-09 11:02 → ANH3MED 08-23 07:34 → ANH2MED 09-14 13:19 → ANH3MED 09-14 13:19 → ANH3MEDSUR 09-14 13:19 → ANHIMU 09-14 13:19
PROVIDERS: Family Medicine; Internal Medicine; Internal Medicine Cardiovascular Disease; Internal Medicine Gastroenterology; Internal Medicine Infectious Disease; Nurse Practitioner Adult Health; Radiology Diagnostic Radiology; Admitting Provider Student in an Organized Health Care Education/Training Program; PCP Internal Medicine; Visit Provider Internal Medicine
PROC: 0DJ08ZZ Inspection of Upper Intestinal Tract, Via Natural or Artificial Opening Endoscopic (ICD-10-PCS; CPT 43235; principal; 2020-08-24 07:30)
PROC: 0DH63UZ Insertion of Feeding Device into Stomach, Percutaneous Approach (ICD-10-PCS; CPT 43246; 2020-08-24 07:30)
PROC: 07DR3ZX Extraction of Iliac Bone Marrow, Percutaneous Approach, Diagnostic (ICD-10-PCS; principal; 2020-08-29 11:00)
PROC: 0DH63UZ Insertion of Feeding Device into Stomach, Percutaneous Approach (ICD-10-PCS; CPT 43246; principal; 2020-09-06 14:15)
DX: A41.02 Sepsis due to Methicillin resistant Staphylococcus aureus (principal); G93.41 Metabolic encephalopathy; J96.01 Acute respiratory failure with hypoxia; J15.212 Pneumonia due to Methicillin resistant Staphylococcus aureus; E87.0 Hyperosmolality and hypernatremia; I42.9 Cardiomyopathy, unspecified; I13.0 Hypertensive heart and chronic kidney disease with heart failure and stage 1 through stage 4 chronic kidney disease, or unspecified chronic kidney disease; I47.2 Ventricular tachycardia; E46 Unspecified protein-calorie malnutrition; C85.90 Non-Hodgkin lymphoma, unspecified, unspecified site; R65.20 Severe sepsis without septic shock; D70.1 Agranulocytosis secondary to cancer chemotherapy; T45.1X5A Adverse effect of antineoplastic and immunosuppressive drugs, initial encounter; M10.9 Gout, unspecified; D64.9 Anemia, unspecified; G47.33 Obstructive sleep apnea (adult) (pediatric); E11.22 Type 2 diabetes mellitus with diabetic chronic kidney disease; J44.9 Chronic obstructive pulmonary disease, unspecified; I48.91 Unspecified atrial fibrillation; E66.01 Morbid (severe) obesity due to excess calories; Z68.36 Body mass index [BMI] 36.0-36.9, adult; N18.31 Chronic kidney disease, stage 3a; I50.9 Heart failure, unspecified; Z20.828 Contact with and (suspected) exposure to other viral communicable diseases; R62.7 Adult failure to thrive; M54.9 Dorsalgia, unspecified; R13.10 Dysphagia, unspecified; M19.90 Unspecified osteoarthritis, unspecified site
CPT/HCPCS: 36415; 36430; 36600; 38222; 43246; 43752; 70551; 71045; 74018; 80048; 80053; 80202; 82565; 82607; 82728; 82746; 82805; 83540; 83550; 83605; 83615; 83735; 83880; 84100; 84145; 84466; 84478; 85025; 85027; 85055; 85610; 85730; 86140; 86850; 86900; 86901; 86923; 87040; 87077; 87086; 87186; 87635; 88184; 88185; 88305; 88311; 88313; 88342; 92526; 92610; 92611; 93005; 93306; 94003; 94640; 95816; 97161; 97165; 97166; 99211; A9270; C9113; C9803; G0463; J0131; J0692; J1610; J1815; J2250; J2270; J2704; J2920; J3370; J3480; J7030; J7050; J7070; J7120; P9016; Q5106; U0003